=== PATIENT | female | born 1955 | race Caucasian/White ===

== ENCOUNTER 2016-09-25 09:13 | Inpatient (IN) | payer OTHER ==
[~2016-09-25] VITALS: Ht 160 cm; Wt 98.1 kg
[~2016-09-25 09:13] MED LIST: ALBU1AER9 INH; BACL1TAB PEG; CLOP1TAB15 PEG; DEXT40GE PEG; DLCS PR; DOCU-94 PO; Enteral Nutrition Formula PEG; FLUO10CA48 PEG; GLGKIT IM; HYDR-5688 PEG; INSU100I SC; IPRA-2 INH; LAMO1TAB21 PEG; LEVO75TA5 PEG; LIDO1CRE EXT; MOML PEG; PLMINS INH; SODI1ENE PR; TYL325X PEG; VALP250S16 PEG; WATER STERILE PEG
[2016-09-25 10:06] LABS: BASO % 0.2 %; BASO ABS # 0.01 K/uL (0-0.2); EOS % 1.8 %; HEMATOCRIT 26.7 % (37-47); IG% 1.6 %; LYMPH % 19.2 %; LYMPH ABS # 1.18 K/uL (1.2-3.4); MEAN CELL VOLUME 101.9 fL (80-100); MEAN CORPUSCULAR HEMOGLOBIN 32.8 pg (25-34); MEAN CORPUSCULAR HGB CONC 32.2 g/dl (32-36); MEAN PLATELET VOLUME 10.4 fL (7.4-10.4); MONO % 6.7 %; NEUT % 70.5 %; PLATELET COUNT 150 K/uL (130-400); RED BLOOD COUNT 2.62 M/uL (4.2-5.4); WHITE BLOOD COUNT 6.15 K/uL (4.8-10.8)
--- NOTE | 2016-09-25 10:12 | DIAGNOSTIC IMAGING REPORT ---
CHEST ONE VIEW PORTABLE CLINICAL HISTORY: altered mental status COMPARISON STUDY: 06/29/2016 FINDINGS: The heart is at the upper limits of normal in size. There is diffuse elevation of the interstitium. The findings likely reflect pulmonary vascular congestion although an interstitial inflammatory process could appear similar. There is no lobar consolidation. There are no significant pleural effusions. IMPRESSION: Diffuse elevation of the interstitium. Clinical correlation in regards to pulmonary vascular congestion is recommended. No evidence of lobar consolidation Electronically signed by: Prosper Grubbs M.D. 09/25/2016 10:10 AM
[2016-09-25 10:16] LABS: PARTIAL THROMBOPLASTIN RATIO 0.9; PROTHROMBIN TIME (PATIENT) 10.2 SECONDS (9.0-12.0)
[2016-09-25 10:23] LABS: AST/SGOT 13 U/L (15-37); BLOOD UREA NITROGEN 34 mg/dl (7-18); BUN/CREATININE RATIO 30.6 (10-20); CALCIUM 10.2 mg/dl (8.5-10.1); CARBON DIOXIDE 41 mmol/L (21-32); CHLORIDE 86 mmol/L (98-107); GLUCOSE 195 mg/dl (70-99); POTASSIUM 5.1 mmol/L (3.5-5.1); SODIUM 132 mmol/L (136-145)
[2016-09-25] MEDS ORDERED: RISP2TAB22 PEG ×2 (10:26)
[2016-09-25] MEDS ORDERED: INSDGI SC ×2 (10:26)
[2016-09-25] MEDS ORDERED: NUTR1.5L4 PEG (10:26)
[2016-09-25] MEDS ORDERED: MULT-506 PEG (10:26)
[2016-09-25 10:45] LABS: ALB/GLOB RATIO 0.8 (0.9-2); ALKALINE PHOSPHATASE 60 U/L (45-117); ALT/SGPT 14 U/L (12-78)
--- NOTE | 2016-09-25 10:51 | DIAGNOSTIC IMAGING REPORT ---
CT HEAD WITHOUT CONTRAST (CT) CLINICAL HISTORY: Acute change in mental status COMPARISON STUDY: 06/29/2016 TECHNIQUE: Axial CT of the brain is performed from the vertex to the skull base. IV contrast was not administered for this examination. CT DOSE: 810.83 mGy.cm FINDINGS: No intra or extra-axial mass lesions are visualized. There is no CT evidence of acute cortical infarction. There is no evidence of midline shift. There is no acute hemorrhage. No calvarial fractures are visualized. Increased density in the region of the left medial temporal lobe is likely artifactual. There are patchy white matter hypodensities, likely on a small vessel basis. There is no evidence of pathologic ventricular dilatation. There is indwelling nasal airway. There is no acute sinusitis. IMPRESSION: No acute intracranial findings Electronically signed by: Prosper Grubbs M.D. 09/25/2016 10:49 AM
[2016-09-25 11:08] LABS: COMPLETE YES
[2016-09-25 11:35] LABS: ARTERIAL BLD GAS O2 SATURATION 87.9 % (90-95); ARTERIAL BLOOD GAS BASE EXCESS 15.2 mEq/L (-9-1.8); ARTERIAL BLOOD GAS HCO3 41 mmol/L (19-24); ARTERIAL BLOOD GAS PO2 57 mm/Hg (80-95); ARTERIAL BLOOD GAS pH 7.42 (7.35-7.45)
[2016-09-25 11:36] LABS: ALLEN TEST POS (POS); O2 ADMINISTRATION 4 L
--- NOTE | 2016-09-25 12:21 | EMERGENCY ROOM VISIT NOTE ---
History Report prepared by Monik: Elder Ingram Under the Supervision of: Dr. Cheko Jhaveri D.O. First contact with patient: 10:11 Chief Complaint: WEAKNESS Stated Complaint: AMS/WEAK History of Present Illness The patient is a 60 year old female who presents to the Emergency Room with complaints of a persistent change in mental status that started around 2 days ago. Per the patient's family, the patient has been harder to arouse and has been sleeping more often. She was just discharged from the [facility] due to a recent stroke. The patient cannot walk and cannot use her left arm due to the stroke. The patient also has persistent problems talking. Per the patient's family, the patient has been cheerful and happy on baseline, and could talk and respond "yes" or "no" to questions. However, over the past 2 days, the patient has been much more unresponsive than her baseline. She has also been having some upper respiratory congestion. The patient gets 24 hour care at home. She has not complained of any pain over the last 2 days, so she has not been given her normal pain medications. All her medications are administered via a feeding tube. Currently, the patient gives a thumbs-up when asked if she has any pain, meaning that she states that she is having pain. Source of History: patient, family, nursing staff Onset: 2 days ago Position: other (global - change in mental status) Timing: other (persistent) Note: Associated symptoms: Harder to arouse and has been sleeping more often, much more unresponsive than her baseline, also having some upper respiratory congestion. Currently complains of pain. Review of Systems See HPI for pertinent positives & negatives. A total of 10 systems reviewed and were otherwise negative. Past Medical & Surgical Medical Problems: (1) Asthma, Unspecified (2) Bronchitis (3) COPD (chronic obstructive pulmonary disease) (4) Diab W Oth Spec Manifest, Type Ii Or Unspec Type, Not Uncntr (5) Epilepsy (6) Hemiparesis affecting dominant side as late effect of cerebrovascular accident (CVA) (7) Hyperlipidemia (8) Hypertension Nos (9) Mild Mental Retardation (10) Schizoaffective Disorder, Unspecified (11) Schizophrenia Nos-Unspec (12) Slurred speech (13) Stroke Family History Diabetes mellitus Heart disease Social History Smoking Status: Former Smoker Alcohol Use: none Drug Use: none Marital Status: Housing Status: lives with significant other Occupation Status: unemployed Current/Historical Medications Scheduled Baclofen (Lioresal), 10 MG PEG BID Budesonide (Inhalation) (Pulmicort Respules 0.5MG/2ML), 0.5 MG INH BIDR Clopidogrel (Plavix), 75 MG PEG DAILY Docusate Sodium (Colace), 1 CAP PO BID Fluoxetine (Prozac), 10 MG PEG DAILY Insulin Glargine (Lantus), 16 UNITS SC QAM Insulin Glargine (Lantus), 28 UNITS SC QPM Insulin Lispro (Human) (Humalog), 1 DOSE SC DIRECTED Ipratropium-Albuterol (Ipratropium Eagle/Albut), 3 ML INH QID Lamotrigine (Lamotrigine), 100 MG PEG BID Levothyroxine Sodium (Levothyroxine Sodium), 75 MCG PEG DAILY Multivitamin (Multivitamin), 1 TAB PEG DAILY Nutritional Supplements (Isosource 1.5 Eulogio), 250 ML PEG 5XD Risperidone (Risperdal), 2 MG PEG QAM Risperidone (Risperdal), 4 MG PEG QPM Valproic Acid Syrup (Depakene), 10 ML PEG TID [Water, Sterile], 1 EA PEG Q6 Scheduled PRN Acetaminophen (Tylenol), 650 MG PEG TID PRN for Pain Albuterol Sulfate (Proair Hfa), 2 PUFFS INH Q4H PRN for Wheezing Bisacodyl (Bisac-Evac), 10 MG UT every 4 days PRN for Constipation Dextrose (Diabetic Use) (Insta-Glucose), 1 APPLN PEG for glucose less than 60 Glucagon (Glucagon Emergency Kit), 1 MG IM prn PRN for HYPOGLYCEMIA PROTOCOL Lidocaine Hcl (Lidocaine), 1 DOSE EXT Q8H PRN for Pain Magnesium Hydroxide (Milk Of Magnesia), 30 ML PO DIRECTED PRN for Constipation Sodium Phosphates (Fleet Enema Six Pack), 1 UNIT UT DAILY PRN for constipation if dulcolax not w Allergies Coded Allergies: Sulfa Antibiotics (Verified Allergy, Mild, RASH, 09/25/16) Physical Exam Vital Signs Date Time Temp Pulse Resp B/P Pulse Ox O2 Delivery O2 Flow Rate FiO2 09/25/16 13:50 91 99 35 09/25/16 13:39 95 16 159/81 95 Nasal Cannula 4.0 09/25/16 12:26 91 15 159/85 95 Nasal Cannula 4.0 09/25/16 12:00 90 9 137/72 92 Nasal Cannula 4.0 09/25/16 11:00 89 14 137/72 93 Nasal Cannula 4.0 09/25/16 10:16 87 15 125/64 94 Nasal Cannula 2.0 09/25/16 09:38 91 09/25/16 09:21 98 Nasal Cannula 2.0 09/25/16 09:20 89 Room Air 09/25/16 09:20 37.0 88 24 117/51 97 Nasal Cannula 2.0 Physical Exam CONSTITUTIONAL/VITAL SIGNS: Reviewed / noted above. GENERAL: Non-toxic in appearance. INTEGUMENTARY: Warm, dry, and [place]. HEAD: Normocephalic. EYES: without scleral icterus or trauma. ENT/OROPHARYNX: clear and moist. LYMPHADENOPATHY/NECK: Is supple without lymphadenopathy or meningismus. RESPIRATORY: Patient has periodic apnea (Biot's respiration), breath sounds are diminished. CARDIOVASCULAR: Regular rate and rhythm. Systolic ejection murmur. GI/ABDOMEN: Soft and nontender. No organomegaly or pulsatile mass. No rebound or guarding. Normal bowel sounds. EXTREMITIES: Warm and well perfused. BACK: No CVA tenderness. NEUROLOGICAL: Intact without focal deficits. PSYCHIATRIC: normal affect. MUSCULOSKELETAL: Normally developed with good muscle tone. Medical Decision & Procedures ER Provider Diagnostic Interpretation: X ray results and stated below per my interpretation and radiologist interpretation. Other radiology results and stated below per my review and radiologist interpretation: CHEST ONE VIEW PORTABLE CLINICAL HISTORY: altered mental status COMPARISON STUDY: 06/29/2016 FINDINGS: The heart is at the upper limits of normal in size. There is diffuse elevation of the interstitium. The findings likely reflect pulmonary vascular congestion although an interstitial inflammatory process could appear similar. There is no lobar consolidation. There are no significant pleural effusions. IMPRESSION: Diffuse elevation of the interstitium. Clinical correlation in regards to pulmonary vascular congestion is recommended. No evidence of lobar consolidation Electronically signed by: Prosper Grubbs M.D. 09/25/2016 10:[address] HEAD WITHOUT CONTRAST (CT) CLINICAL HISTORY: Acute change in mental status COMPARISON STUDY: 06/29/2016 TECHNIQUE: Axial CT of the brain is performed from the vertex to the skull base. IV contrast was not administered for this examination. CT DOSE: 810.83 mGy.cm FINDINGS: No intra or extra-axial mass lesions are visualized. There is no CT evidence of acute cortical infarction. There is no evidence of midline shift. There is no acute hemorrhage. No calvarial fractures are visualized. Increased density in the region of the left medial temporal lobe is likely artifactual. There are patchy white matter hypodensities, likely on a small vessel basis. There is no evidence of pathologic ventricular dilatation. There is indwelling nasal airway. There is no acute sinusitis. IMPRESSION: No acute intracranial findings Electronically signed by: Prosper Grubbs M.D. 09/25/2016 10:49 AM Laboratory Results 09/25/16 09:10 Red Blood Count 2.62, Mean Corpuscular Volume 101.9, Mean Corpuscular Hemoglobin 32.8, Mean Corpuscular Hemoglobin Concent 32.2, Mean Platelet Volume 10.4, Neutrophils (%) (Auto) 70.5, Lymphocytes (%) (Auto) 19.2, Monocytes (%) ( Auto) 6.7, Eosinophils (%) (Auto) 1.8, Basophils (%) (Auto) 0.2, Neutrophils # ( Auto) 4.34, Lymphocytes # (Auto) 1.18, Monocytes # (Auto) 0.41, Eosinophils # ( Auto) 0.11, Basophils # (Auto) 0.01 09/25/16 09:10 Test 09/25/16 09:10 09/25/16 10:12 09/25/16 11:07 09/25/16 12:26 White Blood Count 6.15 K/uL (4.8-10.8) Red Blood Count 2.62 M/uL (4.2-5.4) Hemoglobin 8.6 g/dL (12.0-16.0) Hematocrit 26.7 % (37-47) Mean Corpuscular Volume 101.9 fL (80-100) Mean Corpuscular Hemoglobin 32.8 pg (25-34) Mean Corpuscular Hemoglobin Concent 32.2 g/dl (32-36) Platelet Count 150 K/uL (130-400) Mean Platelet Volume 10.4 fL (7.4-10.4) Neutrophils (%) (Auto) 70.5 % Lymphocytes (%) (Auto) 19.2 % Monocytes (%) (Auto) 6.7 % Eosinophils (%) (Auto) 1.8 % Basophils (%) (Auto) 0.2 % Neutrophils # (Auto) 4.34 K/uL (1.4-6.5) Lymphocytes # (Auto) 1.18 K/uL (1.2-3.4) Monocytes # (Auto) 0.41 K/uL (0.11-0.59) Eosinophils # (Auto) 0.11 K/uL (0-0.5) Basophils # (Auto) 0.01 K/uL (0-0.2) RDW Standard Deviation 56.3 fL (36.4-46.3) RDW Coefficient of Variation 15.3 % (11.5-14.5) Immature Granulocyte % (Auto) 1.6 % Immature Granulocyte # (Auto) 0.10 K/uL (0.00-0.02) Basophilic Stippling 1+ Prothrombin Time 10.2 SECONDS (9.0-12.0) Prothromb Time International Ratio 1.0 (0.9-1.1) Activated Partial Thromboplast Time 24.3 SECONDS (21.0-31.0) Partial Thromboplastin Ratio 0.9 Anion Gap 6.0 mmol/L (3-11) Estimated GFR () 64.1 Estimated GFR (Non- 55.3 BUN/Creatinine Ratio 30.6 (10-20) Calcium Level 10.2 mg/dl (8.5-10.1) Total Bilirubin 0.2 mg/dl (0.2-1) Aspartate Amino Transf (AST/SGOT) 13 U/L (15-37) Alanine Aminotransferase (ALT/SGPT) 14 U/L (12-78) Alkaline Phosphatase 60 U/L (45-117) Total Protein 6.2 gm/dl (6.4-8.2) Albumin 2.7 gm/dl (3.4-5.0) Globulin 3.5 gm/dl (2.5-4.0) Albumin/Globulin Ratio 0.8 (0.9-2) Thyroid Stimulating Hormone (TSH) 8.560 uIu/ml (0.300-4.500) Bedside Glucose 262 mg/dl (70-90) Arterial Blood pH 7.42 (7.35-7.45) Arterial Blood Partial Pressure CO2 65 mmHg (35-46) Arterial Blood Partial Pressure O2 57 mm/Hg (80-95) Arterial Blood HCO3 41 mmol/L (19-24) Arterial Blood Oxygen Saturation 87.9 % (90-95) Arterial Blood Base Excess 15.2 mEq/L (-9-1.8) Arterial Blood Gas Delivery 4 L Talon Test POS (POS) Laboratory results as stated above per my review. ECG Indication: altered mental status Rate (beats per minute): 90 Rhythm: normal sinus Findings: no ectopy, other (LVH, no acute injury) Change: no significant change (from June 29 2016) ED Course 1012: Previous medical records were reviewed. The patient was evaluated in room B2. A complete history and physical examination was performed. 1222: I reevaluated the patient and she is resting comfortably. The patient's family expressed agreement and understanding of the treatment plan. The patient will be evaluated for further treatment. 1227: I discussed the patient with Dr. López - [facility] hospitalist - he will evaluate the patient for further treatment. Medical Decision This is a 60-year-old female who presents to the ED with a chief complaint of change in mental status and periodic apnea. The patient was recently discharged from the [facility]. She was sent home with 24-hour care. The nursing staff states the patient has had decreased in her responsiveness in mentation. She is normally able to speak and answer basic questions although she cannot carry on a conversation. She has history of CVA with some left-sided paralysis that is chronic. The patient is for the most part bedbound. The patient on exam has periodic episodes of apnea where she stops breathing for up to 6-10 seconds. She is chronically on 2 L of oxygen at home. The patient is a poor historian. She did not respond verbally to me at all. She did raise her right arm on command. She appears to be very sleepy and has difficulty keeping her eyes open without stimulation physically. An EKG shows a normal sinus rhythm at a rate of 90. Her hemoglobin is 8.6. Bicarbonate is elevated at 41. Glucose is 262. CT scan of the brain did not show any acute process. An ABG shows a normal acid base status at a 7.42. She is hypercarbic with a PCO2 of 65. Her saturations are low at 88% on 4 L with a PaO2 of 57. Because of the patient's hypercarbia and altered mental status, she 'll be seen by the hospitalist service for further inpatient care. She will be placed on BiPAP. Differential diagnosis: Etiologies such as metabolic, infection, hypoglycemia, electrolyte abnormalities , cardiac sources, intracerebral event, toxicologic, neurologic, as well as others were entertained. Consults Time Called: 1219 Consulting Physician: Dr. Rene SCHRADER hospitalist Returned Call: 1227 I discussed the patient with Dr. Rene SCHRADER hospitalist - he will evaluate the patient for further treatment. Impression Primary Impression: Acute respiratory failure with hypoxia and hypercarbia Additional Impressions: Altered mental state, Anemia Scribe Attestation The scribe's documentation has been prepared under my direction and personally reviewed by me in its entirety. I confirm that the note above accurately reflects all work, treatment, procedures, and medical decision making performed by me. Departure Information Dispostion Being Evaluated By Hospitalist Referrals No Doctor, Assigned (PCP) Patient Instructions A Signature Page, My [facility]
[2016-09-25] MEDS ORDERED: NITROGLYCERIN 0.4 MG SL PER TAB CHARGE SL PRN (13:15)
[2016-09-25] MEDS ORDERED: ALBUTEROL HFA 8 GM INHALER INH PRN (13:15)
[2016-09-25] MEDS ORDERED: ACETAMINOPHEN 325 MG TAB PEG PRN (13:15)
[2016-09-25] MEDS ORDERED: ONDANSETRON INJ 2 MG/ML 2 ML VIAL IV PRN (13:15)
[2016-09-25] MEDS ORDERED: BISACODYL 10 MG SUPP PR PRN (13:15)
[2016-09-25] MEDS ORDERED: GLUCAGON 1 MG IM PRN (13:15)
[2016-09-25] MEDS ORDERED: IMPACT LIQ 1000 ML BAG PEG SCH (13:15)
[2016-09-25] MEDS ORDERED: MAGNESIUM HYDROXIDE SUSP 30 ML UDC PO PRN (13:15)
[2016-09-25] MEDS ORDERED: LIDOCAINE HCL 2% JELLY 30 ML TUBE EXT PRN (13:15)
[2016-09-25] MEDS ORDERED: INSULIN LISPRO SC SCH (13:45)
[2016-09-25 13:50] VITALS: PULSE 91; O2SAT 99
--- NOTE | 2016-09-25 13:56 | History and Physical ---
History & Physical Date & Time of Service: Sep 25, 2016 at 13:30 Chief Complaint: Ams/Weak Primary Care Physician: No Doctor, Assigned History of Present Illness Source: hospital records Patient is a 60 y/o female, with PMHx of COPD, DM, hypothyroidism, hyperlipidemia, epilepsy, and CVA, who presented to the ED because of altered mental status and apnea. Patient is nonverbal, and no family is present. History is coming from ED report. Per report, patient stated experiencing altered mental status two days ago. She has been hard to arouse and sleeping more. She was recently discharged from [facility] due to a stroke. Patient has 24 hour care at home. Patient has also been experiencing upper respiratory congestion. She has not complained of any pain to the family. All of patients medications are administered via PEG due to recent stroke and difficulty with swallowing. Patient was admitted in May for similar symptoms. At that time, a complete neuro and psychiatry evaluation was completed. Neuro exam was benign resulting in no changes in medications. ROS cannot be obtained. Past Medical/Surgical History Medical Problems: (1) Asthma, Unspecified Status: Chronic (2) Bronchitis Status: Resolved (3) COPD (chronic obstructive pulmonary disease) Status: Chronic (4) Diab W Oth Spec Manifest, Type Ii Or Unspec Type, Not Uncntr Status: Chronic (5) Epilepsy Status: Chronic (6) Hyperlipidemia Status: Chronic (7) Hypertension Nos Status: Chronic (8) Mild Mental Retardation Status: Chronic (9) Schizoaffective Disorder, Unspecified Status: Chronic (10) Schizophrenia Nos-Unspec Status: Chronic Family History Diabetes mellitus Heart disease Social History Smoking Status: Former Smoker Drug Use: none Marital Status: Housing status: care home Occupational Status: unemployed Immunizations History of Influenza Vaccine: Yes Influenza Vaccine Date: Jul 24, 2010 History of Tetanus Vaccine?: Yes History of Pneumococcal: Yes Pneumococcal Date: Jul 15, 2009 History of Hepatitis B Vaccine: Unknown Multi-Drug Resistant Organisms History of MDRO: No Allergies Coded Allergies: Sulfa Antibiotics (Verified Allergy, Mild, RASH, 09/25/16) Home Medications Scheduled Baclofen (Lioresal), 10 MG PEG BID Budesonide (Inhalation) (Pulmicort Respules 0.5MG/2ML), 0.5 MG INH BIDR Clopidogrel (Plavix), 75 MG PEG DAILY Docusate Sodium (Colace), 1 CAP PO BID Fluoxetine (Prozac), 10 MG PEG DAILY Insulin Glargine (Lantus), 16 UNITS SC QAM Insulin Glargine (Lantus), 28 UNITS SC QPM Insulin Lispro (Human) (Humalog), 1 DOSE SC DIRECTED Ipratropium-Albuterol (Ipratropium [place]/Albut), 3 ML INH QID Lamotrigine (Lamotrigine), 100 MG PEG BID Levothyroxine Sodium (Levothyroxine Sodium), 75 MCG PEG DAILY Multivitamin (Multivitamin), 1 TAB PEG DAILY Nutritional Supplements (Isosource 1.5 Eulogio), 250 ML PEG 5XD Risperidone (Risperdal), 2 MG PEG QAM Risperidone (Risperdal), 4 MG PEG QPM Valproic Acid Syrup (Depakene), 10 ML PEG TID [Water, Sterile], 1 EA PEG Q6 Scheduled PRN Acetaminophen (Tylenol), 650 MG PEG TID PRN for Pain Albuterol Sulfate (Proair Hfa), 2 PUFFS INH Q4H PRN for Wheezing Bisacodyl (Bisac-Evac), 10 MG [place] every 4 days PRN for Constipation Dextrose (Diabetic Use) (Insta-Glucose), 1 APPLN PEG for glucose less than 60 Glucagon (Glucagon Emergency Kit), 1 MG IM prn PRN for HYPOGLYCEMIA PROTOCOL Lidocaine Hcl (Lidocaine), 1 DOSE EXT Q8H PRN for Pain Magnesium Hydroxide (Milk Of Magnesia), 30 ML PO DIRECTED PRN for Constipation Sodium Phosphates (Fleet Enema Six Pack), 1 UNIT [place] DAILY PRN for constipation if dulcolax not w Physical Exam Vital Signs Date Time Temp Pulse Resp B/P Pulse Ox O2 Delivery O2 Flow Rate FiO2 09/25/16 12:26 91 15 159/85 95 Nasal Cannula 4.0 09/25/16 12:00 90 9 137/72 92 Nasal Cannula 4.0 09/25/16 11:00 89 14 137/72 93 Nasal Cannula 4.0 09/25/16 10:16 87 15 125/64 94 Nasal Cannula 2.0 09/25/16 09:38 91 09/25/16 09:21 98 Nasal Cannula 2.0 09/25/16 09:20 89 Room Air 09/25/16 09:20 37.0 88 24 117/51 97 Nasal Cannula 2.0 General Appearance: no apparent distress Head: normocephalic, atraumatic Eyes: PERRL Neck: supple Respiratory/Chest: no respiratory distress, no accessory muscle use, + decreased breath sounds, + pertinent finding (coarse breath sounds) Cardiovascular: regular rate, rhythm, + systolic murmur Abdomen/GI: normal bowel sounds, non tender, soft Back: normal inspection Extremities/Musculoskelatal: no pedal edema Neurologic/Psych: + pertinent finding (nonverbal, no physical reposones to exam ) Skin: normal color, warm/dry, no rash Diagnostics Laboratory Results Results Past 24 Hours Test 09/25/16 09:10 09/25/16 10:12 09/25/16 11:07 09/25/16 12:26 Range/Units White Blood Count 6.15 4.8-10.8 K/uL Red Blood Count 2.62 4.2-5.4 M/uL Hemoglobin 8.6 12.0-16.0 g/dL Hematocrit 26.7 37-47 % Mean Corpuscular Volume 101.9 80-100 fL Mean Corpuscular Hemoglobin 32.8 25-34 pg Mean Corpuscular Hemoglobin Concent 32.2 32-36 g/dl Platelet Count 150 130-400 K/uL Mean Platelet Volume 10.4 7.4-10.4 fL Neutrophils (%) (Auto) 70.5 % Lymphocytes (%) (Auto) 19.2 % Monocytes (%) (Auto) 6.7 % Eosinophils (%) (Auto) 1.8 % Basophils (%) (Auto) 0.2 % Neutrophils # (Auto) 4.34 1.4-6.5 K/uL Lymphocytes # (Auto) 1.18 1.2-3.4 K/uL Monocytes # (Auto) 0.41 0.11-0.59 K/uL Eosinophils # (Auto) 0.11 0-0.5 K/uL Basophils # (Auto) 0.01 0-0.2 K/uL RDW Standard Deviation 56.3 36.4-46.3 fL RDW Coefficient of Variation 15.3 11.5-14.5 % Immature Granulocyte % (Auto) 1.6 % Immature Granulocyte # (Auto) 0.10 0.00-0.02 K/uL Basophilic Stippling 1+ Prothrombin Time 10.2 9.0-12.0 SECONDS Prothromb Time International Ratio 1.0 0.9-1.1 Activated Partial Thromboplast Time 24.3 21.0-31.0 SECONDS Partial Thromboplastin Ratio 0.9 Sodium Level 132 136-145 mmol/L Potassium Level 5.1 3.5-5.1 mmol/L Chloride Level 86 98-107 mmol/L Carbon Dioxide Level 41 21-32 mmol/L Anion Gap 6.0 3-11 mmol/L Blood Urea Nitrogen 34 7-18 mg/dl Creatinine 1.10 0.60-1.20 mg/dl Estimated GFR () 64.1 Estimated GFR (Non- 55.3 BUN/Creatinine Ratio 30.6 10-20 Random Glucose 195 70-99 mg/dl Calcium Level 10.2 8.5-10.1 mg/dl Total Bilirubin 0.2 0.2-1 mg/dl Aspartate Amino Transf (AST/SGOT) 13 15-37 U/L Alanine Aminotransferase (ALT/SGPT) 14 12-78 U/L Alkaline Phosphatase 60 45-117 U/L Total Protein 6.2 6.4-8.2 gm/dl Albumin 2.7 3.4-5.0 gm/dl Globulin 3.5 2.5-4.0 gm/dl Albumin/Globulin Ratio 0.8 0.9-2 Thyroid Stimulating Hormone (TSH) 8.560 0.300-4.500 uIu/ml Bedside Glucose 262 70-90 mg/dl Arterial Blood pH 7.42 7.35-7.45 Arterial Blood Partial Pressure CO2 65 35-46 mmHg Arterial Blood Partial Pressure O2 57 80-95 mm/Hg Arterial Blood HCO3 41 19-24 mmol/L Arterial Blood Oxygen Saturation 87.9 90-95 % Arterial Blood Base Excess 15.2 -9-1.8 mEq/L Arterial Blood Gas Delivery 4 L Talon Test POS POS Diagnostic Radiology CT HEAD WITHOUT CONTRAST (CT) CLINICAL HISTORY: Acute change in mental status COMPARISON STUDY: 06/29/2016 TECHNIQUE: Axial CT of the brain is performed from the vertex to the skull base. IV contrast was not administered for this examination. CT DOSE: 810.83 mGy.cm FINDINGS: No intra or extra-axial mass lesions are visualized. There is no CT evidence of acute cortical infarction. There is no evidence of midline shift. There is no acute hemorrhage. No calvarial fractures are visualized. Increased density in the region of the left medial temporal lobe is likely artifactual. There are patchy white matter hypodensities, likely on a small vessel basis. There is no evidence of pathologic ventricular dilatation. There is indwelling nasal airway. There is no acute sinusitis. IMPRESSION: No acute intracranial findings Electronically signed by: Prosper Grubbs M.D. 09/25/2016 10:49 AM The status of this report is Signed. Draft = Not yet reviewed or approved by Radiologist. Signed = Reviewed and approved by Radiologist. CHEST ONE VIEW PORTABLE CLINICAL HISTORY: altered mental status COMPARISON STUDY: 06/29/2016 FINDINGS: The heart is at the upper limits of normal in size. There is diffuse elevation of the interstitium. The findings likely reflect pulmonary vascular congestion although an interstitial inflammatory process could appear similar. There is no lobar consolidation. There are no significant pleural effusions. IMPRESSION: Diffuse elevation of the interstitium. Clinical correlation in regards to pulmonary vascular congestion is recommended. No evidence of lobar consolidation Electronically signed by: Prosper Grubbs M.D. 09/25/2016 10:10 AM The status of this report is Signed. Draft = Not yet reviewed or approved by Radiologist. Signed = Reviewed and approved by Radiologist. Impression Assessment and Plan 60 y/o female, with PMHx of COPD, DM, hypothyroidism, hyperlipidemia, epilepsy, and CVA, who presented to the ED because of altered mental status and apnea. Altered mental status: -Admit tele -CT of head with no acute findings -CXR suggest pulmonary congestion, one dose 40 mg IV Lasix now --Echo in 05/2016 EF of 55-60% with diastolic dysfunction -IV Levaquin, check CXR tomorrow AM -Pending UA -Follow PRP -Hypercarbic with PCO2 of 61. However, seems baseline compared to previous admissions. pH of 7.42 CVA: -Continue Plavix 75 mg PEG daily Epilepsy--VA acid low at 49 -Continue Valproic acid 10 ml PEG TID Lamotrigine 100 mg PEG BID. -Phenytoin and Valproic acid levels pending Diabetes mellitus type II--Last HgbA1c checked on 03/18/16 and was 9.9 -Continue Lantus 16 units q am and 28 units qhs and insulin pump 5 units q6h -BSG AC & HS COPD -Continue Combivent QIDR and budesonide BIDR Schizophrenia -Continue Risperidone 2 mg PEG q am and 4 mg PEG qhs Anemia -Hgb 8.6 at admission, appears baseline compared to previous records -Follow CBC Hypothyroidism -Synthroid 75 mcg PEG qd increased to 88 mcg -TSH of 8.5 on admission Anxiety/depression -Continue Prozac 10 mg PEG qd DVT prophylaxis -Chemical therapy held due to low hgb -LISA hose and SCDs ?Code Status -No family present, patient is nonverbal. -At last admission in May 2016, patient was a LEVEL I, FULL. Will make full code at this time, needs to be discussed in next 24 hours. Level of Care Telemetry Resuscitation Status FULL RESUSCITATION VTE Prophylaxis VTE Risk Assessment Done? Y/N: Yes Risk Level: High Given or contraindicated: T.E.D. Stockings, SCD's
[2016-09-25 15:53] VITALS: BP 132/78; PULSE 92; TEMP 36.7; O2SAT 100; BMI 38.3
[2016-09-25] MEDS ORDERED: PNEUMOCOCCAL ADMINISTRATION CHARGE ONE (17:15)
[2016-09-25] MEDS ORDERED: INFLUENZA ADMINISTRATION CHARGE ONE (17:15)
[2016-09-25] MEDS ORDERED: INFLUENZA VIRUS QUAD VACCINE 0.5 ML SYR IM. ONE (17:30)
[2016-09-25] MEDS ORDERED: GLUCOSE 10 TABS/TUBE PO PRN ×4 (18:00→21:00)
[2016-09-25] MEDS ORDERED: GLUCAGON FOR INJ 1 MG VIAL SQ PRN ×4 (18:00→21:00)
[2016-09-25] MEDS ORDERED: GLUCOSE 40% GEL 15 GM TUBE PO PRN ×4 (18:00→21:00)
[2016-09-25] MEDS ORDERED: WATER STERILE PEG SCH (18:00)
[2016-09-25] MEDS ORDERED: PNEUMOCOCCAL POLYSACCHARIDES 25 MCG/0.5 ML VIAL/SYR IM. ONE (18:00)
[2016-09-25] MEDS ORDERED: DEXTROSE 50% 50 ML SYR IV PRN ×4 (18:00→21:00)
[2016-09-25] MEDS ORDERED: FUROSEMIDE INJ 40 MG in SYRINGE 0 ML IV ONE (18:00)
[2016-09-25] MEDS: LEVOFLOXACIN / D5W 500 MG in PREMIXED IN D5W 100 ML IV SCH (18:56)
[2016-09-25 19:40] VITALS: BP 148/77; PULSE 71; TEMP 36.5; O2SAT 100
[2016-09-25] MEDS ORDERED: FUROSEMIDE INJ 40 MG in SYRINGE 0 ML IV STA (19:41)
[2016-09-25] MEDS: BUDESONIDE 0.5 MG/2 ML VIAL (PULMICORT) INH SCH (19:42)
[2016-09-25] MEDS: ALBUT/IPRATROP 3MG/0.5MG NEB 3 ML VIAL INH SCH (19:42)
[2016-09-25 19:46] VITALS: PULSE 68; O2SAT 97
[2016-09-25 19:48] VITALS: PULSE 68; O2SAT 97
[2016-09-25 20:04] VITALS: O2SAT 97
[2016-09-25] MEDS: INSULIN ASPART 100 UNITS/ML 3 ML PEN SC SCH (21:00)
[2016-09-25] MEDS ORDERED: LANTUS PER UNIT CHARGE SC SCH (21:00)
--- NOTE | 2016-09-25 21:06 | HISTORY & PHYSICAL EXAMINATION ---
DATE OF ADMISSION: 09/25/2016 ADDENDUM This is done by physical bar assistant, Renea Ayalaluciobridger. This patient was seen and evaluated in detail by me. She was kind of awake but nonverbal and having coughing and congestion and was a poor historian, most of the information obtained from the ER staff. The case discussed with the PA in detail and her plan and management was addressed in detail. ALEJANDRINA
[2016-09-25] MEDS: RISPERIDONE 2 MG TAB PEG SCH (21:21)
[2016-09-25] MEDS: VALPROIC ACID 500 MG/10 ML UDP PEG SCH (21:21)
[2016-09-25] MEDS: BACLOFEN 10 MG TAB PEG SCH (21:21)
[2016-09-25] MEDS: INSULIN GLARGINE SOLOSTAR 100 UNITS/ML 3 ML PEN SC SCH (22:45)
[2016-09-25] MEDS: DOCUSATE SODIUM 100 MG/10 ML UDC PO SCH (22:46)
[2016-09-26] VITALS (19 sets, daily range): BP systolic 124–166; BP diastolic 61–86; PULSE 76–100; TEMP 36–37.4; O2SAT 92–100
[2016-09-26 05:18] LABS: URINE APPEARANCE CLOUDY (CLEAR); URINE BILIRUBIN NEG (NEG); URINE COLOR YELLOW; URINE NITRITE NEG (NEG); URINE PH 7.5 (4.5-7.5); URINE SPECIFIC GRAVITY 1.008 (1.000-1.030); UROBILINOGEN NEG (NEG); ZZUR CULT IF INDIC CLEAN CATCH YES
[2016-09-26 05:19] LABS: MANUAL MICROSCOPIC REQUIRED? NO; REVIEW REQ? NO; SULFASALICYLIC ACID POS (NEG)
[2016-09-26] MEDS: PEPTAMEN 1.5 CAL 1000ML BAG PEG SCH ×5 (05:47→18:38)
[2016-09-26] MEDS: LEVOTHYROXINE 88 MCG TAB PEG SCH (05:48)
[2016-09-26] MEDS: BUDESONIDE 0.5 MG/2 ML VIAL (PULMICORT) INH SCH ×2 (07:24→19:23)
[2016-09-26] MEDS: ALBUT/IPRATROP 3MG/0.5MG NEB 3 ML VIAL INH SCH ×4 (07:24→19:23)
[2016-09-26] MEDS: FLUOXETINE HCL 20 MG/5 ML PO SCH (08:20)
[2016-09-26] MEDS: MULTIVITAMINS W/MINERALS LIQUID PO SCH (08:20)
[2016-09-26] MEDS: RISPERIDONE 2 MG TAB PEG SCH ×2 (08:20→21:02)
[2016-09-26] MEDS: VALPROIC ACID 500 MG/10 ML UDP PEG SCH ×3 (08:20→21:01)
[2016-09-26] MEDS: CLOPIDOGREL BISULFATE 75 MG TAB PEG SCH (08:20)
[2016-09-26] MEDS: BACLOFEN 10 MG TAB PEG SCH ×2 (08:21→21:02)
[2016-09-26] MEDS: DOCUSATE SODIUM 100 MG/10 ML UDC PO SCH ×2 (08:21→21:01)
--- NOTE | 2016-09-26 08:30 | DIAGNOSTIC IMAGING REPORT ---
SINGLE VIEW CHEST CLINICAL HISTORY: Apnea. Abnormal breath sounds on physical examination. FINDINGS: An AP, portable, upright chest radiograph is compared to study dated 09/25/2016 and correlated with chest CT dated 04/05/2016. The examination is degraded by portable technique, large body habitus, and patient rotation. The cardiomediastinal silhouette is unremarkable. There are low lung volumes with bibasilar atelectasis and mild elevation of the right hemidiaphragm. Interstitial thickening is unchanged from yesterday. No large pleural effusion or pneumothorax is seen. The skeletal structures are osteopenic. The bony thorax is grossly intact. Cholecystectomy clips are seen in the right upper quadrant. IMPRESSION: Interstitial thickening is similar in appearance to yesterday. No lobar consolidation or pleural effusion is identified. Electronically signed by: Dante Esqueda M.D. 09/26/2016 8:28 AM
[2016-09-26] MEDS: INSULIN ASPART 100 UNITS/ML 3 ML PEN SC SCH ×4 (08:36→20:49)
[2016-09-26] MEDS ORDERED: LANTUS PER UNIT CHARGE SC SCH (09:00)
[2016-09-26] MEDS ORDERED: INSULIN GLARGINE SOLOSTAR 100 UNITS/ML 3 ML PEN SC SCH (09:00)
[2016-09-26] MEDS ORDERED: FLUOXETINE HCL 10 MG CAP PO SCH (09:00)
[2016-09-26] MEDS ORDERED: MULTIVITAMINS W/MINERALS LIQUID PO SCH (09:00)
[2016-09-26] MEDS: LEVOFLOXACIN / D5W 500 MG in PREMIXED IN D5W 100 ML IV SCH (10:33)
--- NOTE | 2016-09-26 11:45 | Neurology Consultation ---
Neurology Consultation Date of Consultation: Sep 26, 2016. Attending Physician: Cher Stein MD Primary Care Physician: No Doctor, Assigned Reason for Consultation: Change in mental status History of Present Illness The patient is a 60-year-old female who is known to me. She has a past medical history of seizure disorder, probably mixed type, diabetic peripheral neuropathy , and schizoaffective disorder. She follows with psychiatry at [facility] as well. Her epilepsy has been well controlled on Lamictal and Depakote. Depakote is managed has been managed by her psychiatrist. She was admitted to [facility] this past February for a right pontine stroke and has residual, chronic, left hemiplegia and dysphagia. She is dependent on a feeding tube and is bedbound. The patient presented to the emergency department yesterday for further evaluation of confusion and lethargy for the past 2 days. She has been observed to exhibit apneic episodes in the emergency department. She has a history of COPD and chronic hypercarbia. She has been evaluated previously by both and Dr. Diaz for both obstructive sleep apnea and chronic alveolar hypoventilation complicated by significant excessive daytime somnolence. I am not certain how well controlled her multiple chronic respiratory issues are. The patient exhibits lethargy and frequent sonorous breath sounds during my evaluation. Past Medical/Surgical History Medical Problems: (1) Acute renal failure Status: Acute (2) Acute respiratory failure with hypoxia and hypercarbia Status: Acute (3) Altered mental state Status: Acute (4) Altered mental status Status: Acute (5) Anemia Status: Acute (6) Apneic episode Status: Acute (7) CVA (cerebral vascular accident) Status: Acute (8) CVA (cerebral vascular accident) Status: Acute (9) Hypoxia Status: Acute (10) Ischemic stroke Status: Acute Family History Diabetes and heart disease Social History Smoking Status: Former smoker Drug Use: none Marital Status: Housing Status: lives with significant other Occupation Status: unemployed Allergies Coded Allergies: Sulfa Antibiotics (Verified Allergy, Mild, RASH, 09/25/16) Current Inpatient Medications Current Inpatient Medications Medications (Trade) Dose Ordered Sig/Tristian Route Start Time Stop Time Status Last Admin Dose Admin Ondansetron HCl (Zofran Inj) 4 mg Q6H PRN IV 09/25/16 13:15 10/25/16 13:14 Nitroglycerin (Nitrostat Tab) 0.4 mg UD PRN SL 09/25/16 13:15 10/25/16 13:14 Acetaminophen (Tylenol Tab) 650 mg TID PRN PEG 09/25/16 13:15 10/25/16 13:14 Albuterol (Ventolin Hfa Inhaler) 2 puffs Q4H PRN INH 09/25/16 13:15 10/25/16 13:14 Baclofen (Lioresal Tab) 10 mg BID PEG 09/25/16 21:00 10/25/16 20:59 09/26/16 08:21 10 MG Bisacodyl (Dulcolax Supp) 10 mg DAILY PRN NE 09/25/16 13:15 10/25/16 13:14 Budesonide (Pulmicort Respules 0.5MG/ 2ML Neb Soln) 0.5 mg BIDR INH 09/25/16 20:00 10/25/16 19:59 09/26/16 07:24 0.5 MG Clopidogrel Bisulfate (plAVix TAB) 75 mg DAILY PEG 09/26/16 09:00 10/26/16 08:59 09/26/16 08:20 75 MG Docusate Sodium (coLACE SYRUP) 100 mg BID PO 09/25/16 21:00 10/25/16 20:59 09/26/16 08:21 100 MG Albuterol/ Ipratropium (Duoneb) 3 ml QIDR INH 09/25/16 16:00 10/25/16 15:59 09/26/16 07:24 3 ML Lamotrigine (Lamictal Tab) 100 mg BID PEG 09/25/16 21:00 10/25/16 20:59 09/26/16 08:21 100 MG Levothyroxine Sodium (Synthroid Tab) 88 mcg DAILYBB PEG 09/26/16 06:00 10/26/16 05:59 09/26/16 05:48 88 MCG Magnesium Hydroxide (Milk Of Magnesia Susp) 30 ml DAILY PRN PO 09/25/16 13:15 10/25/16 13:14 Multivitamins (Multivitamin Tab) 1 tab DAILY GT 09/26/16 09:00 10/26/16 08:59 UNV Risperidone (Risperdal Tab) 2 mg QAM PEG 09/26/16 09:00 10/26/16 08:59 09/26/16 08:20 2 MG Risperidone (Risperdal Tab) 4 mg QPM PEG 09/25/16 21:00 10/25/16 20:59 09/25/16 21:21 4 MG Valproic Acid (Depakene Syrup) 500 mg TID PEG 09/25/16 21:00 10/25/16 20:59 09/26/16 08:20 500 MG Lidocaine HCl (Xylocaine Jelly 2%) 1 ml Q8H PRN EXT 09/25/16 13:15 10/25/16 13:14 Insulin Aspart SLIDING SCALE G... ACHS SC 09/25/16 21:00 10/25/16 20:59 09/26/16 08:36 1 UNITS Levofloxacin/Prmx (Levaquin / D5W/ Premixed D5W) 100 ml @ 100 mls/hr DAILY@1100 IV 09/25/16 18:00 10/05/16 17:59 09/26/16 10:33 100 MLS/HR Enteral Nutritional Formula (Peptamen 1.5) 250 ml 0600,0900,1200,1500,1800 PEG 09/26/16 06:00 10/26/16 05:59 09/26/16 08:20 250 ML Fluoxetine HCl (Prozac Soln) 10 mg DAILY PO 09/26/16 09:00 10/26/16 08:59 09/26/16 08:20 10 MG Glucose (Glucose 40% Gel) 15-30 GRAMS 15 GRAMS... UD PRN PO 09/25/16 18:00 10/25/16 17:59 Glucose (Glucose Chew Tab) 4-8 Tablets 4 Tabl... UD PRN PO 09/25/16 18:00 10/25/16 17:59 Dextrose (Dextrose 50% 50ML Syringe) 25-50ML OF 50% DW IV FOR... UD PRN IV 09/25/16 18:00 10/25/16 17:59 Glucagon (Glucagon Inj) 1 mg UD PRN SQ 09/25/16 18:00 10/25/16 17:59 Glucose (Glucose 40% Gel) 15-30 GRAMS 15 GRAMS... UD PRN PO 09/25/16 19:00 10/25/16 18:59 Glucose (Glucose Chew Tab) 4-8 Tablets 4 Tabl... UD PRN PO 09/25/16 19:00 10/25/16 18:59 Dextrose (Dextrose 50% 50ML Syringe) 25-50ML OF 50% DW IV FOR... UD PRN IV 09/25/16 19:00 10/25/16 18:59 Glucagon (Glucagon Inj) 1 mg UD PRN SQ 09/25/16 19:00 10/25/16 18:59 Glucose (Glucose 40% Gel) 15-30 GRAMS 15 GRAMS... UD PRN PO 09/25/16 20:30 10/25/16 20:29 Glucose (Glucose Chew Tab) 4-8 Tablets 4 Tabl... UD PRN PO 09/25/16 20:30 10/25/16 20:29 Dextrose (Dextrose 50% 50ML Syringe) 25-50ML OF 50% DW IV FOR... UD PRN IV 09/25/16 20:30 10/25/16 20:29 Glucagon (Glucagon Inj) 1 mg UD PRN SQ 09/25/16 20:30 10/25/16 20:29 Insulin Glargine (Lantus Solostar Pen) 16 unit QAM SC 09/26/16 09:00 10/26/16 08:59 09/26/16 08:22 16 UNIT Insulin Glargine (Lantus Solostar Pen) 28 unit QPM SC 09/25/16 21:00 10/25/16 20:59 09/25/16 22:45 28 UNIT Glucose (Glucose 40% Gel) 15-30 GRAMS 15 GRAMS... UD PRN PO 09/25/16 21:00 10/25/16 20:59 Glucose (Glucose Chew Tab) 4-8 Tablets 4 Tabl... UD PRN PO 09/25/16 21:00 10/25/16 20:59 Dextrose (Dextrose 50% 50ML Syringe) 25-50ML OF 50% DW IV FOR... UD PRN IV 09/25/16 21:00 10/25/16 20:59 Glucagon (Glucagon Inj) 1 mg UD PRN SQ 09/25/16 21:00 10/25/16 20:59 Review of Systems Review of systems is significant for somnolence, chronic shortness of breath, persistent left-sided weakness, persistent swallowing difficulty, mood irritability She denies fever, vision change, hearing change, vertigo, palpitations, abdominal pain, dysuria, myalgia, rash, abnormal bleeding, or swollen glands A full 10 point review of systems was obtained from this patient and is as described in the history of present illness and otherwise listed above Physical Exam Vital Signs (Past 24 Hrs): Date Time Temp Pulse Resp B/P Pulse Ox O2 Delivery O2 Flow Rate FiO2 09/26/16 09:46 100 Nasal Cannula 2.0 09/26/16 08:02 36.6 96 18 136/81 100 BiPAP 09/26/16 07:24 96 98 30 09/26/16 07:24 96 16 98 BiPAP/CPAP 30 09/26/16 04:48 97 BiPAP 4.0 35 09/26/16 04:08 97 BiPAP 4.0 35 09/26/16 04:05 36.0 91 17 159/75 98 BiPAP 30 09/26/16 02:35 76 96 30 09/26/16 00:22 36.3 83 15 166/72 100 BiPAP 30 09/26/16 00:14 97 BiPAP 4.0 35 09/25/16 20:04 97 BiPAP 4.0 35 09/25/16 19:48 68 16 97 BiPAP/CPAP 35 09/25/16 19:46 68 97 35 09/25/16 19:40 36.5 71 20 148/77 100 BiPAP 09/25/16 15:53 36.7 92 22 132/78 100 BiPAP 09/25/16 15:08 91 16 159/81 99 09/25/16 13:50 91 99 35 09/25/16 13:39 95 16 159/81 95 Nasal Cannula 4.0 09/25/16 12:26 91 15 159/85 95 Nasal Cannula 4.0 09/25/16 12:00 90 9 137/72 92 Nasal Cannula 4.0 09/25/16 11:00 89 14 137/72 93 Nasal Cannula 4.0 The patient is an obese, chronically ill appearing elderly female. She readily recognizes me upon entering the room. She is in no acute distress although she appears lethargic and exhibits mildly impaired attention and concentration. She is oriented to person place and time, recent and remote memory intact, she exhibits a normal, spontaneous speech pattern and is able to name objects and repeat phrases. She is able to read text. She correctly describes a complex visual seen. Vocabulary normal. Visual wilkerson full to confrontation. Visual acuity normal. Pupils equal round reactive to light and accommodation. Eye movements normal. Facial sensation intact. There is a mild to moderate left facial droop present which is chronic. Hearing intact bilaterally. Palate elevates to midline. Tongue protrudes to midline. Shoulder shrug strength intact bilaterally. There is diminished sensation to vibration at the ankles. Sensation to light touch, temperature, and proprioception is intact for the limbs. Deep tendon reflexes are diffusely diminished. Plantar responses are upgoing bilaterally. The patient is unable to perform finger to nose or heel to nguyen on the left due to a dense hemiplegia. She performs these maneuvers on the right although has some difficulty with the leg. Ophthalmoscopic examination reveals normal-appearing optic nerves and posterior elements. No papilledema, no hemorrhages. Carotid pulses normal bilaterally, no bruits. Musculoskeletal examination reveals a significant left hemiplegia. Strength for the left arm and leg are both 0/5. Strength in the right arm and leg are normal. The patient does not exhibit significant spasticity of the left arm or leg. Tone for the right arm and leg are normal. The patient exhibits an intermittent right upper extremity rest tremor. There is no atrophy. Gait cannot be tested. Laboratory Results Past 24 Hours: Test 09/25/16 11:07 09/25/16 12:26 09/26/16 04:20 09/26/16 04:44 Arterial Blood pH 7.42 (7.35-7.45) Arterial Blood Partial Pressure CO2 65 mmHg (35-46) Arterial Blood Partial Pressure O2 57 mm/Hg (80-95) Arterial Blood HCO3 41 mmol/L (19-24) Arterial Blood Oxygen Saturation 87.9 % (90-95) Arterial Blood Base Excess 15.2 mEq/L (-9-1.8) Arterial Blood Gas Delivery 4 L Talon Test POS (POS) Phenytoin (Dilantin) Level 0.9 mcg/mL (10-20) Valproic Acid (Depakene) Level 71 mcg/ml (50-100) Urine Color YELLOW Urine Appearance CLOUDY (CLEAR) Urine pH 7.5 (4.5-7.5) Urine Specific [place] 1.008 (1.000-1.030) Urine Protein 1+ (NEG) Urine Glucose (UA) NEG (NEG) Urine Ketones NEG (NEG) Urine Occult Blood 2+ (NEG) Urine Nitrite NEG (NEG) Urine Bilirubin NEG (NEG) Urine Urobilinogen NEG (NEG) Urine Leukocyte Esterase MODERATE (NEG) Urine WBC (Auto) >30 /hpf (0-5) Urine RBC (Auto) 5-10 /hpf (0-4) Urine Hyaline Casts (Auto) 5-10 /lpf (0-5) Urine Epithelial Cells (Auto) 10-20 /lpf (0-5) Urine Bacteria (Auto) NEG (NEG) Test 09/26/16 07:00 Bedside Glucose 198 mg/dl (70-90) Imaging I reviewed the images and radiologist's interpretation of the CT of the head completed in the emergency department during this hospitalization. There is no evidence of hemorrhage, or other acute process. No significant change compared with prior CT of the head completed in June. I reviewed the images pertaining to this patient's brain MRI completed in February 2016 which revealed the acute ischemic infarct within the right anterior jewel-jane at that time. A follow-up brain MRI completed in May 2016 was negative for acute stroke at that time. This second MRI was obtained during a hospitalization for altered mental status that seem somewhat similar to the most recent hospitalization. The patient also underwent EEG evaluation at that time as well which revealed changes consistent with encephalopathy but no epileptiform abnormalities. MR angiography of the head and neck completed in February 2016 revealed multifocal stenosis of the right vertebral artery. There was no hematoma noted significant stenosis of either internal carotid artery. Impression Persistent lethargy/somnolence/mild encephalopathy which are likely chronic issues and largely related to chronic respiratory failure, alveolar hypoventilation, and obstructive sleep apnea. Her pulmonary status has previously been evaluated by Dr. Diaz and previously by Dr. Kruse. Chronic left hemiplegia and dysphagia related to a pontine stroke diagnosed during an admission to [facility] in February 2016 and again observed during an admission in May 2016.. This patient's left-sided weakness does seem a bit more pronounced today. Extension of her previous stroke or development of an interval stroke cannot be excluded. Chronic stable seizure disorder, probably mixed type with nonepileptic events suspected in the past. Chronic stable schizoaffective disorder. Chronic diabetic peripheral neuropathy. Plan I would recommend an up-to-date brain MRI. Continue Plavix. There is no need for additional evaluation of this patient's seizure disorder. Continue Lamictal and Depakote. Would consider obtaining a consultation with pulmonology. Please contact me if I may be of further assistance.
--- NOTE | 2016-09-26 15:01 | Pulmonary Consultation ---
History General Date of Service: Sep 26, 2016. Stated Complaint: Altered Mental Status HPI The patient is a 60 year old female who presents to [facility] with complaints of Altered Mental Status. The patient's primary care provider is No Doctor, Assigned. Altered mental status with hypoventilation and elevated AA gradient: 60-year-old female with past medical history of COPD(no pulmonary function test) , diabetes, hypothyroidism, hyperlipidemia, epilepsy and CVA where she was recently rehabbing at [facility] prior to being sent home 2 weeks ago. Patient presented to the emergency room if she was having progressive altered mental status over the previous 48 hours. She was noted to be constantly fatigued, somnolent in difficult to arouse. The patient's friend is at the bedside and notes she has had copious upper airway secretions and difficulty with clearing them. The patient continues to be somnolent but is arousable at this time she denies: Fever, chills, chest pain, pleurisy, abdominal pain but does note diffuse pain along her left upper and lower extremity. At the time of her presentation to the emergency she was notably lethargic with decreased SaO2's initially at 88% and was initiated on BiPAP with 35% oxygen support. Cardiac Echo (06/16/16) * LV: systolic function is normal, EF= 55-60%. * mild concentric left ventricular hypertrophy, Grade I diastolic dysfunction * No evidence of atrial septal defect, but resolution does not allow assessment for a patent foramen ovale. CTA 04/05/16: RML collapse with 12mm nodule in the RLL lateral sub-segment, bilateral posterior sub segment atelectasis, small pleural effusion and signs of chronic aspiration Review of Systems I'm unable to perform proper review of systems this patient is somnolent Past Medical History Past Medical History: (1) Asthma (2) Bronchitis (3) COPD (4) DM (5) Epilepsy (6) Hyperlipidemia (7) Hypertension (8) Mild Mental Retardation (9) Schizoaffective Disorder (10) Schizophrenia (11) ETOH abuse (12) TB prophylaxis therapy (13) CVA /left hemiparesis (14) UTI Past Medical History: alcohol addiction, bipolar disorder, COPD, coronary artery disease, diabetes, diverticulosis, GERD, high cholesterol, hypothyroidism , myocardial infarction, seizure, other Past Surgical History: 1) Appendectomy 2) Cholecystectomy 3) Nasal septal reconstruction 4) Past Surgical History: appendectomy, , cholecystectomy, hysterectomy, other Family History Diabetes mellitus Heart disease 1) Diabetes mellitus 2) Heart disease Social History Smoking Status: Former Smoker/hx of 2ppd/quit after stroke Drug Use: none Marital Status: [facility] Hx Tobacco Use In Past Year?: No Smoking Status: Former Smoker Alcohol: never, history of alcohol abuse Drug Use: none Marital status: Housing status: [facility] Occupational Status: unemployed Immunizations History of Influenza Vaccine: Yes Influenza Vaccine Date: Jul 24, 2010 History of Tetanus Vaccine?: Yes History of Pneumococcal: Yes Pneumococcal Date: Jul 15, 2009 History of Hepatitis B Vaccine: Unknown History of MDRO History of MDRO: No Allergies Coded Allergies: Sulfa Antibiotics (Verified Allergy, Mild, RASH, 09/25/16) Current Medications Reported Home Medications Medications Dose Route/Sig Max Daily Dose Days Date Category Dose Instructions Multivitamin (Multivitamins) Tab 1 Tab PEG DAILY 09/25/16 Reported Isosource 1.5 Eulogio (Nutritional Supplements) 1 Liq Liq 250 Ml PEG 5XD 09/25/16 Reported Lantus (Insulin Glargine) 100 Unit/Ml Inj 28 Units SC QPM 09/25/16 Reported Lantus (Insulin Glargine) 100 Unit/Ml Inj 16 Units SC QAM 09/25/16 Reported Risperdal (Risperidone) 2 Mg Tab 4 Mg PEG QPM 09/25/16 Reported Risperdal (Risperidone) 2 Mg Tab 2 Mg PEG QAM 09/25/16 Reported Depakene (Valproic Acid) 250 Mg/5 Ml Syrp 10 Ml PEG TID 07/14/16 Reported Milk Of Magnesia (Magnesium Hydroxide) 30 Ml Susp 30 Ml PO DIRECTED PRN 07/14/16 Reported Lidocaine (Lidocaine Hcl) 3 % Cre 1 Dose EXT Q8H PRN 07/14/16 Reported Humalog (Insulin Lispro (Human)) 100 Unit/Ml Inj 1 Dose SC DIRECTED 07/14/16 Reported SLIDING SCALE Colace (Docusate Sodium) 100 Mg Cap 1 Cap PO BID 30 06/29/16 Reported 100 Mg PEG BID for constipation Insta-Glucose (Dextrose (Diabetic Use)) 77.4 % Gel 1 Appln PEG PRN 06/16/16 Reported Glucagon Emergency Kit (Glucagon) 1 Mg Kit 1 Mg IM PRN PRN 06/16/16 Reported Fleet Enema Six Pack (Sodium Phosphates) 1 Marisol Marisol 1 Unit OH DAILY PRN 06/16/16 Reported Bisac-Evac (Bisacodyl) 10 Mg Supp 10 Mg OH EVERY 4 DAYS PRN 06/16/16 Reported Lioresal (Baclofen) 10 Mg Tab 10 Mg PEG BID 06/16/16 Reported Plavix (Clopidogrel Bisulfate) 75 Mg Tab 75 Mg PEG DAILY 06/16/16 Reported Pulmicort Respules 0.5MG/2ML (Budesonide (Inhalation)) 0.5 Mg/2 Ml Meera 0.5 Mg INH BIDR 04/09/16 Rx [Water, Sterile] 1 EA Sharron 1 Ea PEG Q6 04/09/16 Rx Tylenol (Acetaminophen) 325 Mg Tab 650 Mg PEG TID PRN 04/09/16 Rx Ipratropium [place]/Albut (Ipratropium-Albuterol) 1 Jumana Jumana 3 Ml INH QID 04/09/16 Rx Proair Hfa (Albuterol Sulfate) 108 Mcg/ Aer 2 Puffs INH Q4H PRN 04/09/16 Rx Prozac (Fluoxetine HCl) 10 Mg Cap 10 Mg PEG DAILY 03/31/16 Reported Levothyroxine Sodium 75 Mcg Tab 75 Mcg PEG DAILY 03/14/16 Reported Lamotrigine 100 Mg Tab 100 Mg PEG BID 03/14/16 Reported Risperdal (Risperidone) 2 Mg Tab 2 Mg PO BID 09/20/09 Reported Ventolin (Albuterol) Inh 2 Puffs INH Q4-6HR PRN 5 09/20/09 Reported Dilantin (Phenytoin Sodium) 100 Mg Ercap 100 Mg PO TID 09/20/09 Reported Darvocet-N 100 (Propoxyphene Napsylate/Acetam) Tab 1 Tab PO Q6HR PRN 09/20/09 Reported Vicodin 5MG/500MG (Acetaminophen/Hydrocodone Bitart) Tab 1 Tablet PO Q4HR PRN 09/20/09 Reported PAIN Advair Diskus Unknown Dose (Salmeterol Xinafoate/Fluticasone) Aerp 09/20/09 Reported Lantus (Insulin Glargine) Vial 60 SC QPM 09/20/09 Reported Lantus (Insulin Glargine) Vial 30 SC QAM 09/20/09 Reported Neurontin (Gabapentin) 100 Mg Cap 100 Mg PO TID 09/20/09 Reported Trazodone (Trazodone HCl) 100 Mg Tab 100 Mg PO HS 09/20/09 Reported Depakote Extended Rel (Divalproex Sodium) 250 Mg Tabcr 750 Mg PO BID 09/20/09 Reported Cogentin (Benztropine Mesylate) 1 Mg Tab 1 Mg PO BID 09/20/09 Reported Bentyl (Dicyclomine HCl) 20 Mg Tab 20 Mg PO Q6HR PRN 09/20/09 Reported Zestril (Lisinopril) 20 Mg Tab 20 Mg PO BID 09/20/09 Reported Calan (Verapamil HCl) 120 Mg Tab 120 Mg PO HS 09/20/09 Reported Zocor (Simvastatin) 40 Mg Tab 40 Mg PO QPM 09/20/09 Reported Physical Physical Exam Vital Signs: Date Time Temp Pulse Resp B/P Pulse Ox O2 Delivery O2 Flow Rate FiO2 09/26/16 12:57 Nasal Cannula 2.0 09/26/16 11:50 100 16 100 Nasal Cannula 3.0 09/26/16 11:35 37.0 100 18 124/83 98 3.0 09/26/16 09:46 100 Nasal Cannula 2.0 09/26/16 08:02 36.6 96 18 136/81 100 BiPAP 09/26/16 07:24 96 98 30 09/26/16 07:24 96 16 98 BiPAP/CPAP 30 09/26/16 04:48 97 BiPAP 4.0 35 09/26/16 04:08 97 BiPAP 4.0 35 09/26/16 04:05 36.0 91 17 159/75 98 BiPAP 30 09/26/16 02:35 76 96 30 09/26/16 00:22 36.3 83 15 166/72 100 BiPAP 30 09/26/16 00:14 97 BiPAP 4.0 35 09/25/16 20:04 97 BiPAP 4.0 35 09/25/16 19:48 68 16 97 BiPAP/CPAP 35 09/25/16 19:46 68 97 35 09/25/16 19:40 36.5 71 20 148/77 100 BiPAP 09/25/16 15:53 36.7 92 22 132/78 100 BiPAP 09/25/16 15:08 91 16 159/81 99 General Appearance: other (somnolent but arousable orientated times person and place) Head: NORMOCEPHALIC, ATRAUMATIC Eyes: PERRLA, NO DISCHARGE ENT: NORMAL NASAL EXAM, NORMAL MOUTH EXAM, dentures, other Neck: NORMAL RANGE OF MOTION, NO TENDERNESS, TRACHEA MIDLINE Respiratory: other (decreased breath sounds bilaterally with dullness at the bases bilaterally) Cardiovasular: REGULAR RATE/RHYTHM, NORMAL S1S2, NO M/G/R Abdomen: NON TENDER, NORMAL BOWEL SOUNDS, NO REBOUND, NO MASSES Genitourinary - Female: EXTERNAL GENITALIA NORMAL Back: other (patient would not turn so proper examination of the back was unattainable) Upper Extremities: NO EDEMA Lower Extremities: other (bilateral lower extremity edema 2+ on the right side 3+ on the left side) Edema: Bilateral LE Pulses: carotid (R) (2+), carotid (L) (2+), dorsalis pedis (R) (1+), dorsalis pedis (L) (1+) Neuro: ALERT, ORIENTED x 3, NORMAL MOTOR EXAM, NORMAL SENSATION Reflexes: biceps (R) (2+), patellar (R) (2+) Babinski Testing: right (downgoing), left (upgoing) Psychiatric: NORMAL AFFECT, other Diagnostics Labs Results Past 24 Hours Test 09/25/16 22:38 09/26/16 04:20 09/26/16 04:44 09/26/16 07:00 Range/Units Bedside Glucose 175 198 70-90 mg/dl Urine Color YELLOW Urine Appearance CLOUDY CLEAR Urine pH 7.5 4.5-7.5 Urine Specific [place] 1.008 1.000-1.030 Urine Protein 1+ NEG Urine Glucose (UA) NEG NEG Urine Ketones NEG NEG Urine Occult Blood 2+ NEG Urine Nitrite NEG NEG Urine Bilirubin NEG NEG Urine Urobilinogen NEG NEG Urine Leukocyte Esterase MODERATE NEG Urine WBC (Auto) >30 0-5 /hpf Urine RBC (Auto) 5-10 0-4 /hpf Urine Hyaline Casts (Auto) 5-10 0-5 /lpf Urine Epithelial Cells (Auto) 10-20 0-5 /lpf Urine Bacteria (Auto) NEG NEG Test 09/26/16 11:09 Range/Units Bedside Glucose 323 70-90 mg/dl Microbiology Results 09/26/16 Urine Culture, Received Pending Diagnostic Radiology CT HEAD: No acute intracranial findings CXR: 09/26/16 expiratory, mild peripheral fullness, anaid-bronchial cuffing, infiltrate in the posterior medial RLL CXR: 09/25/16: inspiratory image with RLL vs. RML infiltrate and scaring in the RLL lateral sub segment EKG Rhythm Strip: sinus tachycardia Impression Assessment and Plan 60-year-old female with altered mental status hypercapnia and hypoxia with an AA gradient: #1 Hypercapnia: Patient was sent home from [facility] on BiPAP or possibly CPAP , at this time I do not have the records to verify. This suggests the patient's hypercapnia most likely combination of somnolence and OSMANY or possibly obesity hypoventilation syndrome. We should continue BiPAP at current settings while patient is sleeping and is much as tolerated. #2 Hypoxia: Patient's most recent ABG as an Aa gradient calculated to 104. Etiologies of elevated Aa gradient associated hypoxia: V/Q mismatch, chronic underlying lung disease such as COPD, diffusion capacity abnormality or shunt. Notably this patient still had an increase A gradient even after oxygen was supplied which would be consistent with shunt physiology. At this time I believe the most likely combination of the patient's hypoxemia are chronic aspiration/atelectasis, hypoventilation with associated OSMANY possible pickwickian syndrome and possible COPD. a) If after the resolution of her patient's altered mental status/lethargy does not resolve her hypoxemia I believe further workup with a bubble study and nocturnal desaturation study would be appropriate. b) I will order a DVT study of the bilateral lower extremities is the left leg is notably swollen possibly 2 status post CVA but the patient does have increased risk of DVT formation. #3 infectious disease: Patient with a history of multiple UTIs and Levaquin resistant Escherichia coli. At this time I will discontinue the Levaquin and initiate patient on Zosyn and vancomycin as she has indication for aspiration and hospital associated infection. Thank you for this consultation.
[2016-09-26] MEDS ORDERED: PIPERACILL/TAZOBAC CONSULT ACTIVE PRN (15:15)
[2016-09-26] MEDS ORDERED: VANCOMYCIN CONSULT ACTIVE PRN (15:15)
[2016-09-26] MEDS ORDERED: VANCOMYCIN INJ 2,400 MG in SODIUM CHLORIDE 0.9% 500ML 500 ML IV ONE (15:30)
[2016-09-26] MEDS ORDERED: PIPERACILL/TAZOBAC IV 3.375 GM in DEXTROSE 5% 100ML 100 ML IV ONE (15:50)
--- NOTE | 2016-09-26 15:59 | DIAGNOSTIC IMAGING REPORT ---
MRI OF THE BRAIN WITHOUT IV CONTRAST CLINICAL HISTORY: Strokelike symptoms. COMPARISON STUDY: CT of the brain dated 09/25/2016. TECHNIQUE: MRI of the brain was performed utilizing various T1 and T2-weighted sequences in the axial, sagittal, and coronal planes. IV contrast was not administered for this examination. The examination is degraded by motion artifact. FINDINGS: Brain parenchyma: There are age-related involutional changes noting mild to moderate patchy subcortical and periventricular microangiopathic disease. There is no hemorrhage or mass effect. There is no restricted diffusion to suggest acute ischemia. Kumar-white matter differentiation is preserved. No extra-axial fluid collection is seen. The cerebellar tonsils are normal in configuration. Ventricles, sulci, and cisterns: Prominent secondary to involutional change. Pituitary and sella: Unremarkable. Intracranial vasculature: Normal flow voids are maintained at the skull base. Orbits: The bony orbits are grossly intact. Orbital contents are normal in appearance. Sinuses and mastoids: There are small mastoid effusions. The paranasal sinuses are clear. Calvarium: Unremarkable. Cervical cord: Partially visualized cervical spinal cord is normal in morphology and signal intensity. IMPRESSION: 1. Motion degraded examination. 2. Senescent changes as above with no acute intracranial abnormality. 3. Bilateral mastoid effusions. Electronically signed by: Dante Esqueda M.D. 09/26/2016 3:57 PM
--- NOTE | 2016-09-26 16:01 | Pharmacy Progress Note ---
Pharmacy Antibiotic Consult Date of Service: Sep 26, 2016. Pharmacy Dosing Scope Pharmacy is consulted to initiate Vancomycin IV dosing therapy, order appropriate labs and adjust drug dose/frequency. Subjective The patient is a 60 year old female admitted on Sep 25, 2016 at 13:29. Objective Height (Feet): 5 Height (Inches): 3.00 Weight (Kilograms): 97.600 Lab Results (24hrs): Laboratory Tests Test 09/26/16 04:44 Micro Results: Item Value Date Time Urine Culture Received 09/26/16 0420 Urine , Clean Catch Pending Recent Pertinent Medications Item Value Date Time Piperacillin Sod/ 115 ml @ 28.75 mls/hr 09/26/16 2200 Tazobactam Sod Q8H/IV 3.375 gm/Dextrose Levofloxacin 500 100 ml @ 100 mls/hr 09/25/16 1800 mg/Prmx DAILY@1100/IV 09/26/16 1033 Assessment & Plan 60 yo F admitted with altered mental status, originally started on Levaquin IV, but now changed to Vancomycin PLUS Zosyn IV for possible aspiration and UTI coverage. has noted that patient has multiple UTIs in the past with some level of resistance. Plan: * Loading dose: Vancomycin 2400 mg IV X 1 dose * Continue 1450 mg IV every 14 hours * Patient is at risk for accumulation due to BMI >35kg/m2 * Goal trough level estimate: between 15 - 20 mcg/mL. * A trough has been ordered for: 09/28/16 @2330 prior to the midnight dose on 09/29/16. * Note, pharmacist reviewing trough will have to take into consideration that patient may accumulate the drug over subsequent days Pharmacy will continue to follow and will adjust dose/frequency as necessary. Thank you
--- NOTE | 2016-09-26 16:45 | DIAGNOSTIC IMAGING REPORT ---
ULTRASOUND BILATERAL LOWER EXTREMITY VENOUS CLINICAL HISTORY: Change in mental status.. COMPARISON STUDY: Bilateral lower extremity venous ultrasound dated 05/01/2009. TECHNIQUE: Real-time, grayscale, and color Doppler sonography of the deep veins of the right and left lower extremity was performed from the inguinal crease to the calf. Compression and augmentation were utilized. FINDINGS: There is trace chronic appearing thrombus identified within the left popliteal vein. There is no sonographic evidence of acute deep venous thrombosis identified in the right or left lower extremity. The common femoral, superficial femoral, and popliteal veins are otherwise patent and normally compressible bilaterally. The midportion of the right superficial femoral vein is not well visualized due to overlying bandaging. The greater saphenous vein and the profunda femoris vein at the junction with the common femoral vein are clear in both legs. The visualized calf veins are patent bilaterally. IMPRESSION: 1. There is trace and chronic appearing deep venous thrombosis identified within the left popliteal vein. 2. There is no sonographic evidence of acute deep venous thrombosis identified in the right or left lower extremity. Electronically signed by: Dante Esqueda M.D. 09/26/2016 4:43 PM
--- NOTE | 2016-09-26 19:22 | Hospitalist Progress Note ---
Hospitalist Progress Note Date of Service Sep 26, 2016. Subjective Pt evaluation today including: conversation w/ patient, conversation w/ family (boyfriend Don), physical exam, chart review, lab review, review of studies, conversation w/ taxation consultant (Pulm and Neurology), review of inpatient medication list PO Intake: none Voiding: esquivel catheter in place Pt very somnolent, used sternal rub to get her to wake up and then she answered questions appropriately. MRI brain neg for new CVA, Doppler LLE with trace chronic DVT but no acute DVT Constitutional: No fever All Other Systems: Reviewed and Negative (difficult to obtain) Objective Vital Signs Date Time Temp Pulse Resp B/P Pulse Ox O2 Delivery O2 Flow Rate FiO2 09/26/16 16:31 37.4 100 18 141/61 98 Nasal Cannula 2.0 09/26/16 16:10 100 Nasal Cannula 2.0 30 09/26/16 12:57 Nasal Cannula 2.0 09/26/16 11:50 100 16 100 Nasal Cannula 3.0 09/26/16 11:35 37.0 100 18 124/83 98 3.0 09/26/16 09:46 100 Nasal Cannula 2.0 09/26/16 08:02 36.6 96 18 136/81 100 BiPAP 09/26/16 07:24 96 98 30 09/26/16 07:24 96 16 98 BiPAP/CPAP 30 09/26/16 04:48 97 BiPAP 4.0 35 09/26/16 04:08 97 BiPAP 4.0 35 09/26/16 04:05 36.0 91 17 159/75 98 BiPAP 30 09/26/16 02:35 76 96 30 09/26/16 00:22 36.3 83 15 166/72 100 BiPAP 30 09/26/16 00:14 97 BiPAP 4.0 35 09/25/16 20:04 97 BiPAP 4.0 35 09/25/16 19:48 68 16 97 BiPAP/CPAP 35 09/25/16 19:46 68 97 35 09/25/16 19:40 36.5 71 20 148/77 100 BiPAP Physical Exam General Appearance: no apparent distress, + obese (mrbidly), + pertinent finding (sternal rub required and loud verbal stimulus to get her to wake up) Eyes: + pertinent finding (small amount yellow crusting from eyes OU) ENT: + pertinent finding (edentulous, left facial droop) Neck: + pertinent finding (morbidly obese) Respiratory/Chest: no respiratory distress, + decreased breath sounds ( throughout, difficult lung exam) Cardiovascular: regular rate, rhythm, + pertinent finding (left leg and LUE with 2+ pitting edema) Abdomen: normal bowel sounds, non tender, soft (and morbidly obese) Extremities: non-tender, no calf tenderness Neurologic/Psychiatric: + pertinent finding (weakness on left side, left facial droop) Skin: warm/dry, no rash Laboratory Results Last 24 Hours Test 09/25/16 22:38 09/26/16 04:20 09/26/16 07:00 09/26/16 11:09 Bedside Glucose 175 mg/dl 198 mg/dl 323 mg/dl Urine Color YELLOW Urine Appearance CLOUDY Urine pH 7.5 Urine Specific [place] 1.008 Urine Protein 1+ Urine Glucose (UA) NEG Urine Ketones NEG Urine Occult Blood 2+ Urine Nitrite NEG Urine Bilirubin NEG Urine Urobilinogen NEG Urine Leukocyte Esterase MODERATE Urine WBC (Auto) >30 /hpf Urine RBC (Auto) 5-10 /hpf Urine Hyaline Casts (Auto) 5-10 /lpf Urine Epithelial Cells (Auto) 10-20 /lpf Urine Bacteria (Auto) NEG Test 09/26/16 16:32 Bedside Glucose 333 mg/dl Assessment and Plan 60 y/o female, with PMHx of COPD, DM, hypothyroidism, hyperlipidemia, HTN, DMII , epilepsy,Schizoaffective d/o, and CVA, who presented to the ED because of altered mental status and apnea, with acute hypoxemic respiratory failure. Altered mental status, seems to be secondary to Pickwickian Syndrome/ hypercarbic respiratory failure with PaCO2 of 61, HCO3 41; Also aspiration pneumonitis -Admit tele -CT of head with no acute findings -switched abx today to Zosyn and Vanco as per Pulm recommendations to cover for HAP and/or aspiration -CXR suggest pulmonary congestion and repeat on 09/26 similar, one dose 40 mg IV Lasix given on admission --Echo in 05/2016 EF of 55-60% with diastolic dysfunction -Pulmonary consult obtained--> ordered BiPAP as much as possible, Doppler LLE neg for acute DVT but shows trace chronic DVT left popliteal vein -Neuro consult also obtained and he thinks not likely related to seizures or her h/o CVA but recommended MRI brain which did NOT show new CVA H/o CVA: -Continue Plavix 75 mg PEG daily Epilepsy--VA acid low at 49 -Continue Valproic acid 10 ml PEG TID Lamotrigine 100 mg PEG BID. Diabetes mellitus type II--Last HgbA1c checked on 03/18/16 and was 9.9 -Continue Lantus 16 units q am and 28 units qhs and insulin pump 5 units q6h -BSG AC & HS COPD -Continue Combivent QIDR and budesonide BIDR Schizophrenia -Continue Risperidone 2 mg PEG q am and 4 mg PEG qhs Anemia -Hgb 8.6 at admission, appears baseline compared to previous records -Follow CBC Hypothyroidism -Synthroid 75 mcg PEG qd increased to 88 mcg -TSH of 8.5 on admission Anxiety/depression -Continue Prozac 10 mg PEG qd DVT prophylaxis -Chemical therapy held due to low hgb -LISA preston and Adia Dispo-to home with her established 24 hr care when ready PT/OT perla FULL CODE
[2016-09-26] MEDS ORDERED: NURSING VERBAL MED ORDER ONE (20:45)
[2016-09-26] MEDS ORDERED: INSULIN ASPART 100 UNITS/ML 3 ML PEN SC STA (20:45)
[2016-09-26] MEDS: INSULIN GLARGINE SOLOSTAR 100 UNITS/ML 3 ML PEN SC SCH (20:48)
[2016-09-26] MEDS ORDERED: VANCOMYCIN INJ 1,000 MG in SODIUM CHLORIDE 0.9% 250ML 250 ML IV SCH (21:00)
[2016-09-26] MEDS: PIPERACILL/TAZOBAC IV 3.375 GM in DEXTROSE 5% 100ML 100 ML IV SCH (22:36)
[2016-09-27] VITALS (15 sets, daily range): BP systolic 125–163; BP diastolic 73–81; PULSE 82–97; TEMP 36.4–37.3; O2SAT 94–100; Ht 160 cm; Wt 98.1 kg
[2016-09-27] MEDS ORDERED: NovoLIN-R INSULIN PER UNIT CHARGE SC STA ×2 (00:54→00:58)
[2016-09-27] MEDS: LEVOTHYROXINE 88 MCG TAB PEG SCH (05:56)
[2016-09-27] MEDS: PEPTAMEN 1.5 CAL 1000ML BAG PEG SCH ×5 (05:56→17:42)
[2016-09-27] MEDS: PIPERACILL/TAZOBAC IV 3.375 GM in DEXTROSE 5% 100ML 100 ML IV SCH ×3 (05:56→21:56)
[2016-09-27] MEDS ORDERED: VANCOMYCIN INJ 1,450 MG in SODIUM CHLORIDE 0.9% 500ML 500 ML IV SCH ×2 (06:00→22:00)
[2016-09-27 07:03] LABS: BASO % 0.2 %; BASO ABS # 0.01 K/uL (0-0.2); EOS % 1.9 %; HEMATOCRIT 25.1 % (37-47); IG% 3.8 %; LYMPH % 14.9 %; LYMPH ABS # 0.78 K/uL (1.2-3.4); MEAN CORPUSCULAR HEMOGLOBIN 33.3 pg (25-34); MEAN CORPUSCULAR HGB CONC 32.7 g/dl (32-36); MEAN PLATELET VOLUME 10.7 fL (7.4-10.4); MONO % 8.4 %; NEUT % 70.8 %; PLATELET COUNT 123 K/uL (130-400); RED BLOOD COUNT 2.46 M/uL (4.2-5.4); WHITE BLOOD COUNT 5.23 K/uL (4.8-10.8)
[2016-09-27] MEDS: DOCUSATE SODIUM 100 MG/10 ML UDC PO SCH ×2 (07:22→20:17)
[2016-09-27] MEDS: FLUOXETINE HCL 20 MG/5 ML PO SCH (07:22)
[2016-09-27] MEDS: VALPROIC ACID 500 MG/10 ML UDP PEG SCH ×3 (07:23→20:17)
[2016-09-27] MEDS: MULTIVITAMINS W/MINERALS LIQUID PO SCH (07:23)
[2016-09-27] MEDS: ALBUT/IPRATROP 3MG/0.5MG NEB 3 ML VIAL INH SCH ×4 (07:23→20:21)
[2016-09-27] MEDS: BACLOFEN 10 MG TAB PEG SCH ×2 (07:24→20:17)
[2016-09-27] MEDS: RISPERIDONE 2 MG TAB PEG SCH ×2 (07:25→20:17)
[2016-09-27] MEDS: CLOPIDOGREL BISULFATE 75 MG TAB PEG SCH (07:25)
[2016-09-27 07:31] LABS: COMPLETE YES; STOMATOCYTE 1+
[2016-09-27 07:34] LABS: BUN/CREATININE RATIO 27.8 (10-20); CALCIUM 9.8 mg/dl (8.5-10.1); CREATININE 1.3 mg/dl (0.60-1.20); MAGNESIUM 2.3 mg/dl (1.8-2.4); POTASSIUM 4.6 mmol/L (3.5-5.1)
[2016-09-27] MEDS: INSULIN ASPART 100 UNITS/ML 3 ML PEN SC SCH ×4 (08:00→20:29)
[2016-09-27] MEDS: BUDESONIDE 0.5 MG/2 ML VIAL (PULMICORT) INH SCH ×2 (08:00→20:21)
--- NOTE | 2016-09-27 08:16 | Neurology Progress Notes ---
Neurology Progress Note Date of Service Sep 27, 2016. Subjective Patient is feeling well this morning with no pain or headache. She is not dizzy. She believes she is in a good mood. She wore her BiPAP all night last night and nursing reports that she is much more awake and alert this morning than she had been. She has had no seizure activity or new neurologic events. Her left side is weak and that is residual from her stroke in February 2016. MRI of the brain yesterday showed no acute stroke. There is moderate old small vessel ischemia as before and some very mild generalized atrophy. Also noted were bilateral mastoid effusions Venous Doppler study showed no acute DVT although the was some changes seen in the left popliteal vein Laboratory studies reveal significant anemia of 8.2. Depakote level was normal at 71. There is an elevated BUN and creatinine and a glucose of over 300. There was elevated urine white count and a TSH was elevated at 8.5. Objective Date Time Temp Pulse Resp B/P Pulse Ox O2 Delivery O2 Flow Rate FiO2 09/27/16 07:48 37.3 93 22 163/81 97 Nasal Cannula 2.0 09/27/16 07:23 88 14 96 Nasal Cannula 2.0 09/27/16 04:18 37.3 97 20 152/77 97 BiPAP 09/27/16 04:00 100 BiPAP 09/26/16 23:59 100 BiPAP 09/26/16 23:43 36.8 94 13 126/74 92 BiPAP 30 09/26/16 20:00 100 BiPAP 09/26/16 19:32 36.2 100 20 150/86 100 BiPAP 09/26/16 19:24 94 98 30 09/26/16 19:23 88 14 98 Nasal Cannula 2.0 09/26/16 16:31 37.4 100 18 141/61 98 Nasal Cannula 2.0 09/26/16 16:10 100 Nasal Cannula 2.0 30 09/26/16 12:57 Nasal Cannula 2.0 09/26/16 11:50 100 16 100 Nasal Cannula 3.0 09/26/16 11:35 37.0 100 18 124/83 98 3.0 09/26/16 09:46 100 Nasal Cannula 2.0 Last 24 Hours Test 09/26/16 11:09 09/26/16 16:32 09/26/16 20:32 09/27/16 00:14 Bedside Glucose 323 mg/dl 333 mg/dl 354 mg/dl 397 mg/dl Test 09/27/16 06:27 09/27/16 06:37 09/27/16 06:58 Sodium Level 137 mmol/L Potassium Level 4.6 mmol/L Chloride Level 92 mmol/L Carbon Dioxide Level 39 mmol/L Anion Gap 6.0 mmol/L Blood Urea Nitrogen 36 mg/dl Creatinine 1.30 mg/dl Est Creatinine Clear Calc Drug Dose 52.5 ml/min Estimated GFR () 52.4 Estimated GFR (Non- 45.2 BUN/Creatinine Ratio 27.8 Random Glucose 296 mg/dl Calcium Level 9.8 mg/dl Magnesium Level 2.3 mg/dl White Blood Count 5.23 K/uL Red Blood Count 2.46 M/uL Hemoglobin 8.2 g/dL Hematocrit 25.1 % Mean Corpuscular Volume 102.0 fL Mean Corpuscular Hemoglobin 33.3 pg Mean Corpuscular Hemoglobin Concent 32.7 g/dl Platelet Count 123 K/uL Mean Platelet Volume 10.7 fL Neutrophils (%) (Auto) 70.8 % Lymphocytes (%) (Auto) 14.9 % Monocytes (%) (Auto) 8.4 % Eosinophils (%) (Auto) 1.9 % Basophils (%) (Auto) 0.2 % Neutrophils # (Auto) 3.70 K/uL Lymphocytes # (Auto) 0.78 K/uL Monocytes # (Auto) 0.44 K/uL Eosinophils # (Auto) 0.10 K/uL Basophils # (Auto) 0.01 K/uL RDW Standard Deviation 57.7 fL RDW Coefficient of Variation 15.4 % Immature Granulocyte % (Auto) 3.8 % Immature Granulocyte # (Auto) 0.20 K/uL Nucleated RBC Absolute Count (auto) 0.02 K/uL Nucleated Red Blood Cells % 0.4 % Basophilic Stippling 1+ Stomatocytes 1+ Bedside Glucose 313 mg/dl Imaging: MRI OF THE BRAIN WITHOUT IV CONTRAST CLINICAL HISTORY: Strokelike symptoms. COMPARISON STUDY: CT of the brain dated 09/25/2016. TECHNIQUE: MRI of the brain was performed utilizing various T1 and T2-weighted sequences in the axial, sagittal, and coronal planes. IV contrast was not administered for this examination. The examination is degraded by motion artifact. FINDINGS: Brain parenchyma: There are age-related involutional changes noting mild to moderate patchy subcortical and periventricular microangiopathic disease. There is no hemorrhage or mass effect. There is no restricted diffusion to suggest acute ischemia. Kumar-white matter differentiation is preserved. No extra-axial fluid collection is seen. The cerebellar tonsils are normal in configuration. Ventricles, sulci, and cisterns: Prominent secondary to involutional change. Pituitary and sella: Unremarkable. Intracranial vasculature: Normal flow voids are maintained at the skull base. Orbits: The bony orbits are grossly intact. Orbital contents are normal in appearance. Sinuses and mastoids: There are small mastoid effusions. The paranasal sinuses are clear. Calvarium: Unremarkable. Cervical cord: Partially visualized cervical spinal cord is normal in morphology and signal intensity. IMPRESSION: 1. Motion degraded examination. 2. Senescent changes as above with no acute intracranial abnormality. 3. Bilateral mastoid effusions. Electronically signed by: Dante Esqueda M.D. 09/26/2016 3:57 PM Exam: The patient is awake and alert. Speech is without significant aphasia or dysarthria. Mood seems pleasant and she is cooperative. Affect appears appropriate. She has a mild masklike face. Extraocular eye muscles are intact without nystagmus. Pupils are 4 mm bilaterally and reactive to light. There is no facial droop. Tongue is midline. She has left hemiparesis but does have 2-3/5 strength distally in the limbs Right side is 4/5 diffusely. There is some action tremor of the right upper extremity but no resting tremor. There is mild rigidity. Current Inpatient Medications Medications (Trade) Dose Ordered Sig/Tristian Route Start Time Stop Time Status Last Admin Dose Admin Ondansetron HCl (Zofran Inj) 4 mg Q6H PRN IV 09/25/16 13:15 10/25/16 13:14 Nitroglycerin (Nitrostat Tab) 0.4 mg UD PRN SL 09/25/16 13:15 10/25/16 13:14 Acetaminophen (Tylenol Tab) 650 mg TID PRN PEG 09/25/16 13:15 10/25/16 13:14 Albuterol (Ventolin Hfa Inhaler) 2 puffs Q4H PRN INH 09/25/16 13:15 10/25/16 13:14 Baclofen (Lioresal Tab) 10 mg BID PEG 09/25/16 21:00 10/25/16 20:59 09/27/16 07:24 10 MG Bisacodyl (Dulcolax Supp) 10 mg DAILY PRN TX 09/25/16 13:15 10/25/16 13:14 Budesonide (Pulmicort Respules 0.5MG/ 2ML Neb Soln) 0.5 mg BIDR INH 09/25/16 20:00 10/25/16 19:59 09/26/16 19:23 0.5 MG Clopidogrel Bisulfate (plAVix TAB) 75 mg DAILY PEG 09/26/16 09:00 10/26/16 08:59 09/27/16 07:25 75 MG Docusate Sodium (coLACE SYRUP) 100 mg BID PO 09/25/16 21:00 10/25/16 20:59 09/27/16 07:22 100 MG Albuterol/ Ipratropium (Duoneb) 3 ml QIDR INH 09/25/16 16:00 10/25/16 15:59 09/27/16 07:23 3 ML Lamotrigine (Lamictal Tab) 100 mg BID PEG 09/25/16 21:00 10/25/16 20:59 09/27/16 07:25 100 MG Levothyroxine Sodium (Synthroid Tab) 88 mcg DAILYBB PEG 09/26/16 06:00 10/26/16 05:59 09/27/16 05:56 88 MCG Magnesium Hydroxide (Milk Of Magnesia Susp) 30 ml DAILY PRN PO 09/25/16 13:15 10/25/16 13:14 Multivitamins (Multivitamin Tab) 1 tab DAILY GT 09/26/16 09:00 10/26/16 08:59 UNV Risperidone (Risperdal Tab) 2 mg QAM PEG 09/26/16 09:00 10/26/16 08:59 09/27/16 07:25 2 MG Risperidone (Risperdal Tab) 4 mg QPM PEG 09/25/16 21:00 10/25/16 20:59 09/26/16 21:02 4 MG Valproic Acid (Depakene Syrup) 500 mg TID PEG 09/25/16 21:00 10/25/16 20:59 09/27/16 07:23 500 MG Lidocaine HCl (Xylocaine Jelly 2%) 1 ml Q8H PRN EXT 09/25/16 13:15 10/25/16 13:14 Insulin Aspart (novoLOG ASPART) SLIDING SCALE G... ACHS SC 09/25/16 21:00 10/25/16 20:59 09/26/16 17:00 6 UNITS Enteral Nutritional Formula (Peptamen 1.5) 250 ml 0600,0900,1200,1500,1800 PEG 09/26/16 06:00 10/26/16 05:59 09/27/16 05:56 250 ML Fluoxetine HCl (Prozac Soln) 10 mg DAILY PO 09/26/16 09:00 10/26/16 08:59 09/27/16 07:22 10 MG Glucose (Glucose 40% Gel) 15-30 GRAMS 15 GRAMS... UD PRN PO 09/25/16 18:00 10/25/16 17:59 Glucose (Glucose Chew Tab) 4-8 Tablets 4 Tabl... UD PRN PO 09/25/16 18:00 10/25/16 17:59 Dextrose (Dextrose 50% 50ML Syringe) 25-50ML OF 50% DW IV FOR... UD PRN IV 09/25/16 18:00 10/25/16 17:59 Glucagon (Glucagon Inj) 1 mg UD PRN SQ 09/25/16 18:00 10/25/16 17:59 Glucose (Glucose 40% Gel) 15-30 GRAMS 15 GRAMS... UD PRN PO 09/25/16 19:00 10/25/16 18:59 Glucose (Glucose Chew Tab) 4-8 Tablets 4 Tabl... UD PRN PO 09/25/16 19:00 10/25/16 18:59 Dextrose (Dextrose 50% 50ML Syringe) 25-50ML OF 50% DW IV FOR... UD PRN IV 09/25/16 19:00 10/25/16 18:59 Glucagon (Glucagon Inj) 1 mg UD PRN SQ 09/25/16 19:00 10/25/16 18:59 Glucose (Glucose 40% Gel) 15-30 GRAMS 15 GRAMS... UD PRN PO 09/25/16 20:30 10/25/16 20:29 Glucose (Glucose Chew Tab) 4-8 Tablets 4 Tabl... UD PRN PO 09/25/16 20:30 10/25/16 20:29 Dextrose (Dextrose 50% 50ML Syringe) 25-50ML OF 50% DW IV FOR... UD PRN IV 09/25/16 20:30 10/25/16 20:29 Glucagon (Glucagon Inj) 1 mg UD PRN SQ 09/25/16 20:30 10/25/16 20:29 Insulin Glargine (Lantus Solostar Pen) 28 unit QPM SC 09/25/16 21:00 10/25/16 20:59 09/26/16 20:48 28 UNIT Glucose (Glucose 40% Gel) 15-30 GRAMS 15 GRAMS... UD PRN PO 09/25/16 21:00 10/25/16 20:59 Glucose (Glucose Chew Tab) 4-8 Tablets 4 Tabl... UD PRN PO 09/25/16 21:00 10/25/16 20:59 Dextrose (Dextrose 50% 50ML Syringe) 25-50ML OF 50% DW IV FOR... UD PRN IV 09/25/16 21:00 10/25/16 20:59 Glucagon (Glucagon Inj) 1 mg UD PRN SQ 09/25/16 21:00 10/25/16 20:59 Piperacillin Sod/ Tazobactam Sod (Consult) 1 ea UD PRN N/A 09/26/16 15:15 10/26/16 15:14 Vancomycin HCl 1 ea 1 ea UD PRN N/A 09/26/16 15:15 10/26/16 15:14 Piperacillin Sod/ Tazobactam Sod 3.375 gm/Dextrose 115 ml @ 28.75 mls/ hr Q8H IV 09/26/16 22:00 10/06/16 21:59 09/27/16 05:56 28.75 MLS/HR Vancomycin HCl/ Sodium Chloride (Vancomycin Inj/ Nss 500ml) 529 ml @ 200 mls/hr Q14H IV 09/27/16 06:00 10/07/16 05:59 09/27/16 05:55 200 MLS/HR Insulin Glargine (Lantus Solostar Pen) 24 unit QAM SC 09/27/16 09:00 10/27/16 08:59 Impression 1. Acute encephalopathy. This is improved since admission and is likely secondary to hypercapnia and hypoxia. The patient has COPD, sleep apnea, and other pulmonary issues and was seen by Dr. Nguyễn yesterday. BiPAP helped considerably overnight. She does have multiple other metabolic issues including anemia, hyperglycemia, and hypothyroidism A urinary tract infection is possible, and cultures are pending. 2. History of epilepsy and pseudoseizures She is currently stable on Lamictal and Depakote. We will keep the doses of these medications the same. Depakote level was therapeutic She really has not had any seizures since admission. 3. 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 Significant psychiatric issues with schizoaffective and bipolar disorder. She seems stable from a psychiatric standpoint currently her medications should be kept the same. The patient does have some mild parkinsonism likely secondary to Risperdal. There is no need for additional evaluation or treatment for this problem however. 5. Generalized polyneuropathy, stable requiring no further evaluation or treatment 6. Chronic cerebral ischemia of a moderate nature. MRI today shows no new stroke. Plan 1. I see no reason for additional testing or treatment from a neurologic standpoint currently as she is quite stable 2. Consider increasing levothyroxine in lieu of the elevated TSH 3. Increase activity as able. Consider physical therapy 4. Continue with pulmonary medicine's recommendations 5. Awaiting cultures for possible urinary tract infection I spoke with Dr. Stein regarding this case including diagnoses and treatment options. Please contact me if I can be of further assistance in this case. Otherwise, the patient follows as an outpatient with Dr. Henderson.
--- NOTE | 2016-09-27 09:00 | Clinical Documentation Query ---
QUERY 1 OF [address] BENNETT, In your clinical opinion is this patient being managed for: ( x ) Urinary tract infection ( ) Other explanation of clinical findings (Please Explain) ( ) Unable to determine (Please Define) ( ) Need to Discuss ( ) Not Agree The medical record reflects the following clinical findings, treatment, and risk factors. Clinical Indicators: 60 yo female presenting with altered mental status. UA cx prelim results shows E coli. Treatment: currently being treated with IV zosyn and IV vancomycin until final results available Risk Factors: age, gender, DM, incontinence, hemiparesis, self-care deficit, bedridden QUERY 2 OF 2 In your clinical opinion is this patient being managed for: (x ) Chronic kidney disease, stage 3 ( ) Other explanation of clinical findings (Please Explain) ( ) Unable to determine (Please Define) ( ) Need to Discuss ( ) Not Agree The medical record reflects the following clinical findings, treatment, and risk factors. Clinical Indicators: Review of EMR showed GFR range of 30.5-66. Treatment:monitor PRP Risk Factors: DM, HTN, COPD, CVA Chronic Kidney Disease (CKD), stages 1-5. Documenting the stage of CKD will improve data integrity and will help clarify vague terms such as "renal insufficiency" or "chronic renal failure." The stages of CKD according to the [employer] are as follows: Stage I: GFR >90 Stage II: GFR 60-89 Stage III: GFR 30-59 Stage IV: GFR 15-29 Stage V: GFR <15 Please clarify and document your clinical opinion in the progress notes and discharge summary. Terms such as "probable", "suspected", "likely", "questionable", "possible", or "still to be ruled out" are acceptable. IF IN AGREEMENT, YOU MUST DOCUMENT ABOVE DIAGNOSTIC STATEMENT IN DAILY PROGRESS NOTES AND DISCHARGE SUMMARY. This document is not part of the patient's record. Thank You, Lis Alejandro RN [phone]
[2016-09-27] MEDS: INSULIN GLARGINE SOLOSTAR 100 UNITS/ML 3 ML PEN SC SCH ×2 (09:16→20:29)
[2016-09-27] MEDS: AMLODIPINE BESYLATE 5 MG TAB PO SCH (11:00)
--- NOTE | 2016-09-27 16:04 | Pulmonology Progress Note ---
Pulmonary Progress Note Date of Service Sep 27, 2016. Attending Cable Subjective Feeling generally improved. Continued cough productive of white sputum. Denies any pain or wheeze. Bedside partner reports patient did not use CPAP regularly post discharge from rehab. Objective 60-yo female admitted to [facility] 09/25/16 from with CC of altered mental status. Prior records were reviewed. 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 She was recently discharged [facility] . Patient admitted 09/25/16 from home with somnolence and altered mental status. On admission CXR consistent with pulmonary vascular congestion. CT head: no acute changes. Labs consistent with anemia and compensated CO2-retention with hypoxia. AB.42/65/O2: 57-4LPM/41. Urine: + wbc and esterase. She was placed on BiPAP with persistent hypoxia and antibiotic to cover for quinolone resistant UTI/aspiration/hospital acquired pneumonia. Today: - Slept on BiPAP transitioned to 2LPM (98-100%) - WBC: 5.23, Hgb/Hct: 8.2/25.1, Plts: 123 - Cr: increased 1.3 (from 1.1) - CO2: improved 39 (from 41) - Persistent hyperglycemia - Urine : + Ecoli (sensitivity pending) Physical Exam: Constitutional: Chronically ill appearing obese female lying in hospital bed. No acute distress. Eyes: EOMi, PERRLA, no conjunctival injection Mouth: Mallampati III/IV. No erythema, exudate, or post nasal gtt. Edentulous. Neck: No adenopathy or masses. Large circumference. Structures not visible Respiratory: Non-labored shallow respirations. Loose cough with coarse rales and upper airway secretions. No wheeze. Rhonchi at base. No clubbing or cyanosis. Cardiovascular: RRR, no MRG. +2 radial pulses. <1s capillary refill. Abdomen: soft, obese, active bowel sounds : esquivel cathter with yellow - clear urine MSK/Extremities: LUE adn LUE weakness. Flicker left toes. ++ edema right hand. Equal edema of LEs. No erythema or calf tenderness. Neurologic: alert, cooperative and answering questions appropriately. Assessment & Plan 60-yo female with multiple medical comorbidities admitted to [facility] hospital day # 3. 1. Hypoxia: Improving now 2LPM per VS: titrate O2: 90-94% 2. Chronic hypercarbia in the setting of obesity hypoventilation syndrome: Ok for longer breaks from BiPAP but should continue QHS. - Nebulized medications preferred over MDI long-term given underlying difficulty with coordination 3. E.Coli: UTI covered: narrow antibiotic pending sensitivities 4. Chronic aspiration: elevated HOB to 30-degrees, hold bolus if residual exceeds 200, pulmonary toilet/percussion. Data Medications: Current Inpatient Medications Medications (Trade) Dose Ordered Sig/Tristian Route Start Time Stop Time Status Last Admin Dose Admin Ondansetron HCl (Zofran Inj) 4 mg Q6H PRN IV 09/25/16 13:15 10/25/16 13:14 Nitroglycerin (Nitrostat Tab) 0.4 mg UD PRN SL 09/25/16 13:15 10/25/16 13:14 Acetaminophen (Tylenol Tab) 650 mg TID PRN PEG 09/25/16 13:15 10/25/16 13:14 Albuterol (Ventolin Hfa Inhaler) 2 puffs Q4H PRN INH 09/25/16 13:15 10/25/16 13:14 Baclofen (Lioresal Tab) 10 mg BID PEG 09/25/16 21:00 10/25/16 20:59 09/27/16 07:24 10 MG Bisacodyl (Dulcolax Supp) 10 mg DAILY PRN [place] 09/25/16 13:15 10/25/16 13:14 Budesonide (Pulmicort Respules 0.5MG/ 2ML Neb Soln) 0.5 mg BIDR INH 09/25/16 20:00 10/25/16 19:59 09/27/16 08:00 0.5 MG Clopidogrel Bisulfate (plAVix TAB) 75 mg DAILY PEG 09/26/16 09:00 10/26/16 08:59 09/27/16 07:25 75 MG Docusate Sodium (coLACE SYRUP) 100 mg BID PO 09/25/16 21:00 10/25/16 20:59 09/27/16 07:22 100 MG Albuterol/ Ipratropium (Duoneb) 3 ml QIDR INH 09/25/16 16:00 10/25/16 15:59 09/27/16 11:08 3 ML Lamotrigine (Lamictal Tab) 100 mg BID PEG 09/25/16 21:00 10/25/16 20:59 09/27/16 07:25 100 MG Levothyroxine Sodium (Synthroid Tab) 88 mcg DAILYBB PEG 09/26/16 06:00 10/26/16 05:59 09/27/16 05:56 88 MCG Magnesium Hydroxide (Milk Of Magnesia Susp) 30 ml DAILY PRN PO 09/25/16 13:15 10/25/16 13:14 Multivitamins (Multivitamin Tab) 1 tab DAILY GT 09/26/16 09:00 10/26/16 08:59 UNV Risperidone (Risperdal Tab) 2 mg QAM PEG 09/26/16 09:00 10/26/16 08:59 09/27/16 07:25 2 MG Risperidone (Risperdal Tab) 4 mg QPM PEG 09/25/16 21:00 10/25/16 20:59 09/26/16 21:02 4 MG Valproic Acid (Depakene Syrup) 500 mg TID PEG 09/25/16 21:00 10/25/16 20:59 09/27/16 14:42 500 MG Lidocaine HCl (Xylocaine Jelly 2%) 1 ml Q8H PRN EXT 09/25/16 13:15 10/25/16 13:14 Insulin Aspart (novoLOG ASPART) SLIDING SCALE G... ACHS SC 09/25/16 21:00 10/25/16 20:59 09/27/16 12:00 5 UNITS Enteral Nutritional Formula (Peptamen 1.5) 250 ml 0600,0900,1200,1500,1800 PEG 09/26/16 06:00 10/26/16 05:59 09/27/16 14:43 250 ML Fluoxetine HCl (Prozac Soln) 10 mg DAILY PO 09/26/16 09:00 10/26/16 08:59 09/27/16 07:22 10 MG Dextrose (Dextrose 50% 50ML Syringe) 25-50ML OF 50% DW IV FOR... UD PRN IV 09/25/16 18:00 10/25/16 17:59 Insulin Glargine (Lantus Solostar Pen) 28 unit QPM SC 09/25/16 21:00 10/25/16 20:59 09/26/16 20:48 28 UNIT Glucose (Glucose 40% Gel) 15-30 GRAMS 15 GRAMS... UD PRN PO 09/25/16 21:00 10/25/16 20:59 Glucose (Glucose Chew Tab) 4-8 Tablets 4 Tabl... UD PRN PO 09/25/16 21:00 10/25/16 20:59 Glucagon (Glucagon Inj) 1 mg UD PRN SQ 09/25/16 21:00 10/25/16 20:59 Piperacillin Sod/ Tazobactam Sod (Consult) 1 ea UD PRN N/A 09/26/16 15:15 10/26/16 15:14 Vancomycin HCl 1 ea 1 ea UD PRN N/A 09/26/16 15:15 10/26/16 15:14 Piperacillin Sod/ Tazobactam Sod/ Dextrose (Zosyn Iv/D5 100ml) 115 ml @ 28.75 mls/ hr Q8H IV 09/26/16 22:00 10/06/16 21:59 09/27/16 12:55 28.75 MLS/HR Insulin Glargine (Lantus Solostar Pen) 24 unit QAM SC 09/27/16 09:00 10/27/16 08:59 09/27/16 09:16 24 UNIT Amlodipine Besylate 5 mg 5 mg QAM PO 09/27/16 09:00 10/27/16 08:59 09/27/16 11:00 5 MG Vancomycin HCl/ Sodium Chloride (Vancomycin Inj/ Nss 500ml) 529 ml @ 200 mls/hr Q16H IV 09/27/16 22:00 10/04/16 21:59 I & O: 24-Hour Column 09/27/16 08:00 Intake Total 900 ml Output Total 1475 ml Balance -575 ml Vital Signs: Date Time Temp Pulse Resp B/P Pulse Ox O2 Delivery O2 Flow Rate FiO2 09/27/16 15:10 94 Nasal Cannula 2.0 09/27/16 12:07 96 Nasal Cannula 2.0 09/27/16 11:51 36.4 91 20 154/80 94 Room Air 09/27/16 11:08 88 14 96 Nasal Cannula 2.0 09/27/16 09:00 97 Nasal Cannula 2.0 09/27/16 07:48 37.3 93 22 163/81 97 Nasal Cannula 2.0 09/27/16 07:23 88 14 96 Nasal Cannula 2.0 09/27/16 04:18 37.3 97 20 152/77 97 BiPAP 09/27/16 04:00 100 BiPAP 09/26/16 23:59 100 BiPAP 09/26/16 23:43 36.8 94 13 126/74 92 BiPAP 30 09/26/16 20:00 100 BiPAP 09/26/16 19:32 36.2 100 20 150/86 100 BiPAP 09/26/16 19:24 94 98 30 09/26/16 19:23 88 14 98 Nasal Cannula 2.0 09/26/16 16:31 37.4 100 18 141/61 98 Nasal Cannula 2.0 09/26/16 16:10 100 Nasal Cannula 2.0 30 Laboratory Results: Last 24 Hours Test 09/26/16 16:32 09/26/16 20:32 09/27/16 00:14 09/27/16 06:27 Bedside Glucose 333 mg/dl 354 mg/dl 397 mg/dl Sodium Level 137 mmol/L Potassium Level 4.6 mmol/L Chloride Level 92 mmol/L Carbon Dioxide Level 39 mmol/L Anion Gap 6.0 mmol/L Blood Urea Nitrogen 36 mg/dl Creatinine 1.30 mg/dl Est Creatinine Clear Calc Drug Dose 52.5 ml/min Estimated GFR () 52.4 Estimated GFR (Non- 45.2 BUN/Creatinine Ratio 27.8 Random Glucose 296 mg/dl Calcium Level 9.8 mg/dl Magnesium Level 2.3 mg/dl Test 09/27/16 06:37 09/27/16 06:58 09/27/16 11:26 White Blood Count 5.23 K/uL Red Blood Count 2.46 M/uL Hemoglobin 8.2 g/dL Hematocrit 25.1 % Mean Corpuscular Volume 102.0 fL Mean Corpuscular Hemoglobin 33.3 pg Mean Corpuscular Hemoglobin Concent 32.7 g/dl Platelet Count 123 K/uL Mean Platelet Volume 10.7 fL Neutrophils (%) (Auto) 70.8 % Lymphocytes (%) (Auto) 14.9 % Monocytes (%) (Auto) 8.4 % Eosinophils (%) (Auto) 1.9 % Basophils (%) (Auto) 0.2 % Neutrophils # (Auto) 3.70 K/uL Lymphocytes # (Auto) 0.78 K/uL Monocytes # (Auto) 0.44 K/uL Eosinophils # (Auto) 0.10 K/uL Basophils # (Auto) 0.01 K/uL RDW Standard Deviation 57.7 fL RDW Coefficient of Variation 15.4 % Immature Granulocyte % (Auto) 3.8 % Immature Granulocyte # (Auto) 0.20 K/uL Nucleated RBC Absolute Count (auto) 0.02 K/uL Nucleated Red Blood Cells % 0.4 % Basophilic Stippling 1+ Stomatocytes 1+ Bedside Glucose 313 mg/dl 302 mg/dl
--- NOTE | 2016-09-27 18:12 | Hospitalist Progress Note ---
Hospitalist Progress Note Date of Service Sep 27, 2016. Subjective Pt evaluation today including: conversation w/ patient, physical exam, chart review, lab review, review of studies, conversation w/ configuration consultant (Neuro), review of inpatient medication list Voiding: armendariz catheter in place RN reports the PEG tube is leaking slowly but she is still able to run the tube feeds. Neuro called me this AM and said pt was very alert and awake but then this evening she has decompensated again, very drowsy but I did not have to sternal rub her to wake her up. She did wake up and complains about having to wear the BiPAP mask, but then falls back asleep. Constitutional: No fever Respiratory: No shortness of breath Cardiovascular: No chest pain Abdomen: No pain All Other Systems: Reviewed and Negative Objective Vital Signs Date Time Temp Pulse Resp B/P Pulse Ox O2 Delivery O2 Flow Rate FiO2 09/27/16 16:50 36.9 82 18 125/73 99 Nasal Cannula 2.0 09/27/16 15:50 86 14 99 Nasal Cannula 2.0 09/27/16 15:10 94 Nasal Cannula 2.0 09/27/16 12:07 96 Nasal Cannula 2.0 09/27/16 11:51 36.4 91 20 154/80 94 Room Air 09/27/16 11:08 88 14 96 Nasal Cannula 2.0 09/27/16 09:00 97 Nasal Cannula 2.0 09/27/16 07:48 37.3 93 22 163/81 97 Nasal Cannula 2.0 09/27/16 07:23 88 14 96 Nasal Cannula 2.0 09/27/16 04:18 37.3 97 20 152/77 97 BiPAP 09/27/16 04:00 100 BiPAP 09/26/16 23:59 100 BiPAP 09/26/16 23:43 36.8 94 13 126/74 92 BiPAP 30 09/26/16 20:00 100 BiPAP 09/26/16 19:32 36.2 100 20 150/86 100 BiPAP 09/26/16 19:24 94 98 30 09/26/16 19:23 88 14 98 Nasal Cannula 2.0 Physical Exam General Appearance: no apparent distress (very drowsy but wakes up to loud verbal stimuli), + obese (morbidly) Eyes: normal inspection (except scant yellow drainage from eyes) Respiratory/Chest: no respiratory distress, no accessory muscle use, + pertinent finding (BiPAP in place) Cardiovascular: regular rate, rhythm, no gallop, no murmur, + pertinent finding (2+ pitting edema LUE and LLE) Abdomen: normal bowel sounds, non tender, soft (and morbidly obese; PEG tube with small leak just proximal to Y portion) Extremities: no calf tenderness Skin: normal color, warm/dry, no rash Laboratory Results Last 24 Hours Test 09/26/16 20:32 09/27/16 00:14 09/27/16 06:27 09/27/16 06:37 Bedside Glucose 354 mg/dl 397 mg/dl Sodium Level 137 mmol/L Potassium Level 4.6 mmol/L Chloride Level 92 mmol/L Carbon Dioxide Level 39 mmol/L Anion Gap 6.0 mmol/L Blood Urea Nitrogen 36 mg/dl Creatinine 1.30 mg/dl Est Creatinine Clear Calc Drug Dose 52.5 ml/min Estimated GFR () 52.4 Estimated GFR (Non- 45.2 BUN/Creatinine Ratio 27.8 Random Glucose 296 mg/dl Calcium Level 9.8 mg/dl Magnesium Level 2.3 mg/dl White Blood Count 5.23 K/uL Red Blood Count 2.46 M/uL Hemoglobin 8.2 g/dL Hematocrit 25.1 % Mean Corpuscular Volume 102.0 fL Mean Corpuscular Hemoglobin 33.3 pg Mean Corpuscular Hemoglobin Concent 32.7 g/dl Platelet Count 123 K/uL Mean Platelet Volume 10.7 fL Neutrophils (%) (Auto) 70.8 % Lymphocytes (%) (Auto) 14.9 % Monocytes (%) (Auto) 8.4 % Eosinophils (%) (Auto) 1.9 % Basophils (%) (Auto) 0.2 % Neutrophils # (Auto) 3.70 K/uL Lymphocytes # (Auto) 0.78 K/uL Monocytes # (Auto) 0.44 K/uL Eosinophils # (Auto) 0.10 K/uL Basophils # (Auto) 0.01 K/uL RDW Standard Deviation 57.7 fL RDW Coefficient of Variation 15.4 % Immature Granulocyte % (Auto) 3.8 % Immature Granulocyte # (Auto) 0.20 K/uL Nucleated RBC Absolute Count (auto) 0.02 K/uL Nucleated Red Blood Cells % 0.4 % Basophilic Stippling 1+ Stomatocytes 1+ Test 09/27/16 06:58 09/27/16 11:26 09/27/16 16:18 Bedside Glucose 313 mg/dl 302 mg/dl 276 mg/dl Assessment and Plan 60 y/o female, with PMHx of COPD, DM, hypothyroidism, hyperlipidemia, HTN, DMII , epilepsy,Schizoaffective d/o, and CVA, who presented to the ED because of altered mental status and apnea, with acute on chronic hypoxemic, hypercarbic respiratory failure. Altered mental status, seems to be secondary to Pickwickian Syndrome/ hypercarbic respiratory failure with PaCO2 of 61, HCO3 41; Also aspiration pneumonitis. Has improvement with use of BiPAP then becomes somnolent again when off BiPAP for long periods of time. Does not move, bedbound, doesn't get to chair. -continue tele -CT of head with no acute findings -switched abx to Zosyn and Vanco as per Pulm recommendations to cover for HAP and/or aspiration -CXR suggest pulmonary congestion and repeat on 09/26 similar, one dose 40 mg IV Lasix given on admission --Echo in 05/2016 EF of 55-60% with diastolic dysfunction -Pulmonary consult obtained--> ordered BiPAP as much as possible, Doppler LLE neg for acute DVT but shows trace chronic DVT left popliteal vein -Neuro consult also obtained and he thinks not likely related to seizures or her h/o CVA but recommended MRI brain which did NOT show new CVA -Will encourage more movement to expand lungs -poor prognosis with multiple comorbidities H/o CVA w/ dense left hemiparesis and severe dysphagia, aspiration: -Continue Plavix 75 mg PEG daily -PEG tube with leak in tubing--> d/w Dr. Edwards on phone and will try to cut tubing and replace Y piece. If doesn't work, will consult him to exchange tubing tomorrow CKD stage III-stable -renally dose meds -avoid nephrotoxins UTI- with E. coli, sensitivity pending, from cathed sample despite saying is a clean catch. -has indwelling Armendariz, is on Zosyn -f/u final urine cx sensitivity -not sure if has chronic Armendariz at home? Epilepsy--VA acid low at 49 -Continue Valproic acid 10 ml PEG TID Lamotrigine 100 mg PEG BID. Diabetes mellitus type II--Last HgbA1c checked on 03/18/16 and was 9.9 -Continue Lantus 16 units q am and 28 units qhs and insulin pump 5 units q6h -BSG AC & HS COPD -Continue Combivent QIDR and budesonide BIDR Schizophrenia -Continue Risperidone 2 mg PEG q am and 4 mg PEG qhs Anemia -Hgb 8.6 at admission, appears baseline compared to previous records -Follow CBC Hypothyroidism -Synthroid 75 mcg PEG qd increased to 88 mcg -TSH of 8.5 on admission Anxiety/depression -Continue Prozac 10 mg PEG qd DVT prophylaxis -Chemical therapy held due to low hgb -LISA preston and Adia Dispo-to home with her established 24 hr care when ready PT/OT perla FULL CODE
[2016-09-28] VITALS (12 sets, daily range): BP systolic 124–151; BP diastolic 68–83; PULSE 76–104; TEMP 36.5–37.1; O2SAT 94–100
[2016-09-28] MEDS: LEVOTHYROXINE 88 MCG TAB PEG SCH (06:07)
[2016-09-28] MEDS: PIPERACILL/TAZOBAC IV 3.375 GM in DEXTROSE 5% 100ML 100 ML IV SCH ×3 (06:07→21:59)
[2016-09-28] MEDS: PEPTAMEN 1.5 CAL 1000ML BAG PEG SCH ×5 (06:10→19:36)
[2016-09-28] MEDS: INSULIN ASPART 100 UNITS/ML 3 ML PEN SC SCH ×4 (06:13→19:41)
[2016-09-28 06:37] LABS: HEMATOCRIT 26.7 % (37-47); MEAN CELL VOLUME 102.3 fL (80-100); MEAN CORPUSCULAR HGB CONC 32.2 g/dl (32-36); PLATELET COUNT 134 K/uL (130-400); RED BLOOD COUNT 2.61 M/uL (4.2-5.4); WHITE BLOOD COUNT 6.34 K/uL (4.8-10.8)
[2016-09-28 07:08] LABS: CALCIUM 9.7 mg/dl (8.5-10.1); CREATININE 1.1 mg/dl (0.60-1.20); POTASSIUM 4.6 mmol/L (3.5-5.1)
[2016-09-28] MEDS: ALBUT/IPRATROP 3MG/0.5MG NEB 3 ML VIAL INH SCH ×4 (07:59→20:18)
[2016-09-28] MEDS: BUDESONIDE 0.5 MG/2 ML VIAL (PULMICORT) INH SCH ×2 (07:59→20:18)
--- NOTE | 2016-09-28 08:27 | Neurology Progress Notes ---
Neurology Progress Note Date of Service Sep 28, 2016. Subjective Patient has no complaint of pain or headache. She is not dizzy. Her mood is good. Nursing reports no unusual events overnight and she slept well using the BiPAP mask. Yesterday, during the day, she was napping and by the end of the day was very confused and somnolent. Patient has some Escherichia coli growing in her urine CBC reveals continuing anemia with elevated MCV Objective Date Time Temp Pulse Resp B/P Pulse Ox O2 Delivery O2 Flow Rate FiO2 09/28/16 04:00 BiPAP 09/28/16 04:00 36.7 104 20 142/78 97 BiPAP 09/28/16 03:32 96 99 30 09/28/16 00:00 BiPAP 09/28/16 00:00 36.5 101 20 151/83 97 BiPAP 09/27/16 23:05 92 96 30 09/27/16 20:23 93 97 30 09/27/16 20:21 93 14 97 BiPAP/CPAP 09/27/16 20:00 BiPAP 09/27/16 16:50 36.9 82 18 125/73 99 Nasal Cannula 2.0 09/27/16 15:50 86 14 99 Nasal Cannula 2.0 09/27/16 15:40 86 99 30 09/27/16 15:10 94 Nasal Cannula 2.0 09/27/16 12:07 96 Nasal Cannula 2.0 09/27/16 11:51 36.4 91 20 154/80 94 Room Air 09/27/16 11:08 88 14 96 Nasal Cannula 2.0 09/27/16 09:00 97 Nasal Cannula 2.0 Last 24 Hours Test 09/27/16 11:26 09/27/16 16:18 09/27/16 19:56 09/28/16 05:46 Bedside Glucose 302 mg/dl 276 mg/dl 333 mg/dl 246 mg/dl Test 09/28/16 05:50 White Blood Count 6.34 K/uL Red Blood Count 2.61 M/uL Hemoglobin 8.6 g/dL Hematocrit 26.7 % Mean Corpuscular Volume 102.3 fL Mean Corpuscular Hemoglobin 33.0 pg Mean Corpuscular Hemoglobin Concent 32.2 g/dl RDW Standard Deviation 56.6 fL RDW Coefficient of Variation 15.2 % Platelet Count 134 K/uL Mean Platelet Volume 10.0 fL Sodium Level 141 mmol/L Potassium Level 4.6 mmol/L Chloride Level 95 mmol/L Carbon Dioxide Level 41 mmol/L Anion Gap 5.0 mmol/L Blood Urea Nitrogen 35 mg/dl Creatinine 1.10 mg/dl Est Creatinine Clear Calc Drug Dose 62.2 ml/min Estimated GFR () 64.1 Estimated GFR (Non- 55.3 BUN/Creatinine Ratio 32.0 Random Glucose 220 mg/dl Calcium Level 9.7 mg/dl Exam: The patient is awake and alert. Her speech is without significant aphasia or dysarthria although she does have some slurring because her teeth are out currently. Extraocular eye muscles are intact without nystagmus. There is no facial droop. Tongue is midline. She follows commands well and is pleasant and cooperative. She can lift up her right arm quite well although her right leg is mildly weak. She has a significant left hemiparesis from her stroke floor. She can wiggle her fingers and toes on the left side however. She does have a coarse action tremor with movement of the right upper extremity Current Inpatient Medications Medications (Trade) Dose Ordered Sig/Tristian Route Start Time Stop Time Status Last Admin Dose Admin Ondansetron HCl (Zofran Inj) 4 mg Q6H PRN IV 09/25/16 13:15 10/25/16 13:14 Nitroglycerin (Nitrostat Tab) 0.4 mg UD PRN SL 09/25/16 13:15 10/25/16 13:14 Acetaminophen (Tylenol Tab) 650 mg TID PRN PEG 09/25/16 13:15 10/25/16 13:14 Albuterol (Ventolin Hfa Inhaler) 2 puffs Q4H PRN INH 09/25/16 13:15 10/25/16 13:14 Baclofen (Lioresal Tab) 10 mg BID PEG 09/25/16 21:00 10/25/16 20:59 09/27/16 20:17 10 MG Bisacodyl (Dulcolax Supp) 10 mg DAILY PRN [place] 09/25/16 13:15 10/25/16 13:14 Budesonide (Pulmicort Respules 0.5MG/ 2ML Neb Soln) 0.5 mg BIDR INH 09/25/16 20:00 10/25/16 19:59 09/28/16 07:59 0.5 MG Clopidogrel Bisulfate (plAVix TAB) 75 mg DAILY PEG 09/26/16 09:00 10/26/16 08:59 09/27/16 07:25 75 MG Docusate Sodium (coLACE SYRUP) 100 mg BID PO 09/25/16 21:00 10/25/16 20:59 09/27/16 20:17 100 MG Albuterol/ Ipratropium (Duoneb) 3 ml QIDR INH 09/25/16 16:00 10/25/16 15:59 09/28/16 07:59 3 ML Lamotrigine (Lamictal Tab) 100 mg BID PEG 09/25/16 21:00 10/25/16 20:59 09/27/16 20:17 100 MG Levothyroxine Sodium (Synthroid Tab) 88 mcg DAILYBB PEG 09/26/16 06:00 10/26/16 05:59 09/28/16 06:07 88 MCG Magnesium Hydroxide (Milk Of Magnesia Susp) 30 ml DAILY PRN PO 09/25/16 13:15 10/25/16 13:14 Multivitamins (Multivitamin Tab) 1 tab DAILY GT 09/26/16 09:00 10/26/16 08:59 UNV Risperidone (Risperdal Tab) 2 mg QAM PEG 09/26/16 09:00 10/26/16 08:59 09/27/16 07:25 2 MG Risperidone (Risperdal Tab) 4 mg QPM PEG 09/25/16 21:00 10/25/16 20:59 09/27/16 20:17 4 MG Valproic Acid (Depakene Syrup) 500 mg TID PEG 09/25/16 21:00 10/25/16 20:59 09/27/16 20:17 500 MG Lidocaine HCl (Xylocaine Jelly 2%) 1 ml Q8H PRN EXT 09/25/16 13:15 10/25/16 13:14 Insulin Aspart (novoLOG ASPART) SLIDING SCALE G... ACHS SC 09/25/16 21:00 10/25/16 20:59 09/28/16 06:13 9 UNITS Enteral Nutritional Formula (Peptamen 1.5) 250 ml 0600,0900,1200,1500,1800 PEG 09/26/16 06:00 10/26/16 05:59 09/28/16 06:10 250 ML Fluoxetine HCl (Prozac Soln) 10 mg DAILY PO 09/26/16 09:00 10/26/16 08:59 09/27/16 07:22 10 MG Dextrose (Dextrose 50% 50ML Syringe) 25-50ML OF 50% DW IV FOR... UD PRN IV 09/25/16 18:00 10/25/16 17:59 Insulin Glargine (Lantus Solostar Pen) 28 unit QPM SC 09/25/16 21:00 10/25/16 20:59 09/27/16 20:29 28 UNIT Glucose (Glucose 40% Gel) 15-30 GRAMS 15 GRAMS... UD PRN PO 09/25/16 21:00 10/25/16 20:59 Glucose (Glucose Chew Tab) 4-8 Tablets 4 Tabl... UD PRN PO 09/25/16 21:00 10/25/16 20:59 Glucagon (Glucagon Inj) 1 mg UD PRN SQ 09/25/16 21:00 10/25/16 20:59 Piperacillin Sod/ Tazobactam Sod (Consult) 1 ea UD PRN N/A 09/26/16 15:15 10/26/16 15:14 Vancomycin HCl 1 ea 1 ea UD PRN N/A 09/26/16 15:15 10/26/16 15:14 Piperacillin Sod/ Tazobactam Sod/ Dextrose (Zosyn Iv/D5 100ml) 115 ml @ 28.75 mls/ hr Q8H IV 09/26/16 22:00 10/06/16 21:59 09/28/16 06:07 28.75 MLS/HR Insulin Glargine (Lantus Solostar Pen) 24 unit QAM SC 09/27/16 09:00 10/27/16 08:59 09/27/16 09:16 24 UNIT Amlodipine Besylate 5 mg 5 mg QAM PO 09/27/16 09:00 10/27/16 08:59 09/27/16 11:00 5 MG Vancomycin HCl/ Sodium Chloride (Vancomycin Inj/ Nss 500ml) 529 ml @ 200 mls/hr Q16H IV 09/27/16 22:00 10/04/16 21:59 09/27/16 21:56 200 MLS/HR Impression 1. Acute encephalopathy. This is improved since admission and is likely secondary to hypercapnia and hypoxia. The patient has COPD, sleep apnea, and other pulmonary issues, seen by Dr. Nguyễn 09-26-16. BiPAP considerably helps her mental status when worn overnight. She does not wear the mask during the day and if she does a lot of napping probably gets hypoxic and hypercarbic resulting in the somnolence. She does have multiple other metabolic issues including anemia, hyperglycemia, and hypothyroidism A urinary tract infection is probable 2. History of epilepsy and pseudoseizures She is currently stable on Lamictal and Depakote. We will keep the doses of these medications the same. Depakote level was therapeutic at 71 She has had no seizures since admission. 3. History of right pontine stroke in February 2016 resulting in a chronic left hemiparesis This is stable Continue clopidogrel 4. Significant psychiatric issues with schizoaffective and bipolar disorder. She seems stable from a psychiatric standpoint currently her medications should be kept the same. The patient does have some mild parkinsonism likely secondary to Risperdal. There is no need for additional evaluation or treatment for this problem however. 5. Generalized polyneuropathy, stable requiring no further evaluation or treatment 6. Chronic cerebral ischemia of a moderate nature. MRI today shows no new stroke. Plan 1. Consider increasing levothyroxine in lieu of the elevated TSH 2. Increase activity as able. Consider physical therapy 3. Continue with pulmonary medicine's recommendations 4. Consider obtaining a B-12 level 5. Keep anticonvulsant medication dosages the same. Currently, I have no further neurologic testing or treatment recommendations at this time. Please contact me if I can be of further assistance in this case. Otherwise, the patient follows as an outpatient with Dr. Henderson.
[2016-09-28] MEDS: CLOPIDOGREL BISULFATE 75 MG TAB PEG SCH (09:00)
[2016-09-28] MEDS: DOCUSATE SODIUM 100 MG/10 ML UDC PO SCH ×2 (09:00→22:00)
[2016-09-28] MEDS: MULTIVITAMINS W/MINERALS LIQUID PO SCH (09:00)
[2016-09-28] MEDS: VALPROIC ACID 500 MG/10 ML UDP PEG SCH ×3 (09:00→22:02)
[2016-09-28] MEDS: AMLODIPINE BESYLATE 5 MG TAB PO SCH (09:00)
[2016-09-28] MEDS: FLUOXETINE HCL 20 MG/5 ML PO SCH (09:00)
[2016-09-28] MEDS: INSULIN GLARGINE SOLOSTAR 100 UNITS/ML 3 ML PEN SC SCH (09:00)
[2016-09-28] MEDS: RISPERIDONE 2 MG TAB PEG SCH ×2 (09:00→22:01)
[2016-09-28] MEDS: BACLOFEN 10 MG TAB PEG SCH ×2 (09:00→22:01)
[2016-09-28 10:20] LABS: FERRITIN 160.8 ng/ml (8.0-388.0)
--- NOTE | 2016-09-28 12:16 | PROGRESS NOTE ---
DATE: 09/28/2016 DATE: 09/28/2016. PROBLEM LIST: Includes: 1. Hypercapnia. 2. Hypoxemia. 3. Probable obesity hypoventilation syndrome. 4. Altered mental status. SUBJECTIVE: The patient reports that she is doing well today. She feels that her breathing has improved. She is using her oxygen through the day on 2 liters. She is using BiPAP at nighttime and through the day as needed. She feels that this is very helpful for her. In reality, she has no complaints. Today she states she has occasional cough but it is nothing unusual. She has no significant mucous production, no chest pain. No chest pressure. No abdominal pain. No nausea, vomiting or diarrhea. Her significant other who was in the room and another visitor report that the patient has been doing well the past day or so and seems pretty close to being back to baseline. The patient was asking if she would be going home following this admission. She does report that she does not want to go back to [facility]. Her significant other reports that the patient does have 24-hour care at home and does have physical therapy getting ready to come in starting next week. OBJECTIVE: GENERAL: The patient is a 60-year-old morbidly obese white female lying in bed in no distress. She is alert and oriented x3. She is interactive and cooperative. Mood is good. Affect is good. VITAL SIGNS: Temp 37.1, pulse 99, respirations 20, blood pressure 145/73, pulse ox 100% on 2 liters. HEAD, EYES, EARS, NOSE, AND THROAT: Normocephalic, atraumatic. Pupils equal, round and reactive. Extraocular movements are intact. Nectar, moist gingival and buccal mucosa. NECK: Short, thick, supple. No masses. No adenopathy. No bruit. CHEST: No wheeze. Scattered rhonchi at the bases. No rales noted. CARDIOVASCULAR: Regular rate and rhythm. No murmurs, gallops or rubs. ABDOMEN: Obese, soft, bowel sounds present, nontender. No guarding, rigidity or organomegaly. EXTREMITIES: Trade edema bilaterally. No erythema, no tenderness, no cyanosis or clubbing noted. LABORATORY DATA: Shows white count 6.3, H\T\H 8.6 and 26.7, platelet count 134,000. Serum carbon dioxide is 41. It has been fluctuating between 39 and 41 since admission. No new imaging. IMPRESSION: Altered mental status possibly secondary to exacerbation of her chronic hypercarbia, which is most likely secondary to obesity hypoventilation syndrome. At this time, patient is doing well with her BiPAP. Apparently from what nursing reports and from what I am reading in the notes from hospitalists team the patient does seem to have worsened more towards mid to late afternoon and evening at this point. I have discussed with nursing placing the BiPAP on the patient from approximately 12-1 o'clock in the afternoon and then again from about 4 o'clock to 5 o'clock and then continuing at night usage. I think this is a schedule that the patient should probably maintain at home as well. I think that she sleeps during the day and because of her sleep apnea/obesity hypoventilation syndrome she starts to retain CO2 again. Hopefully this will be helpful for her. We will continue to follow the patient through hospitalization. ALEJANDRINA
[2016-09-28] MEDS ORDERED: VANCOMYCIN TROUGH SCH ×2 (13:30→23:30)
--- NOTE | 2016-09-28 15:12 | Hospitalist Progress Note ---
Hospitalist Progress Note Date of Service Sep 28, 2016. Subjective Pt evaluation today including: conversation w/ patient, conversation w/ family , physical exam, chart review, lab review, review of studies, review of inpatient medication list PO Intake: none, PEG tube Voiding: esquivel catheter in place Pt doing well today, awake, alert, appropriately answering questions, denies any problems, anxious to get home. Constitutional: No fever Respiratory: No cough, No shortness of breath Cardiovascular: No chest pain Abdomen: No pain All Other Systems: Reviewed and Negative Objective Vital Signs Date Time Temp Pulse Resp B/P Pulse Ox O2 Delivery O2 Flow Rate FiO2 09/28/16 11:49 95 14 95 Nasal Cannula 2.0 09/28/16 08:24 99 14 98 Nasal Cannula 2.0 09/28/16 07:33 37.1 99 20 145/73 100 Nasal Cannula 2.0 09/28/16 04:00 BiPAP 09/28/16 04:00 36.7 104 20 142/78 97 BiPAP 09/28/16 03:32 96 99 30 09/28/16 00:00 BiPAP 09/28/16 00:00 36.5 101 20 151/83 97 BiPAP 09/27/16 23:05 92 96 30 09/27/16 20:23 93 97 30 09/27/16 20:21 93 14 97 BiPAP/CPAP 09/27/16 20:00 BiPAP 09/27/16 16:50 36.9 82 18 125/73 99 Nasal Cannula 2.0 09/27/16 15:50 86 14 99 Nasal Cannula 2.0 09/27/16 15:40 86 99 30 09/27/16 15:10 94 Nasal Cannula 2.0 Physical Exam General Appearance: no apparent distress (and awake, alert today), + obese Eyes: sclerae normal ENT: hearing grossly normal Neck: trachea midline Respiratory/Chest: normal breath sounds, no respiratory distress, no accessory muscle use Cardiovascular: regular rate, rhythm, no gallop, no murmur, + pertinent finding (1+ pitting edema LLE and LUE) Abdomen: normal bowel sounds, non tender, soft (AND MORBIDLY OBESE) Extremities: non-tender, no calf tenderness, + pertinent finding (1+ PITTING EDEMA ABOVE) Neurologic/Psychiatric: alert, normal mood/affect, oriented x 3, + pertinent finding (LEFT SIDED HEMIPARESIS AND LEFT FACIAL DROOP) Skin: normal color, warm/dry, no rash Laboratory Results Last 24 Hours Test 09/27/16 16:18 09/27/16 19:56 09/28/16 05:46 09/28/16 05:50 Bedside Glucose 276 mg/dl 333 mg/dl 246 mg/dl White Blood Count 6.34 K/uL Red Blood Count 2.61 M/uL Hemoglobin 8.6 g/dL Hematocrit 26.7 % Mean Corpuscular Volume 102.3 fL Mean Corpuscular Hemoglobin 33.0 pg Mean Corpuscular Hemoglobin Concent 32.2 g/dl RDW Standard Deviation 56.6 fL RDW Coefficient of Variation 15.2 % Platelet Count 134 K/uL Mean Platelet Volume 10.0 fL Sodium Level 141 mmol/L Potassium Level 4.6 mmol/L Chloride Level 95 mmol/L Carbon Dioxide Level 41 mmol/L Anion Gap 5.0 mmol/L Blood Urea Nitrogen 35 mg/dl Creatinine 1.10 mg/dl Est Creatinine Clear Calc Drug Dose 62.2 ml/min Estimated GFR () 64.1 Estimated GFR (Non- 55.3 BUN/Creatinine Ratio 32.0 Random Glucose 220 mg/dl Calcium Level 9.7 mg/dl Test 09/28/16 09:25 09/28/16 13:54 Iron Level 57 mcg/dl Total Iron Binding Capacity 314 mcg/dl Transferrin 269 mg/dl Transferrin % Saturation 15 % Ferritin 160.8 ng/ml Vitamin B12 Level 974 pg/mL Folate > 24.00 ng/mL Assessment and Plan 60 y/o female, with PMHx of COPD, DM, hypothyroidism, hyperlipidemia, HTN, DMII , epilepsy,Schizoaffective d/o, and CVA, who presented to the ED because of altered mental status and apnea, with acute on chronic hypoxemic, hypercarbic respiratory failure. Altered mental status, seems to be secondary to Pickwickian Syndrome/ hypercarbic respiratory failure with PaCO2 of 61, HCO3 41; Also aspiration pneumonitis. Has improvement with use of BiPAP then becomes somnolent again when off BiPAP for long periods of time. Does not move, bedbound, doesn't get to chair. -continue tele -CT of head with no acute findings -switched abx to Zosyn and Vanco as per Pulm recommendations to cover for HAP and/or aspiration and will transition to PEG abx with clinda upon discharge to complete 10 day course -CXR suggest pulmonary congestion and repeat on 09/26 similar, one dose 40 mg IV Lasix given on admission --Echo in 05/2016 EF of 55-60% with diastolic dysfunction -Pulmonary consult obtained--> ordered BiPAP as much as possible and will schedule for her for qhs, [id number], and [id number] for set schedule at home, Doppler LLE neg for acute DVT but shows trace chronic DVT left popliteal vein -Neuro consult also obtained and he thinks not likely related to seizures or her h/o CVA but recommended MRI brain which did NOT show new CVA -Will encourage more movement to expand lungs -poor prognosis with multiple comorbidities d/w pt and boyfriend H/o CVA w/ dense left hemiparesis and severe dysphagia, aspiration: -Continue Plavix 75 mg PEG daily -PEG tube with leak in tubing--> fixed by RN by cutting damaged portion and replacing Y tubing CKD stage 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 coli, sensitivity pending, from cathed sample despite saying is a clean catch. -has indwelling Esquivel, is on Zosyn -f/u final urine cx sensitivity -keep Esquivel till tomorrow then d/c upon discharge to home Epilepsy--VA acid low at 49, no seizures here and stable, no changes to meds as per Neuro -Continue Valproic acid 10 ml PEG TID Lamotrigine 100 mg PEG BID. Diabetes mellitus type II--Last HgbA1c checked on 07/2016 and was 6.6%, glucose elevated here in 200s-300s -Increase Lantus to 28 units q am and 30 units qhs -BSG AC & HS and changed to receive SSI coverage with each tube feeding which is actually 5 times daily COPD -Continue Combivent QIDR and budesonide BIDR Schizophrenia -Continue Risperidone 2 mg PEG q am and 4 mg PEG qhs Anemia- Fe studies, B12, folate all normal. TSH was elevated, could be from hypothyroidism -Hgb 8.6 at admission, appears baseline compared to previous records -Follow CBC as outpatient Hypothyroidism -Synthroid 75 mcg PEG qd increased to 88 mcg -TSH of 8.5 on admission Anxiety/depression -Continue Prozac 10 mg PEG qd DVT prophylaxis -Chemical therapy held due to low hgb -LISA preston and SCDs Dispo-to home with her established 24 hr care when ready PT/OT perla FULL CODE
--- NOTE | 2016-09-28 16:03 | Pharmacy Progress Note ---
Pharmacy Antibiotic Prog Note Date of Service: Sep 28, 2016. Subjective: The patient is currently receiving vancomycin 1450 mg IV every 16 hours (15 mg /kg). The patient is currently on day # 3 of IV therapy. Objective: Height (Feet): 5 Height (Inches): 3.00 Weight (Kilograms): 98.100 Levels: Item Value Date Time Vancomycin Level Trough 28.0 mcg/ml 09/28/16 1354 Lab Results (24hrs): Laboratory Tests Test 09/28/16 05:50 BUN/Creatinine Ratio 32.0 Blood Urea Nitrogen 35 mg/dl Creatinine 1.10 mg/dl White Blood Count 6.34 K/uL Assessment & Plan: This drug level is: Supratherapeutic. Change to vancomycin 1300 mg IV every 24 hours (13.5 mg/kg; will wait approximately 14 hours after the trough is drawn to restart the dosing at a reduced dose and reduced interval. This has been reduced approximately 30% which should be appropriate for the time being). Goal peak level estimate: between 35 - 40 mcg/mL. Goal trough level estimate: between 15 - 20 mcg/mL (due to pulmonary source). Trough has been ordered for: prior to 6 am dose. Pharmacy will continue to follow and will adjust dose/frequency as necessary. Thank you
[2016-09-28] MEDS ORDERED: INSULIN GLARGINE SOLOSTAR 100 UNITS/ML 3 ML PEN SC SCH (21:00)
[2016-09-29] VITALS (7 sets, daily range): BP systolic 148–151; BP diastolic 77–79; PULSE 79–84; TEMP 36.5; O2SAT 93–99
[2016-09-29] MEDS ORDERED: VANCOMYCIN INJ 1,300 MG in SODIUM CHLORIDE 0.9% 250ML 250 ML IV SCH (06:00)
[2016-09-29] MEDS: PIPERACILL/TAZOBAC IV 3.375 GM in DEXTROSE 5% 100ML 100 ML IV SCH (06:19)
[2016-09-29] MEDS: LEVOTHYROXINE 88 MCG TAB PEG SCH (06:20)
[2016-09-29] MEDS: PEPTAMEN 1.5 CAL 1000ML BAG PEG SCH ×2 (07:38→08:49)
[2016-09-29] MEDS: INSULIN ASPART 100 UNITS/ML 3 ML PEN SC SCH ×2 (07:39→08:54)
[2016-09-29] MEDS: ALBUT/IPRATROP 3MG/0.5MG NEB 3 ML VIAL INH SCH (07:46)
[2016-09-29] MEDS: BUDESONIDE 0.5 MG/2 ML VIAL (PULMICORT) INH SCH (07:46)
[2016-09-29 07:53] LABS: BASO % 0.2 %; BASO ABS # 0.01 K/uL (0-0.2); EOS % 2.6 %; HEMATOCRIT 27.2 % (37-47); IG% 1.2 %; LYMPH % 23.4 %; LYMPH ABS # 1.16 K/uL (1.2-3.4); MEAN CELL VOLUME 103.4 fL (80-100); MEAN CORPUSCULAR HEMOGLOBIN 33.1 pg (25-34); MEAN PLATELET VOLUME 9.1 fL (7.4-10.4); MONO % 6.5 %; NEUT % 66.1 %; PLATELET COUNT 116 K/uL (130-400); RED BLOOD COUNT 2.63 M/uL (4.2-5.4); WHITE BLOOD COUNT 4.96 K/uL (4.8-10.8)
[2016-09-29 08:28] LABS: ALT/SGPT 9 U/L (12-78); BLOOD UREA NITROGEN 31 mg/dl (7-18); BUN/CREATININE RATIO 28.3 (10-20); CALCIUM 9.8 mg/dl (8.5-10.1); CARBON DIOXIDE 38 mmol/L (21-32); CHLORIDE 95 mmol/L (98-107); GLUCOSE 118 mg/dl (70-99); MAGNESIUM 2.1 mg/dl (1.8-2.4); POTASSIUM 4.5 mmol/L (3.5-5.1); SODIUM 141 mmol/L (136-145)
[2016-09-29 08:31] LABS: ALKALINE PHOSPHATASE 49 U/L (45-117); AST/SGOT 12 U/L (15-37)
[2016-09-29 08:46] LABS: COMPLETE YES
[2016-09-29] MEDS: VALPROIC ACID 500 MG/10 ML UDP PEG SCH (08:49)
[2016-09-29] MEDS: BACLOFEN 10 MG TAB PEG SCH (08:49)
[2016-09-29] MEDS: MULTIVITAMINS W/MINERALS LIQUID PO SCH (08:50)
[2016-09-29] MEDS: FLUOXETINE HCL 20 MG/5 ML PO SCH (08:50)
[2016-09-29] MEDS: RISPERIDONE 2 MG TAB PEG SCH (08:50)
[2016-09-29] MEDS: AMLODIPINE BESYLATE 5 MG TAB PO SCH (08:50)
[2016-09-29] MEDS: CLOPIDOGREL BISULFATE 75 MG TAB PEG SCH (08:50)
[2016-09-29] MEDS: DOCUSATE SODIUM 100 MG/10 ML UDC PO SCH (08:50)
[2016-09-29] MEDS ORDERED: INSULIN GLARGINE SOLOSTAR 100 UNITS/ML 3 ML PEN SC SCH (09:00)
[2016-09-29] MEDS ORDERED: SYN88 PEG (10:32)
[2016-09-29] MEDS ORDERED: CLIN300C2 PO (10:32)
[2016-09-29] MEDS ORDERED: INSDGI SC (10:32)
[2016-09-29] MEDS ORDERED: CEPH-571 PO (10:32)
[2016-09-29] MEDS ORDERED: NRV5 PEG (10:32)
--- NOTE | 2016-09-29 10:51 | Discharge Instructions ---
Discharge Instructions Admission Reason for Admission: Altered Mental Status Discharge Discharge Diagnosis / Problem: Hypercarbic hypoxemic respiratory failure, UTI, Aspiration pneumonia Discharge Goals Goal(s): Improve disease control, Therapeutic intervention Activity Recommendations Activity Limitations: resume your previous activity Physical and occupational therapy as directed . Instructions / Follow-Up Instructions / Follow-Up You were admitted with altered mental status. Your brain MRI showed no new strokes or other changes.Your carbon dioxide levels were high due to your breathing and lung problems. You have difficulty with ventilating due to your large body size and COPD. It is VERY IMPORTANT that you use your BiPAP machine and facemask at home all night long, any time you take a nap, and scheduled during the daytime from 12:00-1:00 PM and from 4:00 PM-5:00 PM. This really helped you while you were in the hospital. You also had a urinary tract infection and aspiration pneumonia from breathing in some of your oral secretions. You should finish out the two antibiotics given to you for these conditions. Your blood pressure was very high and you were started on a new medication called amlodipine to help with this as well. Your thyroid function was found to be low and your levothyroxine was increased to 88 mcg once daily (from 75 mcg). You should have your thyroid blood levels checked in about 3-4 weeks. Your blood sugars were quite high while here. Your insulin was increased so you should continue to check your blood glucose before each meal and at bedtime once you go home. You are anemic and your vitamin B12 level, folate level, and iron levels were all normal. This could be related to your thyroid function being low but could be from chronic illness. It is recommended that you have your complete blood count rechecked with Dr. Garcia and possibly a referral made to a Office Machine Technician if Dr. Garcia thinks this is necessary. Please follow up with Dr. Garcia within 1 week and with the Piano Mechanic Apprentice Dr. Nguyễn within 1 month. Current Hospital Diet Patient's current hospital diet: Discharge Diet Recommended Diet: Diabetes Type 2 Diet (through PEG tube) Procedures Procedures Performed: MRI Brain Doppler BLE: trace and chronic appearing DVT left popliteal artery Chest xrays Head CT Pending Studies Studies pending at discharge: no Laboratory Results Hemoglobin A1c Test 08/13/16 04:51 Range/Units Estimated Average Glucose 143 mg/dl Hemoglobin A1c 6.6 H 4.5-5.6 % Medical Emergencies . Who to Call and When: Medical Emergencies: If at any time you feel your situation is an emergency, please call 911 immediately. . Non-Emergent Contact Non-Emergency issues call your: Primary Care Provider Call Non-Emergent contact if: temperature is above 101, you have any medication questions Or if you have any difficulty breathing, chest pain, or for any other acute concerns . . "Provider Documentation" section prepared by Cher Stein. VTE Core Measure Inpt VTE Proph given/why not?: Valerie Moya, SCD's
--- NOTE | 2016-09-29 22:08 | Discharge Summary ---
Discharge Summary Admission Date: Sep 25, 2016 at 13:29 Discharge Date: Sep 29, 2016 Discharge Disposition: Home with services Principal Diagnosis: Hypercarbic hypoxemic respiratory failure Problems/Secondary Diagnoses: COPD DMII hypothyroidism hyperlipidemia HTN epilepsy Schizoaffective d/o Intellectual disability H/o CVA with left sided hemiparesis Dysphagia Acute on chronic hypoxemic, hypercarbic respiratory failure Pickwickian Syndrome/Obesity hypoventilatory syndrome Aspiration pneumonitis Chronic diastolic CHF Trace chronic DVT left popliteal vein CKD stage [id number] and assistant housekeeping manager improved to 1.1 UTI- complicated by indwelling Armendariz- E. coli Anemia Thrombocytopenia Anxiety/depression Immunizations: Have You Had Influenza Vaccine: Yes Influenza Vaccine Date: Jul 24, 2010 History of Tetanus Vaccine?: Yes History of Pneumococcal: Yes Pneumococcal Date: Jul 15, 2009 History of Hepatitis B Vaccine: Unknown Procedures: MRI OF THE BRAIN WITHOUT IV CONTRAST CLINICAL HISTORY: Strokelike symptoms. COMPARISON STUDY: CT of the brain dated 09/25/2016. TECHNIQUE: MRI of the brain was performed utilizing various T1 and T2-weighted sequences in the axial, sagittal, and coronal planes. IV contrast was not administered for this examination. The examination is degraded by motion artifact. FINDINGS: Brain parenchyma: There are age-related involutional changes noting mild to moderate patchy subcortical and periventricular microangiopathic disease. There is no hemorrhage or mass effect. There is no restricted diffusion to suggest acute ischemia. Kumar-white matter differentiation is preserved. No extra-axial fluid collection is seen. The cerebellar tonsils are normal in configuration. Ventricles, sulci, and cisterns: Prominent secondary to involutional change. Pituitary and sella: Unremarkable. Intracranial vasculature: Normal flow voids are maintained at the skull base. Orbits: The bony orbits are grossly intact. Orbital contents are normal in appearance. Sinuses and mastoids: There are small mastoid effusions. The paranasal sinuses are clear. Calvarium: Unremarkable. Cervical cord: Partially visualized cervical spinal cord is normal in morphology and signal intensity. IMPRESSION: 1. Motion degraded examination. 2. Senescent changes as above with no acute intracranial abnormality. 3. Bilateral mastoid effusions. CT HEAD WITHOUT CONTRAST (CT) CLINICAL HISTORY: Acute change in mental status COMPARISON STUDY: 06/29/2016 TECHNIQUE: Axial CT of the brain is performed from the vertex to the skull base. IV contrast was not administered for this examination. CT DOSE: 810.83 mGy.cm FINDINGS: No intra or extra-axial mass lesions are visualized. There is no CT evidence of acute cortical infarction. There is no evidence of midline shift. There is no acute hemorrhage. No calvarial fractures are visualized. Increased density in the region of the left medial temporal lobe is likely artifactual. There are patchy white matter hypodensities, likely on a small vessel basis. There is no evidence of pathologic ventricular dilatation. There is indwelling nasal airway. There is no acute sinusitis. IMPRESSION: No acute intracranial findings CHEST ONE VIEW PORTABLE CLINICAL HISTORY: altered mental status COMPARISON STUDY: 06/29/2016 FINDINGS: The heart is at the upper limits of normal in size. There is diffuse elevation of the interstitium. The findings likely reflect pulmonary vascular congestion although an interstitial inflammatory process could appear similar. There is no lobar consolidation. There are no significant pleural effusions. IMPRESSION: Diffuse elevation of the interstitium. Clinical correlation in regards to pulmonary vascular congestion is recommended. No evidence of lobar consolidation SINGLE VIEW CHEST CLINICAL HISTORY: Apnea. Abnormal breath sounds on physical examination. FINDINGS: An AP, portable, upright chest radiograph is compared to study dated 09/25/2016 and correlated with chest CT dated 04/05/2016. The examination is degraded by portable technique, large body habitus, and patient rotation. The cardiomediastinal silhouette is unremarkable. There are low lung volumes with bibasilar atelectasis and mild elevation of the right hemidiaphragm. Interstitial thickening is unchanged from yesterday. No large pleural effusion or pneumothorax is seen. The skeletal structures are osteopenic. The bony thorax is grossly intact. Cholecystectomy clips are seen in the right upper quadrant. IMPRESSION: Interstitial thickening is similar in appearance to yesterday. No lobar consolidation or pleural effusion is identified. ULTRASOUND BILATERAL LOWER EXTREMITY VENOUS CLINICAL HISTORY: Change in mental status.. COMPARISON STUDY: Bilateral lower extremity venous ultrasound dated 05/01/2009. TECHNIQUE: Real-time, grayscale, and color Doppler sonography of the deep veins of the right and left lower extremity was performed from the inguinal crease to the calf. Compression and augmentation were utilized. FINDINGS: There is trace chronic appearing thrombus identified within the left popliteal vein. There is no sonographic evidence of acute deep venous thrombosis identified in the right or left lower extremity. The common femoral, superficial femoral, and popliteal veins are otherwise patent and normally compressible bilaterally. The midportion of the right superficial femoral vein is not well visualized due to overlying bandaging. The greater saphenous vein and the profunda femoris vein at the junction with the common femoral vein are clear in both legs. The visualized calf veins are patent bilaterally. IMPRESSION: 1. There is trace and chronic appearing deep venous thrombosis identified within the left popliteal vein. 2. There is no sonographic evidence of acute deep venous thrombosis identified in the right or left lower extremity. Consultations: Pulmonology Neurology Medication Reconciliation New Medications: Cephalexin (Keflex) 500 Mg Cap 1 CAP PO TID for 7 Days, #21 CAP Clindamycin Hcl (Cleocin) 300 Mg Cap 1 CAP PO TID for 7 Days, #21 CAP Amlodipine Besylate (Amlodipine Besylate) 5 Mg Tab 5 MG PEG QAM, #30 TAB Levothyroxine Sodium (Synthroid) 88 Mcg Tab 88 MCG PEG DAILYBB for 30 Days, #30 TAB and then have your thyroid function repeated in 3-4 weeks with your doctor Changed Medications: Insulin Glargine (Lantus) 100 Unit/Ml Inj 24 UNITS SC QAM for 30 Days, VIAL (Changed from: 16 UNITS) Continued Medications: Acetaminophen (Tylenol) 325 Mg Tab 650 MG PEG TID PRN for Pain, #45 TAB Albuterol Sulfate (Proair Hfa) 108 Mcg/ Aer 2 PUFFS INH Q4H PRN for Wheezing, #120 Baclofen (Lioresal) 10 Mg Tab 10 MG PEG BID for spasm, TAB Bisacodyl (Bisac-Evac) 10 Mg Supp 10 MG WI every 4 days PRN for Constipation Budesonide (Inhalation) (Pulmicort Respules 0.5MG/2ML) 0.5 Mg/2 Ml Meera 0.5 MG INH BIDR, #60 Clopidogrel (Plavix) 75 Mg Tab 75 MG PEG DAILY, TAB Dextrose (Diabetic Use) (Insta-Glucose) 77.4 % Gel 1 APPLN PEG PRN for glucose less than 60 Docusate Sodium (Colace) 100 Mg Cap 1 CAP PO BID for 30 Days, #60 CAP 2 Refills 100 Mg PEG BID for constipation Fluoxetine (Prozac) 10 Mg Cap 10 MG PEG DAILY, CAP Glucagon (Glucagon Emergency Kit) 1 Mg Kit 1 MG IM prn PRN for HYPOGLYCEMIA PROTOCOL Insulin Glargine (Lantus) 100 Unit/Ml Inj 28 UNITS SC QPM, VIAL Insulin Lispro (Human) (Humalog) 100 Unit/Ml Inj 1 DOSE SC DIRECTED SLIDING SCALE Ipratropium-Albuterol (Ipratropium Rubicon/Albut) 1 Jumana Jumana 3 ML INH QID, #120 Lamotrigine (Lamotrigine) 100 Mg Tab 100 MG PEG BID Lidocaine Hcl (Lidocaine) 3 % Cre 1 DOSE EXT Q8H PRN for Pain Magnesium Hydroxide (Milk Of Magnesia) 30 Ml Susp 30 ML PO DIRECTED PRN for Constipation, ML Multivitamin (Multivitamin) Tab 1 TAB PEG DAILY, TAB Nutritional Supplements (Isosource 1.5 Eulogio) 1 Liq Liq 250 ML PEG 5XD Risperidone (Risperdal) 2 Mg Tab 2 MG PEG QAM, TAB Risperidone (Risperdal) 2 Mg Tab 4 MG PEG QPM, TAB Sodium Phosphates (Fleet Enema Six Pack) 1 Marisol Marisol 1 UNIT WI DAILY PRN for constipation if dulcolax not w Valproic Acid Syrup (Depakene) 250 Mg/5 Ml Syrp 10 ML PEG TID, ML [Water, Sterile] () 1 EA SRINIVAS 1 EA PEG Q6, #120 Discontinued Medications: Levothyroxine Sodium (Levothyroxine Sodium) 75 Mcg Tab 75 MCG PEG DAILY Referrals At Discharge Follow up Referrals: Family Practice Referral - Within 1 Week with Félix Garcia D.O. Chain Builder Referral - Within a Month with Elvin Nguyễn MD Discharge Exam Pt was awake and alert, doing very well on day of discharge. Pt and her boyfriend were very agreeable to be compliant with BiPAP at home and boyfriend assured me they had the machine and mask and would use it. However, as patient had just been transported to home, Machinery Repair Maintenance Supervisor discovered that patient does not actually have a BiPAP machine at home as per home nursing agency. Attempts were made to bring the pt back to the ER for observation until arrangements could be made but she had already been dropped off at home. Machinery Repair Maintenance Supervisor was able to arrange for an overnight oximetry test at home for the night of discharge to PROVE to the insurance company that she does indeed become hypoxic and require BiPAP. After that, she will be able to get the BiPAP for tomorrow. SHe has 24 hr nursing care and observation at home and will have continuous POx tonight. Review of Systems: Constitutional: No fever Eyes: No problem reported ENT: No problem reported Respiratory: No cough, No shortness of breath Cardiovascular: No chest pain Abdomen: No constipation, No pain Musculoskeletal: No problem reported Genitourinary - Female: No problem reported Neurologic: + paralysis Psychiatric: + anxiety Endocrine: No problem reported Hematologic / Lymphatic: No problem reported Integumentary: No problem reported Hospital Course 60 y/o female, with PMHx of COPD, DM, hypothyroidism, hyperlipidemia, HTN, DMII , epilepsy,Schizoaffective d/o, and CVA, who presented to the ED because of altered mental status and apnea, with acute on chronic hypoxemic, hypercarbic respiratory failure. Altered mental status, seems to be secondary to Pickwickian Syndrome/ hypercarbic respiratory failure with PaCO2 of 61, HCO3 41; Also aspiration pneumonitis. Has improvement with use of BiPAP then becomes somnolent again when off BiPAP for long periods of time. Does not move, bedbound, doesn't get to chair. -no events on telemetry -CT of head with no acute findings -switched abx to Zosyn and Vanco as per Pulm recommendations to cover for HAP and/or aspiration and will transition to PEG abx with clinda upon discharge to complete 10 day course -CXR suggest pulmonary congestion and repeat on 09/26 similar, one dose 40 mg IV Lasix given on admission --Echo in 05/2016 EF of 55-60% with diastolic dysfunction -Pulmonary consult obtained--> ordered BiPAP as much as possible and will schedule for her for qhs, [id number], and [id number] for set schedule at home, Doppler LLE neg for acute DVT but shows trace chronic DVT left popliteal vein -Neuro consult also obtained and he thinks not likely related to seizures or her h/o CVA but recommended MRI brain which did NOT show new CVA -Will encourage more movement to expand lungs -poor prognosis with multiple comorbidities d/w pt and boyfriend H/o CVA w/ dense left hemiparesis and severe dysphagia, aspiration: -Continue Plavix 75 mg PEG daily -PEG tube with leak in tubing--> fixed by RN by cutting damaged portion and replacing Y tubing CKD stage [id number] and assistant housekeeping manager improved to 1.1 -renally dose meds -avoid nephrotoxins UTI- with E. coli -has indwelling Armendariz which was removed day of discharge, was on Zosyn and switched to keflex to finish out 10 day course Epilepsy--VA acid low at 49, no seizures here and stable, no changes to meds as per Neuro -Continue Valproic acid 10 ml PEG TID Lamotrigine 100 mg PEG BID. Diabetes mellitus type II--Last HgbA1c checked on 07/2016 and was 6.6%, glucose elevated here in 200s-300s -Increased Lantus to 24 units q am and 28 units qhs for discharge -BSG AC & HS and changed to receive SSI coverage with each tube feeding which is actually 5 times daily COPD -Continue Combivent QIDR and budesonide BIDR Schizophrenia -Continue Risperidone 2 mg PEG q am and 4 mg PEG qhs Anemia, thrombocytopenia (mild)-with macrocytosis; Fe studies, B12, folate all normal. TSH was elevated, could be from hypothyroidism -Hgb 8.6 at admission, appears baseline compared to previous records -Follow CBC as outpatient -consider Hematology referral as outpt Hypothyroidism -Synthroid 75 mcg PEG qd increased to 88 mcg -TSH of 8.5 on admission Anxiety/depression -Continue Prozac 10 mg PEG qd DVT prophylaxis -Chemical therapy held due to low hgb -LISA radhae and SCDs Dispo-to home with her established 24 hr care today with arrangements being made for home BiPAP Home PT/OT FULL CODE Total Time Spent: Greater than 30 minutes This includes examination of the patient, discharge planning, medication reconciliation, and communication with other providers. Discharge Instructions Please refer to the electronic Patient Visit Report (Discharge Instructions) for additional information. Follow-Up With Pulm Dr. Nguyễn within 1-[address] Garcia within 1 week Additional Copies To Félix Garcia D.O.; Elvin Nguyễn MD
[2016-10-01] MEDS ORDERED: VANCOMYCIN TROUGH SCH (05:30)
[2016-10-09] MEDS ORDERED: ASPCH81 PEG (09:36)
[2016-10-09] MEDS ORDERED: LPR25 PEG (09:36)
[2016-10-09] MEDS ORDERED: OMEP20CA59 PO (09:36)
[2016-10-09] MEDS ORDERED: LPT40 PO (09:36)
[2016-11-26] MEDS ORDERED: LEVO1TAB33 PEG ×2 (11:24→13:13)
[2016-11-26] MEDS ORDERED: ASPCH81X PEG ×2 (11:37→13:13)
[2016-12-29] MEDS ORDERED: RXNS10 PO (16:07)
== END 2016-09-29 11:23 | disposition home health service (06) | DRG 177 ==
LOC: ENRESERVDT → ENRESERVTM → CANRESERV → EDBD 09:13 → C.EDB 09:14 → C.2T 13:29 → C.MS2W 09-28 18:32
PROVIDERS: ADMIT Internal Medicine; ATTEND Family Medicine
DX: J69.0 Pneumonitis due to inhalation of food and vomit (principal); J96.21 Acute and chronic respiratory failure with hypoxia; G93.40 Encephalopathy, unspecified; E66.2 Morbid (severe) obesity with alveolar hypoventilation; I69.354 Hemiplegia and hemiparesis following cerebral infarction affecting left non-dominant side; N39.0 Urinary tract infection, site not specified; I50.32 Chronic diastolic (congestive) heart failure; I82.402 Acute embolism and thrombosis of unspecified deep veins of left lower extremity; I13.0 Hypertensive heart and chronic kidney disease with heart failure and stage 1 through stage 4 chronic kidney disease, or unspecified chronic kidney disease; G93.1 Anoxic brain damage, not elsewhere classified; G40.909 Epilepsy, unspecified, not intractable, without status epilepticus; E11.65 Type 2 diabetes mellitus with hyperglycemia; E03.9 Hypothyroidism, unspecified; D64.9 Anemia, unspecified; K21.9 Gastro-esophageal reflux disease without esophagitis; N18.3 Chronic kidney disease, stage 3 (moderate); B96.20 Unspecified Escherichia coli [E. coli] as the cause of diseases classified elsewhere; Z79.4 Long term (current) use of insulin; I25.2 Old myocardial infarction; E78.00 Pure hypercholesterolemia, unspecified; D69.6 Thrombocytopenia, unspecified; Z87.891 Personal history of nicotine dependence; F70 Mild intellectual disabilities; Z83.3 Family history of diabetes mellitus; Z82.49 Family history of ischemic heart disease and other diseases of the circulatory system; F25.0 Schizoaffective disorder, bipolar type; E11.42 Type 2 diabetes mellitus with diabetic polyneuropathy

== ENCOUNTER 2016-10-04 11:26 | Inpatient (IN) | payer OTHER ==
[~2016-10-04] VITALS: Ht 154.9 cm; Wt 106.7 kg
[2016-10-04 11:26] VITALS: PULSE 120; O2SAT 96
[~2016-10-04 11:26] MED LIST changes: +CEPH-571 PO; +CLIN300C2 PO; -Enteral Nutrition Formula PEG; -HYDR-5688 PEG; +INSDGI SC; -LEVO75TA5 PEG; +MULT-506 PEG; +NRV5 PEG; +NUTR1.5L4 PEG; +RISP2TAB22 PEG; +SYN88 PEG
[2016-10-04] MEDS ORDERED: SODIUM CHLORIDE 0.9% 1000ML 500 ML IV ONE (11:38)
[2016-10-04 12:07] LABS: BASO % 0.1 %; BASO ABS # 0.02 K/uL (0-0.2); COMPLETE YES; EOS % 0.9 %; HEMATOCRIT 29.8 % (37-47); IG% 1.1 %; LYMPH % 11.8 %; LYMPH ABS # 1.65 K/uL (1.2-3.4); MEAN CELL VOLUME 105.3 fL (80-100); MEAN CORPUSCULAR HEMOGLOBIN 33.6 pg (25-34); MEAN CORPUSCULAR HGB CONC 31.9 g/dl (32-36); MEAN PLATELET VOLUME 10.6 fL (7.4-10.4); MONO % 6.9 %; NEUT % 79.2 %; PLATELET COUNT 178 K/uL (130-400); RED BLOOD COUNT 2.83 M/uL (4.2-5.4); WHITE BLOOD COUNT 13.94 K/uL (4.8-10.8)
--- NOTE | 2016-10-04 12:07 | DIAGNOSTIC IMAGING REPORT ---
CHEST ONE VIEW PORTABLE CLINICAL HISTORY: Sepsis. Respiratory distress. COMPARISON STUDY: Chest radiograph September 26, 2016. FINDINGS: Lung volumes are normal. There is no pneumothorax. There are suspected trace bilateral pleural effusions. There is diffuse interstitial thickening. Mild left lower lung opacity is present. IMPRESSION: 1. Interval development of interstitial thickening consistent with moderate pulmonary edema. 2. Mild left lower lung opacities which could reflect atelectasis or less likely consolidation. 3. Trace bilateral pleural effusions. Electronically signed by: Víctor Matthews M.D. 10/04/2016 12:05 PM Dictated Date/Time: 10/04/2016 12:03 PM
[2016-10-04 12:13] LABS: ISTAT ARTERIAL BLOOD GAS HCO3 40 meq/L (19-24); ISTAT ARTERIAL BLOOD GAS PCO2 63 mmHg (35-46); ISTAT ARTERIAL BLOOD GAS PO2 120 mmHg (80-95); ISTAT ARTERIAL BLOOD GAS pH 7.41 (7.35-7.45); ISTAT CARBON DIOXIDE > 40 mEq/l (24-31)
[2016-10-04 12:20] LABS: INR 0.9 (0.9-1.1); PARTIAL THROMBOPLASTIN RATIO 0.9; PROTHROMBIN TIME (PATIENT) 9.8 SECONDS (9.0-12.0)
[2016-10-04 12:27] LABS: ALT/SGPT 11 U/L (12-78); BLOOD UREA NITROGEN 42 mg/dl (7-18); BUN/CREATININE RATIO 27.7 (10-20); CALCIUM 10.9 mg/dl (8.5-10.1); CARBON DIOXIDE 34 mmol/L (21-32); CHLORIDE 91 mmol/L (98-107); GLUCOSE 268 mg/dl (70-99); POTASSIUM 5.8 mmol/L (3.5-5.1); SODIUM 135 mmol/L (136-145)
[2016-10-04 12:30] LABS: ALB/GLOB RATIO 0.7 (0.9-2); ALKALINE PHOSPHATASE 53 U/L (45-117); AST/SGOT 23 U/L (15-37)
[2016-10-04] MEDS ORDERED: SODIUM CHLORIDE 0.9% 1000ML 2,000 ML IV ONE (12:30)
--- NOTE | 2016-10-04 12:44 | DIAGNOSTIC IMAGING REPORT ---
CT HEAD WITHOUT CONTRAST (CT) CLINICAL HISTORY: stroke like symptoms COMPARISON STUDY: 09/25/2016 TECHNIQUE: Axial CT of the brain is performed from the vertex to the skull base. IV contrast was not administered for this examination. CT DOSE: 537.48 mGy.cm FINDINGS: No intra or extra-axial mass lesions are visualized. There is no CT evidence of acute cortical infarction. There is no evidence of midline shift. There is no acute hemorrhage. No calvarial fractures are visualized. There are moderate white matter hypodensities likely on a small vessel basis. There is no evidence of pathologic ventricular dilatation. There is no evidence of acute sinusitis IMPRESSION: No acute intracranial findings Electronically signed by: Prosper Grubbs M.D. 10/04/2016 12:41 PM Dictated Date/Time: 10/04/2016 12:40 PM
[2016-10-04] MEDS ORDERED: BUMETANIDE SOLN 1 MG/4 ML VIAL IV ONE (12:45)
[2016-10-04 13:17] LABS: URINE APPEARANCE CLEAR (CLEAR); URINE BILIRUBIN NEG (NEG); URINE COLOR YELLOW; URINE NITRITE NEG (NEG); URINE PH 7.5 (4.5-7.5); URINE SPECIFIC GRAVITY 1.007 (1.000-1.030); UROBILINOGEN NEG (NEG); ZZURINE CULT IF INDIC CATH NO
[2016-10-04 13:22] LABS: MANUAL MICROSCOPIC REQUIRED? NO; REVIEW REQ? NO
[2016-10-04 13:23] LABS: SULFASALICYLIC ACID POS (NEG)
[2016-10-04] MEDS ORDERED: ALUMINUM/MAGNESIUM/SIMETH (MAALOX MAX) 30 ML UDC PO PRN (13:45)
[2016-10-04] MEDS ORDERED: HEPARIN SOD 5000 UNIT/0.5 ML CARP SQ SCH (14:00)
[2016-10-04] MEDS ORDERED: SODIUM POLYST. SULF SUSP 15G/60ML PO STA (14:00)
--- NOTE | 2016-10-04 14:13 | History and Physical ---
History & Physical Date & Time of Service: Oct 04, 2016 at 13:50 Chief Complaint: Respiratory Distress/Altered Mental Status Primary Care Physician: Félix Garcia D.O. History of Present Illness Source: patient, family Pt is a 60 year old female arriving by ambulance from home who presents to the ER for shortness of breath that started this AM. Per boyfriend, pt was recently discharged last week from [facility] for altered mental status secondary to aspiration pneumonitis. Pt reports she was supposed to be set up with BiPAP at home but home health was waiting on insurance to be approved. Per boyfriend, pt was alert and communicative until this AM, when pt was noted to be short of breath and was gasping for air. Upon arrival of EMS , patient's oxygen saturation levels were in the 70's, and she appeared to be blue in color. En route to the ED, patient was placed on CPAP which did help to bring her oxygen saturation levels back in to the 90s. Patient is currently on antibiotics for UTI, but significant other denies recent fevers, chills, headache, sore throat, chest pain, cough, abdominal pain, nausea, vomiting, diarrhea, or other acute symptoms prior to time of onset of respiratory distress today. Past Medical/Surgical History Medical Problems: (1) Asthma, Unspecified Status: Chronic (2) Bronchitis Status: Resolved (3) COPD (chronic obstructive pulmonary disease) Status: Chronic (4) Diab W Oth Spec Manifest, Type Ii Or Unspec Type, Not Uncntr Status: Chronic (5) Epilepsy Status: Chronic (6) Hyperlipidemia Status: Chronic (7) Hypertension Nos Status: Chronic (8) Mild Mental Retardation Status: Chronic (9) Schizoaffective Disorder, Unspecified Status: Chronic (10) Schizophrenia Nos-Unspec Status: Chronic Family History Diabetes mellitus Heart disease Social History Smoking Status: Unknown if Ever Smoked Smokeless Tobacco Use: No Alcohol Use: none Drug Use: none Marital Status: Housing status: penitentiary Occupational Status: unemployed Immunizations History of Influenza Vaccine: Yes Influenza Vaccine Date: Jul 24, 2010 History of Tetanus Vaccine?: Yes History of Pneumococcal: Yes Pneumococcal Date: Jul 15, 2009 History of Hepatitis B Vaccine: Unknown Multi-Drug Resistant Organisms History of MDRO: No Allergies Coded Allergies: Sulfa Antibiotics (Verified Allergy, Intermediate, RASH, 10/04/16) Home Medications Scheduled Amlodipine Besylate (Amlodipine Besylate), 5 MG PEG QAM Baclofen (Lioresal), 10 MG PEG BID Budesonide (Inhalation) (Pulmicort Respules 0.5MG/2ML), 0.5 MG INH BIDR Cephalexin (Keflex), 1 CAP PO TID Clindamycin Hcl (Cleocin), 1 CAP PO TID Clopidogrel (Plavix), 75 MG PEG DAILY Docusate Sodium (Colace), 1 CAP PO BID Fluoxetine (Prozac), 10 MG PEG DAILY Insulin Glargine (Lantus), 28 UNITS SC QPM Insulin Glargine (Lantus), 24 UNITS SC QAM Insulin Lispro (Human) (Humalog), 1 DOSE SC DIRECTED Ipratropium-Albuterol (Ipratropium Roulette/Albut), 3 ML INH QID Lamotrigine (Lamotrigine), 100 MG PEG BID Levothyroxine Sodium (Synthroid), 88 MCG PEG DAILYBB Multivitamin (Multivitamin), 1 TAB PEG DAILY Nutritional Supplements (Isosource 1.5 Eulogio), 250 ML PEG 5XD Risperidone (Risperdal), 2 MG PEG QAM Risperidone (Risperdal), 4 MG PEG QPM Valproic Acid Syrup (Depakene), 10 ML PEG TID [Water, Sterile], 1 EA PEG Q6 Scheduled PRN Acetaminophen (Tylenol), 650 MG PEG TID PRN for Pain Albuterol Sulfate (Proair Hfa), 2 PUFFS INH Q4H PRN for Wheezing Bisacodyl (Bisac-Evac), 10 MG NV every 4 days PRN for Constipation Dextrose (Diabetic Use) (Insta-Glucose), 1 APPLN PEG for glucose less than 60 Glucagon (Glucagon Emergency Kit), 1 MG IM prn PRN for HYPOGLYCEMIA PROTOCOL Lidocaine Hcl (Lidocaine), 1 DOSE EXT Q8H PRN for Pain Magnesium Hydroxide (Milk Of Magnesia), 30 ML PO DIRECTED PRN for Constipation Sodium Phosphates (Fleet Enema Six Pack), 1 UNIT NV DAILY PRN for constipation if dulcolax not w Review of Systems Unable to be obtained due to altered mental status Physical Exam Vital Signs Date Time Temp Pulse Resp B/P Pulse Ox O2 Delivery O2 Flow Rate FiO2 10/04/16 13:00 100 20 121/64 100 BiPAP 90 10/04/16 12:36 102 10/04/16 12:30 102 21 126/56 97 BiPAP 90 10/04/16 12:00 106 22 116/67 94 BiPAP 90 10/04/16 11:40 BiPAP 90 10/04/16 11:35 119 10/04/16 11:33 37.7 108 21 106/75 90 CPAP 100 10/04/16 11:33 CPAP 100 10/04/16 11:26 120 96 80 General Appearance: WD/WN, + mild distress, + obese Eyes: PERRL, EOMI Neck: supple, no adenopathy Respiratory/Chest: chest non-tender, lungs clear, normal breath sounds Cardiovascular: no JVD, no murmur Abdomen/GI: non tender, soft Neurologic/Psych: alert, oriented x 3 Skin: normal color, warm/dry Diagnostics Laboratory Results Results Past 24 Hours Test 10/04/16 11:38 10/04/16 11:40 10/04/16 11:56 10/04/16 12:03 Range/Units Bedside Glucose 289 70-90 mg/dl White Blood Count 13.94 4.8-10.8 K/uL Red Blood Count 2.83 4.2-5.4 M/uL Hemoglobin 9.5 12.0-16.0 g/dL Hematocrit 29.8 37-47 % Mean Corpuscular Volume 105.3 80-100 fL Mean Corpuscular Hemoglobin 33.6 25-34 pg Mean Corpuscular Hemoglobin Concent 31.9 32-36 g/dl Platelet Count 178 130-400 K/uL Mean Platelet Volume 10.6 7.4-10.4 fL Neutrophils (%) (Auto) 79.2 % Lymphocytes (%) (Auto) 11.8 % Monocytes (%) (Auto) 6.9 % Eosinophils (%) (Auto) 0.9 % Basophils (%) (Auto) 0.1 % Neutrophils # (Auto) 11.03 1.4-6.5 K/uL Lymphocytes # (Auto) 1.65 1.2-3.4 K/uL Monocytes # (Auto) 0.96 0.11-0.59 K/uL Eosinophils # (Auto) 0.13 0-0.5 K/uL Basophils # (Auto) 0.02 0-0.2 K/uL RDW Standard Deviation 58.2 36.4-46.3 fL RDW Coefficient of Variation 15.1 11.5-14.5 % Immature Granulocyte % (Auto) 1.1 % Immature Granulocyte # (Auto) 0.15 0.00-0.02 K/uL Prothrombin Time 9.8 9.0-12.0 SECONDS Prothromb Time International Ratio 0.9 0.9-1.1 Activated Partial Thromboplast Time 24.0 21.0-31.0 SECONDS Partial Thromboplastin Ratio 0.9 Sodium Level 135 136-145 mmol/L Potassium Level 5.8 3.5-5.1 mmol/L Chloride Level 91 98-107 mmol/L Carbon Dioxide Level 34 21-32 mmol/L Anion Gap 10.0 3-11 mmol/L Blood Urea Nitrogen 42 7-18 mg/dl Creatinine 1.50 0.60-1.20 mg/dl Estimated GFR () 44.1 Estimated GFR (Non- 38.0 BUN/Creatinine Ratio 27.7 10-20 Random Glucose 268 70-99 mg/dl Calcium Level 10.9 8.5-10.1 mg/dl Total Bilirubin 0.2 0.2-1 mg/dl Aspartate Amino Transf (AST/SGOT) 23 15-37 U/L Alanine Aminotransferase (ALT/SGPT) 11 12-78 U/L Alkaline Phosphatase 53 45-117 U/L Total Protein 6.7 6.4-8.2 gm/dl Albumin 2.8 3.4-5.0 gm/dl Globulin 3.9 2.5-4.0 gm/dl Albumin/Globulin Ratio 0.7 0.9-2 Procalcitonin 0.30 0-0.5 ng/mL Bedside Blood Gas pH (LAB) 7.41 7.35-7.45 Bedside Blood Gas pCO2 (LAB) 63 35-46 mmHg Bedside Blood Gas pO2 (LAB) 120 80-95 mmHg Bedside Blood Gas HCO3 (LAB) 40 19-24 meq/L Bedside Blood Gas Total CO2 > 40 24-31 mEq/l Bedside Blood Gas Base Excess (LAB) 15.0 -9-1.8 meq/L Bedside Blood Gas O2 Saturation 99.0 90-95 % Bedside Troponin I 0.780 0-0.045 ng/ml Test 10/04/16 12:09 10/04/16 12:49 Range/Units Bedside Lactic Acid Venous 3.89 0.90-1.70 mmol/L Urine Color YELLOW Urine Appearance CLEAR CLEAR Urine pH 7.5 4.5-7.5 Urine Specific [place] 1.007 1.000-1.030 Urine Protein 2+ NEG Urine Glucose (UA) NEG NEG Urine Ketones NEG NEG Urine Occult Blood NEG NEG Urine Nitrite NEG NEG Urine Bilirubin NEG NEG Urine Urobilinogen NEG NEG Urine Leukocyte Esterase NEG NEG Urine WBC (Auto) 1-5 0-5 /hpf Urine RBC (Auto) 0-4 0-4 /hpf Urine Hyaline Casts (Auto) 1-5 0-5 /lpf Urine Epithelial Cells (Auto) 10-20 0-5 /lpf Urine Bacteria (Auto) NEG NEG Microbiology Results 10/04/16 Blood Culture, Received Pending 10/04/16 Blood Culture, Received Pending Impression Assessment and Plan 60 y/o female, with PMHx of COPD, DM, hypothyroidism, hyperlipidemia, HTN, DM II , epilepsy, schizoaffective d/o, and CVA, who presented to the ED for shortness of breath and was noted to be in sepsis Altered mental status, seems secondary to sepsis/Pickwickian Syndrome/ hypercarbic respiratory failure. Pt is a high risk for aspiration pneumonitis and was treated for this just a week ago in [facility]. Will place on BiPAP at this time. Will not be able to utilize fluids due to pulm edema noted on CXR. Echo in 05/2016 EF of 55-60% with diastolic dysfunction Was given bumex in ER. Lactic acid noted to be 3.89. Will start on levaquin and vanc at this time. UA unremarkable. Mild fever and tachycardia noted on presentation. Will obtain pancx. Pt will be admitted to tele and will consult pulmonary at this time. Will also need case management to look into setting up BiPAP prior to discharge home. NSTEMI - Depressions noted in lateral leads. Trend trops. Cardio consult. Start on heparin drip, plavix, and statin. Hold ACEI due to renal failure Hyperkalemia - DC offending agents, will utilize kayexalate PRN. Cont to monitor PRP. H/o CVA w/ dense left hemiparesis and severe dysphagia, continue Plavix 75 mg PEG daily Acute on CKD stage III- Will have to be cautious with overdiuresis, bumex given in ER. Utilize renally dose meds and avoid nephrotoxins Recent UTI with E. coli has indwelling Aguilar which was removed day of prior discharge, few days left of keflex but will switch to zosyn and vanc for sepsis coverage. Hx epilepsy - No noted seizure activity. Continue Valproic acid 10 ml PEG TID Lamotrigine 100 mg PEG BID. Diabetes mellitus type II - Last HgbA1c checked on 07/2016 and was 6.6%, glucose elevated here in 200s-300s. Cont Lantus to 24 units q am and 28 units qhs for discharge BSG AC & HS and changed to receive SSI coverage with each tube feeding which is actually 5 times daily COPD - Continue Combivent QIDR and budesonide BIDR Schizophrenia - Continue Risperidone 2 mg PEG q am and 4 mg PEG qhs Chronic anemia - Fe studies, B12, folate all normal on prev admission. At baseline Hypothyroidism - Cont synthroid 75 mcg PEG qd increased to 88 mcg Anxiety/depression - Continue Prozac 10 mg PEG qd DVT prophylaxis - Heparin Pt is FULL CODE VTE Prophylaxis VTE Risk Assessment Done? Y/N: Yes Risk Level: Moderate
[2016-10-04 14:14] LABS: BENZODIAZEPINE, URINE NEG (NEG); COCAINE,URINE NEG (NEG); PHENCYCLIDINE, URINE NEG (NEG)
[2016-10-04] MEDS ORDERED: ALBUTEROL HFA 8 GM INHALER INH PRN (14:15)
[2016-10-04] MEDS ORDERED: GLUCAGON FOR INJ 1 MG VIAL SQ PRN (14:30)
[2016-10-04] MEDS ORDERED: GLUCOSE 40% GEL 15 GM TUBE PO PRN (14:30)
[2016-10-04] MEDS ORDERED: DEXTROSE 50% 50 ML SYR IV PRN (14:30)
[2016-10-04] MEDS ORDERED: GLUCOSE 10 TABS/TUBE PO PRN (14:30)
[2016-10-04] MEDS ORDERED: ATORVASTATIN 40 MG TAB PO ONE (14:34)
[2016-10-04] MEDS ORDERED: ASPIRIN 81 MG CHEW PEG STA (14:48)
[2016-10-04 15:02] VITALS: BP 138/81; PULSE 93; TEMP 36.6; O2SAT 100; Ht 154.9 cm; Wt 106.7 kg
--- NOTE | 2016-10-04 15:03 | EMERGENCY ROOM VISIT NOTE ---
History Report prepared by Monik: Vannessa Carr Under the Supervision of: Dr. Robbie Laguerre M.D. (physical) First contact with patient: 11:30 Chief Complaint: RESPIRATORY DISTRESS Stated Complaint: RESPIRATORY DISTRESS/ALTERED MENTAL STATUS History of Present Illness The patient is a 60 year old female arriving by ambulance from home who presents to the Emergency Room as per EMS report for evaluation of respiratory distress which developed suddenly just prior to arrival. Per significant other, at the time of onset, patient was being evaluated by the home health nurse when she suddenly became short of breath and began gasping for air. Upon arrival of EMS, patient's oxygen saturation levels were in the 70's, and she appeared to be blue in color. En route to the ED, patient was placed on CPAP which did help to bring her oxygen saturation levels back in to the 90s. Per significant other , patient was recently admitted to the hospital for respiratory distress a few weeks ago and was supposed to be given a BiPAP machine, but her insurance has not yet approved coverage. He also notes that patient is immobile secondary to history of stroke, but her symptoms today did not seem similar to when she had a stroke in the past. She is cared for by home health nurses regularly. Patient is currently on antibiotics for UTI, but significant other denies recent fevers, chills, headache, sore throat, chest pain, cough, abdominal pain , nausea, vomiting, diarrhea, or other acute symptoms prior to time of onset of respiratory distress today. Source of History: spouse/significant other, EMS Onset: just prior to arrival Position: chest Quality: other (respiratory distress) Timing: other (sudden onset) Modifying Factors (Relieving): other (CPAP) Associated Symptoms: + SOB, + urinary symptoms (currently being treated for UTI), No abdominal pain, No chest pain, No fevers, No headache, No nausea, No vomiting Review of Systems All systems have been listed, reviewed, and are negative other than those previously mentioned. Please see Additional Medical History Sheet. Past Medical & Surgical Medical Problems: (1) Acute respiratory failure (2) Asthma, Unspecified (3) Bronchitis (4) COPD (chronic obstructive pulmonary disease) (5) Diab W Oth Spec Manifest, Type Ii Or Unspec Type, Not Uncntr (6) Epilepsy (7) Hemiparesis affecting dominant side as late effect of cerebrovascular accident (CVA) (8) Hyperlipidemia (9) Hypertension Nos (10) Hypothyroid (11) Mild Mental Retardation (12) Schizoaffective Disorder, Unspecified (13) Schizophrenia Nos-Unspec (14) Sepsis (15) Slurred speech (16) Stroke Family History Diabetes mellitus Heart disease Social History Smoking Status: Former Smoker Alcohol Use: none Drug Use: none Marital Status: in relationship Housing Status: lives with significant other Occupation Status: unemployed Current/Historical Medications Scheduled Amlodipine Besylate (Amlodipine Besylate), 5 MG PEG QAM Baclofen (Lioresal), 10 MG PEG BID Budesonide (Inhalation) (Pulmicort Respules 0.5MG/2ML), 0.5 MG INH BIDR Cephalexin (Keflex), 1 CAP PO TID Clindamycin Hcl (Cleocin), 1 CAP PO TID Clopidogrel (Plavix), 75 MG PEG DAILY Docusate Sodium (Colace), 1 CAP PO BID Fluoxetine (Prozac), 10 MG PEG DAILY Insulin Glargine (Lantus), 28 UNITS SC QPM Insulin Glargine (Lantus), 24 UNITS SC QAM Insulin Lispro (Human) (Humalog), 1 DOSE SC DIRECTED Ipratropium-Albuterol (Ipratropium Carson/Albut), 3 ML INH QID Lamotrigine (Lamotrigine), 100 MG PEG BID Levothyroxine Sodium (Synthroid), 88 MCG PEG DAILYBB Multivitamin (Multivitamin), 1 TAB PEG DAILY Nutritional Supplements (Isosource 1.5 Eulogio), 250 ML PEG 5XD Risperidone (Risperdal), 2 MG PEG QAM Risperidone (Risperdal), 4 MG PEG QPM Valproic Acid Syrup (Depakene), 10 ML PEG TID [Water, Sterile], 1 EA PEG Q6 Scheduled PRN Acetaminophen (Tylenol), 650 MG PEG TID PRN for Pain Albuterol Sulfate (Proair Hfa), 2 PUFFS INH Q4H PRN for Wheezing Bisacodyl (Bisac-Evac), 10 MG IA every 4 days PRN for Constipation Dextrose (Diabetic Use) (Insta-Glucose), 1 APPLN PEG for glucose less than 60 Glucagon (Glucagon Emergency Kit), 1 MG IM prn PRN for HYPOGLYCEMIA PROTOCOL Lidocaine Hcl (Lidocaine), 1 DOSE EXT Q8H PRN for Pain Magnesium Hydroxide (Milk Of Magnesia), 30 ML PO DIRECTED PRN for Constipation Sodium Phosphates (Fleet Enema Six Pack), 1 UNIT IA DAILY PRN for constipation if dulcolax not w Allergies Coded Allergies: Sulfa Antibiotics (Verified Allergy, Intermediate, RASH, 10/04/16) Physical Exam Vital Signs Date Time Temp Pulse Resp B/P Pulse Ox O2 Delivery O2 Flow Rate FiO2 10/04/16 13:00 100 20 121/64 100 BiPAP 90 10/04/16 12:36 102 10/04/16 12:30 102 21 126/56 97 BiPAP 90 10/04/16 12:00 106 22 116/67 94 BiPAP 90 10/04/16 11:40 BiPAP 90 10/04/16 11:35 119 10/04/16 11:33 37.7 108 21 106/75 90 CPAP 100 10/04/16 11:33 CPAP 100 10/04/16 11:26 120 96 80 Physical Exam GENERAL: Patient is minimally responsive and is unable to speak in sentences. She does respond to painful stimuli and simple commands SKIN: No erythema, pallor, cyanosis or rash HEENT: Normal head, pupils equal, reactive to light and accommodation. Ears normal. Oral cavity and posterior pharynx appear normal. Neck: Without adenopathy, no neck vein distention. LUNGS: Clear to auscultation. No wheezes, no rales, no rhonchi. HEART: Regular and rapid rate. No murmurs. No gallops. No rubs ABDOMEN: Obese, soft, nontender. No masses, no rebound, no hepatomegaly or splenomegaly. EXTREMITIES: Without significant pedal or pretibial edema. NEUROLOGIC: Cranial nerves II-XII within normal limits. No gross motor sensory function deficits. Medical Decision & Procedures ER Provider Diagnostic Interpretation: Blood gas reveals normal PH with CO2 retention. PO2 is 120. X ray results are stated below per my interpretation and the radiologist's interpretation. CT results are interpretations by the radiologist and per my review. CHEST ONE VIEW PORTABLE CLINICAL HISTORY: Sepsis. Respiratory distress. COMPARISON STUDY: Chest radiograph September 26, 2016. FINDINGS: Lung volumes are normal. There is no pneumothorax. There are suspected trace bilateral pleural effusions. There is diffuse interstitial thickening. Mild left lower lung opacity is present. IMPRESSION: 1. Interval development of interstitial thickening consistent with moderate pulmonary edema. 2. Mild left lower lung opacities which could reflect atelectasis or less likely consolidation. 3. Trace bilateral pleural effusions. Electronically signed by: Víctor Matthews M.D. 10/04/2016 12:05 PM Dictated Date/Time: 10/04/2016 12:[address] HEAD WITHOUT CONTRAST (CT) CLINICAL HISTORY: stroke like symptoms COMPARISON STUDY: 09/25/2016 TECHNIQUE: Axial CT of the brain is performed from the vertex to the skull base. IV contrast was not administered for this examination. CT DOSE: 537.48 mGy.cm FINDINGS: No intra or extra-axial mass lesions are visualized. There is no CT evidence of acute cortical infarction. There is no evidence of midline shift. There is no acute hemorrhage. No calvarial fractures are visualized. There are moderate white matter hypodensities likely on a small vessel basis. There is no evidence of pathologic ventricular dilatation. There is no evidence of acute sinusitis IMPRESSION: No acute intracranial findings Electronically signed by: Prosper Grubbs M.D. 10/04/2016 12:41 PM Dictated Date/Time: 10/04/2016 12:40 PM Laboratory Results 10/04/16 11:40 Red Blood Count 2.83, Mean Corpuscular Volume 105.3, Mean Corpuscular Hemoglobin 33.6, Mean Corpuscular Hemoglobin Concent 31.9, Mean Platelet Volume 10.6, Neutrophils (%) (Auto) 79.2, Lymphocytes (%) (Auto) 11.8, Monocytes (%) ( Auto) 6.9, Eosinophils (%) (Auto) 0.9, Basophils (%) (Auto) 0.1, Neutrophils # ( Auto) 11.03, Lymphocytes # (Auto) 1.65, Monocytes # (Auto) 0.96, Eosinophils # ( Auto) 0.13, Basophils # (Auto) 0.02 10/04/16 11:40 Test 10/04/16 11:38 10/04/16 11:40 10/04/16 11:56 10/04/16 12:03 Bedside Glucose 289 mg/dl (70-90) White Blood Count 13.94 K/uL (4.8-10.8) Red Blood Count 2.83 M/uL (4.2-5.4) Hemoglobin 9.5 g/dL (12.0-16.0) Hematocrit 29.8 % (37-47) Mean Corpuscular Volume 105.3 fL (80-100) Mean Corpuscular Hemoglobin 33.6 pg (25-34) Mean Corpuscular Hemoglobin Concent 31.9 g/dl (32-36) Platelet Count 178 K/uL (130-400) Mean Platelet Volume 10.6 fL (7.4-10.4) Neutrophils (%) (Auto) 79.2 % Lymphocytes (%) (Auto) 11.8 % Monocytes (%) (Auto) 6.9 % Eosinophils (%) (Auto) 0.9 % Basophils (%) (Auto) 0.1 % Neutrophils # (Auto) 11.03 K/uL (1.4-6.5) Lymphocytes # (Auto) 1.65 K/uL (1.2-3.4) Monocytes # (Auto) 0.96 K/uL (0.11-0.59) Eosinophils # (Auto) 0.13 K/uL (0-0.5) Basophils # (Auto) 0.02 K/uL (0-0.2) RDW Standard Deviation 58.2 fL (36.4-46.3) RDW Coefficient of Variation 15.1 % (11.5-14.5) Immature Granulocyte % (Auto) 1.1 % Immature Granulocyte # (Auto) 0.15 K/uL (0.00-0.02) Prothrombin Time 9.8 SECONDS (9.0-12.0) Prothromb Time International Ratio 0.9 (0.9-1.1) Activated Partial Thromboplast Time 24.0 SECONDS (21.0-31.0) Partial Thromboplastin Ratio 0.9 Anion Gap 10.0 mmol/L (3-11) Estimated GFR () 44.1 Estimated GFR (Non- 38.0 BUN/Creatinine Ratio 27.7 (10-20) Calcium Level 10.9 mg/dl (8.5-10.1) Total Bilirubin 0.2 mg/dl (0.2-1) Aspartate Amino Transf (AST/SGOT) 23 U/L (15-37) Alanine Aminotransferase (ALT/SGPT) 11 U/L (12-78) Alkaline Phosphatase 53 U/L (45-117) Total Protein 6.7 gm/dl (6.4-8.2) Albumin 2.8 gm/dl (3.4-5.0) Globulin 3.9 gm/dl (2.5-4.0) Albumin/Globulin Ratio 0.7 (0.9-2) Procalcitonin 0.30 ng/mL (0-0.5) Bedside Blood Gas pH (LAB) 7.41 (7.35-7.45) Bedside Blood Gas pCO2 (LAB) 63 mmHg (35-46) Bedside Blood Gas pO2 (LAB) 120 mmHg (80-95) Bedside Blood Gas HCO3 (LAB) 40 meq/L (19-24) Bedside Blood Gas Total CO2 > 40 mEq/l (24-31) Bedside Blood Gas Base Excess (LAB) 15.0 meq/L (-9-1.8) Bedside Blood Gas O2 Saturation 99.0 % (90-95) Bedside Troponin I 0.780 ng/ml (0-0.045) Test 10/04/16 12:09 10/04/16 12:49 Bedside Lactic Acid Venous 3.89 mmol/L (0.90-1.70) Urine Color YELLOW Urine Appearance CLEAR (CLEAR) Urine pH 7.5 (4.5-7.5) Urine Specific Brady 1.007 (1.000-1.030) Urine Protein 2+ (NEG) Urine Glucose (UA) NEG (NEG) Urine Ketones NEG (NEG) Urine Occult Blood NEG (NEG) Urine Nitrite NEG (NEG) Urine Bilirubin NEG (NEG) Urine Urobilinogen NEG (NEG) Urine Leukocyte Esterase NEG (NEG) Urine WBC (Auto) 1-5 /hpf (0-5) Urine RBC (Auto) 0-4 /hpf (0-4) Urine Hyaline Casts (Auto) 1-5 /lpf (0-5) Urine Epithelial Cells (Auto) 10-20 /lpf (0-5) Urine Bacteria (Auto) NEG (NEG) Urine Opiates Screen NEG (NEG) Urine Methadone, Qualitative NEG (NEG) Urine Barbiturates NEG (NEG) Urine Phencyclidine (PCP) Level NEG (NEG) Ur Amphetamine/Methamphetamine NEG (NEG) MDMA (Ecstasy) Screen NEG (NEG) Urine Benzodiazepines Screen NEG (NEG) Urine Cocaine Metabolite NEG (NEG) Urine Marijuana (THC) NEG (NEG) Laboratory results as stated above per my review. Medications Administered Medications (Trade) Dose Ordered Sig/Tristian Route Start Time Stop Time Status Last Admin Dose Admin Sodium Chloride (Nss 1000ml) 500 ml @ 999 mls/hr Q31M ONCE IV 10/04/16 11:38 10/04/16 12:08 DC 10/04/16 12:04 999 MLS/HR Bumetanide (Bumex IV) 1 mg NOW ONCE IV 10/04/16 12:45 10/04/16 12:46 DC 10/04/16 13:06 1 MG ECG Indication: SOB/dyspnea Rate (beats per minute): 102 Rhythm: sinus tachycardia Findings: ST depression (Lateral), other (No arrhythmia. ) ED Course 1130: Past medical records reviewed. The patient was evaluated in room B1. A complete history and physical examination was performed. 1138: NSS 500 ml @ 999 mls/hr IV was ordered. 1220: Patient will go to CT for additional studies. 1230: NSS 2,000 ml @ 1,000 mls/hr IV was ordered. 1239: Patient was reevaluated at this time and was doing well. 1245: Bumex IV 1 mg IV was ordered. 1300: Upon reevaluation, the patient appeared to be resting more comfortably. I updated her and her significant other on the results of her workup that had returned. The hospitalist will be contacted. 1315: After discussion with Dr. Carranza, the patient will continue to be evaluated [place] [facility] [place] management. The patient indicated understanding and agreement with this treatment plan. Medical Decision Nurses notes reviewed. Medical history sheet reviewed. Differential diagnosis includes but is not limited to: UTI, sepsis, CHF, pulmonary edema, metabolic disorder, and CVA/TIA. The patient was having some breathing difficulties early this morning and medics were called. They arrived that she was blue and not breathing well at all. Her pulse ox was in the low 70s. The patient was placed on CPAP in the field. She did improve with that. Patient was recently treated for a urinary tract infection. The medics are concerned that she also felt very warm. I gave command prior to patient's arrival. On arrival the patient's pulse oximetry was low again. She was placed on BiPAP and went back to the mid 90s. The patient's blood sugar was elevated. She does not appear to be an opiate overdose. Tox screen was obtained. In the meantime chest x-ray was obtained revealing pulmonary edema. Prior to that the patient was given IV fluids for suspected sepsis. The patient's lactic acid was elevated. Her white count was also elevated. The patient is hyperkalemic. The patient was given IV Bumex. The patient was reevaluated multiple times. I discussed care with the patient, significant other, mental health cook pressure and with the hospitalist. Consults Time Called: 1310 Consulting Physician: Dr. Carranza - [facility] [place] Returned Call: 1315 Discussed the patient's case. He will continue to be evaluated by the [facility] [place] for further management. Impression Primary Impression: Pulmonary edema Additional Impressions: Anemia, Hyperkalemia, Sepsis Critical Care I have personally spent greater than 35 minutes of critical care time in the direct management of this patient. This includes bedside care, interpretation of diagnostic studies, and testing, discussion with consultants, patient, and family members, and other required patient management activities. This 35 minutes is in excess of all separately billable procedures. Scribe Attestation The scribe's documentation has been prepared under my direction and personally reviewed by me in its entirety. I confirm that the note above accurately reflects all work, treatment, procedures, and medical decision making performed by me. Departure Information Dispostion Being Evaluated By Hospitalist ([facility]) Referrals Félix Garcia D.O. (PCP)
[2016-10-04] MEDS ORDERED: VANCOMYCIN CONSULT ACTIVE PRN (15:30)
[2016-10-04] MEDS ORDERED: LEVOFLOXACIN CONSULT ACTIVE PRN (15:45)
[2016-10-04] MEDS ORDERED: INFLUENZA ADMINISTRATION CHARGE ONE (16:00)
[2016-10-04] MEDS ORDERED: VANCOMYCIN INJ 2,650 MG in SODIUM CHLORIDE 0.9% 500ML 500 ML IV ONE (16:00)
[2016-10-04] MEDS ORDERED: LEVOFLOXACIN / D5W 750 MG in PREMIXED IN D5W 150 ML IV SCH (16:00)
[2016-10-04] MEDS ORDERED: INFLUENZA VIRUS QUAD VACCINE 0.5 ML SYR IM. ONE (16:00)
[2016-10-04] MEDS ORDERED: HEPARIN IV BOLUS 6,000 UNIT in SYRINGE 0 ML IV ONE (16:00)
--- NOTE | 2016-10-04 16:02 | Pharmacy Progress Note ---
Pharmacy Antibiotic Consult Date of Service: Oct 04, 2016. Pharmacy Dosing Scope Pharmacy is consulted to initiate vancomycin IV and levofloxacin IV dosing therapy, order appropriate labs and adjust drug dose/frequency. Subjective The patient is a 60 year old female admitted on Oct 04, 2016 at 13:38. Objective Height (Feet): 5 Height (Inches): 1.00 Weight (Kilograms): 106.500 Lab Results (24hrs): Laboratory Tests Test 10/04/16 11:40 10/04/16 15:38 BUN/Creatinine Ratio 27.7 Blood Urea Nitrogen 42 mg/dl Creatinine 1.50 mg/dl White Blood Count 13.94 K/uL Red Blood Count 2.83 M/uL Hemoglobin 9.5 g/dL Hematocrit 29.8 % Mean Corpuscular Volume 105.3 fL Mean Corpuscular Hemoglobin 33.6 pg Mean Corpuscular Hemoglobin Concent 31.9 g/dl Platelet Count 178 K/uL Mean Platelet Volume 10.6 fL Neutrophils (%) (Auto) 79.2 % Lymphocytes (%) (Auto) 11.8 % Monocytes (%) (Auto) 6.9 % Eosinophils (%) (Auto) 0.9 % Basophils (%) (Auto) 0.1 % Neutrophils # (Auto) 11.03 K/uL Lymphocytes # (Auto) 1.65 K/uL Monocytes # (Auto) 0.96 K/uL Eosinophils # (Auto) 0.13 K/uL Basophils # (Auto) 0.02 K/uL Micro Results: Item Value Date Time Blood Culture Received 10/04/16 1205 Blood Pending Blood Culture Received 10/04/16 1210 Blood Pending Assessment & Plan ASSESSMENT: * Patient is 60 year-old female admitted with sepsis and possible pneumonia. * Patient had a recent hospital stay for aspiration pneumonia and was recently treated for a UTI with a few days left of cephalexin. * It is noted that patient has an elevated BMI of 44.4kg/m2 and is at risk of accumulating the vancomycin. Patient also has Stage 3 CKD and is not at normal baseline renal function. * Pharmacy was consulted to dose the vancomycin IV and levofloxacin IV therapies. * Goal trough of vancomycin is 15-20mcg/ml. * Calculated half-life to be ~16hrs and Vd to be 0.54L/kg. * BCx2 are pending in the computer and a MRSA nasal swab was ordered. PLAN: VANCOMYCIN: * Gave a 25mg/kg loading dose of vancomycin equalling 2650mg IV x 1. * Will get a random level in the morning to assess renal function if it has improved since patient received boluses of IVF. LEVOFLOXACIN: * Started patient on a a regimen of levofloxacin 750mg IV q48h since CrCl<50ml/ min. Pharmacy will continue to follow and will adjust dose/frequency as necessary. Thank you
[2016-10-04] MEDS: HEPARIN 25,000 UNIT/500ML D5W 500 ML IV PRN (16:19)
[2016-10-04 16:32] LABS: HEMATOCRIT 26.9 % (37-47); MEAN CELL VOLUME 104.3 fL (80-100); MEAN CORPUSCULAR HEMOGLOBIN 33.3 pg (25-34); MEAN PLATELET VOLUME 10.1 fL (7.4-10.4); PLATELET COUNT 127 K/uL (130-400); RED BLOOD COUNT 2.58 M/uL (4.2-5.4)
[2016-10-04 16:33] LABS: INR 0.9 (0.9-1.1); PARTIAL THROMBOPLASTIN RATIO 0.8; PROTHROMBIN TIME (PATIENT) 9.8 SECONDS (9.0-12.0)
[2016-10-04] MEDS: INSULIN ASPART 100 UNITS/ML 3 ML PEN SC SCH ×2 (17:50→21:22)
[2016-10-04] MEDS: BUDESONIDE 0.5 MG/2 ML VIAL (PULMICORT) INH SCH (18:42)
[2016-10-04] MEDS: ALBUT/IPRATROP 3MG/0.5MG NEB 3 ML VIAL INH SCH (18:42)
[2016-10-04 18:57] VITALS: PULSE 90; O2SAT 98
[2016-10-04 18:58] VITALS: PULSE 90; O2SAT 98
[2016-10-04 19:59] LABS: BUN/CREATININE RATIO 34.8 (10-20); CALCIUM 9.8 mg/dl (8.5-10.1); CREATININE 1.2 mg/dl (0.60-1.20); POTASSIUM 5.8 mmol/L (3.5-5.1)
[2016-10-04 20:00] VITALS: BP 136/68; PULSE 87; TEMP 36.9; O2SAT 96
[2016-10-04] MEDS ORDERED: VANCOMYCIN INJ 1,000 MG in SODIUM CHLORIDE 0.9% 250ML 250 ML IV SCH (21:00)
[2016-10-04] MEDS ORDERED: INSULIN GLARGINE SOLOSTAR 100 UNITS/ML 3 ML PEN SC SCH (21:00)
[2016-10-04] MEDS: VALPROIC ACID 500 MG/10 ML UDP PEG SCH (21:09)
[2016-10-04] MEDS: RISPERIDONE 2 MG TAB PEG SCH (21:11)
[2016-10-05] VITALS (20 sets, daily range): BP systolic 111–155; BP diastolic 49–74; PULSE 70–93; TEMP 36.7–36.9; O2SAT 91–100
[2016-10-05 00:19] LABS: PARTIAL THROMBOPLASTIN RATIO 1.4
[2016-10-05] MEDS ORDERED: METOPROLOL TARTRATE 25 MG TAB PO STA (00:55)
[2016-10-05 05:44] LABS: BASO % 0.1 %; BASO ABS # 0.01 K/uL (0-0.2); EOS % 1.7 %; HEMATOCRIT 23.1 % (37-47); LYMPH % 10.4 %; LYMPH ABS # 0.75 K/uL (1.2-3.4); MEAN CORPUSCULAR HEMOGLOBIN 33.2 pg (25-34); MEAN CORPUSCULAR HGB CONC 31.6 g/dl (32-36); MEAN PLATELET VOLUME 9.8 fL (7.4-10.4); MONO % 9.3 %; NEUT % 77.5 %; PLATELET COUNT 119 K/uL (130-400); WHITE BLOOD COUNT 7.18 K/uL (4.8-10.8)
[2016-10-05 05:53] LABS: PARTIAL THROMBOPLASTIN RATIO 1.1
[2016-10-05 06:04] LABS: COMPLETE YES; STOMATOCYTE 2+
[2016-10-05 06:23] LABS: BUN/CREATININE RATIO 29.3 (10-20); CALCIUM 10.2 mg/dl (8.5-10.1); CREATININE 1.4 mg/dl (0.60-1.20); POTASSIUM 5.4 mmol/L (3.5-5.1)
[2016-10-05] MEDS ORDERED: HEPARIN IV BOLUS 6,000 UNIT in SYRINGE 0 ML IV STA (06:26)
[2016-10-05] MEDS ORDERED: PERFLUTREN LIPID MICROSPHERE (DEFINITY) IV ONE (07:07)
[2016-10-05] MEDS: BUDESONIDE 0.5 MG/2 ML VIAL (PULMICORT) INH SCH ×2 (07:53→19:39)
[2016-10-05] MEDS: ALBUT/IPRATROP 3MG/0.5MG NEB 3 ML VIAL INH SCH ×4 (07:53→19:39)
[2016-10-05] MEDS ORDERED: METOPROLOL TARTRATE 25 MG TAB PO SCH (09:00)
[2016-10-05] MEDS: ATORVASTATIN 40 MG TAB PO SCH (09:34)
[2016-10-05] MEDS: INSULIN ASPART 100 UNITS/ML 3 ML PEN SC SCH ×4 (09:34→21:00)
[2016-10-05] MEDS: CLOPIDOGREL BISULFATE 75 MG TAB PEG SCH (09:35)
[2016-10-05] MEDS: METOPROLOL TARTRATE 25 MG TAB PEG SCH (09:35)
[2016-10-05] MEDS: AMLODIPINE BESYLATE 5 MG TAB PEG SCH (09:35)
[2016-10-05] MEDS: RISPERIDONE 2 MG TAB PEG SCH (09:35)
[2016-10-05] MEDS: LEVOTHYROXINE 88 MCG TAB PEG SCH (09:35)
[2016-10-05] MEDS: ASPIRIN 81 MG CHEW PEG SCH (09:35)
[2016-10-05] MEDS: FLUOXETINE HCL 20 MG/5 ML GT SCH (09:36)
[2016-10-05] MEDS: VALPROIC ACID 500 MG/10 ML UDP PEG SCH ×2 (09:36→12:40)
--- NOTE | 2016-10-05 10:34 | Clinical Documentation Query ---
CLINICAL DOCUMENTATION QUERY 60 year old female arriving by ambulance from home with respiratory failure. Query #1/2 In your clinical opinion is this patient being managed for: ( ) Metabolic/Septic encephalopathy ( ) Other explanation of clinical findings (Please Explain) ( ) Unable to determine (Please Define) ( ) Need to Discuss ( ) Not Agree The medical record reflects the following clinical findings, treatment, and risk factors. Clinical Indicators: Sepsis, lactic acidemia 2.2, Hypercarbia and Hypoxia by ABG (.), Treatment: O2 via BiPAP, ICU hemodynamic monitoring, IVF boluses, IV Vancomycin, IV Levofloxacin, Risk Factors: Sepsis, ?UTI, recent aspiration pneumonitis, Query #2/2 In your clinical opinion is this patient being managed for: ( ) Possible Staphylococcal or Gram negative pneumonia in setting of HCAP. ( ) Recurrent Aspiration pneumonitis ( ) Other explanation of clinical findings (Please Explain) ( ) Unable to determine (Please Define) ( ) Need to Discuss ( ) Not Agree The medical record reflects the following clinical findings, treatment, and risk factors. Clinical Indicators: Per EMS sats in 70's% and blue in color. Leukocytosis 13.94, hypercarbic and hypoxic respiratory failure (ABG .). CXR showing LLL opacities. Recent hospital stay (DCed 09/29/16) for aspiration pneumonitis and respiratory failure. Treatment: O2 via BiPAP, ICU hemodynamic monitoring, IVF boluses, IV Vancomycin, IV Levofloxacin, Risk Factors: Age, hx of aspiration, recent healthcare facility stay, pickwickian syndrome, epilepsy, and copd. Please clarify and document your clinical opinion in the progress notes and discharge summary. Terms such as "probable", "suspected", "likely", "questionable", "possible", or "still to be ruled out" are acceptable. IF IN AGREEMENT, YOU MUST DOCUMENT ABOVE DIAGNOSTIC STATEMENT IN DAILY PROGRESS NOTES AND DISCHARGE SUMMARY. This document is not part of the patient's record. Thank You, Leo Lawrence RN [phone]
--- NOTE | 2016-10-05 10:36 | Clinical Documentation Query ---
CLINICAL DOCUMENTATION QUERY 60 year old female arriving by ambulance from home with respiratory failure. Query #1/2 In your clinical opinion is this patient being managed for: ( x ) Metabolic/Septic encephalopathy ( ) Other explanation of clinical findings (Please Explain) ( ) Unable to determine (Please Define) ( ) Need to Discuss ( ) Not Agree The medical record reflects the following clinical findings, treatment, and risk factors. Clinical Indicators: Sepsis, lactic acidemia 2.2, Hypercarbia and Hypoxia by ABG (.), Treatment: O2 via BiPAP, ICU hemodynamic monitoring, IVF boluses, IV Vancomycin, IV Levofloxacin, Risk Factors: Sepsis, ?UTI, recent aspiration pneumonitis, Query #2/2 In your clinical opinion is this patient being managed for: ( x ) Possible Staphylococcal or Gram negative pneumonia in setting of HCAP. ( ) Recurrent Aspiration pneumonitis ( ) Other explanation of clinical findings (Please Explain) ( ) Unable to determine (Please Define) ( ) Need to Discuss ( ) Not Agree The medical record reflects the following clinical findings, treatment, and risk factors. Clinical Indicators: Per EMS sats in 70's% and blue in color. Leukocytosis 13.94, hypercarbic and hypoxic respiratory failure (ABG .). CXR showing LLL opacities. Recent hospital stay (DCed 09/29/16) for aspiration pneumonitis and respiratory failure. Treatment: O2 via BiPAP, ICU hemodynamic monitoring, IVF boluses, IV Vancomycin, IV Levofloxacin, Risk Factors: Age, hx of aspiration, recent healthcare facility stay, pickwickian syndrome, epilepsy, and copd. Please clarify and document your clinical opinion in the progress notes and discharge summary. Terms such as "probable", "suspected", "likely", "questionable", "possible", or "still to be ruled out" are acceptable. IF IN AGREEMENT, YOU MUST DOCUMENT ABOVE DIAGNOSTIC STATEMENT IN DAILY PROGRESS NOTES AND DISCHARGE SUMMARY. This document is not part of the patient's record. Thank You, Leo Lawrence, RN [phone]
[2016-10-05] MEDS: INSULIN GLARGINE SOLOSTAR 100 UNITS/ML 3 ML PEN SC SCH (11:20)
[2016-10-05] MEDS: HEPARIN 25,000 UNIT/500ML D5W 500 ML IV PRN (11:21)
[2016-10-05] MEDS ORDERED: NURSING VERBAL MED ORDER ONE (11:30)
--- NOTE | 2016-10-05 12:07 | CARDIOLOGY CONSULTATION ---
DATE OF CONSULTATION: 10/05/2016 DATE OF CONSULTATION: 10/05/2016. CONSULTATION REQUESTED BY: Dr. Carranza. REASON FOR CONSULTATION: NSTEMI. HISTORY OF PRESENT ILLNESS: Mrs. Agrawal is a 60-year-old woman with past medical history of COPD, obesity hypoventilation syndrome with chronic hypoxic/ hypercarbic respiratory failure, diabetes, hyperlipidemia, hypothyroidism, epilepsy, schizoaffective disorder and prior CVA with dense residual left hemiparesis. Cardiology consulted for management of NSTEMI. The patient is chronically ill, largely bed bound with PEG tube and was recently admitted less than 1 week ago in the setting of hypercarbic respiratory failure and altered mental status. The patient was treated with BiPAP and broad spectrum antibiotics and was discharged home with plan for continued BiPAP. Unfortunately due to financial/social constraints was unable to get BIPAP at home and on the day prior to admission her and her boyfriend stated that she was increasingly short of breath and reportedly lethargic. The patient was brought back to the Emergency Department where initially was afebrile, but hypoxic requiring initially CPAP with FIO2 of 100 to maintain O2 sat of 90. Her initial blood gas was remarkable for well compensated chronic hypercarbic respiratory failure with a pH of 7.41, pCO2 63, pO2 120, bicarb of 40. Her initial troponin on presentation was 0.78, which trended up to 4.5, 16.6 now down to 14.1. Her initial lactate was also mildly elevated at 3.89. She had a chest x-ray which showed interstitial thickening consistent with moderate pulmonary edema and trace pleural effusions. Her CT head was unremarkable. Initial EKG showed sinus tachycardia with nonspecific interventricular conduction delay, LVH and lateral T-waves, question of ischemia. The patient was started on BIPAP with improvement in her mental status. She was also started on heparin and continued on her home Plavix and started on aspirin as well. The patient is unable to provide much history, but states today that she is feeling well. Denies significant chest pain today. Her and her boyfriend states that she may have been having intermittent chest pain over the last week. However, at present she states that she is feeling near her best. PAST MEDICAL HISTORY: 1. COPD. 2. Diabetes. 3. Hypothyroidism. 4. Hyperlipidemia. 5. Hypertension. 6. Epilepsy. 7. Schizoaffective disorder. 8. Cognitive impairment. 9. History of cerebrovascular accident with left-sided hemiparesis. 10. Dysphagia, status post PEG tube. 11. Chronic hypoxemic/hypercarbic respiratory failure. 12. Obesity hypoventilation syndrome. 13. Aspiration pneumonitis. 14. Chronic diastolic heart failure. 15. Chronic deep venous thrombosis of left popliteal vein. 16. CKD stage III. 17. Anemia. 18. Thrombocytopenia. FAMILY HISTORY: Denies significant family history of premature coronary disease or sudden cardiac . SOCIAL HISTORY: Denies significant tobacco. Lives with her boyfriend. Has 24-hour care. ALLERGIES: ALLERGIC TO SULFA DRUGS. HOME MEDICATIONS: Amlodipine 5, baclofen, Pulmicort, Keflex and clindamycin, Clopidogrel 75 mg daily, docusate, fluoxetine, Lantus, lispro, ipratropium, lamotrigine, levothyroxine, multivitamin, Risperdal, valproic acid. REVIEW OF SYSTEMS: Was unable to be obtained due to patient's mental status. PHYSICAL EXAMINATION: VITAL SIGNS: Temperature 36.7, pulse 81, blood pressure 111/56, satting 94% on 4 liters nasal cannula. GENERAL: The patient appears comfortable in no acute distress. HEAD, EYES, EARS, NOSE, AND THROAT: Sclerae are anicteric. Oropharynx is clear. Mucous membranes are moist. NECK: Supple. No appreciable lymphadenopathy. Unable to assess JVD. LUNGS: She has coarse breath sounds anteriorly with a few scattered wheezes. CARDIAC: She has distant heart sounds, regular with no appreciable murmurs, rubs or gallops. ABDOMEN: Obese, soft, nontender. She has positive bowel sounds. EXTREMITIES: Warm. She has trace to 1+ lower extremity edema, left greater than right. Intact distal pulses. Extremities are well perfused. SKIN: Shows no rashes. She has a dressed lesion on the left anterior aspect of her lower nguyen. NEUROLOGIC: Dense left hemiparesis with decreased sensation. LABORATORY DATA: White blood cell count 13.9 on admission, 7.1 currently, hemoglobin 9.5 down to 7.3, platelets 178 down to 119. Sodium 135, potassium 5.1, BUN 42, creatinine of 1.4, troponin 0.78 to 4.5 to 16.6 to 14.1, lactate 3.89 down to 2.2. UA was negative. Tox screen was negative. Urine culture and blood cultures are no growth to date. IMAGING DATA: Chest x-ray showed moderate pulmonary edema. CT scan of her head showed no acute intracranial process. EKG showed sinus tachycardia with nonspecific intraventricular conduction delay lateral T-wave inversions. Telemetry shows sinus rhythm with episodes of sinus tachycardia and QRS widening. Last echo May 2016 showed normal LV size and function with an EF of 55-60%. She had mild LVH and grade 1 diastolic dysfunction. IMPRESSION AND PLAN: 1. [id number] elevation myocardial infarction. 2. Acute on chronic hypercarbic respiratory failure. 3. Altered mental status. 4. Anemia. 5. Diabetes. 6. Acute on chronic diastolic heart failure. At present, the patient is chest pain free, hemodynamically stable, electrically stable and troponin has peaked. Patient with an ACS event and unclear how much contributed to presenting heart failure and patient's current presentation. Pulmonary congestion improved currently after diuresis. At this point, as acute cardiac issues seem stable and in the setting of patient 's multiple comorbidities I feel that the patient would be high risk for any catheterization or potential PCI and would defer procedure unless significant symptoms or hemodynamic instability. Continue to address anemia as doing and agree with planned transfusion. If blood counts continue to trend down can discontinue heparin, otherwise would plan for 48 hours of anticoagulation. Agree with continued aspirin and Plavix as doing. Continue high dose statin. We will obtain an echocardiogram today to assess overall LV function and filling pressures. Will plan to follow along with patient while in the hospital. Thank you for allowing us to participate with this patient's care. Please contact with any questions. ALEJANDRINA
[2016-10-05] MEDS: TUBE FEEDING WATER FLUSH GT SCH ×2 (12:39→17:33)
[2016-10-05] MEDS: IMPACT LIQ 1000 ML BAG PEG SCH (12:39)
[2016-10-05] MEDS ORDERED: PNEUMOCOCCAL ADMINISTRATION CHARGE ONE (14:00)
[2016-10-05] MEDS ORDERED: PNEUMOCOCCAL POLYSACCHARIDES 25 MCG/0.5 ML VIAL/SYR IM. ONE (14:00)
--- NOTE | 2016-10-05 16:32 | Pharmacy Progress Note ---
Pharmacy Antibiotic Prog Note Date of Service: Oct 05, 2016. Subjective: The patient is currently receiving vancomycin prn levels. The patient is currently on day # 2 of vancomycin IV therapy. Objective: Height (Feet): 5 Height (Inches): 1.00 Weight (Kilograms): 106.000 Lab Results (24hrs): Laboratory Tests Test 10/04/16 19:08 10/05/16 05:34 10/05/16 13:00 BUN/Creatinine Ratio 34.8 29.3 Blood Urea Nitrogen 42 mg/dl 41 mg/dl Creatinine 1.20 mg/dl 1.40 mg/dl White Blood Count 7.18 K/uL Red Blood Count 2.20 M/uL Hemoglobin 7.3 g/dL Hematocrit 23.1 % Mean Corpuscular Volume 105.0 fL Mean Corpuscular Hemoglobin 33.2 pg Mean Corpuscular Hemoglobin Concent 31.6 g/dl Platelet Count 119 K/uL Mean Platelet Volume 9.8 fL Neutrophils (%) (Auto) 77.5 % Lymphocytes (%) (Auto) 10.4 % Monocytes (%) (Auto) 9.3 % Eosinophils (%) (Auto) 1.7 % Basophils (%) (Auto) 0.1 % Neutrophils # (Auto) 5.56 K/uL Lymphocytes # (Auto) 0.75 K/uL Monocytes # (Auto) 0.67 K/uL Eosinophils # (Auto) 0.12 K/uL Basophils # (Auto) 0.01 K/uL Assessment & Plan: Assessment * 60 yo F admitted with sepsis 2nd HAP - on levofloxacin, vancomycin. MRSA nasal swab positive. * Recently admitted 09/26 - 09/29. Was scheduled to complete course of cephalexin for catheter-associated E.coli UTI (resistant to fluoroquinolones) on 10/06 after AM dose. * Spoke w Dr. Barbosa - patient residing in , but is telemetry status. Patient looks to be doing well. May consider d/c both levofloxacin and vancomycin tomorrow AM. Plans to continue for now * Recommended adding back cephalexin to complete course for E. coli UTI. However, as patient did not receive coverage on 1/9 PM or 10/05 AM, will complete 10 day course after 12 AM dose. * Renal function still impaired as compared to baseline, but may be improving ( per SCr). However, vancomycin levels seem to be higher than anticipated for dose and calculated CrCL, therefore renal function may not be improving (per vanco level). * Will dose vancomycin via level for now * Level of 27.4 mcg/mL this AM significantly supratherapeutic, but this is not too unexpected as it was only drawn ~ 13 hours after loading dose. * Will schedule repeat random level for this evening Plan * Cephalexin added to complete course for E. coli UTI * Vancomycin random level this evening. May give small supplemental vancomycin dose at that time. Maintenance dose to be assessed in AM. * Will check SCr in AM to help assess change in renal function Pharmacy will continue to follow and will adjust dose/frequency as necessary. Thank you
[2016-10-05] MEDS: CEPHALEXIN MONOHYDRATE 500 MG CAP PO SCH (17:33)
--- NOTE | 2016-10-05 19:20 | Family Medicine Progress Note ---
Progress Note Date of Service Oct 05, 2016. Subjective Pt evaluation today including: conversation w/ patient, physical exam, chart review, lab review Pain: None Feeling much better today Denies chest pain, palpitations at this time Shortness of breath improving Additional Comments: Review of systems otherwise negative Medications Current Inpatient Medications Medications (Trade) Dose Ordered Sig/Tristian Route Start Time Stop Time Status Last Admin Dose Admin Acetaminophen (Tylenol Tab) 650 mg Q4H PRN PO 10/04/16 13:45 11/03/16 13:44 Al Hydrox/Mg Hydrox/Simethicone (Maalox Max Susp) 15 ml Q4H PRN PO 10/04/16 13:45 11/03/16 13:44 Ondansetron HCl (Zofran Inj) 4 mg Q6H PRN IV 10/04/16 13:45 11/03/16 13:44 Albuterol (Ventolin Hfa Inhaler) 2 puffs Q4H PRN INH 10/04/16 14:15 11/03/16 14:14 Amlodipine Besylate (Norvasc Tab) 5 mg QAM PEG 10/05/16 09:00 11/04/16 08:59 10/05/16 09:35 5 MG Budesonide (Pulmicort Respules 0.5MG/ 2ML Neb Soln) 0.5 mg BIDR INH 10/04/16 20:00 11/03/16 19:59 10/05/16 07:53 0.5 MG Clopidogrel Bisulfate (plAVix TAB) 75 mg DAILY PEG 10/05/16 09:00 11/04/16 08:59 10/05/16 09:35 75 MG Fluoxetine HCl (Prozac Soln) 10 mg DAILY GT 10/05/16 09:00 11/04/16 08:59 10/05/16 09:36 10 MG Insulin Glargine (Lantus Solostar Pen) 24 unit QAM SC 10/05/16 09:00 11/04/16 08:59 10/05/16 11:20 12 UNIT Insulin Glargine (Lantus Solostar Pen) 28 unit QPM SC 10/04/16 21:00 11/03/16 20:59 10/04/16 21:16 28 UNIT Albuterol/ Ipratropium (Duoneb) 3 ml QIDR INH 10/04/16 16:00 11/03/16 15:59 10/05/16 15:10 3 ML Lamotrigine (Lamictal Tab) 100 mg BID PEG 10/04/16 21:00 11/03/16 20:59 10/05/16 09:35 100 MG Levothyroxine Sodium (Synthroid Tab) 88 mcg DAILYBB PEG 10/05/16 06:00 11/04/16 06:59 10/05/16 09:35 88 MCG Risperidone (Risperdal Tab) 2 mg QAM PEG 10/05/16 09:00 11/04/16 08:59 10/05/16 09:35 2 MG Risperidone (Risperdal Tab) 4 mg QPM PEG 10/04/16 21:00 11/03/16 20:59 10/04/16 21:11 4 MG Valproic Acid 500 mg 500 mg TID PEG 10/04/16 21:00 11/03/16 20:59 10/05/16 12:40 500 MG Levofloxacin/Prmx (Levaquin / D5W/ Premixed D5W) 150 ml @ 100 mls/hr Q48H IV 10/04/16 16:00 10/11/16 15:59 10/04/16 16:09 100 MLS/HR Insulin Aspart (novoLOG ASPART) SLIDING SCALE If C... ACHS SC 10/04/16 16:15 11/03/16 16:14 10/04/16 21:22 1 UNITS Glucose (Glucose 40% Gel) 15-30 GRAMS 15 GRAMS... UD PRN PO 10/04/16 14:30 11/03/16 14:29 Glucose (Glucose Chew Tab) 4-8 Tablets 4 Tabl... UD PRN PO 10/04/16 14:30 11/03/16 14:29 Dextrose (Dextrose 50% 50ML Syringe) 25-50ML OF 50% DW IV FOR... UD PRN IV 10/04/16 14:30 11/03/16 14:29 Glucagon (Glucagon Inj) 1 mg UD PRN SQ 10/04/16 14:30 11/03/16 14:29 Atorvastatin Calcium (Lipitor Tab) 40 mg QAM PO 10/05/16 09:00 11/04/16 08:59 10/05/16 09:34 40 MG Aspirin (Aspirin Chew) 81 mg QAM PEG 10/05/16 09:00 11/04/16 08:59 10/05/16 09:35 81 MG Vancomycin HCl (Consult) 1 ea UD PRN N/A 10/04/16 15:30 11/03/16 15:29 Levofloxacin 1 ea 1 ea UD PRN N/A 10/04/16 15:45 11/03/16 15:44 Heparin Sodium/ Dextrose (Heparin 25,000 Unit/500ml D5W) 500 ml @ 32 mls/hr [id number] PRN IV 10/04/16 15:45 11/03/16 15:44 10/05/16 11:21 32 MLS/HR Metoprolol Tartrate (Lopressor Tab) 25 mg BID PEG 10/05/16 09:00 11/04/16 08:59 10/05/16 09:35 25 MG Enteral Nutritional Formula (Impact 1.0 Eulogio) 1,000 ml GOAL RATE 75ML/HR PEG 10/05/16 12:00 11/04/16 11:59 10/05/16 12:39 1,000 ML Sterile Water (Tube Feeding Water Flush) 1 ea Q6 GT 10/05/16 12:00 11/04/16 11:59 10/05/16 17:33 1 EA Cephalexin Monohydrate (Keflex Cap) 500 mg BID PO 10/05/16 17:30 10/07/16 17:29 10/05/16 17:33 500 MG Objective Vital Signs Date Time Temp Pulse Resp B/P Pulse Ox O2 Delivery O2 Flow Rate FiO2 10/05/16 17:00 84 14 134/67 91 4.0 10/05/16 16:22 85 10 133/69 92 4.0 10/05/16 16:00 Nasal Cannula 4.0 BiPAP 10/05/16 16:00 36.9 82 12 124/59 100 Nasal Cannula 4.0 BiPAP 10/05/16 15:51 36.9 82 14 129/66 100 4.0 10/05/16 15:28 36.9 78 10 134/67 98 4.0 10/05/16 15:15 79 12 96 Nasal Cannula 4.0 10/05/16 14:58 36.9 82 12 129/53 92 4.0 10/05/16 14:05 79 14 117/51 92 4.0 10/05/16 13:53 36.7 83 8 113/53 95 10/05/16 13:00 36.7 84 10 126/57 92 4.0 10/05/16 12:30 36.7 84 126/57 92 Nasal Cannula 4.0 BiPAP 10/05/16 12:00 Nasal Cannula 4.0 BiPAP 10/05/16 11:42 73 12 95 Nasal Cannula 4.0 10/05/16 08:30 36.7 85 127/63 94 Nasal Cannula 4.0 BiPAP 10/05/16 08:00 Nasal Cannula 4.0 BiPAP 10/05/16 07:53 80 12 94 Nasal Cannula 4.0 10/05/16 04:00 BiPAP 40 10/05/16 04:00 36.7 81 111/56 92 BiPAP 40 10/05/16 03:39 70 99 40 10/05/16 00:05 93 96 40 10/05/16 00:00 36.8 86 15 155/74 100 BiPAP 40 10/05/16 00:00 Nasal Cannula 4.0 40 BiPAP 10/04/16 20:00 36.9 87 15 136/68 96 Nasal Cannula 4.0 40 BiPAP 10/04/16 20:00 Nasal Cannula 4.0 40 BiPAP 10/04/16 18:58 90 15 98 BiPAP/CPAP 50 Physical Exam General Appearance: WD/WN, + obese Eyes: normal inspection, EOMI ENT: hearing grossly normal, pharynx normal Neck: supple, no JVD Respiratory/Chest: chest non-tender, no accessory muscle use, + pertinent finding (mild reduced breath sounds at bases; difficulty to ascultate due to body habitus and positioning) Cardiovascular: regular rate, rhythm, no gallop, no murmur Abdomen: normal bowel sounds, non tender, soft Extremities: non-tender, no pedal edema Neurologic/Psychiatric: alert, normal mood/affect, oriented x 3 Skin: normal color, warm/dry, no rash Lymphatic: no adenopathy Laboratory Results Last 24 Hours Test 10/04/16 19:08 10/04/16 21:12 10/04/16 23:56 10/05/16 05:34 Sodium Level 138 mmol/L 137 mmol/L Potassium Level 5.8 mmol/L 5.4 mmol/L Chloride Level 95 mmol/L 94 mmol/L Carbon Dioxide Level 35 mmol/L 40 mmol/L Anion Gap 8.0 mmol/L 3.0 mmol/L Blood Urea Nitrogen 42 mg/dl 41 mg/dl Creatinine 1.20 mg/dl 1.40 mg/dl Est Creatinine Clear Calc Drug Dose 57.5 ml/min 49.3 ml/min Estimated GFR () 57.7 47.9 Estimated GFR (Non- 49.8 41.3 BUN/Creatinine Ratio 34.8 29.3 Random Glucose 175 mg/dl 100 mg/dl Calcium Level 9.8 mg/dl 10.2 mg/dl Bedside Glucose 172 mg/dl Activated Partial Thromboplast Time 36.0 SECONDS 29.2 SECONDS Partial Thromboplastin Ratio 1.4 1.1 Troponin I 16.600 ng/ml 14.100 ng/ml White Blood Count 7.18 K/uL Red Blood Count 2.20 M/uL Hemoglobin 7.3 g/dL Hematocrit 23.1 % Mean Corpuscular Volume 105.0 fL Mean Corpuscular Hemoglobin 33.2 pg Mean Corpuscular Hemoglobin Concent 31.6 g/dl Platelet Count 119 K/uL Mean Platelet Volume 9.8 fL Neutrophils (%) (Auto) 77.5 % Lymphocytes (%) (Auto) 10.4 % Monocytes (%) (Auto) 9.3 % Eosinophils (%) (Auto) 1.7 % Basophils (%) (Auto) 0.1 % Neutrophils # (Auto) 5.56 K/uL Lymphocytes # (Auto) 0.75 K/uL Monocytes # (Auto) 0.67 K/uL Eosinophils # (Auto) 0.12 K/uL Basophils # (Auto) 0.01 K/uL RDW Standard Deviation 58.9 fL RDW Coefficient of Variation 15.3 % Immature Granulocyte % (Auto) 1.0 % Immature Granulocyte # (Auto) 0.07 K/uL Stomatocytes 2+ Random Vancomycin Level 27.4 mcg/ml Test 10/05/16 06:36 10/05/16 11:28 10/05/16 12:05 10/05/16 13:00 Bedside Glucose 107 mg/dl Activated Partial Thromboplast Time 52.2 SECONDS Partial Thromboplastin Ratio 2.0 Test 10/05/16 16:10 10/05/16 17:28 Bedside Glucose 102 mg/dl Assessment and Plan 60 year old female who presents to the hospital for worsening shortness of breath. She was recently discharged from here for and was awaiting for home BiPAP approval when symptoms started. Currently doing much better after starting antibiotics. Denies pain at this time and is comfortable. Noted to have dropping hemoglobin as well as NSTEMI Background co-morbidities include - COPD - DM - hypothyroidism - hyperlipidemia - HTN - epilepsy - schizoaffective - CVA Altered mental status, seems secondary to sepsis/Pickwickian Syndrome/ hypercarbic respiratory failure. Pt is a high risk for aspiration pneumonitis and was treated for this just a week ago in [facility]. Will place on BiPAP at this time. Will not be able to utilize fluids due to pulm edema noted on CXR. Septic/Metabolic Encephalopathy - Supportive care Sepsis with background recent HCAP and E coli UTI (Possible Staphylococcal or Gram negative pneumonia in setting of HCAP). - Started empirically on Vanco Levofloxacin day 2 Pharmacy consulted - Patient also discharged recently mid-course for UTI Resume Keflex to complete course - Blood cultures pending - MRSA swab positive - Will re-assess antibiotic choices NSTEMI - EKG: Later ST depression - Echo today reveals new apical and septal wall motion abnormality - Troponins peaked at 16, then down to 14; will repeat cardiac enzymes with AM labs - No chest pain at this time - Continue ASA, Atorvastatin, and Plavix - Cardiology consulted; recommendations appreciated Will start IV heparin at this time; noted to have low Hb if evidence of active bleeding, will D/C drip immediately Given Hb 7.3; will transfuse 2 units pRBCS to optimize oxygen delivery to myocardium Acute Diastolic Congestive Heart Failure - Acute Congestion noted on CXR yesterday; Grade II per echo today - Patient given Bumex in the ED - Hold Lisinopril due to increased Cr at this time - Repeat CXR in the AM - Daily weights and I/O monitoring Acute on Chronic Anemia - No focal evidence of blood loss - Will order Hemoccult - Trend H&H q 6 as patient is on heparin drip - Patient being transfused with 2 units of PRBCs to optimize cardiac status COPD - Continue Ventolin - Continue Duoneb - Continue Pulmicort Neb - Patient should have BiPAP set up in-house - Will do nocturnal pulse Ox with AM ABG to help getting BiPAP approved for home use at the time of discharge Type 2 Diabetes Mellitus - Patient gets 24 units qAM an d24 units qPM - BSGs noted to be trending downward today; last BSG 102 at 1600 This is despite having tube feeds and only getting half AM dose - Will avoid hypoglycemia in overnight by: Hold 28 units of PM Lantus Accucecks at midnight and 0400; cover with sliding scale - Sliding scale goal BSG changed to 140-180 Hyperkalemia - K improved to 5.4 today - Trend daily BMP Previous CVA - Residual left-sided dense hemiparesis - PEG tube - Plavix Acute on CKD stage III - Baseline Cr noted to be 1.1 - Current Cr 4.4 - Mild bump in Cr today from 1.2 to 1.4 Will hold off on diuresis today - Repeat BMP in AM Seizure Disorder - Continue Valproic acid - Contine Lamictal - No seizure activity since arrival Hypothyroidism - Synthyroid Schizophrenia - Continue Risperidone per home dosing Anxiety/Depression - Continue Prozac DVT prophylaxis - Patient is currently on Heparin drip Will monitor H&H and stop if continues to trend downward Code Status - Level I Code Disposition - Telemetry Reviewed: Pt Seen/Exam by Me History more alert and responsive this am Constitutional: denies: fever Respiratory: negative: short of breath Cardiovascular: denies chest pain General Appearance: no apparent distress Respiratory: lungs clear, no respiratory distress Cardiovascular: regular rate, rhythm Gastrointestinal: normal bowel sounds, non tender, soft Neurologic/Psychiatric: other (alert but mentation not clear) Skin Characteristics: warm/dry Assessment/Plan I have reviewed the medical record and performed a history and physical examination of this patient today. I have discussed the case with Dr Jones. The above note reflects my findings, conclusions, and recommendations.
[2016-10-05 21:45] LABS: BASO % 0.1 %; BASO ABS # 0.01 K/uL (0-0.2); COMPLETE YES; EOS % 1.3 %; HEMATOCRIT 29.7 % (37-47); IG% 1.8 %; LYMPH % 19.1 %; LYMPH ABS # 1.29 K/uL (1.2-3.4); MEAN CELL VOLUME 98.3 fL (80-100); MEAN CORPUSCULAR HEMOGLOBIN 31.8 pg (25-34); MEAN CORPUSCULAR HGB CONC 32.3 g/dl (32-36); MEAN PLATELET VOLUME 10.1 fL (7.4-10.4); NEUT % 69.7 %; PLATELET COUNT 119 K/uL (130-400); RED BLOOD COUNT 3.02 M/uL (4.2-5.4); WHITE BLOOD COUNT 6.75 K/uL (4.8-10.8)
[2016-10-05 21:56] LABS: BUN/CREATININE RATIO 32.5 (10-20); CREATININE 1.3 mg/dl (0.60-1.20); POTASSIUM 4.7 mmol/L (3.5-5.1)
[2016-10-06] VITALS (15 sets, daily range): BP systolic 106–144; BP diastolic 64–81; PULSE 70–87; TEMP 36.7–36.9; O2SAT 94–98
[2016-10-06] MEDS: TUBE FEEDING WATER FLUSH GT SCH ×4 (00:28→18:20)
[2016-10-06] MEDS: VALPROIC ACID 500 MG/10 ML UDP PEG SCH ×4 (00:32→20:51)
[2016-10-06] MEDS: RISPERIDONE 2 MG TAB PEG SCH ×3 (00:35→20:52)
[2016-10-06] MEDS: METOPROLOL TARTRATE 25 MG TAB PEG SCH ×3 (00:36→20:51)
[2016-10-06] MEDS: HEPARIN 25,000 UNIT/500ML D5W 500 ML IV PRN ×4 (04:36→20:45)
[2016-10-06 05:42] LABS: ISTAT ALLEN TEST Pass; ISTAT ARTERIAL BLOOD GAS HCO3 42 meq/L (19-24); ISTAT ARTERIAL BLOOD GAS PCO2 64 mmHg (35-46); ISTAT ARTERIAL BLOOD GAS PO2 66 mmHg (80-95); ISTAT ARTERIAL BLOOD GAS pH 7.43 (7.35-7.45); ISTAT CARBON DIOXIDE > 40 mEq/l (24-31); ISTAT DELIVERY SYSTEM Cannula; ISTAT SITE R Radial
[2016-10-06] MEDS: LEVOTHYROXINE 88 MCG TAB PEG SCH (06:00)
[2016-10-06 06:03] LABS: MEAN CELL VOLUME 98.4 fL (80-100); MEAN CORPUSCULAR HEMOGLOBIN 32.5 pg (25-34); MEAN PLATELET VOLUME 10.1 fL (7.4-10.4); PLATELET COUNT 126 K/uL (130-400); RED BLOOD COUNT 3.05 M/uL (4.2-5.4)
[2016-10-06 06:13] LABS: PARTIAL THROMBOPLASTIN RATIO 1.3
[2016-10-06] MEDS ORDERED: HEPARIN IV BOLUS 6,000 UNIT in SYRINGE 0 ML IV STA (06:26)
[2016-10-06 06:50] LABS: BUN/CREATININE RATIO 30.8 (10-20); CALCIUM 10.1 mg/dl (8.5-10.1); CKMB/CK RATIO 1.9 (0-3.0); CREATININE 1.3 mg/dl (0.60-1.20); POTASSIUM 4.2 mmol/L (3.5-5.1)
[2016-10-06] MEDS: BUDESONIDE 0.5 MG/2 ML VIAL (PULMICORT) INH SCH ×2 (07:37→20:03)
[2016-10-06] MEDS: ALBUT/IPRATROP 3MG/0.5MG NEB 3 ML VIAL INH SCH ×4 (07:37→20:03)
[2016-10-06] MEDS: INSULIN ASPART 100 UNITS/ML 3 ML PEN SC SCH ×3 (09:21→18:20)
[2016-10-06] MEDS: FLUOXETINE HCL 20 MG/5 ML GT SCH (09:24)
[2016-10-06] MEDS: ATORVASTATIN 40 MG TAB PO SCH (09:25)
[2016-10-06] MEDS: ASPIRIN 81 MG CHEW PEG SCH (09:25)
[2016-10-06] MEDS: CLOPIDOGREL BISULFATE 75 MG TAB PEG SCH (09:25)
[2016-10-06] MEDS: AMLODIPINE BESYLATE 5 MG TAB PEG SCH (09:25)
[2016-10-06] MEDS: CEPHALEXIN MONOHYDRATE 500 MG CAP PO SCH (09:25)
[2016-10-06] MEDS: INSULIN GLARGINE SOLOSTAR 100 UNITS/ML 3 ML PEN SC SCH (09:26)
[2016-10-06] MEDS: ACETAMINOPHEN 325 MG TAB PO PRN (09:59)
[2016-10-06] MEDS ORDERED: VANCOMYCIN INJ 1,250 MG in SODIUM CHLORIDE 0.9% 250ML 250 ML IV ONE (11:30)
[2016-10-06] MEDS ORDERED: VANCOMYCIN INJ 1,500 MG in SODIUM CHLORIDE 0.9% 500ML 500 ML IV ONE (11:30)
--- NOTE | 2016-10-06 11:36 | Pharmacy Progress Note ---
Pharmacy Antibiotic Prog Note Date of Service: Oct 06, 2016. Subjective: The patient is currently receiving empiric VANC-IV depending on levels. * The patient is currently on day # 3 of VANC-IV therapy for with sepsis 2nd HAP - on levofloxacin, vancomycin. MRSA nasal swab positive. * The patient is currently on day # 3 of LVQ 750mg IV every 48 hours * Recently admitted 09/26 - 09/29. Objective: Height (Feet): 5 Height (Inches): 1.00 Weight (Kilograms): 105.300 Levels: Item Value Date Time Random Vancomycin Level 27.4 mcg/ml 10/05/16 0534 Random Vancomycin Level 20.0 mcg/ml 10/05/16 2128 Lab Results (24hrs): Laboratory Tests Test 10/05/16 21:28 10/06/16 05:40 BUN/Creatinine Ratio 32.5 30.8 Blood Urea Nitrogen 42 mg/dl 40 mg/dl Creatinine 1.30 mg/dl 1.30 mg/dl White Blood Count 6.75 K/uL 6.70 K/uL Red Blood Count 3.02 M/uL Hemoglobin 9.6 g/dL Hematocrit 29.7 % Mean Corpuscular Volume 98.3 fL Mean Corpuscular Hemoglobin 31.8 pg Mean Corpuscular Hemoglobin Concent 32.3 g/dl Platelet Count 119 K/uL Mean Platelet Volume 10.1 fL Neutrophils (%) (Auto) 69.7 % Lymphocytes (%) (Auto) 19.1 % Monocytes (%) (Auto) 8.0 % Eosinophils (%) (Auto) 1.3 % Basophils (%) (Auto) 0.1 % Neutrophils # (Auto) 4.70 K/uL Lymphocytes # (Auto) 1.29 K/uL Monocytes # (Auto) 0.54 K/uL Eosinophils # (Auto) 0.09 K/uL Basophils # (Auto) 0.01 K/uL Micro Results: Item Value Date Time Urine Culture - Final Complete 10/04/16 1545 Urine,Catheterized NO GROWTH - LESS THAN 1,000 COLONIES/ML MRSA DNA Surveillance Screen - Final Complete 10/04/16 1545 Nasal Specimen Positive for MRSA by DNA Probe Blood Culture - Preliminary Resulted 10/04/16 1210 Blood NO GROWTH TO DATE. Blood Culture - Preliminary Resulted 10/04/16 1205 Blood NO GROWTH TO DATE. Recent Pertinent Medications: * Was scheduled to complete course of cephalexin for catheter-associated E.coli UTI (resistant to fluoroquinolones) on 10/06 after AM dose. * Keflex 500mg po BID added back to complete e.coli course (finish 10/07/16, missed doses 10/03-10/04). Assessment & Plan: VANC-IV: * Random Vanc obtained last evening indicates ready to re-dose Vanc-IV. Pt is eliminating Vanc far slower than expected, though her Scr is slightly improved since ADM. Will give 1 maintenance dose Vanc-IV now and use random Vanc level to guide subsequent dosing 10/07 am. There was some discussion whether Vanc-IV would be continued today...we will stay flexible for update. * Maintenance dose: VANC 1250mg (12mg/kg for morbidly obese pt) IV x 1 * Goal random level to guide redose: < 20 mcg/mL for HCAP. LVQ-IV: was 750mg IV q 48 hours, will get dose today and change to q24 hours for est CrCL > 50ml/min. Pharmacy will continue to follow and will adjust dose/frequency as necessary. Thank you
--- NOTE | 2016-10-06 11:52 | DIAGNOSTIC IMAGING REPORT ---
SINGLE VIEW CHEST CLINICAL HISTORY: CHF. FINDINGS: An AP, portable, upright chest radiograph is compared to study dated 10/04/2016 and correlated with chest CT dated 04/05/2016. The examination is degraded by portable technique, large body habitus, and patient rotation. The heart is normal for projection. Pulmonary vascular congestion and interstitial edema persists. There are small pleural effusions and bibasilar airspace opacities. No pneumothorax is seen. The skeletal structures are osteopenic. The bony thorax is grossly intact IMPRESSION: 1. Pulmonary vascular congestion and interstitial edema is unchanged to minimally improved from yesterday. 2. There are small pleural effusions and bibasilar consolidation. This likely represents atelectasis. Correlate clinically for evidence of a superimposed infectious or inflammatory pneumonitis. Electronically signed by: Dante Esqueda M.D. 10/06/2016 11:51 AM Dictated Date/Time: 10/06/2016 11:49 AM
[2016-10-06] MEDS ORDERED: BUMETANIDE IV 1 MG in SYRINGE 0 ML IV ONE (13:00)
[2016-10-06] MEDS ORDERED: PHARMACY GLYCEMIC MGMT CONSULT PRN (13:39)
[2016-10-06] MEDS ORDERED: LEVOFLOXACIN / D5W 750 MG in PREMIXED IN D5W 150 ML IV SCH (14:00)
[2016-10-06] MEDS ORDERED: HEPARIN IV BOLUS 6,000 UNIT in SYRINGE 0 ML IV ONE (14:45)
--- NOTE | 2016-10-06 14:50 | Pharmacy Progress Note ---
Glycemic Control Intl Consult Date of Service Oct 06, 2016. Scope Glycemic Pharmacist consulted by Dr Jones on 10/06/16 for glycemic control and to write orders per [facility] inpatient glycemic control protocol Objective Weight (Kilograms): 105.300 Accuchecks BSG (last 24hrs): Test 10/05/16 16:10 10/05/16 21:28 10/05/16 21:45 10/06/16 05:40 Bedside Glucose 102 mg/dl (70-90) 92 mg/dl (70-90) Random Glucose 84 mg/dl (70-99) 93 mg/dl (70-99) Test 10/06/16 11:08 Bedside Glucose 167 mg/dl (70-90) Laboratory Data (last 24hrs) Test 10/05/16 21:28 10/06/16 05:40 Anion Gap 8.0 mmol/L 4.0 mmol/L BUN/Creatinine Ratio 32.5 30.8 Blood Urea Nitrogen 42 mg/dl 40 mg/dl Creatinine 1.30 mg/dl 1.30 mg/dl Potassium Level 4.7 mmol/L 4.2 mmol/L Sodium Level 138 mmol/L 138 mmol/L White Blood Count 6.75 K/uL 6.70 K/uL Red Blood Count 3.02 M/uL Hemoglobin 9.6 g/dL Hematocrit 29.7 % Mean Corpuscular Volume 98.3 fL Mean Corpuscular Hemoglobin 31.8 pg Mean Corpuscular Hemoglobin Concent 32.3 g/dl Platelet Count 119 K/uL Mean Platelet Volume 10.1 fL Neutrophils (%) (Auto) 69.7 % Lymphocytes (%) (Auto) 19.1 % Monocytes (%) (Auto) 8.0 % Eosinophils (%) (Auto) 1.3 % Basophils (%) (Auto) 0.1 % Neutrophils # (Auto) 4.70 K/uL Lymphocytes # (Auto) 1.29 K/uL Monocytes # (Auto) 0.54 K/uL Eosinophils # (Auto) 0.09 K/uL Basophils # (Auto) 0.01 K/uL HbA1c 6.6% on 08/13/16 Recent Pertinent Medications Outpatient Anti-diabetic Regimen: * Lantus 24 units in the morning and 28 units in the evening * Humalog per scale ACHS The patient is currently receiving: * Basal insulin: Lantus 24 units every morning and 28 units every evening (outpatient regimen). Of note, yesterday morning 1/2 of AM dose was given for BSG < 120mg/dl and PM dose held this evening * Correctional Insulin: Novolog Correction per scale ACHS Goal Range: Low 140 mg/dL - High 180 mg/dL Correction Factor: 50 mg/dL/unit * Prandial insulin: Per carb ratio of 1 unit per 12 grams CHO consumed Risk Factors for Insulin Resistance: * Infection * Diet/continuous tube feedings Assessment & Plan ASSESSMENT: * 60yo T2DM female known to pharmacy from previous admissions/glycemic consults * BSGs have been running below goal range - most likely d/t too much basal insulin. Pt is ordered outpatient doses of basal insulin which are higher than standard weight based dosing. Outpatient basal insulin dose is ~ 0.5units/kg. Outpatient basal insulin doses may be covering prandial needs/PEG tube feedings. * Pt is ordered Impact continuous tube feedings. Goal rate is is 75ml/hrs --> current rate is 50 ml/hrs. Nursing is going to advance rate to goal rate now. Expect BSGs to rise with rate increase & no CHO coverage. CHO needs covered in continuous tube feedings when tube feeds are running at ~ 70% of goal rate. * Impact @ 50ml/hr provides ~ 39g CHO over 6hrs (i.e will get 3units per CR = 14) * Impact @ 60ml/hr provides ~ 47g CHO over 6 hrs (i.e will get 4units per CR = 14) * Impact @ 75ml/hr provides ~ 59g CHO over 6hrs (i.e will get 5units per CR = 14) * ADA & AACE recommend a goal blood sugar range 140-180 mg/dl for the majority of critically ill & non-critically ill patients. However, more stringent targets may be selected in individual cases. PLAN FOR INPATIENT GLYCEMIC CONTROL: Re-distribute insulin regimen - current regimen is 100% basal insulin. Basal insulin is covering prandial needs. Change to an estimated total daily dose of ~ 40 units/day per previous admission data. * Basal insulin with LANTUS 10 units SQ BID. Start 10/07/16 AM as patient already received 24 units of Lantus this morning. * HOLD if BSG < 110 mg/dl * Correctional Insulin with REGULAR per scale ACHS or Q6hrs while NPO * Goal Range: Low 140 mg/dL - High 180 mg/dL * Correction Factor: 40 mg/dL/unit * Nutritional / Prandial insulin per carb ratio of 1 unit per 14 grams CHO consumed (see above) * Please note that the plan above was derived based on current level of insulin resistance and hospital stress. These recommendations are appropriate for inpatient admission only. Plan of care upon discharge will need to be reassessed to avoid potential outpatient hypo/hyperglycemia. Thank you.
[2016-10-06] MEDS: IMPACT LIQ 1000 ML BAG PEG SCH (15:53)
--- NOTE | 2016-10-06 18:24 | Family Medicine Progress Note ---
Progress Note Date of Service Oct 06, 2016. Subjective Pt evaluation today including: conversation w/ patient, conversation w/ family (patient's partner colette), physical exam Pain: None PO Intake: PEG No complaints at this time Notes she feels much better than when she originally arrived, asking when she can go home No chest pain, no SOB, no palpitations No events overnight No pain Additional Comments: Review of systems otherwise negative. Medications Current Inpatient Medications Medications (Trade) Dose Ordered Sig/Tristian Route Start Time Stop Time Status Last Admin Dose Admin Acetaminophen (Tylenol Tab) 650 mg Q4H PRN PO 10/04/16 13:45 11/03/16 13:44 10/06/16 09:59 650 MG Al Hydrox/Mg Hydrox/Simethicone (Maalox Max Susp) 15 ml Q4H PRN PO 10/04/16 13:45 11/03/16 13:44 Ondansetron HCl (Zofran Inj) 4 mg Q6H PRN IV 10/04/16 13:45 11/03/16 13:44 Albuterol (Ventolin Hfa Inhaler) 2 puffs Q4H PRN INH 10/04/16 14:15 11/03/16 14:14 Amlodipine Besylate (Norvasc Tab) 5 mg QAM PEG 10/05/16 09:00 11/04/16 08:59 10/06/16 09:25 5 MG Budesonide (Pulmicort Respules 0.5MG/ 2ML Neb Soln) 0.5 mg BIDR INH 10/04/16 20:00 11/03/16 19:59 10/06/16 07:37 0.5 MG Clopidogrel Bisulfate (plAVix TAB) 75 mg DAILY PEG 10/05/16 09:00 11/04/16 08:59 10/06/16 09:25 75 MG Fluoxetine HCl (Prozac Soln) 10 mg DAILY GT 10/05/16 09:00 11/04/16 08:59 10/06/16 09:24 10 MG Albuterol/ Ipratropium (Duoneb) 3 ml QIDR INH 10/04/16 16:00 11/03/16 15:59 10/06/16 16:05 3 ML Lamotrigine (Lamictal Tab) 100 mg BID PEG 1/9/17 21:00 11/03/16 20:59 10/06/16 09:24 100 MG Levothyroxine Sodium (Synthroid Tab) 88 mcg DAILYBB PEG 10/05/16 06:00 11/04/16 06:59 10/06/16 06:00 88 MCG Risperidone (Risperdal Tab) 2 mg QAM PEG 10/05/16 09:00 11/04/16 08:59 10/06/16 09:24 2 MG Risperidone (Risperdal Tab) 4 mg QPM PEG 10/04/16 21:00 11/03/16 20:59 10/06/16 00:35 4 MG Valproic Acid (Depakene Syrup) 500 mg TID PEG 10/04/16 21:00 11/03/16 20:59 10/06/16 13:00 500 MG Glucose (Glucose 40% Gel) 15-30 GRAMS 15 GRAMS... UD PRN PO 10/04/16 14:30 11/03/16 14:29 Glucose (Glucose Chew Tab) 4-8 Tablets 4 Tabl... UD PRN PO 10/04/16 14:30 11/03/16 14:29 Dextrose (Dextrose 50% 50ML Syringe) 25-50ML OF 50% DW IV FOR... UD PRN IV 10/04/16 14:30 11/03/16 14:29 Glucagon (Glucagon Inj) 1 mg UD PRN SQ 10/04/16 14:30 11/03/16 14:29 Atorvastatin Calcium (Lipitor Tab) 40 mg QAM PO 10/05/16 09:00 11/04/16 08:59 10/06/16 09:25 40 MG Aspirin 81 mg 81 mg QAM PEG 10/05/16 09:00 11/04/16 08:59 10/06/16 09:25 81 MG Heparin Sodium/ Dextrose (Heparin 25,000 Unit/500ml D5W) 500 ml @ 44 mls/hr [id number] PRN IV 10/04/16 15:45 11/03/16 15:44 10/06/16 15:10 44 MLS/HR Metoprolol Tartrate (Lopressor Tab) 25 mg BID PEG 10/05/16 09:00 11/04/16 08:59 10/06/16 09:24 25 MG Enteral Nutritional Formula (Impact 1.0 Eulogio) 1,000 ml GOAL RATE 75ML/HR PEG 10/05/16 12:00 11/04/16 11:59 10/06/16 15:53 1,000 ML Sterile Water (Tube Feeding Water Flush) 1 ea Q6 GT 10/05/16 12:00 11/04/16 11:59 10/06/16 12:00 1 EA Cephalexin Monohydrate (Keflex Cap) 500 mg BID PO 10/05/16 17:30 10/07/16 17:29 10/06/16 09:25 500 MG Miscellaneous Information (Consult Glycemic Management Pharmacy) 1 ea UD PRN N/A 10/06/16 13:39 11/05/16 13:38 Insulin Aspart (novoLOG ASPART) SLIDING SCALE If C... Q6 SC 10/06/16 18:00 11/05/16 17:59 Insulin Glargine (Lantus Solostar Pen) see protocol text BID SC 10/07/16 09:00 11/06/16 08:59 Objective Vital Signs Date Time Temp Pulse Resp B/P Pulse Ox O2 Delivery O2 Flow Rate FiO2 10/06/16 16:05 83 16 97 Nasal Cannula 3.0 10/06/16 16:00 97 Nasal Cannula 4.0 10/06/16 15:58 36.9 80 19 134/71 94 Nasal Cannula 2.5 10/06/16 12:29 Nasal Cannula 4.0 BiPAP 10/06/16 11:12 74 16 95 Nasal Cannula 3.0 10/06/16 08:00 36.9 87 97 Nasal Cannula 4.0 10/06/16 08:00 Nasal Cannula 4.0 BiPAP 10/06/16 07:37 78 16 96 Nasal Cannula 3.0 10/06/16 05:10 36.7 73 131/75 Nasal Cannula 10/06/16 04:00 Nasal Cannula 10/06/16 00:00 Room Air 10/06/16 00:00 80 144/81 Room Air 10/05/16 20:00 Nasal Cannula 4.0 10/05/16 19:59 36.9 73 14 113/49 97 Nasal Cannula 4.0 BiPAP 10/05/16 19:01 75 14 95 Nasal Cannula 5.0 Physical Exam General Appearance: WD/WN, no apparent distress, + obese Eyes: normal inspection ENT: normal ENT inspection, pharynx normal Neck: supple, no adenopathy, no JVD Respiratory/Chest: lungs clear, no respiratory distress, + pertinent finding ( mildly decreased breath sounds at bases) Cardiovascular: regular rate, rhythm, no gallop, no murmur Abdomen: normal bowel sounds, non tender, soft Extremities: non-tender, no pedal edema, + pertinent finding (1+ pitting edema ; to 1/3[address] way up ankles) Neurologic/Psychiatric: alert, normal mood/affect, oriented x 3 Skin: normal color, warm/dry, no rash Lymphatic: no adenopathy Laboratory Results Last 24 Hours Test 10/05/16 21:28 10/05/16 21:45 10/06/16 05:28 10/06/16 05:40 White Blood Count 6.75 K/uL 6.70 K/uL Red Blood Count 3.02 M/uL 3.05 M/uL Hemoglobin 9.6 g/dL 9.9 g/dL Hematocrit 29.7 % 30.0 % Mean Corpuscular Volume 98.3 fL 98.4 fL Mean Corpuscular Hemoglobin 31.8 pg 32.5 pg Mean Corpuscular Hemoglobin Concent 32.3 g/dl 33.0 g/dl Platelet Count 119 K/uL 126 K/uL Mean Platelet Volume 10.1 fL 10.1 fL Neutrophils (%) (Auto) 69.7 % Lymphocytes (%) (Auto) 19.1 % Monocytes (%) (Auto) 8.0 % Eosinophils (%) (Auto) 1.3 % Basophils (%) (Auto) 0.1 % Neutrophils # (Auto) 4.70 K/uL Lymphocytes # (Auto) 1.29 K/uL Monocytes # (Auto) 0.54 K/uL Eosinophils # (Auto) 0.09 K/uL Basophils # (Auto) 0.01 K/uL RDW Standard Deviation 67.9 fL 67.3 fL RDW Coefficient of Variation 19.0 % 18.8 % Immature Granulocyte % (Auto) 1.8 % Immature Granulocyte # (Auto) 0.12 K/uL Sodium Level 138 mmol/L 138 mmol/L Potassium Level 4.7 mmol/L 4.2 mmol/L Chloride Level 93 mmol/L 93 mmol/L Carbon Dioxide Level 37 mmol/L 41 mmol/L Anion Gap 8.0 mmol/L 4.0 mmol/L Blood Urea Nitrogen 42 mg/dl 40 mg/dl Creatinine 1.30 mg/dl 1.30 mg/dl Est Creatinine Clear Calc Drug Dose 52.9 ml/min 52.9 ml/min Estimated GFR () 52.4 52.4 Estimated GFR (Non- 45.2 45.2 BUN/Creatinine Ratio 32.5 30.8 Random Glucose 84 mg/dl 93 mg/dl Calcium Level 10.0 mg/dl 10.1 mg/dl Random Vancomycin Level 20.0 mcg/ml Bedside Glucose 92 mg/dl Blood Gas Sample Site R Radial Bedside Blood Gas pH (LAB) 7.43 Bedside Blood Gas pCO2 (LAB) 64 mmHg Bedside Blood Gas pO2 (LAB) 66 mmHg Bedside Blood Gas HCO3 (LAB) 42 meq/L Bedside Blood Gas Total CO2 > 40 mEq/l Bedside Blood Gas Base Excess (LAB) 18.0 meq/L Bedside Blood Gas O2 Saturation 92.0 % Talon Test Pass Oxygen Delivery Device Cannula Activated Partial Thromboplast Time 32.9 SECONDS Partial Thromboplastin Ratio 1.3 Total Creatine Kinase 124 U/L Creatine Kinase MB 2.4 ng/ml Creatine Kinase MB Ratio 1.9 Troponin I 5.860 ng/ml Test 10/06/16 11:08 10/06/16 13:10 10/06/16 16:26 Bedside Glucose 167 mg/dl 174 mg/dl Activated Partial Thromboplast Time 26.6 SECONDS Partial Thromboplastin Ratio 1.0 Assessment and Plan 60 year old female who presents to the hospital for worsening shortness of breath, likely mild CHF exacerbation and diagnosed with NSTEMI. Also is concurrently completing course of oral antibiotics for urinary tract infection, diagnosed at previous visit. At this time is doing well and has remained stable. Currently denying any new complaints Background co-morbidities include - COPD - DM - hypothyroidism - hyperlipidemia - HTN - epilepsy - schizoaffective - CVA Our plan for her is as follows Metabolic encephalopathy - Patient alert and oriented at this time; responds appropriately Sepsis with background recent HCAP and E coli UTI - Clinical status appears much better today - No evidence of pulmonary infection at this time Will discontinue Vancomycin and Levaquin - Patient is to continue Keflex course; last day of treatment is tomorrow - 1 set of cultures on admission were negative; will repeat blood cultures today NSTEMI - EKG no new changes; no chest pain overnight; Echo with new apical and septal wall motion abnormality - Troponin peaked at 16, today down to 5; will discontinue monitoring at this time - Continue intensive medical management with ASA, Atorvastatin, and Plavix - Currently on IV heparin drip Acute Diastolic Congestive Heart Failure - Acute Congestion noted on CXR yesterday; Grade II diastolic dysfunction per echo today - Patient given Bumex in the ED - CXR does show some improvement in congestion; Patient 1 L Positive since admission; will administer 1 mg Bumex today - Continue to hold Lisinopril - Will check another CXR today - Daily weights and I/O monitoring Acute on Chronic Anemia - No focal evidence of blood loss - Hemoccult pending - Trend H&H q 6 as patient is on heparin drip - 2 units transfused; Hb > 9 today Will repeat H&H this evening and with morning labs COPD - Continue Ventolin - Continue Duoneb - Continue Pulmicort Neb - Patient should have BiPAP set up in-house - Nocturnal pulse Ox and AM ABG completed for approval process Type 2 Diabetes Mellitus - Reviewed BSG; patient was trending downward yesterday; held nighttime Lantus dose - Discussed with pharmacy today; complex management given that patient gets continuous tube feeds - Discussed holding PM Lantus, changing AC/HS checks to q6h - May be getting too much insulin given diet control in hospital, as such need to avoid over-administration with risk of hypoglycemia Hyperkalemia - Resolved K 3.8 today - Received dose of Bumex today; will check K with AM labs Previous CVA - Residual left-sided dense hemiparesis - PEG tube - Plavix - No other action at this time Acute on CKD stage III - Baseline Cr noted to be 1.1 - Cr. 1.3 today; improving gradually - Stable enough for 1 dose of Bumex today - Repeat BMP in AM Seizure Disorder - Continue Valproic acid, Lamictal - No seizure activity since arrival Hypothyroidism - Continue Synthyroid Schizophrenia - Continue Risperidone per home dosing Anxiety/Depression - Continue Prozac DVT prophylaxis - Patient is currently on Heparin drip Will monitor H&H and stop if continues to trend downward Code Status - Level I Code Disposition - Telemetry Continued [facility] stay due to: other (needs BiPAP at home before can safely return ) Discharge planning: uncertain Reviewed: Pt Seen/Exam by Me History feeling much better today. Constitutional: denies: fever Respiratory: negative: short of breath Cardiovascular: denies chest pain General Appearance: no apparent distress Respiratory: lungs clear, no respiratory distress Cardiovascular: regular rate, rhythm Neurologic/Psychiatric: alert, oriented x 3 Skin Characteristics: warm/dry Assessment/Plan I have reviewed the medical record and performed a history and physical examination of this patient today. I have discussed the case with Dr oJnes. The above note reflects my findings, conclusions, and recommendations.
[2016-10-06 19:46] LABS: HEMATOCRIT 27.5 % (37-47)
[2016-10-06 20:04] LABS: PARTIAL THROMBOPLASTIN RATIO 1.8
[2016-10-06] MEDS ORDERED: HEPARIN IV BOLUS 3,000 UNIT in SYRINGE 0 ML IV ONE (21:00)
--- NOTE | 2016-10-06 22:08 | Cardiology Follow-Up ---
Subjective Subjective Date of Service: Oct 06, 2016. Pt evaluation today including: conversation w/ patient, conversation w/ family , physical exam, chart review, lab review, review of studies, review of inpatient medication list Additional Details: Comfortable, states she is feeling much better and wants to go home No chest pain overnight. Only complaint is left knee pain where IO catheter inserted Problem List Medical Problems: (1) Acute renal failure Status: Acute (2) Acute respiratory failure with hypoxia and hypercarbia Status: Acute (3) Altered mental state Status: Acute (4) Altered mental status Status: Acute (5) Anemia Status: Acute (6) Anemia Status: Acute (7) Apneic episode Status: Acute (8) CVA (cerebral vascular accident) Status: Acute (9) CVA (cerebral vascular accident) Status: Acute (10) Hyperkalemia Status: Acute (11) Hypoxia Status: Acute (12) Ischemic stroke Status: Acute (13) Pulmonary edema Status: Acute Review of Systems ENT: + problem reported, No hearing loss Respiratory: No cough Cardiac: No chest pain Abdomen: No nausea, No pain Female : No dysuria Neurologic: + paralysis, + weakness Heme: No abnormal bleeding/bruising Skin: No rash Objective Vital Signs Last Vital Signs Documentation Date Time Temp Pulse Resp B/P Pulse Ox O2 Delivery O2 Flow Rate FiO2 10/06/16 20:48 76 106/64 10/06/16 20:03 16 96 Nasal Cannula 3.0 10/06/16 19:39 36.8 10/05/16 04:00 40 Physical Exam: General Appearance: WD/WN, no apparent distress, + obese ENT: normal ENT inspection, pharynx normal Neck: supple, no adenopathy, no JVD Respiratory/Chest: lungs clear (anteriorly), no respiratory distress, + pertinent finding (mildly decreased breath sounds at bases) Cardiovascular: regular rate, rhythm, no murmur, + pertinent finding (unable to asses JVD) Abdomen: normal bowel sounds, non tender, soft Extremities: non-tender, + pertinent finding (1+ edema bilaterally to shins) Neurologic/Psychiatric: alert, normal mood/affect Skin: normal color, warm/dry, no rash, + pertinent finding (no erythema or pain around IO site) Lymphatic: no adenopathy Assessment and Plan 1. NSTEMI-- Chest pain free, trop peaked at 16, new apical/anteroseptal wall motion abnormality on echo, overall LV function largely preserved 2. Acute on chronic respiratory failure-- improved after bipap, diuresis 3. Acute on chronic diastolic heart failure-- mild residual pulmonary/systemic venous congestion 4. Anemia -- post transfusion, Hb Stable 5. Post CVA with left hemiparesis Patient remains chest pain free and hemodynamically stable. No indication for urgent cardiac cath No need for additional risk stratification as unlikely to gain significant net clinical benefit from additional invasive intervention. Continue ASA/Plavix Can d/c heparin Agree with continued intermittent diuresis From a cardiac standpoint could be discharged when other medical issues resolved. Continued [facility] stay due to: other (needs BiPAP at home before can safely return ) Discharge planning: uncertain Medications: Current Inpatient Medications Medications (Trade) Dose Ordered Sig/Tristian Route Start Time Stop Time Status Last Admin Dose Admin Acetaminophen (Tylenol Tab) 650 mg Q4H PRN PO 10/04/16 13:45 11/03/16 13:44 10/06/16 09:59 650 MG Al Hydrox/Mg Hydrox/Simethicone (Maalox Max Susp) 15 ml Q4H PRN PO 10/04/16 13:45 11/03/16 13:44 Ondansetron HCl (Zofran Inj) 4 mg Q6H PRN IV 10/04/16 13:45 11/03/16 13:44 Albuterol (Ventolin Hfa Inhaler) 2 puffs Q4H PRN INH 10/04/16 14:15 11/03/16 14:14 Amlodipine Besylate (Norvasc Tab) 5 mg QAM PEG 10/05/16 09:00 11/04/16 08:59 10/06/16 09:25 5 MG Budesonide (Pulmicort Respules 0.5MG/ 2ML Neb Soln) 0.5 mg BIDR INH 10/04/16 20:00 11/03/16 19:59 10/06/16 20:03 0.5 MG Clopidogrel Bisulfate (plAVix TAB) 75 mg DAILY PEG 10/05/16 09:00 11/04/16 08:59 10/06/16 09:25 75 MG Fluoxetine HCl (Prozac Soln) 10 mg DAILY GT 10/05/16 09:00 11/04/16 08:59 10/06/16 09:24 10 MG Albuterol/ Ipratropium (Duoneb) 3 ml QIDR INH 10/04/16 16:00 11/03/16 15:59 10/06/16 20:03 3 ML Lamotrigine (Lamictal Tab) 100 mg BID PEG 10/04/16 21:00 11/03/16 20:59 10/06/16 20:57 100 MG Levothyroxine Sodium (Synthroid Tab) 88 mcg DAILYBB PEG 10/05/16 06:00 11/04/16 06:59 10/06/16 06:00 88 MCG Risperidone (Risperdal Tab) 2 mg QAM PEG 10/05/16 09:00 11/04/16 08:59 10/06/16 09:24 2 MG Risperidone (Risperdal Tab) 4 mg QPM PEG 10/04/16 21:00 11/03/16 20:59 10/06/16 20:52 4 MG Valproic Acid (Depakene Syrup) 500 mg TID PEG 10/04/16 21:00 11/03/16 20:59 10/06/16 20:51 500 MG Glucose (Glucose 40% Gel) 15-30 GRAMS 15 GRAMS... UD PRN PO 10/04/16 14:30 11/03/16 14:29 Glucose (Glucose Chew Tab) 4-8 Tablets 4 Tabl... UD PRN PO 10/04/16 14:30 11/03/16 14:29 Dextrose (Dextrose 50% 50ML Syringe) 25-50ML OF 50% DW IV FOR... UD PRN IV 10/04/16 14:30 11/03/16 14:29 Glucagon (Glucagon Inj) 1 mg UD PRN SQ 10/04/16 14:30 11/03/16 14:29 Atorvastatin Calcium (Lipitor Tab) 40 mg QAM PO 10/05/16 09:00 11/04/16 08:59 10/06/16 09:25 40 MG Aspirin 81 mg 81 mg QAM PEG 10/05/16 09:00 11/04/16 08:59 10/06/16 09:25 81 MG Heparin Sodium/ Dextrose (Heparin 25,000 Unit/500ml D5W) 500 ml @ 47 mls/hr [id number] PRN IV 10/04/16 15:45 11/03/16 15:44 10/06/16 20:45 44 MLS/HR Metoprolol Tartrate (Lopressor Tab) 25 mg BID PEG 10/05/16 09:00 11/04/16 08:59 10/06/16 20:51 25 MG Enteral Nutritional Formula (Impact 1.0 Eulogio) 1,000 ml GOAL RATE 75ML/HR PEG 10/05/16 12:00 11/04/16 11:59 10/06/16 15:53 1,000 ML Sterile Water (Tube Feeding Water Flush) 1 ea Q6 GT 10/05/16 12:00 11/04/16 11:59 10/06/16 18:20 1 EA Miscellaneous Information (Consult Glycemic Management Pharmacy) 1 ea UD PRN N/A 10/06/16 13:39 11/05/16 13:38 Insulin Aspart (novoLOG ASPART) SLIDING SCALE If C... Q6 SC 10/06/16 18:00 11/05/16 17:59 10/06/16 18:20 3 UNITS Insulin Glargine (Lantus Solostar Pen) see protocol text BID SC 10/07/16 09:00 11/06/16 08:59 Cephalexin Monohydrate (Keflex Susp) 10 ml BID PO 10/06/16 21:00 10/07/16 12:00 Lab Results: 10/06/16 05:40 10/06/16 19:31 10/06/16 05:40 Test 10/06/16 05:28 10/06/16 05:40 10/06/16 19:31 10/06/16 20:05 Blood Gas Sample Site R Radial Bedside Blood Gas pH (LAB) 7.43 (7.35-7.45) Bedside Blood Gas pCO2 (LAB) 64 mmHg (35-46) Bedside Blood Gas pO2 (LAB) 66 mmHg (80-95) Bedside Blood Gas HCO3 (LAB) 42 meq/L (19-24) Bedside Blood Gas Total CO2 > 40 mEq/l (24-31) Bedside Blood Gas Base Excess (LAB) 18.0 meq/L (-9-1.8) Bedside Blood Gas O2 Saturation 92.0 % (90-95) Talon Test Pass Oxygen Delivery Device Cannula Red Blood Count 3.05 M/uL (4.2-5.4) Mean Corpuscular Volume 98.4 fL (80-100) Mean Corpuscular Hemoglobin 32.5 pg (25-34) Mean Corpuscular Hemoglobin Concent 33.0 g/dl (32-36) RDW Standard Deviation 67.3 fL (36.4-46.3) RDW Coefficient of Variation 18.8 % (11.5-14.5) Mean Platelet Volume 10.1 fL (7.4-10.4) Anion Gap 4.0 mmol/L (3-11) Est Creatinine Clear Calc Drug Dose 52.9 ml/min Estimated GFR () 52.4 Estimated GFR (Non- 45.2 BUN/Creatinine Ratio 30.8 (10-20) Calcium Level 10.1 mg/dl (8.5-10.1) Total Creatine Kinase 124 U/L (26-192) Creatine Kinase MB 2.4 ng/ml (0.5-3.6) Creatine Kinase MB Ratio 1.9 (0-3.0) Troponin I 5.860 ng/ml (0-0.045) Activated Partial Thromboplast Time 46.7 SECONDS (21.0-31.0) Partial Thromboplastin Ratio 1.8 Bedside Glucose 193 mg/dl (70-90)
[2016-10-06] MEDS: CEPHALEXIN SUSP 250 MG/5 ML 100 ML PO SCH (22:16)
[2016-10-07] VITALS (14 sets, daily range): BP systolic 114–144; BP diastolic 57–78; PULSE 74–88; TEMP 36.6–37; O2SAT 91–96
[2016-10-07] MEDS: INSULIN ASPART 100 UNITS/ML 3 ML PEN SC SCH ×4 (00:31→21:10)
[2016-10-07 03:58] LABS: HEMATOCRIT 26.6 % (37-47); MEAN CELL VOLUME 98.9 fL (80-100); MEAN CORPUSCULAR HEMOGLOBIN 32.7 pg (25-34); MEAN CORPUSCULAR HGB CONC 33.1 g/dl (32-36); MEAN PLATELET VOLUME 10.2 fL (7.4-10.4); PLATELET COUNT 122 K/uL (130-400); RED BLOOD COUNT 2.69 M/uL (4.2-5.4); WHITE BLOOD COUNT 6.41 K/uL (4.8-10.8)
[2016-10-07 04:14] LABS: BUN/CREATININE RATIO 35.2 (10-20); CALCIUM 9.4 mg/dl (8.5-10.1); CREATININE 1.2 mg/dl (0.60-1.20); POTASSIUM 4.3 mmol/L (3.5-5.1)
[2016-10-07 04:22] LABS: PARTIAL THROMBOPLASTIN RATIO 2.9
[2016-10-07] MEDS: ONDANSETRON INJ 2 MG/ML 2 ML VIAL IV PRN ×3 (04:25→21:42)
[2016-10-07] MEDS: TUBE FEEDING WATER FLUSH GT SCH ×4 (06:02→19:08)
[2016-10-07] MEDS: LEVOTHYROXINE 88 MCG TAB PEG SCH (06:05)
[2016-10-07] MEDS: ALBUT/IPRATROP 3MG/0.5MG NEB 3 ML VIAL INH SCH ×4 (07:06→19:04)
[2016-10-07] MEDS: BUDESONIDE 0.5 MG/2 ML VIAL (PULMICORT) INH SCH ×2 (07:11→19:04)
[2016-10-07] MEDS: CLOPIDOGREL BISULFATE 75 MG TAB PEG SCH (07:39)
[2016-10-07] MEDS: ATORVASTATIN 40 MG TAB PO SCH (07:39)
[2016-10-07] MEDS: AMLODIPINE BESYLATE 5 MG TAB PEG SCH (07:39)
[2016-10-07] MEDS: METOPROLOL TARTRATE 25 MG TAB PEG SCH ×2 (07:40→21:00)
[2016-10-07] MEDS: VALPROIC ACID 500 MG/10 ML UDP PEG SCH ×3 (07:41→21:00)
[2016-10-07] MEDS: RISPERIDONE 2 MG TAB PEG SCH ×2 (07:41→20:59)
[2016-10-07] MEDS: FLUOXETINE HCL 20 MG/5 ML GT SCH (07:41)
[2016-10-07] MEDS: CEPHALEXIN SUSP 250 MG/5 ML 100 ML PO SCH (07:42)
[2016-10-07] MEDS: INSULIN GLARGINE SOLOSTAR 100 UNITS/ML 3 ML PEN SC SCH ×2 (07:50→21:10)
[2016-10-07] MEDS: ASPIRIN 81 MG CHEW PEG SCH (07:53)
[2016-10-07] MEDS ORDERED: INSULIN GLARGINE SOLOSTAR 100 UNITS/ML 3 ML PEN SC SCH (09:00)
[2016-10-07] MEDS ORDERED: NURSING VERBAL MED ORDER ONE (09:30)
[2016-10-07] MEDS ORDERED: INSULIN ASPART 100 UNITS/ML 3 ML PEN SC ONE (10:30)
[2016-10-07 11:18] LABS: PARTIAL THROMBOPLASTIN RATIO 1.4
[2016-10-07] MEDS: IMPACT LIQ 1000 ML BAG PEG SCH (11:21)
--- NOTE | 2016-10-07 11:53 | Pharmacy Progress Note ---
Glycemic Control: Progress Nt Date of Service Oct 07, 2016. Scope Glycemic Pharmacist consulted by Dr Jones on 10/06 for glycemic control and to write orders per [facility] inpatient glycemic control protocol. Objective Accuchecks BSG (last 24hrs): Test 10/06/16 16:26 10/06/16 20:05 10/07/16 00:03 10/07/16 03:40 Bedside Glucose 174 mg/dl (70-90) 193 mg/dl (70-90) 201 mg/dl (70-90) Random Glucose 205 mg/dl (70-99) Test 10/07/16 05:56 Bedside Glucose 255 mg/dl (70-90) Laboratory Data (last 24hrs) Test 10/07/16 03:40 Anion Gap 6.0 mmol/L BUN/Creatinine Ratio 35.2 Blood Urea Nitrogen 42 mg/dl Creatinine 1.20 mg/dl Potassium Level 4.3 mmol/L Sodium Level 139 mmol/L White Blood Count 6.41 K/uL Recent Pertinent Medications Outpatient Anti-diabetic Regimen: * Lantus 24 units in the morning and 28 units in the evening * Humalog per scale ACHS The patient is currently receiving: * Basal insulin: Lantus 24 units x1 10/06 AM, then 10 units BID starting 12 AM (hold for BSG < 110 mg/dL) * Correctional Insulin: Novolog Correction per scale Q6H Goal Range: Low 140 mg/dL - High 180 mg/dL Correction Factor: 40 mg/dL/unit * Prandial insulin: Per carb ratio of 1 unit per 14 grams CHO consumed Risk Factors for Insulin Resistance: * Infection * Diet/continuous tube feedings Assessment & Plan ASSESSMENT: * ADA & AACE recommend a goal blood sugar range 140-180 mg/dl for the majority of critically ill & non-critically ill patients. However, more stringent targets may be selected in individual cases. 10/06/16 * 60yo T2DM female known to pharmacy from previous admissions/glycemic consults * BSGs have been running below goal range - most likely d/t too much basal insulin. Pt is ordered outpatient doses of basal insulin which are higher than standard weight based dosing. Outpatient basal insulin dose is ~ 0.5units/kg. Outpatient basal insulin doses may be covering prandial needs/PEG tube feedings. * Pt is ordered Impact continuous tube feedings. Goal rate is is 75ml/hrs --> current rate is 50 ml/hrs. Nursing is going to advance rate to goal rate now. Expect BSGs to rise with rate increase & no CHO coverage. CHO needs covered in continuous tube feedings when tube feeds are running at ~ 70% of goal rate. * Impact @ 50ml/hr provides ~ 39g CHO over 6hrs (i.e will get 3units per CR = 14) * Impact @ 60ml/hr provides ~ 47g CHO over 6 hrs (i.e will get 4units per CR = 14) * Impact @ 75ml/hr provides ~ 59g CHO over 6hrs (i.e will get 5units per CR = 14) 10/07/16 * BSG's trending up steadily since tubefeeds titrated up. Will tighten carb ratio slightly. * Will change Novolog to q4h as BSG's are trending up and this is preferred for PK of rapid-acting insulin on tube feeds. This will also allow for variability in sliding scale coverage as Lantus doses are not at steady state and thus will need to adjust Novolog to accommodate. * Will maintain high goal to help prevent hypoglycemia * Will switch back to Q6H starting tomorrow AM to provide patient with 6 hr overnight without BSG check. Trend in BSG's will be more apparent at that time as Lantus will be at steady-state. PLAN FOR INPATIENT GLYCEMIC CONTROL: * Continue basal insulin with LANTUS 10 units SQ BID (1st dose 1/12 AM) - hold for BSG < 110 mg/dL * Change correctional Insulin with NOVOLOG per scale q4h for today, then q6h starting 10/08 AM * Goal Range: Low 140 mg/dL - High 180 mg/dL * Correction Factor: 40 mg/dL/unit * Tighten Nutritional / Prandial insulin per carb ratio of 1 unit per 12 grams CHO in tube feeds * Please note that the plan above was derived based on current level of insulin resistance and hospital stress. These recommendations are appropriate for inpatient admission only. Plan of care upon discharge will need to be reassessed to avoid potential outpatient hypo/hyperglycemia. Thank you.
[2016-10-07] MEDS ORDERED: INSULIN ASPART 100 UNITS/ML 3 ML PEN SC SCH (14:00)
--- NOTE | 2016-10-07 15:53 | Family Medicine Progress Note ---
Progress Note Date of Service Oct 07, 2016. Subjective Pt evaluation today including: conversation w/ patient, physical exam, chart review, lab review Pain: None PO Intake: PEG Voiding: no voiding problems, esquivel catheter in place Doing well, no complaints at this time Wants to go home, wondering when this can happen No events overnight Breathing is much better today, no pain Additional Comments: Review of systems otherwise negative. Medications Current Inpatient Medications Medications (Trade) Dose Ordered Sig/Tristian Route Start Time Stop Time Status Last Admin Dose Admin Acetaminophen (Tylenol Tab) 650 mg Q4H PRN PO 10/04/16 13:45 11/03/16 13:44 10/06/16 09:59 650 MG Al Hydrox/Mg Hydrox/Simethicone (Maalox Max Susp) 15 ml Q4H PRN PO 10/04/16 13:45 11/03/16 13:44 Ondansetron HCl (Zofran Inj) 4 mg Q6H PRN IV 10/04/16 13:45 11/03/16 13:44 10/07/16 04:25 4 MG Albuterol (Ventolin Hfa Inhaler) 2 puffs Q4H PRN INH 10/04/16 14:15 11/03/16 14:14 Amlodipine Besylate (Norvasc Tab) 5 mg QAM PEG 10/05/16 09:00 11/04/16 08:59 10/07/16 07:39 5 MG Budesonide (Pulmicort Respules 0.5MG/ 2ML Neb Soln) 0.5 mg BIDR INH 10/04/16 20:00 11/03/16 19:59 10/07/16 07:11 0.5 MG Clopidogrel Bisulfate (plAVix TAB) 75 mg DAILY PEG 10/05/16 09:00 11/04/16 08:59 10/07/16 07:39 75 MG Fluoxetine HCl (Prozac Soln) 10 mg DAILY GT 10/05/16 09:00 11/04/16 08:59 10/07/16 07:41 10 MG Albuterol/ Ipratropium (Duoneb) 3 ml QIDR INH 10/04/16 16:00 11/03/16 15:59 10/07/16 11:31 3 ML Lamotrigine (Lamictal Tab) 100 mg BID PEG 10/04/16 21:00 11/03/16 20:59 10/07/16 07:40 100 MG Levothyroxine Sodium (Synthroid Tab) 88 mcg DAILYBB PEG 10/05/16 06:00 11/04/16 06:59 10/07/16 06:05 88 MCG Risperidone (Risperdal Tab) 2 mg QAM PEG 10/05/16 09:00 11/04/16 08:59 10/07/16 07:41 2 MG Risperidone (Risperdal Tab) 4 mg QPM PEG 10/04/16 21:00 11/03/16 20:59 10/06/16 20:52 4 MG Valproic Acid (Depakene Syrup) 500 mg TID PEG 10/04/16 21:00 11/03/16 20:59 10/07/16 14:26 500 MG Glucose (Glucose 40% Gel) 15-30 GRAMS 15 GRAMS... UD PRN PO 10/04/16 14:30 11/03/16 14:29 Glucose (Glucose Chew Tab) 4-8 Tablets 4 Tabl... UD PRN PO 10/04/16 14:30 11/03/16 14:29 Dextrose (Dextrose 50% 50ML Syringe) 25-50ML OF 50% DW IV FOR... UD PRN IV 10/04/16 14:30 11/03/16 14:29 Glucagon (Glucagon Inj) 1 mg UD PRN SQ 10/04/16 14:30 11/03/16 14:29 Atorvastatin Calcium (Lipitor Tab) 40 mg QAM PO 10/05/16 09:00 11/04/16 08:59 10/07/16 07:39 40 MG Aspirin (Aspirin Chew) 81 mg QAM PEG 10/05/16 09:00 11/04/16 08:59 10/07/16 07:53 81 MG Metoprolol Tartrate (Lopressor Tab) 25 mg BID PEG 10/05/16 09:00 11/04/16 08:59 10/07/16 07:40 25 MG Enteral Nutritional Formula (Impact 1.0 Eulogio) 1,000 ml GOAL RATE 75ML/HR PEG 10/05/16 12:00 11/04/16 11:59 10/07/16 11:21 1,000 ML Sterile Water (Tube Feeding Water Flush) 1 ea Q6 GT 10/05/16 12:00 11/04/16 11:59 10/07/16 12:13 1 EA Miscellaneous Information (Consult Glycemic Management Pharmacy) 1 ea UD PRN N/A 10/06/16 13:39 11/05/16 13:38 Insulin Glargine (Lantus Solostar Pen) see protocol text BID SC 10/07/16 09:00 11/06/16 08:59 10/07/16 07:50 10 UNIT Insulin Aspart (novoLOG ASPART) SLIDING SCALE If C... Q4 SC 10/07/16 16:00 10/08/16 01:00 Insulin Aspart (novoLOG ASPART) SLIDING SCALE If C... Q6 SC 10/08/16 06:00 11/07/16 05:59 Objective Vital Signs Date Time Temp Pulse Resp B/P Pulse Ox O2 Delivery O2 Flow Rate FiO2 10/07/16 15:37 37.0 87 20 115/57 91 Nasal Cannula 3.0 10/07/16 11:59 36.9 78 20 114/64 93 Nasal Cannula 3.0 10/07/16 11:52 93 3.0 10/07/16 11:48 36.7 75 18 135/73 93 Nasal Cannula 3.0 75 10/07/16 11:33 36.8 86 16 92 3.0 10/07/16 11:31 86 16 92 Nasal Cannula 3.0 10/07/16 08:11 36.8 74 18 126/62 93 10/07/16 08:00 3.0 10/07/16 07:06 88 16 96 Nasal Cannula 3.0 10/07/16 04:00 96 4.0 10/07/16 03:49 36.6 83 15 144/78 95 BiPAP 30 10/06/16 23:59 96 4.0 10/06/16 23:21 36.7 74 20 122/68 98 BiPAP 30 10/06/16 22:00 70 97 40 10/06/16 20:48 76 106/64 10/06/16 20:03 77 16 96 Nasal Cannula 3.0 10/06/16 20:00 96 4.0 10/06/16 19:39 36.8 79 19 123/73 94 Nasal Cannula 3.0 10/06/16 16:05 83 16 97 Nasal Cannula 3.0 10/06/16 16:00 97 Nasal Cannula 4.0 10/06/16 15:58 36.9 80 19 134/71 94 Nasal Cannula 2.5 Physical Exam General Appearance: WD/WN, no apparent distress, + obese Eyes: normal inspection, EOMI ENT: hearing grossly normal, pharynx normal Neck: supple, no adenopathy, no JVD Respiratory/Chest: chest non-tender, + pertinent finding (mild expiratory wheezing, improved) Cardiovascular: regular rate, rhythm, no gallop, no murmur Abdomen: normal bowel sounds, non tender, soft Extremities: non-tender, no pedal edema Neurologic/Psychiatric: alert, normal mood/affect, oriented x 3, + pertinent finding (dense left arm hemiparesis, per baseline) Skin: normal color, warm/dry, no rash Lymphatic: no adenopathy Laboratory Results Last 24 Hours Test 10/06/16 16:26 10/06/16 19:31 10/06/16 20:05 10/07/16 00:03 Bedside Glucose 174 mg/dl 193 mg/dl 201 mg/dl Hemoglobin 9.2 g/dL Hematocrit 27.5 % Activated Partial Thromboplast Time 46.7 SECONDS Partial Thromboplastin Ratio 1.8 Test 10/07/16 03:40 10/07/16 05:56 10/07/16 10:50 White Blood Count 6.41 K/uL Red Blood Count 2.69 M/uL Hemoglobin 8.8 g/dL Hematocrit 26.6 % Mean Corpuscular Volume 98.9 fL Mean Corpuscular Hemoglobin 32.7 pg Mean Corpuscular Hemoglobin Concent 33.1 g/dl RDW Standard Deviation 63.0 fL RDW Coefficient of Variation 17.7 % Platelet Count 122 K/uL Mean Platelet Volume 10.2 fL Activated Partial Thromboplast Time 76.3 SECONDS 36.0 SECONDS Partial Thromboplastin Ratio 2.9 1.4 Sodium Level 139 mmol/L Potassium Level 4.3 mmol/L Chloride Level 94 mmol/L Carbon Dioxide Level 39 mmol/L Anion Gap 6.0 mmol/L Blood Urea Nitrogen 42 mg/dl Creatinine 1.20 mg/dl Est Creatinine Clear Calc Drug Dose 57.1 ml/min Estimated GFR () 57.7 Estimated GFR (Non- 49.8 BUN/Creatinine Ratio 35.2 Random Glucose 205 mg/dl Calcium Level 9.4 mg/dl Troponin I 3.620 ng/ml Bedside Glucose 255 mg/dl Assessment and Plan 60 year old female who presents to the hospital for worsening shortness of breath, likely mild CHF exacerbation and diagnosed with NSTEMI. Has completed 48 hours of heparin IV as well as course of Keflex for UTI. She is doing well and eager to leave. Background co-morbidities include - COPD - DM - hypothyroidism - hyperlipidemia - HTN - epilepsy - schizoaffective - CVA Our plan for her is as follows Metabolic encephalopathy - Resolved; alert and oriented Sepsis with background recent HCAP and E coli UTI - Resolved - Blood cultures # 1 negative; blood cultures # 2 pending - Clinical status appears much better today - Course of Keflex completed today NSTEMI - EKG no new changes; no chest pain overnight; Echo with new apical and septal wall motion abnormality - Troponin decreased today to 3 - Completed 48 hours IV heparin; discontinue today - Continue ASA, Atorvastatin, Metoprolol Acute Diastolic Congestive Heart Failure - Doing well at this time - Fluid balance reviewed was only + 300 ml today - No bumex today - Follow daily I/O and weights Acute on Chronic Anemia - No focal evidence of blood loss - Hemoccult pending - status post-2 units transfused; hemoglobin today 8.8 - Discontinue BID serial monitoring; space to AM labs only COPD - Continue Ventolin - Continue Duoneb, Pulmicort Neb - Awaiting in-home BiPAP approval Type 2 Diabetes Mellitus - Pharmacy consulted for management - Continue q4 BSG with sliding scale coverage - Lantus dosing reduced as patient at risk for hypoglycemia on home lantus dosing Previous CVA - Residual left-sided dense hemiparesis - PEG tube - Plavix - No other action at this time Acute on CKD stage III - Baseline Cr noted to be 1.1 - Cr. 1.2 today; follow daily Seizure Disorder - Continue Valproic acid, Lamictal - No seizure activity since arrival Hypothyroidism - Continue Synthroid Schizophrenia - Continue Risperidone per home dosing Anxiety/Depression - Continue Prozac DVT prophylaxis - Will start on heparin 5000 s.c BID Code Status - Level I Code Disposition - OT/PT - Awaiting BiPAP set up at home before discharge Reviewed: Pt Seen/Exam by Me Constitutional: denies: fever Respiratory: negative: short of breath Cardiovascular: denies chest pain Gastrointestinal/Abdominal: negative: abdominal pain General Appearance: no apparent distress Respiratory: lungs clear, no respiratory distress Cardiovascular: regular rate, rhythm Neurologic/Psychiatric: alert, oriented x 3 Skin Characteristics: warm/dry Assessment/Plan I have reviewed the medical record and performed a history and physical examination of this patient today. I have discussed the case with Dr Jones. The above note reflects my findings, conclusions, and recommendations. Will need bipap arranged for discharging home
[2016-10-07] MEDS: ACETAMINOPHEN 325 MG TAB PO PRN (21:01)
[2016-10-07] MEDS ORDERED: HEPARIN SOD 5000 UNIT/0.5 ML CARP SQ ONE (21:15)
[2016-10-08] VITALS (9 sets, daily range): BP systolic 104–151; BP diastolic 65–84; PULSE 68–84; TEMP 36.4–36.8; O2SAT 91–98
[2016-10-08] MEDS: TUBE FEEDING WATER FLUSH GT SCH ×4 (00:11→17:15)
[2016-10-08] MEDS: INSULIN ASPART 100 UNITS/ML 3 ML PEN SC SCH ×4 (00:43→19:01)
[2016-10-08] MEDS: ACETAMINOPHEN 325 MG TAB PO PRN ×3 (03:05→20:14)
[2016-10-08] MEDS: IMPACT LIQ 1000 ML BAG PEG SCH (05:10)
[2016-10-08] MEDS: LEVOTHYROXINE 88 MCG TAB PEG SCH (05:10)
[2016-10-08 06:31] LABS: HEMATOCRIT 25.4 % (37-47); MEAN CORPUSCULAR HEMOGLOBIN 32.7 pg (25-34); MEAN CORPUSCULAR HGB CONC 32.7 g/dl (32-36); MEAN PLATELET VOLUME 10.1 fL (7.4-10.4); PLATELET COUNT 124 K/uL (130-400); RED BLOOD COUNT 2.54 M/uL (4.2-5.4); WHITE BLOOD COUNT 5.26 K/uL (4.8-10.8)
[2016-10-08] MEDS: ALBUT/IPRATROP 3MG/0.5MG NEB 3 ML VIAL INH SCH ×4 (07:12→19:48)
[2016-10-08] MEDS: BUDESONIDE 0.5 MG/2 ML VIAL (PULMICORT) INH SCH ×2 (07:12→19:48)
[2016-10-08 07:15] LABS: BUN/CREATININE RATIO 35.1 (10-20); CALCIUM 9.4 mg/dl (8.5-10.1); CREATININE 1.3 mg/dl (0.60-1.20); POTASSIUM 4.7 mmol/L (3.5-5.1)
[2016-10-08] MEDS: AMLODIPINE BESYLATE 5 MG TAB PEG SCH (08:17)
[2016-10-08] MEDS: ATORVASTATIN 40 MG TAB PO SCH (08:18)
[2016-10-08] MEDS: RISPERIDONE 2 MG TAB PEG SCH ×2 (08:18→21:05)
[2016-10-08] MEDS: CLOPIDOGREL BISULFATE 75 MG TAB PEG SCH (08:18)
[2016-10-08] MEDS: METOPROLOL TARTRATE 25 MG TAB PEG SCH ×2 (08:18→20:15)
[2016-10-08] MEDS: VALPROIC ACID 500 MG/10 ML UDP PEG SCH ×3 (08:19→20:15)
[2016-10-08] MEDS: FLUOXETINE HCL 20 MG/5 ML GT SCH (08:19)
[2016-10-08] MEDS: ASPIRIN 81 MG CHEW PEG SCH (08:21)
[2016-10-08] MEDS: HEPARIN SOD 5000 UNIT/0.5 ML CARP SQ SCH ×2 (08:23→21:07)
[2016-10-08] MEDS: INSULIN GLARGINE SOLOSTAR 100 UNITS/ML 3 ML PEN SC SCH ×2 (08:23→20:19)
[2016-10-08] MEDS: ONDANSETRON INJ 2 MG/ML 2 ML VIAL IV PRN ×2 (12:30→20:13)
--- NOTE | 2016-10-08 15:03 | Pharmacy Progress Note ---
Glycemic: Assessment & Plan Date of Service Oct 08, 2016. Assessment & Plan The patient received 31 units of insulin on 10/06, 37 units on 10/07. BSGs ranging 197 - 209 mg/dl over the past 24hrs. BSG's trending down. Tube feeding increased to goal 75 ml/hr. Will tighten correction factor a bit and reassess in am. * Basal insulin: Lantus 10 units every 12 hours * Correctional Insulin: Novolog Correction per scale q6h Goal Range: Low 140 mg/dL - High 180 mg/dL Correction Factor: 35 mg/dL/unit * Prandial insulin: Per carb ratio of 1 unit per 12 grams CHO consumed BSGs continue to improve, no other changes needed to inpatient regimen at this time. Pharmacy will continue to monitor patient daily and write orders per [facility] inpatient glycemic control protocol. Thanks. * Please note that the plan above was derived based on current level of insulin resistance and hospital stress. These recommendations are appropriate for inpatient admission only. Plan of care upon discharge will need to be reassessed to avoid potential outpatient hypo/hyperglycemia.
[2016-10-08] MEDS ORDERED: FIBERSOURCE HN 1000ML BAG PEG SCH ×2 (15:15)
--- NOTE | 2016-10-08 15:20 | Family Medicine Progress Note ---
Progress Note Date of Service Oct 08, 2016. Subjective Pt evaluation today including: conversation w/ patient, physical exam, chart review, lab review Pain: None Voiding: no voiding problems, esquivel catheter in place Feels very well at this time No complaints very eager to go home Expects to be discharged today No shortness of breath, chest pain Additional Comments: Review of systems otherwise negative. Medications Current Inpatient Medications Medications (Trade) Dose Ordered Sig/Tristian Route Start Time Stop Time Status Last Admin Dose Admin Acetaminophen (Tylenol Tab) 650 mg Q4H PRN PO 10/04/16 13:45 11/03/16 13:44 10/08/16 12:30 650 MG Al Hydrox/Mg Hydrox/Simethicone (Maalox Max Susp) 15 ml Q4H PRN PO 10/04/16 13:45 11/03/16 13:44 Ondansetron HCl (Zofran Inj) 4 mg Q6H PRN IV 10/04/16 13:45 11/03/16 13:44 10/08/16 12:30 4 MG Albuterol (Ventolin Hfa Inhaler) 2 puffs Q4H PRN INH 10/04/16 14:15 11/03/16 14:14 Amlodipine Besylate (Norvasc Tab) 5 mg QAM PEG 10/05/16 09:00 11/04/16 08:59 10/08/16 08:17 5 MG Budesonide (Pulmicort Respules 0.5MG/ 2ML Neb Soln) 0.5 mg BIDR INH 10/04/16 20:00 11/03/16 19:59 10/08/16 07:12 0.5 MG Clopidogrel Bisulfate (plAVix TAB) 75 mg DAILY PEG 10/05/16 09:00 11/04/16 08:59 10/08/16 08:18 75 MG Fluoxetine HCl (Prozac Soln) 10 mg DAILY GT 10/05/16 09:00 11/04/16 08:59 10/08/16 08:19 10 MG Albuterol/ Ipratropium (Duoneb) 3 ml QIDR INH 10/04/16 16:00 11/03/16 15:59 10/08/16 11:15 3 ML Lamotrigine (Lamictal Tab) 100 mg BID PEG 10/04/16 21:00 11/03/16 20:59 10/08/16 08:18 100 MG Levothyroxine Sodium (Synthroid Tab) 88 mcg DAILYBB PEG 10/05/16 06:00 11/04/16 06:59 10/08/16 05:10 88 MCG Risperidone (Risperdal Tab) 2 mg QAM PEG 10/05/16 09:00 11/04/16 08:59 10/08/16 08:18 2 MG Risperidone (Risperdal Tab) 4 mg QPM PEG 10/04/16 21:00 11/03/16 20:59 10/07/16 20:59 4 MG Valproic Acid (Depakene Syrup) 500 mg TID PEG 10/04/16 21:00 11/03/16 20:59 10/08/16 12:43 500 MG Glucose (Glucose 40% Gel) 15-30 GRAMS 15 GRAMS... UD PRN PO 10/04/16 14:30 11/03/16 14:29 Glucose (Glucose Chew Tab) 4-8 Tablets 4 Tabl... UD PRN PO 10/04/16 14:30 11/03/16 14:29 Dextrose (Dextrose 50% 50ML Syringe) 25-50ML OF 50% DW IV FOR... UD PRN IV 10/04/16 14:30 11/03/16 14:29 Glucagon (Glucagon Inj) 1 mg UD PRN SQ 10/04/16 14:30 11/03/16 14:29 Atorvastatin Calcium (Lipitor Tab) 40 mg QAM PO 10/05/16 09:00 11/04/16 08:59 10/08/16 08:18 40 MG Aspirin (Aspirin Chew) 81 mg QAM PEG 10/05/16 09:00 11/04/16 08:59 10/08/16 08:21 81 MG Metoprolol Tartrate (Lopressor Tab) 25 mg BID PEG 10/05/16 09:00 11/04/16 08:59 10/08/16 08:18 25 MG Enteral Nutritional Formula (Impact 1.0 Eulgoio) 1,000 ml GOAL RATE 75ML/HR PEG 10/05/16 12:00 11/04/16 11:59 10/08/16 05:10 1,000 ML Sterile Water (Tube Feeding Water Flush) 1 ea Q6 GT 10/05/16 12:00 2/9/17 11:59 10/08/16 12:30 1 EA Miscellaneous Information (Consult Glycemic Management Pharmacy) 1 ea UD PRN N/A 10/06/16 13:39 11/05/16 13:38 Insulin Glargine (Lantus Solostar Pen) see protocol text BID SC 10/07/16 09:00 11/06/16 08:59 10/08/16 08:23 10 UNIT Insulin Aspart (novoLOG ASPART) SLIDING SCALE If C... Q6 SC 10/08/16 06:00 11/07/16 05:59 10/08/16 12:43 6 UNITS Heparin Sodium (Porcine) (Heparin Sq 5000 Unit/0.5ml) 5,000 unit Q12 SQ 10/08/16 09:00 11/07/16 08:59 10/08/16 08:23 5,000 UNIT Objective Vital Signs Date Time Temp Pulse Resp B/P Pulse Ox O2 Delivery O2 Flow Rate FiO2 10/08/16 11:15 79 12 96 Nasal Cannula 3.0 10/08/16 08:04 36.8 80 16 151/71 91 Room Air 10/08/16 08:00 Nasal Cannula 10/08/16 07:12 81 12 95 Nasal Cannula 3.0 10/08/16 00:01 36.7 72 20 115/66 98 BiPAP 10/08/16 00:00 Nasal Cannula 3.0 10/07/16 22:05 74 93 30 10/07/16 19:04 88 16 92 Nasal Cannula 3.0 10/07/16 16:05 91 Nasal Cannula 3.0 10/07/16 15:45 84 16 91 Nasal Cannula 3.0 10/07/16 15:37 37.0 87 20 115/57 91 Nasal Cannula 3.0 Physical Exam General Appearance: WD/WN, no apparent distress, + obese Eyes: normal inspection, EOMI ENT: hearing grossly normal, pharynx normal Neck: supple, no adenopathy, no JVD Respiratory/Chest: lungs clear, no respiratory distress Cardiovascular: regular rate, rhythm, no gallop, no murmur Abdomen: normal bowel sounds, non tender, soft, + pertinent finding (PEG tube in place; continuous feeds on) Extremities: non-tender, + pedal edema (1+ bilateral) Neurologic/Psychiatric: alert, normal mood/affect, oriented x 3 Skin: normal color, warm/dry, no rash Lymphatic: no adenopathy Laboratory Results Last 24 Hours Test 10/07/16 15:37 10/07/16 20:10 10/08/16 05:45 10/08/16 06:04 Bedside Glucose 208 mg/dl 208 mg/dl 201 mg/dl White Blood Count 5.26 K/uL Red Blood Count 2.54 M/uL Hemoglobin 8.3 g/dL Hematocrit 25.4 % Mean Corpuscular Volume 100.0 fL Mean Corpuscular Hemoglobin 32.7 pg Mean Corpuscular Hemoglobin Concent 32.7 g/dl RDW Standard Deviation 60.9 fL RDW Coefficient of Variation 17.0 % Platelet Count 124 K/uL Mean Platelet Volume 10.1 fL Sodium Level 137 mmol/L Potassium Level 4.7 mmol/L Chloride Level 94 mmol/L Carbon Dioxide Level 39 mmol/L Anion Gap 4.0 mmol/L Blood Urea Nitrogen 46 mg/dl Creatinine 1.30 mg/dl Est Creatinine Clear Calc Drug Dose 53.2 ml/min Estimated GFR () 52.4 Estimated GFR (Non- 45.2 BUN/Creatinine Ratio 35.1 Random Glucose 197 mg/dl Calcium Level 9.4 mg/dl Test 10/08/16 11:03 Bedside Glucose 209 mg/dl Assessment and Plan 60 year old female who presents to the hospital for worsening shortness of breath, likely mild CHF exacerbation now resolved Also diagnosed with NSTEMI, treated medically. Off Heparin drip now Completed 48 hours of course of Keflex for residual UTI. She is doing well at this time and expecting to leave Background co-morbidities include - COPD - DM - hypothyroidism - hyperlipidemia - HTN - epilepsy - schizoaffective - CVA Our plan for her is as follows Sepsis with background recent HCAP and E coli UTI - Resolved - Blood cultures # 1 negative; blood cultures # 2 pending - Clinical status appears much better today - Course of Keflex completed today NSTEMI - Off telemetry 24 hours - Discontinued troponin monitoring; peaked at 16 - Completed 48 hours of heparin - Intensive medical management: Continue ASA, Atorvastatin, Metoprolol - Will set up cardiology follow-up with [facility] Acute Diastolic Congestive Heart Failure - Doing well at this time - Cumulativel; fluid balance reviewed was only +400 ml today - Follow daily I/O and weights; no additional diuresis; assess volume status daily Acute on Chronic Anemia - No focal evidence of blood loss; Status post-2 units transfused - hemoglobin today 8.3 - Trend daily COPD - Continue Ventolin - Continue Duoneb, Pulmicort Neb - Needs BiPAP at home; ready in-home tomorrow Type 2 Diabetes Mellitus - Pharmacy consulted for management - Recommendations appreciated Previous CVA - Residual left-sided dense hemiparesis; PEG tube; Plavix; No other action at this time Acute on CKD stage III - Baseline Cr noted to be 1.1 - Cr. 1.3 today; mildly increased; may require repeat testing as outpatient Seizure Disorder - Continue Valproic acid, Lamictal - No seizure activity since arrival Hypothyroidism - Continue Synthroid Schizophrenia - Continue Risperidone per home dosing Anxiety/Depression - Continue Prozac DVT prophylaxis - Heparin 5000 s.c BID Code Status - Level I Code Disposition - OT/PT - Awaiting BiPAP set up at home before discharge Reviewed: Pt Seen/Exam by Me Constitutional: denies: fever Respiratory: negative: short of breath Cardiovascular: denies chest pain Gastrointestinal/Abdominal: negative: abdominal pain General Appearance: no apparent distress Respiratory: no respiratory distress, decreased breath sounds Cardiovascular: regular rate, rhythm Extremities: pedal edema Neurologic/Psychiatric: alert, oriented x 3 Skin Characteristics: warm/dry Assessment/Plan I have reviewed the medical record and performed a history and physical examination of this patient today. I have discussed the case with Dr Jones. The above note reflects my findings, conclusions, and recommendations. Awaiting bipap arrangement at home
[2016-10-08] MEDS ORDERED: NURSING VERBAL MED ORDER ONE (17:30)
[2016-10-09] MEDS: TUBE FEEDING WATER FLUSH GT SCH ×2 (00:28→06:07)
[2016-10-09] MEDS: INSULIN ASPART 100 UNITS/ML 3 ML PEN SC SCH ×2 (00:40→06:13)
[2016-10-09] MEDS: ONDANSETRON INJ 2 MG/ML 2 ML VIAL IV PRN (04:59)
[2016-10-09] MEDS: LEVOTHYROXINE 88 MCG TAB PEG SCH (06:07)
[2016-10-09 06:24] LABS: HEMATOCRIT 28.3 % (37-47); MEAN CELL VOLUME 101.1 fL (80-100); MEAN CORPUSCULAR HEMOGLOBIN 31.8 pg (25-34); MEAN CORPUSCULAR HGB CONC 31.4 g/dl (32-36); PLATELET COUNT 117 K/uL (130-400); WHITE BLOOD COUNT 4.86 K/uL (4.8-10.8)
[2016-10-09 07:00] LABS: BUN/CREATININE RATIO 36.4 (10-20); CALCIUM 9.8 mg/dl (8.5-10.1); CREATININE 1.3 mg/dl (0.60-1.20); POTASSIUM 4.4 mmol/L (3.5-5.1)
[2016-10-09 07:20] VITALS: PULSE 87; O2SAT 99
[2016-10-09 07:44] VITALS: BP 136/75; PULSE 72; O2SAT 98
[2016-10-09] MEDS: RISPERIDONE 2 MG TAB PEG SCH (07:59)
[2016-10-09] MEDS: AMLODIPINE BESYLATE 5 MG TAB PEG SCH (07:59)
[2016-10-09] MEDS: CLOPIDOGREL BISULFATE 75 MG TAB PEG SCH (07:59)
[2016-10-09] MEDS: ATORVASTATIN 40 MG TAB PO SCH (07:59)
[2016-10-09] MEDS: METOPROLOL TARTRATE 25 MG TAB PEG SCH (07:59)
[2016-10-09] MEDS: FLUOXETINE HCL 20 MG/5 ML GT SCH (08:00)
[2016-10-09] MEDS: VALPROIC ACID 500 MG/10 ML UDP PEG SCH (08:00)
[2016-10-09] MEDS: INSULIN GLARGINE SOLOSTAR 100 UNITS/ML 3 ML PEN SC SCH (08:01)
[2016-10-09] MEDS: HEPARIN SOD 5000 UNIT/0.5 ML CARP SQ SCH (08:02)
[2016-10-09] MEDS: ASPIRIN 81 MG CHEW PEG SCH (08:04)
[2016-10-09] MEDS: BUDESONIDE 0.5 MG/2 ML VIAL (PULMICORT) INH SCH (08:21)
[2016-10-09] MEDS: ALBUT/IPRATROP 3MG/0.5MG NEB 3 ML VIAL INH SCH (08:21)
[2016-10-09] MEDS ORDERED: ASPCH81 PEG (09:36)
[2016-10-09] MEDS ORDERED: LPR25 PEG (09:36)
[2016-10-09] MEDS ORDERED: LPT40 PO (09:36)
[2016-10-09] MEDS ORDERED: OMEP20CA59 PO (09:36)
[2016-10-09 09:40] VITALS: BP 136/75; PULSE 72; TEMP 36.4; O2SAT 98
--- NOTE | 2016-10-09 09:40 | Discharge Instructions ---
Discharge Instructions Admission Reason for Admission: Acute Respiratory Failure,Sepsis Discharge Discharge Diagnosis / Problem: Acute Respiratory Failure, NSTEMI Discharge Goals Goal(s): Improve disease control Activity Recommendations Activity Limitations: resume your previous activity With family physician in one week With Dr. Alejandro in one to two weeks . Instructions / Follow-Up Instructions / Follow-Up Home Care: * Take your medications exactly as directed. Don't skip doses. * Remember that recovery after a heart attack takes time. Plan to rest for at lease 4-8 weeks while you recover. Then return to normal activity when your doctor says it's okay. * Ask your doctor about joining a heart rehabilitation program. * Tell your doctor if you are feeling depressed. Feelings of sadness are common after a heart attack, but it is important that you speak to someone if you are feeling overwhelmed by these feelings. * If you are having chest pain, call 911 for an ambulance. Do NOT drive yourself to the hospital. * Ask your family members to learn CPR. * Learn to take your own blood pressure and pulse. Keep a record of your results. Ask your doctor when you should seek emergency medical attention. He or she will tell you which blood pressure reading is dangerous. Lifestyle Changes: * Maintain a healthy weight. Get help to lose any extra pounds. * Cut back on salt. * Limit canned, dried, packaged, and fast foods. * Don't add salt to your food. * Season foods with herbs instead of salt when you cook. * Break the smoking habit. Enroll in a stop-smoking program to improve your chances of success. * Limit fatty foods. * Check your lipid levels regularly. (Your doctor can show you how to do this.) * Build up your activity according to your doctor's recommendation. * Ask your doctor when it's okay to resume sexual activity. * Tell your doctor about any erectile dysfunction (ED) medication you are taking. Some ED medications are not safe if you take certain heart medications. * Try to manage stress. Follow Up: It is important for you to keep your follow up appointments with your medical provider. Current Hospital Diet Patient's current hospital diet: Discharge Diet Recommended Diet: AHA Diet (Heart Healthy) Pending Studies Studies pending at discharge: no Laboratory Results Hemoglobin A1c Test 08/13/16 04:51 Range/Units Estimated Average Glucose 143 mg/dl Hemoglobin A1c 6.6 H 4.5-5.6 % Medical Emergencies . Who to Call and When: Medical Emergencies: If at any time you feel your situation is an emergency, please call 911 immediately. Call 911 immediately or go to your nearest Emergency Room if you experience any of the following: Warning Signs and Symptoms of a Heart Attack * Chest pain that is not relieved by medication * Shortness of breath . Non-Emergent Contact Non-Emergency issues call your: Primary Care Provider . . "Provider Documentation" section prepared by Anastacia Barbosa. AMI Core Measures Reason no ASA as I/P: Treatment provided - N/A Reason no ASA at D/C: Treatment provided - N/A Reason no statin as I/P: Treatment provided - N/A Reason no statin at D/C: Treatment provided - N/A VTE Core Measure Inpt VTE Proph given/why not?: Unfractionated heparin SQ
--- NOTE | 2016-10-09 09:41 | Discharge Summary ---
Discharge Summary Admission Date: Oct 04, 2016 at 13:38 Discharge Date: Oct 09, 2016 Discharge Disposition: Home with services Principal Diagnosis: Acute Respiratory Failure, NSTEMI Immunizations: Have You Had Influenza Vaccine: Yes Influenza Vaccine Date: Jul 24, 2010 History of Tetanus Vaccine?: Yes History of Pneumococcal: Yes Pneumococcal Date: Jul 15, 2009 History of Hepatitis B Vaccine: Unknown Consultations: Cardiology - Dr Alejandro Medication Reconciliation New Medications: Omeprazole (Prilosec) 20 Mg Capcr 1 CAP PO DAILY for 90 Days, #90 CAP 1 Refill Aspirin (Aspirin Low Strength) 81 Mg Chew 81 MG PEG QAM for 30 Days, #30 TAB Atorvastatin (Atorvastatin Calcium) 40 Mg Tab 40 MG PO QAM for 30 Days, #30 TAB Metoprolol Tartrate (Lopressor) 25 Mg Tab 25 MG PEG BID for 30 Days, #60 TAB Continued Medications: Acetaminophen (Tylenol) 325 Mg Tab 650 MG PEG TID PRN for Pain, #45 TAB Albuterol Sulfate (Proair Hfa) 108 Mcg/ Aer 2 PUFFS INH Q4H PRN for Wheezing, #120 Amlodipine Besylate (Amlodipine Besylate) 5 Mg Tab 5 MG PEG QAM, #30 TAB Bisacodyl (Bisac-Evac) 10 Mg Supp 10 MG VA every 4 days PRN for Constipation Budesonide (Inhalation) (Pulmicort Respules 0.5MG/2ML) 0.5 Mg/2 Ml Meera 0.5 MG INH BIDR, #60 Clopidogrel (Plavix) 75 Mg Tab 75 MG PEG DAILY, TAB Dextrose (Diabetic Use) (Insta-Glucose) 77.4 % Gel 1 APPLN PEG PRN for glucose less than 60 Docusate Sodium (Colace) 100 Mg Cap 1 CAP PO BID for 30 Days, #60 CAP 2 Refills 100 Mg PEG BID for constipation Fluoxetine (Prozac) 10 Mg Cap 10 MG PEG DAILY, CAP Glucagon (Glucagon Emergency Kit) 1 Mg Kit 1 MG IM prn PRN for HYPOGLYCEMIA PROTOCOL Insulin Glargine (Lantus) 100 Unit/Ml Inj 28 UNITS SC QPM, VIAL Insulin Glargine (Lantus) 100 Unit/Ml Inj 24 UNITS SC QAM for 30 Days, VIAL Insulin Lispro (Human) (Humalog) 100 Unit/Ml Inj 1 DOSE SC DIRECTED SLIDING SCALE Ipratropium-Albuterol (Ipratropium [place]/Albut) 1 Jumana Jumana 3 ML INH QID, #120 Lamotrigine (Lamotrigine) 100 Mg Tab 100 MG PEG BID Levothyroxine Sodium (Synthroid) 88 Mcg Tab 88 MCG PEG DAILYBB for 30 Days, #30 TAB and then have your thyroid function repeated in 3-4 weeks with your doctor Lidocaine Hcl (Lidocaine) 3 % Cre 1 DOSE EXT Q8H PRN for Pain Magnesium Hydroxide (Milk Of Magnesia) 30 Ml Susp 30 ML PO DIRECTED PRN for Constipation, ML Multivitamin (Multivitamin) Tab 1 TAB PEG DAILY, TAB Nutritional Supplements (Isosource 1.5 Eulogio) 1 Liq Liq 250 ML PEG 5XD Risperidone (Risperdal) 2 Mg Tab 2 MG PEG QAM, TAB Risperidone (Risperdal) 2 Mg Tab 4 MG PEG QPM, TAB Sodium Phosphates (Fleet Enema Six Pack) 1 Marisol Marisol 1 UNIT VA DAILY PRN for constipation if dulcolax not w Valproic Acid Syrup (Depakene) 250 Mg/5 Ml Syrp 10 ML PEG TID, ML [Water, Sterile] () 1 EA SRINIVAS 1 EA PEG Q6, #120 Discontinued Medications: Baclofen (Lioresal) 10 Mg Tab 10 MG PEG BID for spasm, TAB Discharge Exam Last 24 Hours Test 10/08/16 11:03 10/08/16 18:23 10/09/16 00:20 10/09/16 05:34 Bedside Glucose 209 mg/dl 176 mg/dl 135 mg/dl White Blood Count 4.86 K/uL Red Blood Count 2.80 M/uL Hemoglobin 8.9 g/dL Hematocrit 28.3 % Mean Corpuscular Volume 101.1 fL Mean Corpuscular Hemoglobin 31.8 pg Mean Corpuscular Hemoglobin Concent 31.4 g/dl RDW Standard Deviation 60.0 fL RDW Coefficient of Variation 16.3 % Platelet Count 117 K/uL Mean Platelet Volume 10.0 fL Sodium Level 138 mmol/L Potassium Level 4.4 mmol/L Chloride Level 94 mmol/L Carbon Dioxide Level 38 mmol/L Anion Gap 6.0 mmol/L Blood Urea Nitrogen 47 mg/dl Creatinine 1.30 mg/dl Est Creatinine Clear Calc Drug Dose 53.1 ml/min Estimated GFR () 52.4 Estimated GFR (Non- 45.2 BUN/Creatinine Ratio 36.4 Random Glucose 121 mg/dl Calcium Level 9.8 mg/dl Test 10/09/16 06:09 Bedside Glucose 134 mg/dl Review of Systems: Constitutional: No fever Respiratory: No shortness of breath Cardiovascular: No chest pain Abdomen: No nausea, No pain, No vomiting Physical Exam: General Appearance: no apparent distress Respiratory/Chest: lungs clear, no respiratory distress Cardiovascular: regular rate, rhythm Abdomen / GI: normal bowel sounds, non tender, soft Neurologic/Psychiatric: alert, oriented x 3 Skin: warm/dry Hospital Course 60 year old female who was recently discharge and was finishing course of keflex for treatment of UTI presented to the hospital for worsening shortness of breath and admitted with for acute respiratory failure and concern of sepsis secondary to HCAP and underlying UTI. Was started on broad spectrum antibiotics. Acute respiratory failure likely due to mild CHF exacerbation and NSTEMI which was treated medically. Sepsis ruled out and antibiotics d/ed except finishing up course of keflex as outpatient. Background co-morbidities include - COPD - DM - hypothyroidism - hyperlipidemia - HTN - epilepsy - schizoaffective - CVA NSTEMI - Kept on PCU and started on heparin drip. Troponin peaked at 16 - Completed 48 hours of heparin - Added aspirin, Atorvastatin, Metoprolol. To continue both plavix and aspirin - per cardiology. PPI added for GI prophylaxis. - Outpatient cardiology follow up. Acute Diastolic Congestive Heart Failure - Euvolemic on discharge Acute on Chronic Anemia - No focal evidence of blood loss; Status post-2 units transfused - hemoglobin on discharge 8.3 COPD - Continued Ventolin - Continue Duoneb, Pulmicort Neb - BiPAP arranged for home use on discharge. Type 2 Diabetes Mellitus Previous CVA - Residual left-sided dense hemiparesis; PEG tube; Plavix; Acute on CKD stage III - Baseline Cr 1.1 Seizure Disorder - Continued Valproic acid, Lamictal - No seizure activity Hypothyroidism - Continue Synthroid Schizophrenia - Continue Risperidone per home dosing Anxiety/Depression - Continue Prozac Total Time Spent: Greater than 30 minutes (40) This includes examination of the patient, discharge planning, medication reconciliation, and communication with other providers. Discharge Instructions Please refer to the electronic Patient Visit Report (Discharge Instructions) for additional information. Additional Copies To Félix Garcia D.O.
--- NOTE | 2016-10-26 12:22 | ECHOCARDIOGRAM REPORT ---
*NOTICE TO RECEIVING [employer] This information is strictly Confidential and protected under [place] law. [place] law prohibits you from making any further disclosure of this information unless further disclosure is expressly permitted by the written consent of the person to whom it pertains or is authorized by law. A general authorization for the release of medical or other information is not sufficient for this purpose. Hospital accepts no responsibility if the information is made available to any other person, INCLUDING THE PATIENT. Interpretation Summary * Name: VARUN LUTZ Study Date: 10/05/2016 07:40 AM BP: 111/56 mmHg * Patient Location: .[facility]ICU\S\E109\S\1 HR: 80 * : 1955 (M/d/yyyy) Gender: Female Height: 61 in * Age: 60 yrs Ethnicity: [place] Weight: 234 lb * Ordering Physician: Demian Hunter * Referring Physician: Self, Referred * Performed By: Judi Pina RDCS * * Reason For Study: NSTEMI * BSA: 2.0 m2 * History: NSTEMI * -- Conclusions -- * 1. Technically limited study despite use of Definity ultrasound contrast. * 2. Normal LV size, borderline concentric LVH. * 3. Low normal LV function. LVEF \R\50%. Apical akinesis with mid septal/anteroseptal moderate hypokinesis. * 4. RV not well visualized. * 5. No significant valvular pathology. * 6. Grade II diastolic dysfunction. * 7. Normal estimated RA pressure. * 8. Compared with prior study on 06/17/2016: Apical and septal wall motion abnormalites are new. Procedure Details * A contrast injection of Definity was performed to improve assessment of LV function. * Contrast was injected into an intravenous site in the left arm. * One vial of Definity ultrasound contrast was diluted in normal saline to a total volume of 10 ml. A total of '2' ml of solution was administered during imaging. * Lot # [id number] of Definity utilized for procedure. * Expiration date 1 MAR 12. * The attending nurse who injected the contrast agent was YOSVANY MULLIGAN RN. Left Ventricle * The left ventricle is grossly normal size. * There is borderline concentric left ventricular hypertrophy. * Ejection Fraction = 50-55%. * There is apical akinesis. * There is moderate septal hypokinesis. Right Ventricle * The right ventricle is not well visualized. * The right ventricle is grossly normal size. Atria * The left atrial size is normal. * Right atrium not well visualized. Mitral Valve * The mitral valve is grossly normal. * There is mild mitral annular calcification. * There is no mitral valve stenosis. * Significant mitral regurgitation is absent. Tricuspid Valve * The tricuspid valve is not well visualized. * There is no tricuspid stenosis. * Significant tricuspid regurgitation is absent. Aortic Valve * The aortic valve is not well visualized. * No hemodynamically significant valvular aortic stenosis. * There is no significant aortic regurgitation. Pulmonic Valve * The pulmonic valve is not well visualized. * There is no pulmonic valvular stenosis. * There is no significant pulmonary regurgitation. Great Vessels * The aortic root and proximal ascending aorta are normal sized. Pericardium/Pleural * There is no pericardial effusion. Great Vessels * Normal inferior vena cava size and collapsability with sniff indicates a normal right atrial pressure of 3 mmHg Left Ventricular Diastolic Function * Diastolic dysfunction, Grade II, consistent with elevated left atrial pressure. MMode 2D Measurements and Calculations IVSd 1.2 cm IVSs 1.5 cm LVIDd 4.5 cm LVIDs 3.3 cm LVPWd 0.79 cm LVPWs 1.4 cm IVS/LVPW 1.5 FS 27.3 % EDV(Teich) 91.4 ml ESV(Teich) 42.7 ml EF(Teich) 53.2 % EDV(cubed) 89.8 ml ESV(cubed) 34.5 ml EF(cubed) 61.5 % % IVS thick 25.6 % % LVPW thick 76.1 % LV mass(C)d 153.1 grams LV mass(C)dI 75.9 grams/m\S\2 LV mass(C)s 168.4 grams LV mass(C)sI 83.4 grams/m\S\2 SV(Teich) 48.6 ml SI(Teich) 24.1 ml/m\S\2 SV(cubed) 55.2 ml SI(cubed) 27.4 ml/m\S\2 Ao root diam 2.9 cm Ao root area 6.5 cm\S\2 LA dimension 3.3 cm LA/Ao 1.1 LVAd ap4 33.8 cm\S\2 LVLd ap4 8.5 cm EDV(MOD-sp4) 108.5 ml EDV(sp4-el) 114.1 ml LVAs ap4 22.6 cm\S\2 LVLs ap4 7.6 cm ESV(MOD-sp4) 55.5 ml ESV(sp4-el) 56.8 ml EF(MOD-sp4) 48.9 % EF(sp4-el) 50.2 % LVAd ap2 31.4 cm\S\2 LVLd ap2 8.4 cm EDV(MOD-sp2) 94.1 ml EDV(sp2-el) 99.7 ml LVAs ap2 19.7 cm\S\2 LVLs ap2 7.0 cm ESV(MOD-sp2) 45.7 ml ESV(sp2-el) 47.2 ml EF(MOD-sp2) 51.5 % EF(sp2-el) 52.6 % LVLd %diff -0.76 % EDV(MOD-bp) 101.7 ml LVLs %diff -8.67 % ESV(MOD-bp) 50.3 ml EF(MOD-bp) 50.6 % SV(MOD-sp4) 53.1 ml SI(MOD-sp4) 26.3 ml/m\S\2 SV(MOD-sp2) 48.4 ml SI(MOD-sp2) 24.0 ml/m\S\2 SV(MOD-bp) 51.4 ml SI(MOD-bp) 25.5 ml/m\S\2 SV(sp4-el) 57.2 ml SI(sp4-el) 28.4 ml/m\S\2 SV(sp2-el) 52.5 ml SI(sp2-el) 26.0 ml/m\S\2 Doppler Measurements and Calculations MV E max ida 113.5 cm/sec MV A max ida 102.2 cm/sec MV E/A 1.1 MV dec time 0.25 sec Ao V2 max 100.0 cm/sec Ao max PG 4.0 mmHg Ao max PG (full) 2.1 mmHg LV V1 max PG 1.9 mmHg LV V1 max 69.0 cm/sec
[2016-11-26] MEDS ORDERED: LEVO1TAB33 PEG ×2 (11:24→13:13)
[2016-11-26] MEDS ORDERED: ASPCH81X PEG ×2 (11:37→13:13)
[2016-12-27] MEDS ORDERED: LEVO125T4 PEG (05:18)
[2016-12-29] MEDS ORDERED: RXNS10 PO (16:07)
== END 2016-10-09 10:54 | disposition home health service (06) | DRG 871 ==
LOC: ENRESERVDT → ENRESERVTM → EDBD 11:26 → C.EDB 11:29 → C.2T 13:38 → C.MSICU 19:26 → C.2T 10-06 10:15 → C.4E 10-07 11:29
PROVIDERS: ADMIT Hospitalist; ATTEND Family Medicine
DX: A41.9 Sepsis, unspecified organism (principal); I21.4 Non-ST elevation (NSTEMI) myocardial infarction; I50.33 Acute on chronic diastolic (congestive) heart failure; J96.22 Acute and chronic respiratory failure with hypercapnia; G93.41 Metabolic encephalopathy; N39.0 Urinary tract infection, site not specified; I69.354 Hemiplegia and hemiparesis following cerebral infarction affecting left non-dominant side; E66.2 Morbid (severe) obesity with alveolar hypoventilation; Z68.41 Body mass index [BMI] 40.0-44.9, adult; E11.9 Type 2 diabetes mellitus without complications; E87.5 Hyperkalemia; D64.9 Anemia, unspecified; G40.909 Epilepsy, unspecified, not intractable, without status epilepticus; E78.5 Hyperlipidemia, unspecified; J44.9 Chronic obstructive pulmonary disease, unspecified; N18.3 Chronic kidney disease, stage 3 (moderate); I12.9 Hypertensive chronic kidney disease with stage 1 through stage 4 chronic kidney disease, or unspecified chronic kidney disease; F70 Mild intellectual disabilities; E03.9 Hypothyroidism, unspecified; F25.9 Schizoaffective disorder, unspecified; B96.20 Unspecified Escherichia coli [E. coli] as the cause of diseases classified elsewhere; F32.9 Major depressive disorder, single episode, unspecified; Z88.2 Allergy status to sulfonamides; Z79.4 Long term (current) use of insulin; Z87.01 Personal history of pneumonia (recurrent); Z83.3 Family history of diabetes mellitus; Z82.49 Family history of ischemic heart disease and other diseases of the circulatory system

== ENCOUNTER 2016-11-23 08:52 | Inpatient (IN) | payer OTHER ==
[2016-11-23] VITALS (8 sets, daily range): BP systolic 109–165; BP diastolic 68–81; PULSE 79–96; TEMP 36.8–37.3; O2SAT 92–97; Ht 154.9 cm; Wt 105.9 kg
[~2016-11-23] VITALS: Ht 154.9 cm; Wt 105.9 kg
[~2016-11-23 08:52] MED LIST changes: +ASPCH81 PEG; -BACL1TAB PEG; -CEPH-571 PO; -CLIN300C2 PO; +LPR25 PEG; +LPT40 PO; +OMEP20CA59 PO
--- NOTE | 2016-11-23 09:54 | DIAGNOSTIC IMAGING REPORT ---
CHEST ONE VIEW PORTABLE CLINICAL HISTORY: Hypoxia. COMPARISON STUDY: Chest radiograph October 06, 2016. FINDINGS: There is no pneumothorax or pleural effusion. Mild interstitial thickening is present. Cardiomediastinal silhouette is stable. There may be mild right upper lung airspace opacity. IMPRESSION: 1. Mild interstitial thickening. This could reflect mild pulmonary edema or an infectious process. 2. Suspected mild right upper lung airspace opacities which could reflect atelectasis or consolidation. Radiographic follow up is recommended. Electronically signed by: Víctor Matthews M.D. 11/23/2016 9:53 AM Dictated Date/Time: 11/23/2016 9:51 AM
[2016-11-23] MEDS ORDERED: PIPERACILLIN/TAZOBACTAM 4.5 GM/100ML D5W IV STA (10:09)
[2016-11-23] MEDS ORDERED: ALBUT/IPRATROP 3MG/0.5MG NEB 3 ML VIAL INH STA (10:09)
[2016-11-23] MEDS ORDERED: LORA-741 PEG (10:32)
[2016-11-23] MEDS ORDERED: FURO-85 PEG (10:34)
[2016-11-23 11:19] LABS: BASO % 0.3 %; BASO ABS # 0.02 K/uL (0-0.2); EOS % 0.8 %; HEMATOCRIT 22.8 % (37-47); IG% 1.2 %; LYMPH ABS # 0.52 K/uL (1.2-3.4); MEAN CELL VOLUME 104.6 fL (80-100); MEAN CORPUSCULAR HGB CONC 31.6 g/dl (32-36); MEAN PLATELET VOLUME 10.6 fL (7.4-10.4); MONO % 9.4 %; NEUT % 81.3 %; PLATELET COUNT 115 K/uL (130-400); RED BLOOD COUNT 2.18 M/uL (4.2-5.4); WHITE BLOOD COUNT 7.46 K/uL (4.8-10.8)
[2016-11-23 11:36] LABS: BUN/CREATININE RATIO 40.3 (10-20); CALCIUM 8.8 mg/dl (8.5-10.1); CREATININE 1.3 mg/dl (0.60-1.20); POTASSIUM 4.8 mmol/L (3.5-5.1)
[2016-11-23] MEDS ORDERED: MECL1TAB40 PEG (11:54)
[2016-11-23] MEDS ORDERED: ALBINS/ INH (11:57)
[2016-11-23] MEDS ORDERED: PRVHFAIN INH (11:59)
[2016-11-23] MEDS ORDERED: LEVO88TA3 PO (12:01)
[2016-11-23] MEDS ORDERED: [UNRECOGNIZED DRUG - OTHER] GT (12:05)
[2016-11-23] MEDS ORDERED: RISP1SOL4 GT (12:06)
[2016-11-23] MEDS ORDERED: ATOR-24 PEG (12:09)
[2016-11-23] MEDS ORDERED: DEXT40GE2 PEG ×2 (12:15→12:18)
[2016-11-23 12:17] LABS: ANISOCYTOSIS PRESENT; COMPLETE YES; POLYCHROMASIA 1+
[2016-11-23] MEDS ORDERED: PRLSR20 PEG (12:20)
[2016-11-23] MEDS ORDERED: TRAM-10 PEG (12:23)
[2016-11-23] MEDS ORDERED: ACET650S10 PR (12:25)
[2016-11-23] MEDS ORDERED: LIDO1CRE (12:39)
[2016-11-23] MEDS ORDERED: LIDO2GEL8 TOP (12:39)
[2016-11-23] MEDS ORDERED: HYDR-5688 PEG (12:43)
[2016-11-23] MEDS ORDERED: OXGN (12:46)
[2016-11-23] MEDS ORDERED: VNTHFA/IN INH (12:51)
[2016-11-23] MEDS ORDERED: ACETAMINOPHEN 650 MG SUPP PR PRN (14:00)
[2016-11-23] MEDS ORDERED: POLYETHYLENE (MIRALAX) 17 GM PACK PO PRN (14:00)
[2016-11-23] MEDS ORDERED: ACETAMINOPHEN 325 MG TAB PO PRN (14:00)
[2016-11-23] MEDS ORDERED: ALBUTEROL HFA 8 GM INHALER INH PRN (14:00)
[2016-11-23] MEDS ORDERED: MAGNESIUM HYDROXIDE SUSP 30 ML UDC PEG PRN (14:00)
--- NOTE | 2016-11-23 16:49 | EMERGENCY ROOM VISIT NOTE ---
History Report prepared by Monik: Astrid Martinez Under the Supervision of: Dr. Elvin Bourgeois M.D. First contact with patient: 09:57 Chief Complaint: RESPIRATORY PROBLEMS Stated Complaint: RESPIRATORY PROBLEMS Nursing Triage Summary: PT HERE FROM HOME VIA ALS WITH HYPOXIA PER HOME HEALTH RN. PT NORMALLY WEARS 2 LITERS OXYGEN VIA NC. PT WAS TACHYCARDIC AT 110 AND OXYGEN SATURATION WAS IN THE 80'S. PT HAS HX OF STROKE, APHASIC, FLACCID ON THE LEFT. ALSO HAD A NSTEMI IN SEPTEMBER OF THIS YEAR. History of Present Illness The patient is a 61 year old female who presents to the Emergency Room via ALS with complaints of shortness of breath starting this morning. She was hypoxic this morning. She also complains of a mild cough. She received 1 Albuterol treatment in route to the Emergency Room. As per nursing staff notes, she wears 2 liters of oxygen at home. She currently denies any pain. She denies fevers, chest pain, vomiting, pain/swelling in lower extremities, or any other complaints. Source of History: patient, nursing staff Onset: this morning Position: other (global) Symptom Intensity: No pain Quality: other (shortness of breath) Modifying Factors (Relieving): other (Albuterol treatment) Associated Symptoms: No chest pain, No fevers, No vomiting Review of Systems See HPI for pertinent positives & negatives. A total of 10 systems reviewed and were otherwise negative. Past Medical & Surgical Medical Problems: (1) Acute respiratory failure (2) Asthma, Unspecified (3) Bronchitis (4) COPD (chronic obstructive pulmonary disease) (5) Diab W Oth Spec Manifest, Type Ii Or Unspec Type, Not Uncntr (6) Epilepsy (7) Hemiparesis affecting dominant side as late effect of cerebrovascular accident (CVA) (8) Hyperlipidemia (9) Hypertension Nos (10) Hypothyroid (11) Mild Mental Retardation (12) Schizoaffective Disorder, Unspecified (13) Schizophrenia Nos-Unspec (14) Sepsis (15) Slurred speech (16) Stroke Family History Diabetes mellitus Heart disease Social History Smoking Status: Former Smoker Alcohol Use: none Drug Use: none Marital Status: in relationship Housing Status: lives with significant other Occupation Status: unemployed Current/Historical Medications Scheduled Acetaminophen (Tylenol), 650 MG IL UD Amlodipine Besylate (Amlodipine Besylate), 5 MG PEG QAM Atorvastatin (Lipitor), 40 MG PEG QAM Budesonide (Inhalation) (Pulmicort Respules 0.5MG/2ML), 0.5 MG INH BIDR Clopidogrel (Plavix), 75 MG PEG DAILY Fluoxetine (Prozac), 10 MG PEG DAILY Furosemide (Lasix), 20 MG PEG DAILY Insulin Glargine (Lantus), 28 UNITS SC QPM Insulin Glargine (Lantus), 24 UNITS SC QAM Insulin Lispro (Human) (Humalog), 1 DOSE SC DIRECTED Lamotrigine (Lamotrigine), 100 MG PEG BID Levothyroxine Sodium (Levothyroxine Sodium), 1 TAB PO DAILY Lorazepam (Ativan), 0.5 MG PEG HS Meclizine Hcl (Meclizine Hcl), 12.5 MG PEG UD Metoprolol Tartrate (Lopressor), 25 MG PEG BID Nutritional Supplements (Isosource 1.5 Eulogio), 250 ML PEG 5XD Omeprazole (Prilosec), 20 MG PEG DAILY Oxygen (Oxygen), 2 LITERS NA CONTINOUS Risperidone (Risperdal), 2 MG GT QAM Risperidone (Risperidone), 4 MG GT QPM Valproic Acid Syrup (Depakene), 250 MG PEG TID Scheduled PRN Albuterol (Ventolin Hfa), 2 PUFFS INH QID PRN for Wheezing Albuterol Hfa (Ventolin Hfa), 2 PUFFS INH Q4H PRN for Wheezing Albuterol Sulf (Proventil 0.083% 2.5MG/3ML), 2.5 MG INH Q6H PRN for Wheezing Bisacodyl (Bisac-Evac), 10 MG IL every 4 days PRN for Constipation Dextrose (Diabetic Use) (Glutose 15), 15 GM PEG UD PRN for BS Glucagon (Glucagon Emergency Kit), 1 MG IM prn PRN for HYPOGLYCEMIA PROTOCOL Hydrocodone/Acetaminophen 5MG/325MG (Stuart 5MG/325MG), 1 TABLET PEG Q8H PRN for Pain Lidocaine Hcl (Lidocaine Hcl), 1 APPLN TOP for Pain Magnesium Hydroxide (Milk Of Magnesia), 30 ML PEG DIRECTED PRN for Constipation Sodium Phosphates (Fleet Enema Six Pack), 1 UNIT IL DAILY PRN for constipation if dulcolax not w Tramadol (Ultram), 50 MG PEG Q4H PRN for Pain Allergies Coded Allergies: Sulfa Antibiotics (Verified Allergy, Intermediate, RASH, 10/04/16) Physical Exam Vital Signs Date Time Temp Pulse Resp B/P Pulse Ox O2 Delivery O2 Flow Rate FiO2 11/23/16 13:52 84 20 152/71 99 Nasal Cannula 4.0 11/23/16 11:57 80 20 146/61 99 Ambu-Bag 4.0 Nasal Cannula 11/23/16 11:06 81 22 142/70 99 Nasal Cannula 4.0 11/23/16 10:54 85 11/23/16 09:01 36.9 99 22 115/59 90 Nasal Cannula 4.0 11/23/16 08:55 90 Nasal Cannula 4.0 11/23/16 08:55 90 Nasal Cannula 4.0 Physical Exam Constitutional: Vital signs reviewed. Eyes: Pupils are equal round reactive to light. Conjunctiva are noninjected. ENT: Pharynx is clear without erythema or exudate. Mucous membranes are dry. Neck supple without meningeal signs. Respiratory: Scattered expiratory wheezing bilaterally. Breath sounds are equal bilaterally. Cardiovascular: Regular rate and rhythm. No rubs or gallops. GI: G-tube. Soft, nondistended and nontender. Bowel sounds are present. Musculoskeletal: No peripheral edema. No lower extremity tenderness. Integumentary: No cyanosis. Neurological: The patient is awake and alert. Left side paralysis. Psychiatric: Normal affect. Medical Decision & Procedures ER Provider Diagnostic Interpretation: X-ray results as stated below per interpretation by me and the radiologist: CHEST ONE VIEW PORTABLE CLINICAL HISTORY: Hypoxia. COMPARISON STUDY: Chest radiograph October 06, 2016. FINDINGS: There is no pneumothorax or pleural effusion. Mild interstitial thickening is present. Cardiomediastinal silhouette is stable. There may be mild right upper lung airspace opacity. IMPRESSION: 1. Mild interstitial thickening. This could reflect mild pulmonary edema or an infectious process. 2. Suspected mild right upper lung airspace opacities which could reflect atelectasis or consolidation. Radiographic follow up is recommended. Electronically signed by: Víctor Matthews M.D. 11/23/2016 9:53 AM Dictated Date/Time: 11/23/2016 9:51 AM Laboratory Results 11/23/16 10:15 Red Blood Count 2.18, Mean Corpuscular Volume 104.6, Mean Corpuscular Hemoglobin 33.0, Mean Corpuscular Hemoglobin Concent 31.6, Mean Platelet Volume 10.6, Neutrophils (%) (Auto) 81.3, Lymphocytes (%) (Auto) 7.0, Monocytes (%) ( Auto) 9.4, Eosinophils (%) (Auto) 0.8, Basophils (%) (Auto) 0.3, Neutrophils # ( Auto) 6.07, Lymphocytes # (Auto) 0.52, Monocytes # (Auto) 0.70, Eosinophils # ( Auto) 0.06, Basophils # (Auto) 0.02 11/23/16 10:15 Test 11/23/16 10:15 White Blood Count 7.46 K/uL (4.8-10.8) Red Blood Count 2.18 M/uL (4.2-5.4) Hemoglobin 7.2 g/dL (12.0-16.0) Hematocrit 22.8 % (37-47) Mean Corpuscular Volume 104.6 fL (80-100) Mean Corpuscular Hemoglobin 33.0 pg (25-34) Mean Corpuscular Hemoglobin Concent 31.6 g/dl (32-36) Platelet Count 115 K/uL (130-400) Mean Platelet Volume 10.6 fL (7.4-10.4) Neutrophils (%) (Auto) 81.3 % Lymphocytes (%) (Auto) 7.0 % Monocytes (%) (Auto) 9.4 % Eosinophils (%) (Auto) 0.8 % Basophils (%) (Auto) 0.3 % Neutrophils # (Auto) 6.07 K/uL (1.4-6.5) Lymphocytes # (Auto) 0.52 K/uL (1.2-3.4) Monocytes # (Auto) 0.70 K/uL (0.11-0.59) Eosinophils # (Auto) 0.06 K/uL (0-0.5) Basophils # (Auto) 0.02 K/uL (0-0.2) RDW Standard Deviation 65.2 fL (36.4-46.3) RDW Coefficient of Variation 17.1 % (11.5-14.5) Immature Granulocyte % (Auto) 1.2 % Immature Granulocyte # (Auto) 0.09 K/uL (0.00-0.02) Polychromasia 1+ Basophilic Stippling 1+ Anisocytosis PRESENT Prothrombin Time 11.0 SECONDS (9.0-12.0) Prothromb Time International Ratio 1.0 (0.9-1.1) Activated Partial Thromboplast Time 25.3 SECONDS (21.0-31.0) Partial Thromboplastin Ratio 1.0 Anion Gap 5.0 mmol/L (3-11) Est Creatinine Clear Calc Drug Dose 58.4 ml/min Estimated GFR () 52.0 Estimated GFR (Non- 44.9 BUN/Creatinine Ratio 40.3 (10-20) Calcium Level 8.8 mg/dl (8.5-10.1) Troponin I 0.401 ng/ml (0-0.045) Pro-B-Type Natriuretic Peptide 3563 pg/ml (0-900) Laboratory results as reviewed by me. Medications Administered Medications (Trade) Dose Ordered Sig/Tristian Route Start Time Stop Time Status Last Admin Dose Admin Albuterol/ Ipratropium (Duoneb) 3 ml NOW STAT INH 11/23/16 10:09 11/23/16 10:12 DC 11/23/16 11:02 3 ML Piperacillin Sod/ Tazobactam Sod (Zosyn Iv) 4.5 gm NOW STAT IV 11/23/16 10:09 11/23/16 10:12 DC 11/23/16 11:04 4.5 GM ECG Indication: SOB/dyspnea Rate (beats per minute): 95 Rhythm: normal sinus Findings: nonspecific-ST abn (Lateral), T-wave inversion (Leads I and avL), other (Baseline artifact limiting interpretation) Change: Repeat EKG showed normal sinus rhythm, 81 beats per minute, nonspecific ST-T wave changes laterally. ED Course 0957: The patient was evaluated in room B08. A complete history and physical exam was performed. 1009: Zosyn IV 4.5 gm IV, DuoNeb 3 ml INH 1151: I reevaluated the patient who is resting comfortably. She is no longer wheezing on lung exam. She denies any chest pain or shortness of breath. The patient and her boyfriend verbalized agreement of the treatment plan. She will be evaluated for further management and care. 1153: I discussed the patient's case with Dr. Stein, from [facility] Service. Medical Decision This is a 61-year-old female presents with hypoxia. Differential diagnosis includes COPD exacerbation, pneumonia, cardiac, CHF, non-STEMI, anemia. I did perform a limited focused review of portions of the patient's old chart on the electronic medical record. The patient was admitted for a non-STEMI and acute respiratory failure from October 04 to . I did evaluate the patient as noted above. The patient currently has no complaints other than a cough. She does deny any chest pain or shortness breath at this time. She states that she had a low oxygen level prior to arrival despite being on 2 L of oxygen. IV access was established. The patient was placed on a continuous telemetry monitor. Her O2 saturation is 90-94 % on 4 L. I did order and personally review the patient's 12-lead EKG and chest x-ray as described above. She does have a right-sided pneumonia. Blood cultures were obtained. She was given Zosyn IV. I did order and review the patient's blood work as noted in the electronic medical record. She is anemic. Her troponin is also elevated. I did treat the patient with a DuoNeb. I did reassess the patient. She has no wheezing on reexamination. I did discuss the test results with her and her significant other. I did discuss the case with the hospitalist and showcase trimmer. Consults Time Called: 1151 Consulting Physician: Dr. Stein, from [facility] Service Returned Call: 1153 I discussed the patient's case with Dr. Stein, from [facility]. Impression Primary Impression: Hypoxia Additional Impressions: Pneumonia involving right lung COPD exacerbation Elevated troponin Anemia Scribe Attestation The scribe's documentation has been prepared under my direct and personally reviewed by me in its entirety. I confirm that the note above accurately reflects all work, treatment, procedures, and medical decision making performed by me. Departure Information Dispostion Being Evaluated By Hospitalist Referrals Félix Garcia D.O. (PCP) Patient Instructions My [facility] Problem Qualifiers
[2016-11-23] MEDS: LEVOFLOXACIN / D5W 500 MG in PREMIXED IN D5W 100 ML IV SCH (17:29)
--- NOTE | 2016-11-23 17:50 | History and Physical ---
History & Physical Date & Time of Service: Nov 23, 2016 at 17:41 Chief Complaint: Acute Respiratory Failure Primary Care Physician: Fléix Garcia D.O. History of Present Illness Source: patient, partner 61 y/o F with a complicated medical history including stroke, extensive smoking history here after she presented to the ER with c/o shortness of breath which started this morning. She was apparently struggling to breath and per her partner, her saturations were low though he is unsure of how low it was. denies any fevers/chills, had some minimal coughing but no sputum. denies any chest pain. she was supposed to use BIPAP at home and 2 L of oxygen but she hasnt been complaint with the BIPAP. denies any BRBPR, melena Past Medical/Surgical History Medical Problems: (1) Asthma, Unspecified Status: Chronic (2) Bronchitis Status: Resolved (3) COPD (chronic obstructive pulmonary disease) Status: Chronic (4) Diab W Oth Spec Manifest, Type Ii Or Unspec Type, Not Uncntr Status: Chronic (5) Epilepsy Status: Chronic (6) Hyperlipidemia Status: Chronic (7) Hypertension Nos Status: Chronic (8) Mild Mental Retardation Status: Chronic (9) Schizoaffective Disorder, Unspecified Status: Chronic (10) Schizophrenia Nos-Unspec Status: Chronic Family History Diabetes mellitus Heart disease Social History Smoking Status: Former Smoker Drug Use: none Marital Status: in relationship [facility] status[place] [facility] Occupational Status: unemployed Immunizations History of Influenza Vaccine: Yes Influenza Vaccine Date: Jul 24, 2010 History of Tetanus Vaccine?: Yes History of Pneumococcal: Yes Pneumococcal Date: Jul 15, 2009 History of Hepatitis B Vaccine: Unknown Multi-Drug Resistant Organisms History of MDRO: Yes Type of MDRO: MRSA Allergies Coded Allergies: Sulfa Antibiotics (Verified Allergy, Intermediate, RASH, 10/04/16) Home Medications Scheduled Acetaminophen (Tylenol), 650 MG AR UD Amlodipine Besylate (Amlodipine Besylate), 5 MG PEG QAM Atorvastatin (Lipitor), 40 MG PEG QAM Budesonide (Inhalation) (Pulmicort Respules 0.5MG/2ML), 0.5 MG INH BIDR Clopidogrel (Plavix), 75 MG PEG DAILY Fluoxetine (Prozac), 10 MG PEG DAILY Furosemide (Lasix), 20 MG PEG DAILY Insulin Glargine (Lantus), 28 UNITS SC QPM Insulin Glargine (Lantus), 24 UNITS SC QAM Insulin Lispro (Human) (Humalog), 1 DOSE SC DIRECTED Lamotrigine (Lamotrigine), 100 MG PEG BID Levothyroxine Sodium (Levothyroxine Sodium), 1 TAB PO DAILY Lorazepam (Ativan), 0.5 MG PEG HS Meclizine Hcl (Meclizine Hcl), 12.5 MG PEG UD Metoprolol Tartrate (Lopressor), 25 MG PEG BID Nutritional Supplements (Isosource 1.5 Eulogio), 250 ML PEG 5XD Omeprazole (Prilosec), 20 MG PEG DAILY Oxygen (Oxygen), 2 LITERS NA CONTINOUS Risperidone (Risperdal), 2 MG GT QAM Risperidone (Risperidone), 4 MG GT QPM Valproic Acid Syrup (Depakene), 250 MG PEG TID Scheduled PRN Albuterol (Ventolin Hfa), 2 PUFFS INH QID PRN for Wheezing Albuterol Hfa (Ventolin Hfa), 2 PUFFS INH Q4H PRN for Wheezing Albuterol Sulf (Proventil 0.083% 2.5MG/3ML), 2.5 MG INH Q6H PRN for Wheezing Bisacodyl (Bisac-Evac), 10 MG AR every 4 days PRN for Constipation Dextrose (Diabetic Use) (Glutose 15), 15 GM PEG UD PRN for BS Glucagon (Glucagon Emergency Kit), 1 MG IM prn PRN for HYPOGLYCEMIA PROTOCOL Hydrocodone/Acetaminophen 5MG/325MG (Trego 5MG/325MG), 1 TABLET PEG Q8H PRN for Pain Lidocaine Hcl (Lidocaine Hcl), 1 APPLN TOP for Pain Magnesium Hydroxide (Milk Of Magnesia), 30 ML PEG DIRECTED PRN for Constipation Sodium Phosphates (Fleet Enema Six Pack), 1 UNIT AR DAILY PRN for constipation if dulcolax not w Tramadol (Ultram), 50 MG PEG Q4H PRN for Pain Review of Systems Constitutional: No chills, No fever Eyes: No worsening of vision ENT: No hearing loss Respiratory: + shortness of breath, No cough, No sputum Cardiovascular: No chest pain Abdomen: No nausea, No pain, No vomiting Neurologic: + paralysis, + weakness Physical Exam Vital Signs Date Time Temp Pulse Resp B/P Pulse Ox O2 Delivery O2 Flow Rate FiO2 11/23/16 15:42 36.8 84 16 165/81 95 Nasal Cannula 4.0 11/23/16 14:47 75 16 134/70 98 Nasal Cannula 4.0 11/23/16 13:52 84 20 152/71 99 Nasal Cannula 4.0 11/23/16 11:57 80 20 146/61 99 Ambu-Bag 4.0 Nasal Cannula 11/23/16 11:06 81 22 142/70 99 Nasal Cannula 4.0 11/23/16 10:54 85 11/23/16 09:01 36.9 99 22 115/59 90 Nasal Cannula 4.0 11/23/16 08:55 90 Nasal Cannula 4.0 11/23/16 08:55 90 Nasal Cannula 4.0 General Appearance: WD/WN, no apparent distress Head: normocephalic Eyes: normal inspection ENT: hearing grossly normal Neck: supple Respiratory/Chest: lungs clear, normal breath sounds, no respiratory distress Cardiovascular: regular rate, rhythm Abdomen/GI: normal bowel sounds, non tender, soft Extremities/Musculoskelatal: no pedal edema Neurologic/Psych: alert, normal mood/affect, oriented x 3, + aphasia, + motor weakness Skin: normal color Diagnostics Laboratory Results Results Past 24 Hours Test 11/23/16 10:15 11/23/16 16:42 Range/Units White Blood Count 7.46 4.8-10.8 K/uL Red Blood Count 2.18 4.2-5.4 M/uL Hemoglobin 7.2 12.0-16.0 g/dL Hematocrit 22.8 37-47 % Mean Corpuscular Volume 104.6 80-100 fL Mean Corpuscular Hemoglobin 33.0 25-34 pg Mean Corpuscular Hemoglobin Concent 31.6 32-36 g/dl Platelet Count 115 130-400 K/uL Mean Platelet Volume 10.6 7.4-10.4 fL Neutrophils (%) (Auto) 81.3 % Lymphocytes (%) (Auto) 7.0 % Monocytes (%) (Auto) 9.4 % Eosinophils (%) (Auto) 0.8 % Basophils (%) (Auto) 0.3 % Neutrophils # (Auto) 6.07 1.4-6.5 K/uL Lymphocytes # (Auto) 0.52 1.2-3.4 K/uL Monocytes # (Auto) 0.70 0.11-0.59 K/uL Eosinophils # (Auto) 0.06 0-0.5 K/uL Basophils # (Auto) 0.02 0-0.2 K/uL RDW Standard Deviation 65.2 36.4-46.3 fL RDW Coefficient of Variation 17.1 11.5-14.5 % Immature Granulocyte % (Auto) 1.2 % Immature Granulocyte # (Auto) 0.09 0.00-0.02 K/uL Polychromasia 1+ Basophilic Stippling 1+ Anisocytosis PRESENT Prothrombin Time 11.0 9.0-12.0 SECONDS Prothromb Time International Ratio 1.0 0.9-1.1 Activated Partial Thromboplast Time 25.3 21.0-31.0 SECONDS Partial Thromboplastin Ratio 1.0 Sodium Level 136 136-145 mmol/L Potassium Level 4.8 3.5-5.1 mmol/L Chloride Level 94 98-107 mmol/L Carbon Dioxide Level 37 21-32 mmol/L Anion Gap 5.0 3-11 mmol/L Blood Urea Nitrogen 52 7-18 mg/dl Creatinine 1.30 0.60-1.20 mg/dl Est Creatinine Clear Calc Drug Dose 58.4 ml/min Estimated GFR () 52.0 Estimated GFR (Non- 44.9 BUN/Creatinine Ratio 40.3 10-20 Random Glucose 60 70-99 mg/dl Calcium Level 8.8 8.5-10.1 mg/dl Troponin I 0.401 0-0.045 ng/ml Pro-B-Type Natriuretic Peptide 3563 0-900 pg/ml Microbiology Results 11/23/16 Blood Culture, Received Pending 11/23/16 Blood Culture, Received Pending 11/23/16 MRSA DNA Surveillance Screen - Final, Complete Specimen Negative for MRSA by DNA Probe Diagnostic Radiology CHEST ONE VIEW PORTABLE CLINICAL HISTORY: Hypoxia. COMPARISON STUDY: Chest radiograph October 06, 2016. FINDINGS: There is no pneumothorax or pleural effusion. Mild interstitial thickening is present. Cardiomediastinal silhouette is stable. There may be mild right upper lung airspace opacity. IMPRESSION: 1. Mild interstitial thickening. This could reflect mild pulmonary edema or an infectious process. 2. Suspected mild right upper lung airspace opacities which could reflect atelectasis or consolidation. Radiographic follow up is recommended. Electronically signed by: Víctor Matthews M.D. 11/23/2016 9:53 AM Dictated Date/Time: 11/23/2016 9:51 AM EKG Normal sinus rhythm Left atrial enlargement Left ventricular hypertrophy with QRS widening and repolarization abnormality Abnormal ECG When compared with ECG of 06-OCT-2016 07:46, No significant change was found Confirmed by KRISTIE HERNANDEZ ([id number]) on 11/23/2016 3:21:42 PM Impression Assessment and Plan 61 year old female with PMH of COPD, DM, HTN, epilepsy, hyperlipidemia, schizoaffective disorder, hypothyroidism, CVA presents to the hospital for shortness of breath which started this morning. had some respiratory distress this morning but she does have an smoking history with COPD, denies fevers//chills, cough suggestive of pneumonia and has a normal white count. Her symptoms may have been precipitated by a drop in her hemoglobin which is currently at 7.2 Acute on chronic respiratory failure: Pneumonia vs pulmonary edema vs anemia contributing to resp distress her hgb this admission was 7.2, though she does have a h/o chronic anemia, last hgb was 8.9, suspect its contributing to her respiratory state currently with a background of COPD and extensive smoking history. - pro BNP >3500 - O2 via NC , uses 2L at home - has been non complaint with BIPAP - CXR: Mild interstitial thickening. This could reflect mild pulmonary edema or an infectious process. 2. Suspected mild right upper lung airspace opacities which could reflect atelectasis or consolidation. Radiographic follow up is recommended - Repeat CXR tomorrow - Received Zosyn in ER, Added Levaquin 500 mg daily day 1 today - BC pending - strict Is and Os, daily weights COPD: - O2 per protocol - Continue Ventolin - Continue Duoneb - Continue Pulmicort Neb Acute on Chronic Anemia:Hgb at 7.2 - Hemoccult pending - Trend H&H - 2 units transfused in September 2016 - 1 unit to be transfused today. Elevated troponin: - EKG no new changes; no chest pain - Trended troponin, on admission: 0.4 Echo 10/12 : with new apical and septal wall motion abnormality after NSTEMI - Continue ASA, Atorvastatin, and Plavix, Lopressor Type 2 Diabetes Mellitus - glycemic consult - patient receives tube feeds H/o CVA- stable - Residual left-sided hemiparesis - PEG tube in place - Plavix Acute on CKD stage III - Baseline Cr noted to be 1.1 - Cr. 1.3 today - monitor Cr Seizure Disorder - Continue Valproic acid, Lamictal Hypothyroidism - Continue Synthyroid Schizophrenia - Continue Risperidone per home dosing Anxiety/Depression - Continue Prozac DVT prophylaxis heparin SQ Code Status - Level I Code Disposition: Monitor in telemetry Resident Physician Supervision Note: I was present with Dr. Braga during the history and exam. I discussed the case with the resident and agree with the findings and plan as documented in the note. Any exceptions or clarifications are listed here: 61-year-old female whom I have known from the outpatient office for nearly 10 years, whom I most recently saw in the office approximately 2 weeks ago. She currently resides at home and is cared for by home nursing for 12 hours a day, and by a in home aide for the other 12 hours per day. She is a long-standing history of diabetes and end-stage COPD due to an extensive tobacco abuse history. She is somewhat resistant to using her BiPAP at home and such has frequent bouts of hypoxia, both during daytime naps and doing the night when she removes the BiPAP. I saw and examined the patient when she reads the telemetry floor. At this point, she was resting comfortably and had no noticeable shortness of breath on nasal cannula oxygen. There is no reported history of fever or white count to account for an infectious process, although certainly this cannot be excluded based on these parameters alone. There may be some element of hypervolemia on the chest x-ray but clinically when you look at her she seems to be slightly dry. She is noted to be extremely anemic, worse than her previous discharge. I suspect her shortness of breath and hypoxia today was multifactorial, chiefly the result of her end-stage COPD and noncompliance with oxygen/BiPAP, combined with her profound anemia. It is not clear at this point if she has an infectious process but agree with antibiotic therapy until this is sorted out. The patient gave verbal consent to the blood transfusion however she was unable to sign due to sequelae from her previous CVA. We'll heme test stools; will have to review prior hospital records to see if any effort has been undertaken to find the source of her anemia; it very well could be progressive secondary to chronic disease. Documented By: Félix Garcia Level of Care Telemetry Advanced Directives Existing Living Will: No Existing Power of Ball Sorter: No Resuscitation Status FULL RESUSCITATION VTE Prophylaxis VTE Risk Assessment Done? Y/N: Yes Risk Level: Moderate Given or contraindicated: Unfractionated heparin SQ Note Total Time: Critical Care 30 - 74 minutes
[2016-11-23] MEDS ORDERED: PHARMACY GLYCEMIC MGMT CONSULT PRN (18:00)
[2016-11-23] MEDS: PEPTAMEN 1.5 CAL 1000ML BAG PEG SCH ×2 (18:23→23:46)
[2016-11-23] MEDS ORDERED: FIBERSOURCE HN 1000ML BAG PEG SCH ×2 (19:00)
[2016-11-23] MEDS: BUDESONIDE 0.5 MG/2 ML VIAL (PULMICORT) INH SCH (20:04)
[2016-11-23] MEDS: METOPROLOL TARTRATE 25 MG TAB PEG SCH (20:51)
[2016-11-23] MEDS: RISPERIDONE 1 MG/ML SOLN GT SCH (20:51)
[2016-11-23] MEDS: VALPROIC ACID 500 MG/10 ML UDP PO SCH (20:52)
[2016-11-23] MEDS: LORAZEPAM 0.5 MG TAB PEG SCH (20:56)
[2016-11-23] MEDS ORDERED: VALPROIC ACID SYRUP 250 MG/5 ML PEG SCH (21:00)
[2016-11-23] MEDS ORDERED: HEPARIN SOD 5000 UNIT/0.5 ML CARP SQ SCH (21:00)
[2016-11-23] MEDS ORDERED: GLUCOSE 10 TABS/TUBE PO PRN (22:00)
[2016-11-23] MEDS ORDERED: GLUCAGON FOR INJ 1 MG VIAL SQ PRN (22:00)
[2016-11-23] MEDS ORDERED: DEXTROSE 50% 50 ML SYR IV PRN (22:00)
[2016-11-23] MEDS ORDERED: GLUCOSE 40% GEL 15 GM TUBE PO PRN (22:00)
[2016-11-23] MEDS ORDERED: HEPARIN IV LOW DOSE NO BOLUS SCH (22:35)
[2016-11-23] MEDS ORDERED: ASPIRIN 81 MG CHEW PO ONE (22:45)
[2016-11-23] MEDS ORDERED: INSULIN GLARGINE SOLOSTAR 100 UNITS/ML 3 ML PEN SC SCH (23:00)
[2016-11-23] MEDS: INSULIN ASPART 100 UNITS/ML 3 ML PEN SC SCH (23:53)
[2016-11-24] VITALS (25 sets, daily range): BP systolic 111–147; BP diastolic 63–78; PULSE 16–90; TEMP 36.7–38.8; O2SAT 92–100
[2016-11-24] MEDS: HEPARIN 25,000 UNIT/500ML D5W 500 ML IV PRN ×2 (00:20→09:37)
[2016-11-24 00:58] LABS: HEMATOCRIT 23.7 % (37-47); MEAN CELL VOLUME 103.5 fL (80-100); MEAN CORPUSCULAR HEMOGLOBIN 33.2 pg (25-34); MEAN PLATELET VOLUME 10.7 fL (7.4-10.4); PLATELET COUNT 101 K/uL (130-400); RED BLOOD COUNT 2.29 M/uL (4.2-5.4)
[2016-11-24 01:01] LABS: MEAN CORPUSCULAR HGB CONC 32.1 g/dl (32-36)
[2016-11-24 01:27] LABS: BUN/CREATININE RATIO 33.9 (10-20); CALCIUM 8.4 mg/dl (8.5-10.1); CREATININE 1.4 mg/dl (0.60-1.20); MAGNESIUM 2.5 mg/dl (1.8-2.4); POTASSIUM 4.8 mmol/L (3.5-5.1)
[2016-11-24] MEDS: INSULIN ASPART 100 UNITS/ML 3 ML PEN SC SCH ×10 (03:13→23:18)
--- NOTE | 2016-11-24 03:36 | Progress Note ---
Progress Note Date of Service Nov 24, 2016. Progress Note Called by RN overnight due to raised troponin during day shift 4.19. Patient admitted for anemia and acute hypoxic respiratory failure, pneumonia vs. CHF. Recently had NSTEMI in September. Reportedly asymptomatic with this, stable vital signs and improving since admission. Subjective: Patient reports no chest pain or shortness of breath. She appears slightly confused, and multiple times tells me Dr Garcia said she could go home in a couple of days. I explained to her that her heart enzymes were raised. Objective: A: no stridor or airway compromise noted B: Sats 97% on 4L RR 18. B/l air entry, coarse, reduced at bases but no wheezing. C: HR 81, BP 125/77, Temp 36.8, UO unknown (no esquivel cath), cap refill < 2s. Quiet HS 1+2, RRR, no appreciable murmur D: BSG 153. Alert but slightly confused, unsure of baseline (aphasia noted on H& P but she is speaking) E: Residual left sided weakness 4+ Assessment: Silent NSTEMI Plan: Due to possible GI bleed and previous SQ heparin given started on low dose heparin without bolus ASA 81 mg given again lower dose due to concern for GI bleed CBC, serial troponin, CMP, fasting lipids Echo + cardio consult in for morning Addendum: Hgb 7.2 -> 7.6 after 1 unit transfusion. Given acute NSTEMI and possible pulmonary edema will aim to transfuse > 9 and give additional 2 units as discussed with Dr Lira. Resident Tracking Resident Involvement: Resident Care Provided Care Provided: Adult Hospital Medicine
[2016-11-24 04:25] LABS: ALLEN TEST POS (POS); ARTERIAL BLD GAS O2 SATURATION 89.4 % (90-95); ARTERIAL BLOOD GAS BASE EXCESS 13.8 mEq/L (-9-1.8); ARTERIAL BLOOD GAS HCO3 39 mmol/L (19-24); ARTERIAL BLOOD GAS PO2 63 mm/Hg (80-95); ARTERIAL BLOOD GAS pH 7.47 (7.35-7.45); O2 ADMINISTRATION 2L
[2016-11-24] MEDS: LEVOTHYROXINE 88 MCG TAB PEG SCH (05:37)
[2016-11-24 05:56] LABS: ALLEN TEST POS (POS); ARTERIAL BLD GAS O2 SATURATION 95.2 % (90-95); ARTERIAL BLOOD GAS BASE EXCESS 13.7 mEq/L (-9-1.8); ARTERIAL BLOOD GAS HCO3 39 mmol/L (19-24); ARTERIAL BLOOD GAS PO2 77 mm/Hg (80-95); ARTERIAL BLOOD GAS pH 7.48 (7.35-7.45); O2 ADMINISTRATION 2L
[2016-11-24] MEDS ORDERED: INSULIN ASPART 100 UNITS/ML 3 ML PEN SC SCH (08:00)
[2016-11-24] MEDS ORDERED: PERFLUTREN LIPID MICROSPHERE (DEFINITY) IV ONE (08:04)
[2016-11-24 08:36] LABS: BASO % 0.2 %; BASO ABS # 0.01 K/uL (0-0.2); COMPLETE YES; EOS % 1.7 %; HEMATOCRIT 27.9 % (37-47); IG% 1.7 %; LYMPH % 11.1 %; LYMPH ABS # 0.65 K/uL (1.2-3.4); MEAN CELL VOLUME 99.3 fL (80-100); MEAN CORPUSCULAR HEMOGLOBIN 32.7 pg (25-34); MEAN PLATELET VOLUME 10.8 fL (7.4-10.4); MONO % 10.6 %; NEUT % 74.7 %; PLATELET COUNT 100 K/uL (130-400); RED BLOOD COUNT 2.81 M/uL (4.2-5.4); WHITE BLOOD COUNT 5.83 K/uL (4.8-10.8)
--- NOTE | 2016-11-24 08:36 | Clinical Documentation Query ---
Dr. SHARMA MARCUS : CLINICAL DOCUMENTATION QUERY Patient is a 61 year old female admitted for evaluation and treatment of acute on chronic respiratory failure in the setting of pneumonia vs. pulmonary edema in setting of anemia. Nursing documentation includes a BMI of 43.3 Kg/m^2. In order to capture this important clinical finding, the provider must explicitly document the associated condition. Please consider addition of documentation as suggested below as obesity is always clinically significant as the patient will be at increased risk of mortality due to other conditions. In your clinical opinion is this patient being managed for/have a personal history of: (x ) Obesity ( ) Other explanation of clinical findings (Please Explain) ( ) Unable to determine (Please Define) ( ) Need to Discuss ( ) Not Agree The medical record reflects the following clinical findings, treatment, and risk factors. Clinical Indicators: As above Treatment: N/A Risk Factors: Age, inactivity, intake > energy expenditure, medications, comorbid conditions. Please clarify and document your clinical opinion in the progress notes and discharge summary. Terms such as "probable", "suspected", "likely", "questionable", "possible", or "still to be ruled out" are acceptable. IF IN AGREEMENT, YOU MUST DOCUMENT ABOVE DIAGNOSTIC STATEMENT IN DAILY PROGRESS NOTES AND DISCHARGE SUMMARY. This document is not part of the patient's record. Thank You, Juan Luis Jones RN [phone]
--- NOTE | 2016-11-24 08:37 | Clinical Documentation Query ---
ERNA Moses : CLINICAL DOCUMENTATION QUERY Patient is a 61 year old female admitted for evaluation and treatment of acute on chronic respiratory failure in the setting of pneumonia vs. pulmonary edema in setting of anemia. Nursing documentation includes a BMI of 43.3 Kg/m^2. In order to capture this important clinical finding, the provider must explicitly document the associated condition. Please consider addition of documentation as suggested below as obesity is always clinically significant as the patient will be at increased risk of mortality due to other conditions. In your clinical opinion is this patient being managed for/have a personal history of: (X) Obesity ( ) Other explanation of clinical findings (Please Explain) ( ) Unable to determine (Please Define) ( ) Need to Discuss ( ) Not Agree The medical record reflects the following clinical findings, treatment, and risk factors. Clinical Indicators: As above Treatment: N/A Risk Factors: Age, inactivity, intake > energy expenditure, medications, comorbid conditions. Please clarify and document your clinical opinion in the progress notes and discharge summary. Terms such as "probable", "suspected", "likely", "questionable", "possible", or "still to be ruled out" are acceptable. IF IN AGREEMENT, YOU MUST DOCUMENT ABOVE DIAGNOSTIC STATEMENT IN DAILY PROGRESS NOTES AND DISCHARGE SUMMARY. This document is not part of the patient's record. Thank You, Juan Luis Jones RN [phone]
[2016-11-24] MEDS: PEPTAMEN 1.5 CAL 1000ML BAG PEG SCH ×5 (08:39→23:15)
[2016-11-24 08:46] LABS: PARTIAL THROMBOPLASTIN RATIO 1.2
[2016-11-24] MEDS: AMLODIPINE BESYLATE 5 MG TAB PEG SCH (08:54)
[2016-11-24] MEDS: CLOPIDOGREL BISULFATE 75 MG TAB PEG SCH (08:54)
[2016-11-24] MEDS: ATORVASTATIN 40 MG TAB PEG SCH (08:55)
[2016-11-24] MEDS: RISPERIDONE 1 MG/ML SOLN GT SCH ×2 (08:55→20:57)
[2016-11-24] MEDS: METOPROLOL TARTRATE 25 MG TAB PEG SCH ×2 (08:55→20:58)
[2016-11-24] MEDS: FLUOXETINE HCL 20 MG/5 ML GT SCH (08:56)
[2016-11-24] MEDS: VALPROIC ACID 500 MG/10 ML UDP PO SCH ×3 (08:56→20:58)
[2016-11-24] MEDS: FUROSEMIDE 20 MG TAB PEG SCH (08:56)
[2016-11-24] MEDS ORDERED: ATORVASTATIN 40 MG TAB PEG SCH (09:00)
[2016-11-24 09:13] LABS: BUN/CREATININE RATIO 36.2 (10-20); CREATININE 1.3 mg/dl (0.60-1.20); POTASSIUM 4.7 mmol/L (3.5-5.1)
[2016-11-24] MEDS: INSULIN GLARGINE SOLOSTAR 100 UNITS/ML 3 ML PEN SC SCH ×2 (09:21→21:14)
[2016-11-24 09:24] LABS: CHOLESTEROL/HDL RATIO 2.5
[2016-11-24] MEDS ORDERED: HEPARIN IV BOLUS 4,500 UNIT in SYRINGE 0 ML IV ONE (09:45)
[2016-11-24] MEDS: ACETAMINOPHEN SOLN 650MG/20.3 ML UDC PEG PRN (10:19)
--- NOTE | 2016-11-24 10:20 | DIAGNOSTIC IMAGING REPORT ---
SINGLE VIEW CHEST CLINICAL HISTORY: Dyspnea. FINDINGS: An AP, portable, upright chest radiograph is compared to study dated 11/23/2016 and correlated with chest CT dated 04/05/2016. The examination is degraded by portable technique, large body habitus, and patient rotation. The heart appears mildly enlarged. Pulmonary vascular congestion persists. There are small pleural effusions and bibasilar airspace opacities. Foci of linear atelectasis are noted bilaterally. No pneumothorax is seen. The skeletal structures are osteopenic. The bony thorax is grossly intact IMPRESSION: 1. Pulmonary vascular congestion is similar in appearance to the 11/23/2016 examination. 2. Small pleural effusions are identified. Electronically signed by: Dante Esqueda M.D. 11/24/2016 10:19 AM Dictated Date/Time: 11/24/2016 10:17 AM
[2016-11-24] MEDS: BUDESONIDE 0.5 MG/2 ML VIAL (PULMICORT) INH SCH ×2 (11:05→20:15)
[2016-11-24] MEDS ORDERED: VANCOMYCIN CONSULT ACTIVE PRN (11:21)
--- NOTE | 2016-11-24 11:38 | Pharmacy Progress Note ---
Glycemic Control Intl Consult Date of Service Nov 24, 2016. Scope Glycemic Pharmacist consulted by Dr Braga on 11/23/16 for glycemic control and to write orders per [facility] inpatient glycemic control protocol Objective Weight (Kilograms): 103.800 Accuchecks BSG (last 24hrs): Test 11/23/16 17:55 11/23/16 20:51 11/23/16 23:12 11/24/16 00:50 Bedside Glucose 67 mg/dl (70-90) 153 mg/dl (70-90) 214 mg/dl (70-90) Random Glucose 210 mg/dl (70-99) Test 11/24/16 03:11 11/24/16 06:05 11/24/16 08:10 Bedside Glucose 270 mg/dl (70-90) 208 mg/dl (70-90) Random Glucose 157 mg/dl (70-99) Laboratory Data (last 24hrs) Test 11/24/16 00:50 11/24/16 08:10 Anion Gap 8.0 mmol/L 5.0 mmol/L BUN/Creatinine Ratio 33.9 36.2 Blood Urea Nitrogen 47 mg/dl 47 mg/dl Creatinine 1.40 mg/dl 1.30 mg/dl Potassium Level 4.8 mmol/L 4.7 mmol/L Sodium Level 141 mmol/L 139 mmol/L White Blood Count 5.30 K/uL 5.83 K/uL Red Blood Count 2.81 M/uL Hemoglobin 9.2 g/dL Hematocrit 27.9 % Mean Corpuscular Volume 99.3 fL Mean Corpuscular Hemoglobin 32.7 pg Mean Corpuscular Hemoglobin Concent 33.0 g/dl Platelet Count 100 K/uL Mean Platelet Volume 10.8 fL Neutrophils (%) (Auto) 74.7 % Lymphocytes (%) (Auto) 11.1 % Monocytes (%) (Auto) 10.6 % Eosinophils (%) (Auto) 1.7 % Basophils (%) (Auto) 0.2 % Neutrophils # (Auto) 4.35 K/uL Lymphocytes # (Auto) 0.65 K/uL Monocytes # (Auto) 0.62 K/uL Eosinophils # (Auto) 0.10 K/uL Basophils # (Auto) 0.01 K/uL HbA1c 6.6% from 08/13/2016 Recent Pertinent Medications Outpatient Anti-diabetic Regimen: * Lantus * 24 units SQ in the AM * 28 units SQ in the PM * Humalog Sliding Scale * 131-180 give 2 units * 181-240 give 4 units * 241-300 give 6 units * 301-350 give 8 units * 351-400 give 10 units * 401-450 give 12 units * >450 give 14 units * A1c = outdated The patient is currently receiving: * Basal insulin: Lantus 10 units every 12 hours * Correctional Insulin: NovoLog Correction per scale q4 hours Goal Range: Low 120 mg/dL - High 150 mg/dL Correction Factor: 25 mg/dL/unit * Prandial insulin: Per carb ratio of 1 unit per -- grams CHO consumed Risk Factors for Insulin Resistance: * Infection: levofloxacin * IVF: heparin infusion (source of dextrose) * Diet: Peptamen 250mL 5 times a day, every 4 hours (provides 40g of CHO per dose), does not take anything by mouth Assessment & Plan ASSESSMENT: * 61 y/o diabetic who uses basal/bolus insulin as an outpatient with unknown degree of control as A1c is outdated. Likely, control is adequate as last A1c is 6.6% * Lantus BID at home and Humalog sliding scale (with a correction factor ~25mg/ dL/unit) * ADA & AACE recommend a goal blood sugar range 140-180 mg/dl for the majority of critically ill & non-critically ill patients. However, more stringent targets may be selected in individual cases. Chose lower goal range based on age and outpatient control. 11/24/16 * Last evening, BSGs slightly hypoglycemic on admission (60 -->67 -->153mg/dL) * gave small basal dose and correctional NovoLog only * This AM, BSGs on the rise - likely due to basal deficiency * Increase basal insulin toward home doses (slightly less as she was recently hypoglycemic) * Peptamen given 5x/day and provides 40g of CHO * schedule NovoLog with a carb ratio ~10 (4 units SQ 5x/day) * A1c outdated (>90 days since assessment) PLAN FOR INPATIENT GLYCEMIC CONTROL: * Lantus 20 units SQ BID * give 1/2 dose if BSG is below 110mg/dL * NovoLog SQ for correctional purposes * correction factor 25mg/dL/unit * goal range 140-180mg/dL (will only receive this dosing if hyperglycemic) * NovoLog 4 units SQ 5x/d q4H with Peptamen * represents a carb ratio ~10 * A1c outdated * re-order and add to discharge instructions * Please note that the plan above was derived based on current level of insulin resistance and hospital stress. These recommendations are appropriate for inpatient admission only. Plan of care upon discharge will need to be reassessed to avoid potential outpatient hypo/hyperglycemia. Thank you.
--- NOTE | 2016-11-24 11:50 | Pharmacy Progress Note ---
Pharmacy Antibiotic Consult Date of Service: Nov 24, 2016. Pharmacy Dosing Scope Pharmacy is consulted to initiate vancomycin IV dosing therapy, order appropriate labs and adjust drug dose/frequency. Subjective The patient is a 61 year old female admitted on Nov 23, 2016 at 13:58 with shortness of breath. I spoke with the resident today regarding addition of vancomycin. Patient had a positive MRSA nasal swab in previous admission. She was spiking temperatures today which was possibly from the blood transfusions. Vancomycin added in case of MRSA pneumonia. Dr Braga was not interested in expanding to [employer]. Objective Height (Feet): 5 Height (Inches): 1.00 Weight (Kilograms): 103.800 Lab Results (24hrs): Laboratory Tests Test 11/24/16 00:50 11/24/16 08:10 BUN/Creatinine Ratio 33.9 36.2 Blood Urea Nitrogen 47 mg/dl 47 mg/dl Creatinine 1.40 mg/dl 1.30 mg/dl White Blood Count 5.30 K/uL 5.83 K/uL Red Blood Count 2.81 M/uL Hemoglobin 9.2 g/dL Hematocrit 27.9 % Mean Corpuscular Volume 99.3 fL Mean Corpuscular Hemoglobin 32.7 pg Mean Corpuscular Hemoglobin Concent 33.0 g/dl Platelet Count 100 K/uL Mean Platelet Volume 10.8 fL Neutrophils (%) (Auto) 74.7 % Lymphocytes (%) (Auto) 11.1 % Monocytes (%) (Auto) 10.6 % Eosinophils (%) (Auto) 1.7 % Basophils (%) (Auto) 0.2 % Neutrophils # (Auto) 4.35 K/uL Lymphocytes # (Auto) 0.65 K/uL Monocytes # (Auto) 0.62 K/uL Eosinophils # (Auto) 0.10 K/uL Basophils # (Auto) 0.01 K/uL Assessment & Plan Loading dose: vancomycin 2600 mg IV X 1 dose then: vancomycin 1250 mg IV every 14 hours (population pharmacokinetics suggest a half-life of 14.4 hours with an elimination constant of 0.048 hr-1. Due to her body habitus with a BMI of 43.3 kg/m2 a typical dose is 13.5 mg/kg. However, I dosed this dose close to the elimination half-life and thus reduced the dose of 12 mg/kg). Goal peak level estimate: between 35 - 40 mcg/mL. Goal trough level estimate: between 15 - 20 mcg/mL (indication: pneumonia). Trough has been ordered for: prior to 0500 dose. Pharmacy will continue to follow and will adjust dose/frequency as necessary. Thank you
[2016-11-24] MEDS ORDERED: VANCOMYCIN INJ 2,600 MG in SODIUM CHLORIDE 0.9% 500ML 500 ML IV ONE (12:00)
--- NOTE | 2016-11-24 12:16 | ECHOCARDIOGRAM REPORT ---
*NOTICE TO RECEIVING LIBERTARIAN AGENCY This information is strictly Confidential and protected under [place] law. [place] law prohibits you from making any further disclosure of this information unless further disclosure is expressly permitted by the written consent of the person to whom it pertains or is authorized by law. A general authorization for the release of medical or other information is not sufficient for this purpose. Hospital accepts no responsibility if the information is made available to any other person, INCLUDING THE PATIENT. Interpretation Summary * Name: VARUN LUTZ Study Date: 11/24/2016 06:46 AM BP: 113/65 mmHg * Patient Location: C.2T\S\E218\S\1 HR: 88 * : 1955 (M/d/yyyy) Gender: Female Height: 61 in * Age: 61 yrs Ethnicity: CA Weight: 227 lb * Ordering Physician: Josef Denson * Performed By: Jayleen Brewster RDCS * * Reason For Study: AMI * BSA: 2.0 m2 * Normal overall left ventricular systolic function. * LV apical akinesis and septal hypokinesis. No change from echo of 10/05/2016. * Normal chamber dimensions. * Left ventricular diastolic dysfunction. * No significant valvular abnormalities. Procedure Details * A complete two-dimensional transthoracic echocardiogram was performed (2D, M-mode, Doppler and color flow Doppler). * The study was technically limited. * The study was technically difficult. * There were technical limitations due to patient'spoor positioning * A contrast injection of Definity was performed to improve assessment of LV function. * Contrast was injected into an intravenous site in the right arm. * One vial of Definity ultrasound contrast was diluted in normal saline to a total volume of 10 ml. A total of '2' ml of solution was administered during imaging. * Lot # [id number] of Definity utilized for procedure. * Expiration date OCT 13. * The attending nurse who injected the contrast agent was Emily Richter RN. Left Ventricle * The left ventricle is normal in size. * There is normal left ventricular wall thickness. * Ejection Fraction = 50-55%. * There is apical akinesis. * There is mild to moderate septal hypokinesis. Right Ventricle * The right ventricle is normal in size and function. Atria * The left atrial size is normal. * Right atrial size is normal. Mitral Valve * The mitral valve is normal. * There is no mitral valve stenosis. * There is trace mitral regurgitation. Tricuspid Valve * The tricuspid valve is normal. * There is no tricuspid stenosis. * No tricuspid regurgitation. Aortic Valve * The aortic valve is trileaflet. * The aortic valve opens well. * Aortic stenosis is absent. * No aortic regurgitation is present. Pulmonic Valve * The pulmonic valve is not well visualized. * The pulmonary valve is not well seen, but the Doppler examination is normal without significant regurgitation or stenosis. * Pulmonic stenosis is absent. Great Vessels * The aortic root is normal size. Pericardium/Pleural * There is no pericardial effusion. Great Vessels * Normal inferior vena cava diameter and respiratory variation suggests normal central venous pressure. MMode 2D Measurements and Calculations IVSd 1.1 cm LVIDd 4.0 cm LVIDs 2.7 cm LVPWd 1.1 cm IVS/LVPW 1.0 FS 31.7 % EDV(Teich) 68.3 ml ESV(Teich) 27.1 ml EF(Teich) 60.3 % EDV(cubed) 62.0 ml ESV(cubed) 19.8 ml EF(cubed) 68.2 % LV mass(C)d 143.3 grams LV mass(C)dI 71.9 grams/m\S\2 CO(Teich) 3.6 l/min CI(Teich) 1.8 l/min/m\S\2 SV(Teich) 41.2 ml SI(Teich) 20.7 ml/m\S\2 CO(cubed) 3.7 l/min CI(cubed) 1.9 l/min/m\S\2 SV(cubed) 42.3 ml SI(cubed) 21.2 ml/m\S\2 Ao root diam 2.9 cm Ao root area 6.6 cm\S\2 ACS 1.8 cm LA dimension 3.2 cm asc Aorta Diam 2.5 cm LA/Ao 1.1 LVOT diam 2.0 cm LVOT area 3.1 cm\S\2 LVAd ap4 27.3 cm\S\2 LVLd ap4 7.1 cm EDV(MOD-sp4) 85.4 ml LVAs ap4 16.9 cm\S\2 LVLs ap4 6.4 cm ESV(MOD-sp4) 35.8 ml EF(MOD-sp4) 58.1 % LVAd ap2 27.1 cm\S\2 LVLd ap2 7.6 cm EDV(MOD-sp2) 78.4 ml LVAs ap2 15.0 cm\S\2 LVLs ap2 5.9 cm ESV(MOD-sp2) 32.0 ml EF(MOD-sp2) 59.2 % CO(MOD-sp4) 4.4 l/min CI(MOD-sp4) 2.2 l/min/m\S\2 SV(MOD-sp4) 49.6 ml SI(MOD-sp4) 24.9 ml/m\S\2 CO(MOD-sp2) 4.1 l/min CI(MOD-sp2) 2.0 l/min/m\S\2 SV(MOD-sp2) 46.4 ml SI(MOD-sp2) 23.3 ml/m\S\2 Doppler Measurements and Calculations MV E max ida 126.1 cm/sec MV A max ida 110.1 cm/sec MV E/A 1.1 MV dec time 0.22 sec Ao V2 max 93.1 cm/sec Ao max PG 3.5 mmHg Ao max PG (full) 0.48 mmHg CHONG(V,A) 2.9 cm\S\2 CHONG(V,D) 2.9 cm\S\2 LV V1 max PG 3.0 mmHg LV V1 max 86.3 cm/sec PA V2 max 131.7 cm/sec PA max PG 6.9 mmHg PA acc slope 751.4 cm/sec\S\2 PA acc time 0.12 sec PA pr(Accel) 26.7 mmHg
[2016-11-24 12:17] LABS: URINE APPEARANCE CLEAR (CLEAR); URINE BILIRUBIN NEG (NEG); URINE COLOR YELLOW; URINE EPITHELIAL CELL AUTO 20-30 /lpf (0-5); URINE NITRITE NEG (NEG); URINE PH 6.5 (4.5-7.5); URINE SPECIFIC GRAVITY 1.011 (1.000-1.030); UROBILINOGEN NEG (NEG); ZZURINE CULT IF INDIC CATH NO
[2016-11-24 12:18] LABS: MANUAL MICROSCOPIC REQUIRED? NO; REVIEW REQ? NO
[2016-11-24] MEDS: ONDANSETRON INJ 2 MG/ML 2 ML VIAL IV PRN ×2 (14:38→20:57)
--- NOTE | 2016-11-24 14:43 | Family Medicine Progress Note ---
Progress Note Date of Service Nov 24, 2016. Subjective Pt evaluation today including: conversation w/ patient, physical exam, chart review, lab review Pain: denies any pain PO Intake: peg tube 61 year old female with PMH of COPD, DM, HTN, epilepsy, hyperlipidemia, schizoaffective disorder, hypothyroidism, CVA presents to the hospital for shortness of breath which started yesteday. doing better. denies any more difficulty breathing. feels warm but has no cough . Eyes: No worsening of vision ENT: No hearing loss Respiratory: No cough, No sputum, No wheezing Cardiovascular: No chest pain Abdomen: No diarrhea, No nausea, No pain, No vomiting Female : No dysuria Neurologic: No memory loss Heme: No abnormal bleeding/bruising Medications Current Inpatient Medications Medications (Trade) Dose Ordered Sig/Tristian Route Start Time Stop Time Status Last Admin Dose Admin Ondansetron HCl (Zofran Inj) 4 mg Q6H PRN IV 11/23/16 14:00 12/23/16 13:59 11/24/16 14:38 4 MG Acetaminophen (Tylenol Supp) 650 mg Q4H PRN WA 11/23/16 14:00 12/23/16 13:59 Albuterol (Ventolin Hfa Inhaler) 2 puffs Q4H PRN INH 11/23/16 14:00 12/23/16 13:59 Albuterol Sulfate (Ventolin 0.083% 2.5MG/3ML Neb) 2.5 mg Q6H PRN INH 11/23/16 14:00 12/23/16 13:59 Amlodipine Besylate (Norvasc Tab) 5 mg QAM PEG 11/24/16 09:00 12/24/16 08:59 11/24/16 08:54 5 MG Budesonide (Pulmicort Respules 0.5MG/ 2ML Neb Soln) 0.5 mg BIDR INH 11/23/16 20:00 12/23/16 19:59 11/23/16 20:04 0.5 MG Clopidogrel Bisulfate (plAVix TAB) 75 mg DAILY PEG 11/24/16 09:00 12/24/16 08:59 11/24/16 08:54 75 MG Fluoxetine HCl (Prozac Soln) 10 mg DAILY GT 11/24/16 09:00 12/24/16 08:59 11/24/16 08:56 10 MG Furosemide (Lasix Tab) 20 mg DAILY PEG 11/24/16 09:00 12/24/16 08:59 11/24/16 08:56 20 MG Lamotrigine (Lamictal Tab) 100 mg BID PEG 11/23/16 21:00 12/23/16 20:59 11/24/16 08:54 100 MG Levothyroxine Sodium (Synthroid Tab) 88 mcg DAILYBB PEG 11/24/16 06:00 12/24/16 06:59 11/24/16 05:37 88 MCG Lorazepam (Ativan Tab) 0.5 mg HS PEG 11/23/16 21:00 12/23/16 20:59 11/23/16 20:56 0.5 MG Magnesium Hydroxide (Milk Of Magnesia Susp) 30 ml UD PRN PEG 11/23/16 14:00 12/23/16 13:59 Metoprolol Tartrate (Lopressor Tab) 25 mg BID PEG 11/23/16 21:00 12/23/16 20:59 11/24/16 08:55 25 MG Risperidone (Risperdal Oral Soln) 4 mg QPM GT 11/23/16 21:00 12/23/16 20:59 11/23/16 20:51 4 MG Risperidone (Risperdal Oral Soln) 2 mg QAM GT 11/24/16 09:00 12/24/16 08:59 11/24/16 08:55 2 MG Tramadol HCl 50 mg 50 mg Q4H PRN PEG 11/23/16 14:00 12/23/16 13:59 Levofloxacin/Prmx (Levaquin / D5W/ Premixed D5W) 100 ml @ 100 mls/hr Q24H IV 11/23/16 16:00 11/30/16 15:59 11/24/16 16:41 100 MLS/HR Enteral Nutritional Formula (Peptamen 1.5) 250 ml 5XDQ4H PEG 11/23/16 19:00 12/23/16 18:59 11/24/16 14:05 250 ML Valproic Acid (Depakene Syrup) 500 mg TID PO 11/23/16 21:00 12/23/16 20:59 11/24/16 14:05 500 MG Miscellaneous Information (Consult Glycemic Management Pharmacy) 1 ea UD PRN N/A 11/23/16 18:00 12/23/16 17:59 Glucose (Glucose 40% Gel) 15-30 GRAMS 15 GRAMS... UD PRN PO 11/23/16 22:00 12/23/16 21:59 Glucose (Glucose Chew Tab) 4-8 Tablets 4 Tabl... UD PRN PO 11/23/16 22:00 12/23/16 21:59 Dextrose (Dextrose 50% 50ML Syringe) 25-50ML OF 50% DW IV FOR... UD PRN IV 11/23/16 22:00 12/23/16 21:59 Glucagon (Glucagon Inj) 1 mg UD PRN SQ 11/23/16 22:00 12/23/16 21:59 Atorvastatin Calcium 80 mg 80 mg QAM PEG 11/24/16 09:00 12/24/16 08:59 11/24/16 08:55 80 MG Heparin Sodium/ Dextrose (Heparin 25,000 Unit/500ml D5W) 500 ml @ 20 mls/hr Q24H PRN IV 11/23/16 23:45 12/23/16 23:44 11/24/16 09:37 20 MLS/HR Insulin Aspart (novoLOG ASPART) 4 units 5XDQ4H SC 11/24/16 07:00 12/24/16 06:59 11/24/16 16:07 4 UNITS Insulin Glargine (Lantus Solostar Pen) SEE PROTOCOL BID SC 11/24/16 09:00 12/24/16 08:59 11/24/16 09:21 20 UNIT Acetaminophen (Tylenol Soln) 650 mg Q4H PRN PEG 11/24/16 10:00 12/24/16 09:59 11/24/16 10:19 650 MG Vancomycin HCl 1 ea 1 ea UD PRN N/A 11/24/16 11:21 12/24/16 11:20 Vancomycin HCl/ Sodium Chloride (Vancomycin Inj/ Nss 250ml) 275 ml @ 125 mls/hr Q14H IV 11/25/16 02:00 12/01/16 23:59 Insulin Aspart (novoLOG ASPART) SLIDING SCALE 5XDQ4H SC 11/24/16 11:45 12/24/16 11:44 Objective Vital Signs Date Time Temp Pulse Resp B/P Pulse Ox O2 Delivery O2 Flow Rate FiO2 11/24/16 15:40 36.9 76 18 131/63 95 76 11/24/16 14:17 37.2 11/24/16 12:48 37.1 78 16 115/68 98 Nasal Cannula 2.0 11/24/16 12:46 37.1 11/24/16 12:00 97 Nasal Cannula 2.0 11/24/16 11:52 36.8 72 18 111/65 96 11/24/16 09:20 38.1 75 18 125/72 97 2.0 11/24/16 09:00 38.7 80 18 129/73 98 2.0 11/24/16 08:45 38.1 85 18 129/75 98 2.0 11/24/16 08:30 37.9 84 16 138/78 98 2.0 11/24/16 08:15 38.0 86 18 135/73 98 2.0 11/24/16 08:00 38.8 86 19 144/73 97 2.0 11/24/16 08:00 97 Nasal Cannula 2.0 11/24/16 07:48 36.7 76 95 117/69 95 16 11/24/16 07:43 36.8 89 16 135/72 92 2.0 11/24/16 05:30 37.6 88 18 113/65 94 2.0 11/24/16 04:33 84 95 2.0 11/24/16 04:30 37.1 87 18 130/70 95 2.0 11/24/16 04:00 Nasal Cannula 2.0 11/24/16 03:45 37.6 84 20 134/73 100 3.0 11/24/16 03:26 37.6 89 22 147/69 100 3.0 11/24/16 03:13 37.2 90 20 130/71 97 3.0 11/24/16 00:00 Nasal Cannula 3.0 11/23/16 23:10 37.3 80 22 109/68 92 3.0 11/23/16 22:10 36.9 79 18 109/68 93 3.0 11/23/16 21:10 37.1 91 20 113/69 95 3.0 11/23/16 20:41 36.9 96 20 123/71 95 3.0 2/28/17 20:21 36.8 89 20 153/76 11/23/16 20:08 80 18 96 Nasal Cannula 4.0 11/23/16 20:00 Nasal Cannula 3.0 11/23/16 18:56 36.8 81 18 125/77 97 Nasal Cannula 4.0 Physical Exam General Appearance: WD/WN, no apparent distress Eyes: normal inspection Neck: supple Respiratory/Chest: chest non-tender, + decreased breath sounds Cardiovascular: regular rate, rhythm, no edema Abdomen: normal bowel sounds, non tender, soft, + pertinent finding (peg tube) Neurologic/Psychiatric: alert, + aphasia, + motor weakness (left sided) Skin: normal color Assessment and Plan 61 year old female with PMH of COPD, DM, HTN, epilepsy, hyperlipidemia, schizoaffective disorder, hypothyroidism, CVA presents to the hospital for shortness of breath which started yesterday. had a bump in troponin yesterday with no EKG changes. was transfused a total of 3 units of blood . developed a spike in temperature this morning which could be secondary to blood transfusion but since she has a h/o MRSA , will add vancomycin for extra coverage.also obtained UA /UC/BC Fever: temp spike to 38.7 infections v transfusion reaction - UA/UC /BC X2 ordered - added vancomycin for extra coverage considering h/o positive MRSA Acute on chronic respiratory failure: Pneumonia vs pulmonary edema vs anemia contributing to resp distress her hgb this admission was 7.2, though she does have a h/o chronic anemia, last hgb was 8.9, suspect its contributing to her respiratory state currently with a background of COPD and extensive smoking history. s/p 3 units PRBC transfusion - pro BNP >3500 - O2 via NC , uses 2L at home - has been non complaint with BIPAP - CXR: Mild interstitial thickening. This could reflect mild pulmonary edema or an infectious process. 2. Suspected mild right upper lung airspace opacities which could reflect atelectasis or consolidation. Radiographic follow up is recommended - Repeat CXR today: Pulmonary vascular congestion is similar in appearance to the 11/23/2016 Small pleural effusions are identified. - Received Zosyn in ER, Added Levaquin 500 mg daily day 2 today with vancomycin - BC pending - strict Is and Os, daily weights, 1 mg Bumex added COPD: - O2 per protocol - Continue Ventolin - Continue Duoneb - Continue Pulmicort Neb Acute on Chronic Anemia:Hgb at 7.2 on admission, s/p 3 units transfusion, hgb at 9.2 - Hemoccult pending - Trend H&H Elevated troponin: likely sec ro demand ischemia due to anemia troponin peaked to 4.1 - EKG no new changes; no chest pain - Trended troponin, on admission: 0.4-->4.1--->3.9-->4-->3.3-->3.4 Echo 10/12 : with new apical and septal wall motion abnormality after NSTEMI echo repeated 12/10: unchanged from 10/12 - Continue ASA, Atorvastatin, and Plavix, Lopressor - was started on heparin Type 2 Diabetes Mellitus - glycemic consult - patient receives tube feeds H/o CVA- stable - Residual left-sided hemiparesis - PEG tube in place - Plavix Acute on CKD stage III - Baseline Cr noted to be 1.1 - Cr. 1.3 today - monitor Cr Seizure Disorder - Continue Valproic acid, Lamictal Hypothyroidism - Continue Synthyroid Schizophrenia - Continue Risperidone per home dosing Anxiety/Depression - Continue Prozac DVT prophylaxis heparin SQ Code Status - Level I Code Disposition: Monitor in telemetry Resident Physician Supervision Note: I was present with Dr. Braga during the history and exam. I discussed the case with the resident and agree with the findings and plan as documented in the note. Any exceptions or clarifications are listed here: I saw the patient several times today. This morning, she had an episode of fever for which blood and urine cultures were taken and vancomycin was added. At the same time, the patient appeared somewhat lethargic. However, the fever resolved and upon re-examination this afternoon, she appeared much more alert. This raises the question of a transfusion reaction as the cause of her elevated temperature this morning. At this point, will continue vancomycin pending preliminary cultures. It is noted that her MRSA swab was negative, although the patient has a history of (+) MRSA on prior admission. Documented By: Félix Garcia
[2016-11-24 16:06] LABS: PARTIAL THROMBOPLASTIN RATIO 1.8
[2016-11-24] MEDS ORDERED: BUMETANIDE IV 1 MG in SYRINGE 0 ML IV ONE (16:15)
[2016-11-24] MEDS ORDERED: PEPTAMEN 1.5 CAL 1000ML BAG PEG SCH (16:15)
[2016-11-24] MEDS: LEVOFLOXACIN / D5W 500 MG in PREMIXED IN D5W 100 ML IV SCH (16:41)
--- NOTE | 2016-11-24 18:05 | CARDIOLOGY CONSULTATION ---
DATE OF CONSULTATION: 11/24/2016 REASON FOR CONSULTATION: Elevated troponin. CONSULTATION REQUESTED BY: Dr. Michelle. HISTORY OF PRESENT ILLNESS: Mrs. Agrawal is 61-year-old woman with a complex past medical history which includes COPD, obesity hypoventilation syndrome, chronic hypoxic/hypercarbic respiratory failure requiring home CPAP, diabetes, epilepsy and prior CVA with dense residual left hemiparesis, who was readmitted in the setting of hypoxic respiratory failure. The patient at baseline is chronically ill. She is largely bed bound with PEG tube and has had multiple recent admissions over the course of this year. She was last seen by me with cardiology back in September of 2016 when she was again admitted with hypercarbic respiratory failure and had an NSTEMI with troponin that peaked at 16. Echocardiogram at that time showed largely preserved LV function with new anteroseptal hypokinesis. After prolonged hospitalization, patient was discharged to home and initially did well. More recently has noted worsening shortness of breath over the prior preceding days and was noted to be hypoxic on her prior home 2 liters. The patient's live-in friend states that she had not been using her home CPAP as regularly as she should have been. She presented to the Emergency Department and was mildly hypoxic, requiring 4 liters of oxygen. She was also noted to have a questionable right upper lobe opacity, for which she was started on broad spectrum antibiotics and new anemia with hemoglobin down to 7. In the setting of this, she was noted to have a positive troponin, which trended up to 4. There were no significant changes on EKG. She was admitted to the hospital, continued on broad spectrum antibiotics, was transfused 3 units, blood cultures to date have been no growth. The patient states that her breathing at present is back to baseline. This afternoon, the patient did spike a fever end vancomycin was added to her antibiotic coverage. During all of this, patient denies any significant chest pain, denies any palpitations. PAST MEDICAL HISTORY: 1. COPD. 2. Diabetes. 3. Hypothyroidism. 4. Hyperlipidemia. 5. Hypertension. 6. Epilepsy. 7. Schizoaffective disorder. 8. Cognitive impairment. 9. History of cerebrovascular accident with left-sided hemiparesis. 10. Dysphagia, status post PEG tube. 11. Chronic hypoxic/hypercarbic respiratory failure. 12. Obesity hypoventilation syndrome. 13. Aspiration pneumonitis. 14. Chronic diastolic heart failure. 15. Chronic deep venous thrombosis of left popliteal vein. 16. CKD stage III. 17. Anemia. 18. Thrombocytopenia. FAMILY HISTORY: Noncontributory. SOCIAL HISTORY: Denies significant tobacco use. Lives with her boyfriend and has 24-hour care. ALLERGIES: SULFA DRUGS. HOME MEDICATIONS: Albuterol inhaler, albuterol nebulizer, amlodipine 5, atorvastatin 40, bisacodyl, Pulmicort inhaler, Plavix 75, fluoxetine, furosemide 20 mg daily, [place], Lantus insulin, lispro insulin, lamotrigine, levothyroxine, lorazepam, milk of magnesia, meclizine, metoprolol 25 mg p.o. b.i.d., omeprazole, Risperdal, tramadol, and valproic acid. REVIEW OF SYSTEMS: Unable to obtain due to the patient's sleepiness. PHYSICAL EXAMINATION: VITAL SIGNS: Temperature 36.9, pulse 76, blood pressure 131/63; she is satting 95% on 2 liters nasal cannula. GENERAL: The patient appears comfortable. She is intermittently less responsive but awake. HEENT: Sclerae are anicteric. Oropharynx is clear. Mucous membranes are moist. LUNGS: She has no significant crackles at her bases bilaterally. CARDIAC: She has a regular rate and rhythm with no appreciable murmurs, rubs or gallops. ABDOMEN: Soft, nontender, nondistended. PEG tube in place. SKIN: Shows no rashes or lesions. EXTREMITIES: She has trace to 1+ lower extremity edema on the left. NEUROLOGIC: Dense left hemiparesis. LABORATORY DATA: Sodium 139, potassium 4.7, BUN 47, creatinine of 1.3. Troponin initially 0.4, then up to 4.2 and has trended down now at 3.4. Initial ProBNP elevated at 3500. Initial hemoglobin of 7.2 with platelets of 115 and white blood cell count of 7.5; with 3 units of transfusion, hemoglobin has increased to 9.2. IMAGING: Chest x-ray shows mild interstitial thickening, potentially consistent with mild pulmonary edema. There was a suspected mild right upper lobe airspace opacity, possible atelectasis versus consolidation. EKG shows sinus rhythm with LVH and QRS widening and repolarization abnormality, unchanged from prior. Echocardiogram shows largely preserved LV function with anterior septal, apical wall motion abnormality, unchanged from prior. IMPRESSION AND PLAN: 1. Hypoxic respiratory failure. 2. Acute suspected blood loss anemia. 3. Elevated troponin. 4. Chronic diastolic heart failure. 5. Diabetes. 6. Possible pneumonia. 7. Prior cerebrovascular accident with dense left hemiparesis. In regards to patient's elevated troponin, suspicion that this represents a type 1, plaque rupture ACS event is low, suspect this is demand in the setting of hypoxia and anemia. In that setting, as LV function is preserved and the patient has remained hemodynamically and electrically stable, no role for cardiac catheterization or attempts at revascularization at this time. In addition, I agree with transfusion. I do not feel that the patient needs to be anticoagulated from an NSTEMI standpoint. If active bleeding, would consider holding patient's Plavix as well. Otherwise, the patient with minimal congestion on exam, would continue with home Lasix. Continue on current beta eun and high dose statin. We will continue to follow the patient in the hospital. Thank you for allowing us to participate in the care of this patient. Please contact with any questions.
[2016-11-24 18:08] LABS: HEMATOCRIT 31.1 % (37-47)
[2016-11-24] MEDS: ALBUTEROL 0.083% NEBU SOLN 3 ML VIAL INH PRN (20:16)
[2016-11-24] MEDS: LORAZEPAM 0.5 MG TAB PEG SCH (20:57)
[2016-11-25] VITALS (12 sets, daily range): BP systolic 125–151; BP diastolic 66–79; PULSE 76–78; TEMP 36.7–37.4; O2SAT 93–99
[2016-11-25] MEDS: VANCOMYCIN INJ 1,250 MG in SODIUM CHLORIDE 0.9% 250ML 250 ML IV SCH ×2 (01:38→16:07)
[2016-11-25] MEDS: LEVOTHYROXINE 88 MCG TAB PEG SCH (05:46)
[2016-11-25] MEDS: INSULIN ASPART 100 UNITS/ML 3 ML PEN SC SCH ×10 (07:00→23:25)
[2016-11-25] MEDS: PEPTAMEN 1.5 CAL 1000ML BAG PEG SCH ×5 (07:17→23:20)
[2016-11-25] MEDS: BUDESONIDE 0.5 MG/2 ML VIAL (PULMICORT) INH SCH ×2 (07:24→19:30)
[2016-11-25 07:33] LABS: PARTIAL THROMBOPLASTIN RATIO 0.9
[2016-11-25 07:44] LABS: HEMATOCRIT 32.3 % (37-47); MEAN CELL VOLUME 101.6 fL (80-100); MEAN CORPUSCULAR HEMOGLOBIN 32.4 pg (25-34); MEAN CORPUSCULAR HGB CONC 31.9 g/dl (32-36); RED BLOOD COUNT 3.18 M/uL (4.2-5.4); WHITE BLOOD COUNT 5.48 K/uL (4.8-10.8)
[2016-11-25 07:50] LABS: CREATININE 1.3 mg/dl (0.60-1.20)
[2016-11-25 07:52] LABS: BUN/CREATININE RATIO 31.8 (10-20); CALCIUM 8.8 mg/dl (8.5-10.1); CREATININE 1.4 mg/dl (0.60-1.20)
[2016-11-25] MEDS: FUROSEMIDE 20 MG TAB PEG SCH (07:56)
[2016-11-25] MEDS: RISPERIDONE 1 MG/ML SOLN GT SCH ×2 (07:57→20:17)
[2016-11-25] MEDS: VALPROIC ACID 500 MG/10 ML UDP PO SCH ×3 (07:57→20:13)
[2016-11-25] MEDS: AMLODIPINE BESYLATE 5 MG TAB PEG SCH (07:58)
[2016-11-25] MEDS: FLUOXETINE HCL 20 MG/5 ML GT SCH (07:58)
[2016-11-25] MEDS: CLOPIDOGREL BISULFATE 75 MG TAB PEG SCH (07:58)
[2016-11-25] MEDS: ATORVASTATIN 40 MG TAB PEG SCH (07:58)
[2016-11-25] MEDS: METOPROLOL TARTRATE 25 MG TAB PEG SCH ×2 (07:59→20:17)
[2016-11-25] MEDS: INSULIN GLARGINE SOLOSTAR 100 UNITS/ML 3 ML PEN SC SCH ×2 (08:10→20:20)
[2016-11-25 09:37] LABS: MEAN PLATELET VOLUME 10.5 fL (7.4-10.4); PLATELET COUNT 92 K/uL (130-400)
[2016-11-25 09:38] LABS: PLT ESTIMATE DECREASED
--- NOTE | 2016-11-25 09:55 | Pharmacy Progress Note ---
Glycemic Control: Progress Nt Date of Service Nov 25, 2016. Scope Glycemic Pharmacist consulted by Dr Braga on 11/23/16 for glycemic control and to write orders per [facility] inpatient glycemic control protocol. Objective Accuchecks BSG (last 24hrs): Test 11/24/16 11:23 11/24/16 16:01 11/24/16 19:15 11/24/16 21:11 Bedside Glucose 161 mg/dl (70-90) 157 mg/dl (70-90) 112 mg/dl (70-90) 141 mg/dl (70-90) Test 11/24/16 23:10 11/25/16 07:00 11/25/16 07:10 Bedside Glucose 175 mg/dl (70-90) 155 mg/dl (70-90) Random Glucose 154 mg/dl (70-99) Laboratory Data (last 24hrs) Test 11/25/16 07:10 Anion Gap 6.0 mmol/L BUN/Creatinine Ratio 31.8 Blood Urea Nitrogen 45 mg/dl Creatinine 1.40 mg/dl Potassium Level 5.0 mmol/L Sodium Level 140 mmol/L White Blood Count 5.48 K/uL Recent Pertinent Medications Outpatient Anti-diabetic Regimen: * Lantus * 24 units SQ in the AM * 28 units SQ in the PM * Humalog Sliding Scale * 131-180 give 2 units * 181-240 give 4 units * 241-300 give 6 units * 301-350 give 8 units * 351-400 give 10 units * 401-450 give 12 units * >450 give 14 units * A1c = outdated The patient is currently receiving: * Basal insulin: Lantus 20 units every 12 hours * Correctional Insulin: NovoLog Correction per scale q4 hours Goal Range: Low 140 mg/dL - High 180 mg/dL Correction Factor: 25 mg/dL/unit * Prandial insulin: 4 units SQ 5x/day q4H with tube feeds Risk Factors for Insulin Resistance: * Infection: levofloxacin, vancomycin * Diet: Peptamen 250mL 5 times a day, every 4 hours (provides 40-46g of CHO per dose), does not take anything by mouth Assessment & Plan ASSESSMENT: * 61 y/o diabetic who uses basal/bolus insulin as an outpatient with unknown degree of control as A1c is outdated. Likely, control is adequate as last A1c is 6.6% * Lantus BID at home and Humalog sliding scale (with a correction factor ~25mg/ dL/unit) * ADA & AACE recommend a goal blood sugar range 140-180 mg/dl for the majority of critically ill & non-critically ill patients. However, more stringent targets may be selected in individual cases. Chose lower goal range based on age and outpatient control. 11/24/16 * Last evening, BSGs slightly hypoglycemic on admission (60 -->67 -->153mg/dL) * gave small basal dose and correctional NovoLog only * This AM, BSGs on the rise - likely due to basal deficiency * Increase basal insulin toward home doses (slightly less as she was recently hypoglycemic) * Peptamen given 5x/day and provides 40g of CHO * schedule NovoLog with a carb ratio ~10 (4 units SQ 5x/day) * A1c outdated (>90 days since assessment) 11/25/16 * BSGs improved with the addition of Lantus and NovoLog to cover Peptamen bolus feeds. * Heparin infusion stopped (decrease in IV dextrose) - this, in addition to high ratio of basal/bolus insulin, may lead to a trend downward in BSGs * decrease basal insulin and make up for needs with NovoLog to strive for a 50/ 50 ratio of basal/bolus insulins * No correctional insulin required, see above * Peptamen coverage appears appropriate at this time PLAN FOR INPATIENT GLYCEMIC CONTROL: * Lantus 15 units SQ BID * give 1/2 dose if BSG is below 110mg/dL * NovoLog SQ for correctional purposes * correction factor 25mg/dL/unit * goal range 120-160mg/dL (will only receive this dosing if hyperglycemic) * NovoLog 4 units SQ 5x/d q4H with Peptamen * represents a carb ratio ~10-12 * A1c outdated * re-order and add to discharge instructions * Please note that the plan above was derived based on current level of insulin resistance and hospital stress. These recommendations are appropriate for inpatient admission only. Plan of care upon discharge will need to be reassessed to avoid potential outpatient hypo/hyperglycemia. Thank you.
--- NOTE | 2016-11-25 10:10 | Family Medicine Progress Note ---
Progress Note Date of Service Nov 25, 2016. Subjective Pt evaluation today including: conversation w/ patient, physical exam, chart review, lab review Pain: denies pain PO Intake: Peg tube Voiding: esquivel catheter in place doing better. denie Constitutional: No chills, No fever Eyes: No worsening of vision ENT: No hearing loss Respiratory: No cough, No shortness of breath, No sputum, No wheezing Cardiovascular: No chest pain Abdomen: No nausea, No pain, No vomiting Medications Current Inpatient Medications Medications (Trade) Dose Ordered Sig/Tristian Route Start Time Stop Time Status Last Admin Dose Admin Ondansetron HCl (Zofran Inj) 4 mg Q6H PRN IV 11/23/16 14:00 12/23/16 13:59 11/24/16 20:57 4 MG Acetaminophen (Tylenol Supp) 650 mg Q4H PRN [place] 11/23/16 14:00 12/23/16 13:59 Albuterol (Ventolin Hfa Inhaler) 2 puffs Q4H PRN INH 11/23/16 14:00 12/23/16 13:59 Albuterol Sulfate (Ventolin 0.083% 2.5MG/3ML Neb) 2.5 mg Q6H PRN INH 11/23/16 14:00 12/23/16 13:59 11/24/16 20:16 2.5 MG Amlodipine Besylate (Norvasc Tab) 5 mg QAM PEG 11/24/16 09:00 12/24/16 08:59 11/25/16 07:58 5 MG Budesonide (Pulmicort Respules 0.5MG/ 2ML Neb Soln) 0.5 mg BIDR INH 11/23/16 20:00 12/23/16 19:59 11/25/16 07:24 0.5 MG Clopidogrel Bisulfate (plAVix TAB) 75 mg DAILY PEG 11/24/16 09:00 12/24/16 08:59 11/25/16 07:58 75 MG Fluoxetine HCl (Prozac Soln) 10 mg DAILY GT 11/24/16 09:00 12/24/16 08:59 11/25/16 07:58 10 MG Furosemide (Lasix Tab) 20 mg DAILY PEG 11/24/16 09:00 12/24/16 08:59 11/25/16 07:56 20 MG Lamotrigine (Lamictal Tab) 100 mg BID PEG 11/23/16 21:00 12/23/16 20:59 11/25/16 07:59 100 MG Levothyroxine Sodium (Synthroid Tab) 88 mcg DAILYBB PEG 11/24/16 06:00 12/24/16 06:59 11/25/16 05:46 88 MCG Lorazepam (Ativan Tab) 0.5 mg HS PEG 11/23/16 21:00 12/23/16 20:59 11/24/16 20:57 0.5 MG Magnesium Hydroxide (Milk Of Magnesia Susp) 30 ml UD PRN PEG 11/23/16 14:00 12/23/16 13:59 Metoprolol Tartrate (Lopressor Tab) 25 mg BID PEG 11/23/16 21:00 12/23/16 20:59 11/25/16 07:59 25 MG Risperidone (Risperdal Oral Soln) 4 mg QPM GT 11/23/16 21:00 12/23/16 20:59 11/24/16 20:57 4 MG Risperidone (Risperdal Oral Soln) 2 mg QAM GT 11/24/16 09:00 12/24/16 08:59 11/25/16 07:57 2 MG Tramadol HCl 50 mg 50 mg Q4H PRN PEG 11/23/16 14:00 12/23/16 13:59 Levofloxacin/Prmx (Levaquin / D5W/ Premixed D5W) 100 ml @ 100 mls/hr Q24H IV 11/23/16 16:00 11/30/16 15:59 11/24/16 16:41 100 MLS/HR Enteral Nutritional Formula (Peptamen 1.5) 250 ml 5XDQ4H PEG 11/23/16 19:00 12/23/16 18:59 11/25/16 07:17 250 ML Valproic Acid (Depakene Syrup) 500 mg TID PO 11/23/16 21:00 12/23/16 20:59 11/25/16 07:57 500 MG Miscellaneous Information (Consult Glycemic Management Pharmacy) 1 ea UD PRN N/A 11/23/16 18:00 12/23/16 17:59 Glucose (Glucose 40% Gel) 15-30 GRAMS 15 GRAMS... UD PRN PO 11/23/16 22:00 12/23/16 21:59 Glucose (Glucose Chew Tab) 4-8 Tablets 4 Tabl... UD PRN PO 11/23/16 22:00 12/23/16 21:59 Dextrose (Dextrose 50% 50ML Syringe) 25-50ML OF 50% DW IV FOR... UD PRN IV 11/23/16 22:00 12/23/16 21:59 Glucagon (Glucagon Inj) 1 mg UD PRN SQ 11/23/16 22:00 12/23/16 21:59 Atorvastatin Calcium (Lipitor Tab) 80 mg QAM PEG 11/24/16 09:00 12/24/16 08:59 11/25/16 07:58 80 MG Insulin Aspart (novoLOG ASPART) 4 units 5XDQ4H SC 11/24/16 07:00 12/24/16 06:59 11/25/16 07:16 4 UNITS Insulin Glargine (Lantus Solostar Pen) SEE PROTOCOL BID SC 11/24/16 09:00 12/24/16 08:59 11/25/16 08:10 15 UNIT Acetaminophen (Tylenol Soln) 650 mg Q4H PRN PEG 11/24/16 10:00 12/24/16 09:59 11/24/16 10:19 650 MG Vancomycin HCl 1 ea 1 ea UD PRN N/A 11/24/16 11:21 12/24/16 11:20 Vancomycin HCl/ Sodium Chloride (Vancomycin Inj/ Nss 250ml) 275 ml @ 125 mls/hr Q14H IV 11/25/16 02:00 12/01/16 23:59 11/25/16 01:38 125 MLS/HR Insulin Aspart (novoLOG ASPART) SLIDING SCALE 5XDQ4H SC 11/24/16 11:45 12/24/16 11:44 Objective Vital Signs Date Time Temp Pulse Resp B/P Pulse Ox O2 Delivery O2 Flow Rate FiO2 11/25/16 08:00 94 Nasal Cannula 2.0 11/25/16 07:24 76 18 94 Nasal Cannula 2.0 11/25/16 07:00 37.4 78 20 151/79 99 BiPAP 2.0 76 11/25/16 04:19 36.9 78 20 144/71 99 BiPAP 11/25/16 04:00 Nasal Cannula 2.0 11/25/16 00:00 95 Nasal Cannula 2.0 11/24/16 23:34 37.8 78 18 124/69 93 Nasal Cannula 2.0 11/24/16 20:20 82 18 95 Nasal Cannula 2.0 11/24/16 20:00 95 Nasal Cannula 2.0 11/24/16 20:00 95 Nasal Cannula 2.0 11/24/16 19:38 37.0 77 20 138/74 99 Room Air 2.0 11/24/16 16:00 95 Nasal Cannula 2.0 11/24/16 15:40 36.9 76 18 131/63 95 76 11/24/16 14:17 37.2 11/24/16 12:48 37.1 78 16 115/68 98 Nasal Cannula 2.0 11/24/16 12:46 37.1 11/24/16 12:00 97 Nasal Cannula 2.0 11/24/16 11:52 36.8 72 18 111/65 96 Physical Exam General Appearance: WD/WN, no apparent distress Eyes: normal inspection ENT: hearing grossly normal Neck: supple Respiratory/Chest: chest non-tender, + decreased breath sounds Cardiovascular: regular rate, rhythm, no edema Abdomen: normal bowel sounds, non tender, soft, + pertinent finding (peg tube) Neurologic/Psychiatric: alert, normal mood/affect, oriented x 3, + aphasia, + motor weakness (left sided) Skin: normal color Laboratory Results 11/25/16 07:10 11/25/16 07:10 Test 11/24/16 10:35 11/24/16 11:40 11/25/16 07:00 11/25/16 07:10 Troponin I 3.420 ng/ml (0-0.045) Urine Color YELLOW Urine Appearance CLEAR (CLEAR) Urine pH 6.5 (4.5-7.5) Urine Specific [place] 1.011 (1.000-1.030) Urine Protein 1+ (NEG) Urine Glucose (UA) NEG (NEG) Urine Ketones NEG (NEG) Urine Occult Blood TRACE (NEG) Urine Nitrite NEG (NEG) Urine Bilirubin NEG (NEG) Urine Urobilinogen NEG (NEG) Urine Leukocyte Esterase TRACE (NEG) Urine WBC (Auto) 5-10 /hpf (0-5) Urine RBC (Auto) 0-4 /hpf (0-4) Urine Hyaline Casts (Auto) 1-5 /lpf (0-5) Urine Epithelial Cells (Auto) 20-30 /lpf (0-5) Urine Bacteria (Auto) NEG (NEG) Bedside Glucose 155 mg/dl (70-90) Red Blood Count 3.18 M/uL (4.2-5.4) Mean Corpuscular Volume 101.6 fL (80-100) Mean Corpuscular Hemoglobin 32.4 pg (25-34) Mean Corpuscular Hemoglobin Concent 31.9 g/dl (32-36) RDW Standard Deviation 64.2 fL (36.4-46.3) RDW Coefficient of Variation 17.4 % (11.5-14.5) Mean Platelet Volume 10.5 fL (7.4-10.4) Platelet Estimate DECREASED Activated Partial Thromboplast Time 22.2 SECONDS (21.0-31.0) Partial Thromboplastin Ratio 0.9 Anion Gap 6.0 mmol/L (3-11) Est Creatinine Clear Calc Drug Dose 48.5 ml/min Estimated GFR () 47.5 Estimated GFR (Non- 41.0 BUN/Creatinine Ratio 31.8 (10-20) Calcium Level 8.8 mg/dl (8.5-10.1) CHEST ONE VIEW PORTABLE CLINICAL HISTORY: pulmonary congestion COMPARISON STUDY: 11/24/2016 FINDINGS: The heart remains enlarged. There is mild pulmonary vascular congestion. There is a probable small subchronic right pleural effusion. There are right basilar airspace opacities, likely atelectatic although an inflammatory process could appear similar[ IMPRESSION: Cardiomegaly and mild pulmonary vascular congestion. Right basilar airspace opacities likely atelectatic Assessment and Plan 61 year old female with PMH of COPD, DM, HTN, epilepsy, hyperlipidemia, schizoaffective disorder, hypothyroidism, CVA presents to the hospital for shortness of breath which started yesterday. had a bump in troponin yesterday with no EKG changes. was transfused a total of 3 units of blood she has a h/o MRSA , will add vancomycin for extra coverage Fever:had a temp spike to 38.7 yesterday- afebrile now likely transfusion reaction - UA/UC /BC X2 ordered - added vancomycin for extra coverage considering h/o positive MRSA - will consider dc if BC negative Acute on chronic respiratory failure: Pneumonia vs pulmonary edema vs anemia contributing to resp distress her hgb this admission was 7.2, though she does have a h/o chronic anemia, last hgb was 8.9, suspect its contributing to her respiratory state currently with a background of COPD and extensive smoking history. s/p 3 units PRBC transfusion - pro BNP >3500 - O2 via NC , uses 2L at home - has been non complaint with BIPAP - CXR: Mild interstitial thickening. This could reflect mild pulmonary edema or an infectious process. 2. Suspected mild right upper lung airspace opacities which could reflect atelectasis or consolidation. Radiographic follow up is recommended - Repeat CXR today: Pulmonary vascular congestion is similar in appearance to the 11/23/2016 - CXR 11/25: Cardiomegaly and mild pulmonary vascular congestion. Right basilar airspace opacities likely atelectatic Small pleural effusions are identified. - Received Zosyn in ER, Added Levaquin 500 mg daily day 3 today with vancomycin - BC on admission: no growth so far - strict Is and Os, daily weights - diuretics for congestion COPD: - O2 per protocol - Continue Ventolin - Continue Duoneb - Continue Pulmicort Neb Acute on Chronic Anemia:Hgb at 7.2 on admission, s/p 3 units transfusion, hgb at 10.3 - Hemoccult pending - Trend H&H Elevated troponin: likely sec to demand ischemia due to anemia troponin peaked to 4.1 - EKG no new changes; no chest pain - Trended troponin, on admission: 0.4-->4.1--->3.9-->4-->3.3-->3.4 Echo 10/12 : with new apical and septal wall motion abnormality after NSTEMI echo repeated 12/10: unchanged from 10/12 - Continue ASA, Atorvastatin, and Plavix, Lopressor - Cardiology consult - appreciate input Type 2 Diabetes Mellitus - glycemic consult - patient receives tube feeds H/o CVA- stable - Residual left-sided hemiparesis - PEG tube in place - Plavix Acute on CKD stage III - Baseline Cr noted to be 1.1 - Cr. 1.4 today - monitor Cr Seizure Disorder - Continue Valproic acid, Lamictal Hypothyroidism - Continue Synthyroid Schizophrenia - Continue Risperidone per home dosing Anxiety/Depression - Continue Prozac DVT prophylaxis heparin SQ Code Status - Level I Code Disposition: Monitor in telemetry Resident Physician Supervision Note: I was present with Dr. Braga during the history and exam. I discussed the case with the resident and agree with the findings and plan as documented in the note. Any exceptions or clarifications are listed here: 61-year-old female known well to me from the outpatient service admitted 2 days ago with hypoxic respiratory failure. She had an episode yesterday of mental status changes associated with fever; urine and blood cultures were re-collected and vancomycin was added to the patient's and chronic regimen given her previous history of MRSA. However, the patient's fever and sensorium improved rather quickly in retrospect it appears this may have been a transfusion reaction. Upon exam is examination today, she looks to be her baseline. Her hemoglobin is improved with the blood transfusion and actually her color looks a little better than when I last saw her in the outpatient office. The patient's significant other, Johan, is bedside and believes that Latanya is back to her baseline as well. Cardiology saw the patient yesterday; their input is appreciated. IMPRESSION 1) respiratory failure, hypoxia, multifactorial 2) anemia, uncertain etiology, improved status post transfusion 3) suspect transfusion reaction, resolved 4) coronary artery disease with troponin elevation PLAN 1) if cultures may negative, would discontinue vancomycin. 2) repeat chest x-ray given signs of pulmonary edema yesterday. 3) monitor hemoglobin. She had a colonoscopy as an outpatient roughly 2 years ago and will review this in her outpatient chart. Documented By: Félix Garcia
[2016-11-25] MEDS: ONDANSETRON INJ 2 MG/ML 2 ML VIAL IV PRN (11:20)
--- NOTE | 2016-11-25 11:20 | DIAGNOSTIC IMAGING REPORT ---
CHEST ONE VIEW PORTABLE CLINICAL HISTORY: pulmonary congestion COMPARISON STUDY: 11/24/2016 FINDINGS: The heart remains enlarged. There is mild pulmonary vascular congestion. There is a probable small subchronic right pleural effusion. There are right basilar airspace opacities, likely atelectatic although an inflammatory process could appear similar[ IMPRESSION: Cardiomegaly and mild pulmonary vascular congestion. Right basilar airspace opacities likely atelectatic Electronically signed by: Prosper Grubbs M.D. 11/25/2016 11:19 AM Dictated Date/Time: 11/25/2016 11:18 AM
--- NOTE | 2016-11-25 11:26 | Cardiology Follow-Up ---
Subjective Subjective Date of Service: Nov 25, 2016. Pt evaluation today including: conversation w/ patient, conversation w/ family , physical exam, lab review, review of studies, review of inpatient medication list Additional Details: Feels at recent baseline. No chest pain. Shortness of breath stable. Problem List Medical Problems: (1) Acute renal failure Status: Acute (2) Acute respiratory failure with hypoxia and hypercarbia Status: Acute (3) Altered mental state Status: Acute (4) Altered mental status Status: Acute (5) Anemia Status: Acute (6) Anemia Status: Acute (7) Anemia Status: Acute (8) Apneic episode Status: Acute (9) COPD exacerbation Status: Acute (10) CVA (cerebral vascular accident) Status: Acute (11) CVA (cerebral vascular accident) Status: Acute (12) Elevated troponin Status: Acute (13) Hyperkalemia Status: Acute (14) Hypoxia Status: Acute (15) Hypoxia Status: Acute (16) Ischemic stroke Status: Acute (17) Pneumonia involving right lung Status: Acute (18) Pulmonary edema Status: Acute Review of Systems Constitutional: No chills, No fever Respiratory: No cough, No shortness of breath Cardiac: No chest pain Abdomen: No nausea, No pain, No vomiting Female : No dysuria Neurologic: No memory loss Heme: No abnormal bleeding/bruising Objective Vital Signs Last Vital Signs Documentation Date Time Temp Pulse Resp B/P Pulse Ox O2 Delivery O2 Flow Rate FiO2 11/25/16 08:00 94 Nasal Cannula 2.0 11/25/16 07:24 76 18 11/25/16 07:00 37.4 151/79 Physical Exam: General Appearance: WD/WN, no apparent distress ENT: hearing grossly normal Neck: supple Respiratory/Chest: chest non-tender, + decreased breath sounds, + stridor ( intermittent apnea) Cardiovascular: regular rate, rhythm, no edema Abdomen: normal bowel sounds, non tender, soft, + pertinent finding (peg tube) Extremities: non-tender, + pedal edema Neurologic/Psychiatric: alert, normal mood/affect, oriented x 3, + motor weakness (left sided) Skin: normal color Lymphatic: no adenopathy Assessment and Plan 1. Chronic respiratory failure/COPD 2. Possible PNA 3. Anemia 4. Elevated troponin 5. Chronic diastolic heart failure 6. Prior NSTEMI and suspected CAD Stable from a cardiac standpoint Troponin peaked, LV function unchanged. Elevated enzymes unlikely to represent plaque rupture ACS -- Heparin off -- Continue home regimen/secondary prevention meds for presumed CAD -- Minimal congestion on exam -- continue current diuretics. Medications: Current Inpatient Medications Medications (Trade) Dose Ordered Sig/Tristian Route Start Time Stop Time Status Last Admin Dose Admin Ondansetron HCl (Zofran Inj) 4 mg Q6H PRN IV 11/23/16 14:00 12/23/16 13:59 11/24/16 20:57 4 MG Acetaminophen (Tylenol Supp) 650 mg Q4H PRN [place] 11/23/16 14:00 12/23/16 13:59 Albuterol (Ventolin Hfa Inhaler) 2 puffs Q4H PRN INH 11/23/16 14:00 12/23/16 13:59 Albuterol Sulfate (Ventolin 0.083% 2.5MG/3ML Neb) 2.5 mg Q6H PRN INH 11/23/16 14:00 12/23/16 13:59 11/24/16 20:16 2.5 MG Amlodipine Besylate (Norvasc Tab) 5 mg QAM PEG 11/24/16 09:00 12/24/16 08:59 11/25/16 07:58 5 MG Budesonide (Pulmicort Respules 0.5MG/ 2ML Neb Soln) 0.5 mg BIDR INH 11/23/16 20:00 12/23/16 19:59 11/25/16 07:24 0.5 MG Clopidogrel Bisulfate (plAVix TAB) 75 mg DAILY PEG 11/24/16 09:00 12/24/16 08:59 11/25/16 07:58 75 MG Fluoxetine HCl (Prozac Soln) 10 mg DAILY GT 11/24/16 09:00 12/24/16 08:59 11/25/16 07:58 10 MG Furosemide (Lasix Tab) 20 mg DAILY PEG 11/24/16 09:00 12/24/16 08:59 11/25/16 07:56 20 MG Lamotrigine (Lamictal Tab) 100 mg BID PEG 11/23/16 21:00 12/23/16 20:59 11/25/16 07:59 100 MG Levothyroxine Sodium (Synthroid Tab) 88 mcg DAILYBB PEG 11/24/16 06:00 12/24/16 06:59 11/25/16 05:46 88 MCG Lorazepam (Ativan Tab) 0.5 mg HS PEG 11/23/16 21:00 12/23/16 20:59 11/24/16 20:57 0.5 MG Magnesium Hydroxide (Milk Of Magnesia Susp) 30 ml UD PRN PEG 11/23/16 14:00 12/23/16 13:59 Metoprolol Tartrate (Lopressor Tab) 25 mg BID PEG 11/23/16 21:00 12/23/16 20:59 11/25/16 07:59 25 MG Risperidone (Risperdal Oral Soln) 4 mg QPM GT 11/23/16 21:00 12/23/16 20:59 11/24/16 20:57 4 MG Risperidone (Risperdal Oral Soln) 2 mg QAM GT 11/24/16 09:00 12/24/16 08:59 11/25/16 07:57 2 MG Tramadol HCl 50 mg 50 mg Q4H PRN PEG 11/23/16 14:00 12/23/16 13:59 Levofloxacin/Prmx (Levaquin / D5W/ Premixed D5W) 100 ml @ 100 mls/hr Q24H IV 11/23/16 16:00 11/30/16 15:59 11/24/16 16:41 100 MLS/HR Enteral Nutritional Formula (Peptamen 1.5) 250 ml 5XDQ4H PEG 11/23/16 19:00 12/23/16 18:59 11/25/16 10:51 250 ML Valproic Acid (Depakene Syrup) 500 mg TID PO 11/23/16 21:00 12/23/16 20:59 11/25/16 07:57 500 MG Miscellaneous Information (Consult Glycemic Management Pharmacy) 1 ea UD PRN N/A 11/23/16 18:00 12/23/16 17:59 Glucose (Glucose 40% Gel) 15-30 GRAMS 15 GRAMS... UD PRN PO 11/23/16 22:00 12/23/16 21:59 Glucose (Glucose Chew Tab) 4-8 Tablets 4 Tabl... UD PRN PO 11/23/16 22:00 12/23/16 21:59 Dextrose (Dextrose 50% 50ML Syringe) 25-50ML OF 50% DW IV FOR... UD PRN IV 11/23/16 22:00 12/23/16 21:59 Glucagon (Glucagon Inj) 1 mg UD PRN SQ 11/23/16 22:00 12/23/16 21:59 Atorvastatin Calcium (Lipitor Tab) 80 mg QAM PEG 11/24/16 09:00 12/24/16 08:59 11/25/16 07:58 80 MG Insulin Aspart (novoLOG ASPART) 4 units 5XDQ4H SC 11/24/16 07:00 12/24/16 06:59 11/25/16 10:52 4 UNITS Insulin Glargine (Lantus Solostar Pen) SEE PROTOCOL BID SC 11/24/16 09:00 12/24/16 08:59 11/25/16 08:10 15 UNIT Acetaminophen (Tylenol Soln) 650 mg Q4H PRN PEG 11/24/16 10:00 12/24/16 09:59 11/24/16 10:19 650 MG Vancomycin HCl 1 ea 1 ea UD PRN N/A 11/24/16 11:21 12/24/16 11:20 Vancomycin HCl/ Sodium Chloride (Vancomycin Inj/ Nss 250ml) 275 ml @ 125 mls/hr Q14H IV 11/25/16 02:00 12/01/16 23:59 11/25/16 01:38 125 MLS/HR Insulin Aspart (novoLOG ASPART) SLIDING SCALE 5XDQ4H SC 11/24/16 11:45 12/24/16 11:44 11/25/16 10:53 1 UNITS Lab Results: 11/25/16 07:10 11/25/16 07:10 Test 11/24/16 11:40 11/25/16 07:10 11/25/16 10:49 Urine Color YELLOW Urine Appearance CLEAR (CLEAR) Urine pH 6.5 (4.5-7.5) Urine Specific [place] 1.011 (1.000-1.030) Urine Protein 1+ (NEG) Urine Glucose (UA) NEG (NEG) Urine Ketones NEG (NEG) Urine Occult Blood TRACE (NEG) Urine Nitrite NEG (NEG) Urine Bilirubin NEG (NEG) Urine Urobilinogen NEG (NEG) Urine Leukocyte Esterase TRACE (NEG) Urine WBC (Auto) 5-10 /hpf (0-5) Urine RBC (Auto) 0-4 /hpf (0-4) Urine Hyaline Casts (Auto) 1-5 /lpf (0-5) Urine Epithelial Cells (Auto) 20-30 /lpf (0-5) Urine Bacteria (Auto) NEG (NEG) Red Blood Count 3.18 M/uL (4.2-5.4) Mean Corpuscular Volume 101.6 fL (80-100) Mean Corpuscular Hemoglobin 32.4 pg (25-34) Mean Corpuscular Hemoglobin Concent 31.9 g/dl (32-36) RDW Standard Deviation 64.2 fL (36.4-46.3) RDW Coefficient of Variation 17.4 % (11.5-14.5) Mean Platelet Volume 10.5 fL (7.4-10.4) Platelet Estimate DECREASED Activated Partial Thromboplast Time 22.2 SECONDS (21.0-31.0) Partial Thromboplastin Ratio 0.9 Anion Gap 6.0 mmol/L (3-11) Est Creatinine Clear Calc Drug Dose 48.5 ml/min Estimated GFR () 47.5 Estimated GFR (Non- 41.0 BUN/Creatinine Ratio 31.8 (10-20) Calcium Level 8.8 mg/dl (8.5-10.1) Bedside Glucose 202 mg/dl (70-90)
[2016-11-25] MEDS: LEVOFLOXACIN / D5W 500 MG in PREMIXED IN D5W 100 ML IV SCH (15:29)
[2016-11-25] MEDS: ACETAMINOPHEN SOLN 650MG/20.3 ML UDC PEG PRN (15:34)
[2016-11-25] MEDS: LORAZEPAM 0.5 MG TAB PEG SCH (21:46)
[2016-11-25] MEDS: TRAMADOL HCL 50 MG TAB PEG PRN (21:47)
[2016-11-26] VITALS (12 sets, daily range): BP systolic 109–155; BP diastolic 62–84; PULSE 66–76; TEMP 36.5–37; O2SAT 87–99
[2016-11-26] MEDS ORDERED: VANCOMYCIN TROUGH SCH (05:30)
[2016-11-26] MEDS: VANCOMYCIN INJ 1,250 MG in SODIUM CHLORIDE 0.9% 250ML 250 ML IV SCH (05:58)
[2016-11-26] MEDS: LEVOTHYROXINE 88 MCG TAB PEG SCH (05:58)
[2016-11-26 06:11] LABS: HEMATOCRIT 32.8 % (37-47); MEAN CORPUSCULAR HEMOGLOBIN 31.7 pg (25-34); MEAN CORPUSCULAR HGB CONC 31.7 g/dl (32-36); MEAN PLATELET VOLUME 10.1 fL (7.4-10.4); PLATELET COUNT 100 K/uL (130-400); RED BLOOD COUNT 3.28 M/uL (4.2-5.4); WHITE BLOOD COUNT 5.81 K/uL (4.8-10.8)
[2016-11-26 06:40] LABS: CREATININE 1.2 mg/dl (0.60-1.20)
[2016-11-26] MEDS: INSULIN ASPART 100 UNITS/ML 3 ML PEN SC SCH ×4 (07:00→15:00)
[2016-11-26] MEDS: PEPTAMEN 1.5 CAL 1000ML BAG PEG SCH ×4 (07:00→18:46)
[2016-11-26 07:13] LABS: ESTIMATED AVERAGE GLUCOSE 105 mg/dl; HA1C FLAG Normal (Normal)
[2016-11-26] MEDS: BUDESONIDE 0.5 MG/2 ML VIAL (PULMICORT) INH SCH ×2 (07:13→19:22)
[2016-11-26] MEDS: ALBUTEROL 0.083% NEBU SOLN 3 ML VIAL INH PRN (07:13)
[2016-11-26] MEDS: INSULIN GLARGINE SOLOSTAR 100 UNITS/ML 3 ML PEN SC SCH (08:00)
[2016-11-26] MEDS: METOPROLOL TARTRATE 25 MG TAB PEG SCH ×2 (08:00→18:49)
[2016-11-26] MEDS: VALPROIC ACID 500 MG/10 ML UDP PO SCH ×3 (08:00→18:48)
[2016-11-26] MEDS: FUROSEMIDE 20 MG TAB PEG SCH (08:00)
[2016-11-26] MEDS: CLOPIDOGREL BISULFATE 75 MG TAB PEG SCH (08:00)
[2016-11-26] MEDS: AMLODIPINE BESYLATE 5 MG TAB PEG SCH (08:00)
[2016-11-26] MEDS: RISPERIDONE 1 MG/ML SOLN GT SCH ×2 (08:00→18:49)
[2016-11-26] MEDS: FLUOXETINE HCL 20 MG/5 ML GT SCH (09:00)
[2016-11-26] MEDS: ATORVASTATIN 40 MG TAB PEG SCH (09:00)
[2016-11-26] MEDS ORDERED: LEVO1TAB33 PEG ×2 (11:24→13:13)
--- NOTE | 2016-11-26 11:28 | Discharge Instructions ---
Discharge Instructions Admission Reason for Admission: Acute Respiratory Failure Discharge Discharge Diagnosis / Problem: Acute respiratory failure, anemia, elevated troponin Discharge Goals Goal(s): Decrease discomfort, Improve function Activity Recommendations Activity Limitations: resume your previous activity . Instructions / Follow-Up Instructions / Follow-Up You presented to the hospital with shortness of breath and were found to be anemic. You were transfused a total of 3 units of blood and treated with antibiotics for a possible pneumonia. COPD - Continue O2 at home - Continue to use BIPAP( has been non compliant and she needs to be using it) - Please use Levaquin 500 mg via the PEG tube every day for 4 more days. - Continue Ventolin - Continue Duoneb - Continue Pulmicort Nebulizer Coronary artery disease - Continue Atorvastatin, and Plavix, Lopressor and aspirin Type 2 Diabetes Mellitus - resume home insulin regimen - Continue home tube feeds Stroke - Continue Plavix Seizure Disorder - Continue Valproic acid, Lamictal Hypothyroidism - Continue Synthroid Schizophrenia - Continue Risperidone Anxiety/Depression - Continue Prozac Please follow up with Dr. Garcia in about a week - You will need to get some blood work ( CBC, BMP) before seeing which is included in your paperwork Current Hospital Diet Patient's current hospital diet: Discharge Diet Recommended Diet: N/A (PEG tube feeds) Pending Studies Studies pending at discharge: no Laboratory Results 11/26/16 05:40 11/26/16 05:40 Test 11/26/16 05:40 11/26/16 05:49 11/26/16 07:01 Red Blood Count 3.28 M/uL (4.2-5.4) Mean Corpuscular Volume 100.0 fL (80-100) Mean Corpuscular Hemoglobin 31.7 pg (25-34) Mean Corpuscular Hemoglobin Concent 31.7 g/dl (32-36) RDW Standard Deviation 60.5 fL (36.4-46.3) RDW Coefficient of Variation 16.6 % (11.5-14.5) Mean Platelet Volume 10.1 fL (7.4-10.4) Activated Partial Thromboplast Time 25.4 SECONDS (21.0-31.0) Partial Thromboplastin Ratio 1.0 Est Creatinine Clear Calc Drug Dose 56.6 ml/min Estimated GFR () 57.3 Estimated GFR (Non- 49.4 Estimated Average Glucose 105 mg/dl Hemoglobin A1c 5.3 % (4.5-5.6) Vancomycin Level Trough 29.1 mcg/ml (SEE COMMENT) Bedside Glucose 87 mg/dl (70-90) Hemoglobin A1c Test 11/26/16 05:40 Range/Units Estimated Average Glucose 105 mg/dl Hemoglobin A1c 5.3 4.5-5.6 % Lipid Panel Test 11/24/16 08:10 Range/Units Triglycerides Level 96 0-150 mg/dl Cholesterol Level 109 0-200 mg/dl HDL Cholesterol 44 mg/dl Cholesterol/HDL Ratio 2.5 LDL Cholesterol, Calculated 46 mg/dl Medical Emergencies . Who to Call and When: Medical Emergencies: If at any time you feel your situation is an emergency, please call 911 immediately. . Non-Emergent Contact Non-Emergency issues call your: Primary Care Provider Call Non-Emergent contact if: you have a fever . . "Provider Documentation" section prepared by Leah Braga. VTE Core Measure Inpt VTE Proph given/why not?: Unfractionated heparin SQ
[2016-11-26] MEDS ORDERED: ASPCH81X PEG ×2 (11:37→13:13)
--- NOTE | 2016-11-26 12:02 | Discharge Summary ---
Discharge Summary Date of Service Nov 26, 2016. (Leah Braga MD) Discharge Summary Admission Date: Nov 23, 2016 at 13:58 Discharge Date: Nov 26, 2016 Discharge Disposition: Home with services Principal Diagnosis: Respiartory distress Immunizations: Have You Had Influenza Vaccine: Yes Influenza Vaccine Date: Jul 24, 2010 History of Tetanus Vaccine?: Yes History of Pneumococcal: Yes Pneumococcal Date: Jul 15, 2009 History of Hepatitis B Vaccine: Unknown Consultations: Cardiology (Leah Braga MD) Discharge Disposition: Home with services Principal Diagnosis: hypoxic respiratory failure Problems/Secondary Diagnoses: Troponin elevation Hypertension Diabetes Status post CVA COPD with chronic respiratory failure Procedures: None Consultations: Cardiology (Félix Garcia D.Rhonda) Medication Reconciliation New Medications: Aspirin (Aspirin Chewable) 81 Mg Chew 81 MG PEG DAILY for 30 Days Levofloxacin (Levaquin) 500 Mg Tab 500 MG PEG DAILY for 4 Days, #4 TAB Continued Medications: Acetaminophen (Tylenol) 650 Mg Supp 650 MG AZ UD ACETAMINOPHEN 650MG RECTAL PRN FOR TEMP OVER 100 AND OR DISCOMFORT Albuterol (Ventolin Hfa) 60 Puffs/5400 Mcg Aers 2 PUFFS INH QID PRN for Wheezing Albuterol Hfa (Ventolin Hfa) 200 Puffs/63185 Mcg Aers 2 PUFFS INH Q4H PRN for Wheezing, #1 INHALER Albuterol Sulf (Proventil 0.083% 2.5MG/3ML) 2.5 Mg/3 Ml Nebu 2.5 MG INH Q6H PRN for Wheezing, EA Amlodipine Besylate (Amlodipine Besylate) 5 Mg Tab 5 MG PEG QAM, #30 TAB Atorvastatin (Lipitor) 40 Mg Tab 40 MG PEG QAM, TAB Bisacodyl (Bisac-Evac) 10 Mg Supp 10 MG AZ every 4 days PRN for Constipation Budesonide (Inhalation) (Pulmicort Respules 0.5MG/2ML) 0.5 Mg/2 Ml Meera 0.5 MG INH BIDR, #60 Clopidogrel (Plavix) 75 Mg Tab 75 MG PEG DAILY, TAB Dextrose (Diabetic Use) (Glutose 15) 40 % Gel 15 GM PEG UD PRN for BS GLUTOSE 15 (GLUCOSE 40% ORAL GEL) 15 G (ENTIRE TUBE) PEG TUBE PRN FOR BS OF 60 OR BELOW Fluoxetine (Prozac) 10 Mg Cap 10 MG PEG DAILY, CAP Furosemide (Lasix) 20 Mg Tab 20 MG PEG DAILY, TAB Glucagon (Glucagon Emergency Kit) 1 Mg Kit 1 MG IM prn PRN for HYPOGLYCEMIA PROTOCOL Hydrocodone/Acetaminophen 5MG/325MG ([place] 5MG/325MG) Tab 1 TABLET PEG Q8H PRN for Pain, TAB PRN PAIN Insulin Glargine (Lantus) 100 Unit/Ml Inj 28 UNITS SC QPM, VIAL Insulin Glargine (Lantus) 100 Unit/Ml Inj 24 UNITS SC QAM for 30 Days, VIAL Insulin Lispro (Human) (Humalog) 100 Unit/Ml Inj 1 DOSE SC DIRECTED SLIDING SCALE: 2 UNITS FOR BS 131-180 BEFORE MEALS 4 UNITS FOR BS 181-240 BEEFORE MEALS 6 UNITS FOR BS 241-300 BEFORE MEALS 8 UNITS FOR BS 301-350 BEFORE MEALS 10 UNITS FOR BS 351-400 BEFORE MEALS 12 UNITS FOR BS 401-450 BEFORE MEALS 14 UNITS FOR BS 451 OR OVER BEFORE MEALS Lamotrigine (Lamotrigine) 100 Mg Tab 100 MG PEG BID Levothyroxine Sodium (Levothyroxine Sodium) 88 Mcg Tab 1 TAB PO DAILY for 90 Days, #90 TAB 3 Refills Lidocaine Hcl (Lidocaine Hcl) 2 % Gel 1 APPLN TOP PRN for Pain APPLY LIOCAINE 2% GEL TOPICALY SPARINGLYY PRN TO URETHRA EVERY 8 HOURS FOR CONTINUED PAIN Lorazepam (Ativan) 0.5 Mg Tab 0.5 MG PEG HS, TAB Magnesium Hydroxide (Milk Of Magnesia) 30 Ml Susp 30 ML PEG DIRECTED PRN for Constipation, ML MILK OF MAGNESIA 30 ML PEG TUBE PRN IF NO BM IN 3 DAYS Meclizine Hcl (Meclizine Hcl) 12.5 Mg Tab 12.5 MG PEG UD GIVE 12.5MG OF MECLIZINE PEG TUBE BEFORE EACH FEED Metoprolol Tartrate (Lopressor) 25 Mg Tab 25 MG PEG BID for 30 Days, #60 TAB Nutritional Supplements (Isosource 1.5 Eulogio) 1 Liq Liq 250 ML PEG 5XD Omeprazole (Prilosec) 20 Mg Capcr 20 MG PEG DAILY, CAP PRILOSEC 20MG PEG TUBE DAILY FOR 90 DAYS STOP 01/07 Oxygen (Oxygen) Gas 2 LITERS NA CONTINOUS OXYGEN 2 LITERS INHALATION VIA BIPAP CONTINUOUSY AND CONTINUOUS VIA NASAL CANNULA Risperidone (Risperdal) 1 Mg/Ml Soln 2 MG GT QAM Risperidone (Risperidone) 1 Mg/Ml Jumana 4 MG GT QPM Sodium Phosphates (Fleet Enema Six Pack) 1 Marisol Marisol 1 UNIT [place] DAILY PRN for constipation if dulcolax not w 1 ENEMA RECTAL PRN IF NO BM IN 5 DAYS Tramadol (Ultram) 50 Mg Tab 50 MG PEG Q4H PRN for Pain, TAB TRAMADOL 50MG PEG TUBE PRN UP TO Q4H DO NOT EXCEED 40MG IN ONE DAY Valproic Acid Syrup (Depakene) 250 Mg/5 Ml Syrp 250 MG PEG TID, ML Discharge Exam Review of Systems: Constitutional: No chills, No fever Eyes: No worsening of vision ENT: No hearing loss Respiratory: No cough, No shortness of breath, No sputum Cardiovascular: No chest pain Abdomen: No pain Genitourinary - Female: No dysuria Neurologic: No memory loss Endocrine: No fatigue Physical Exam: General Appearance: WD/WN, + obese Eyes: normal inspection ENT: normal ENT inspection, hearing grossly normal Neck: supple Respiratory/Chest: chest non-tender, + decreased breath sounds Cardiovascular: regular rate, rhythm Abdomen / GI: normal bowel sounds, non tender, soft Extremities: no calf tenderness Neurologic/Psychiatric: alert, normal mood/affect, + aphasia, + motor weakness Skin: normal color (Leah Braga MD) Hospital Course 61 year old female with PMH of COPD, DM, HTN, epilepsy, hyperlipidemia, schizoaffective disorder, hypothyroidism, CVA presents to the hospital for shortness of breath which started this morning. had some respiratory distress this morning but she does have an smoking history with COPD, denies fevers//chills, cough suggestive of pneumonia and has a normal white count. Her symptoms may have been precipitated by a drop in her hemoglobin which is currently at 7.2 Acute on chronic respiratory failure: Pneumonia vs pulmonary edema vs anemia contributing to resp distress her hgb this admission was 7.2, though she does have a h/o chronic anemia, last hgb was 8.9, suspect its contributing to her respiratory state currently with a background of COPD and extensive smoking history. - pro BNP >3500 - O2 via [place] , uses 2L at home - has been non complaint with BIPAP - CXR: Mild interstitial thickening. This could reflect mild pulmonary edema or an infectious process. 2. Suspected mild right upper lung airspace opacities which could reflect atelectasis or consolidation. Radiographic follow up is recommended - Received Zosyn in ER, Added Levaquin 500 mg daily , continue Levaquin for 4 more days for a total of 7 days - BC negative - strict Is and Os, daily weights COPD: - O2 per protocol - Continue Ventolin - Continue Duoneb - Continue Pulmicort Neb Acute on Chronic Anemia:Hgb at 7.2 on admission, hgb today at 10.4 after 3 units transfused - Hemoccult pending - Check CBC and BMP in 1 week Elevated troponin: - troponins peaked to 4, liely sec to anemia, demand ischemia Echo 10/12 : with new apical and septal wall motion abnormality after NSTEMI - Continue ASA, Atorvastatin, and Plavix, Lopressor Type 2 Diabetes Mellitus - continue home insulin regimen H/o CVA- stable - Residual left-sided hemiparesis - PEG tube in place - Plavix Acute on CKD stage III - Baseline Cr noted to be 1.1 - Cr. 1.3 today Seizure Disorder - Continue Valproic acid, Lamictal Hypothyroidism - Continue Synthyroid Schizophrenia - Continue Risperidone per home dosing Anxiety/Depression - Continue Prozac Total Time Spent: Greater than 30 minutes This includes examination of the patient, discharge planning, medication reconciliation, and communication with other providers. (Leah Braga MD) Resident Physician Supervision Note: I was present with Dr. Braga during the history and exam. I discussed the case with the resident and agree with the findings and plan as documented in the note. Any exceptions or clarifications are listed here: Upon my examination of the patient today, she looked as well as she has in recent memory. She's not any complaints to include chest pain or shortness of breath. Her mentation was excellent; her speech was as clear as I have heard her since her stroke. It is hard to determine the exact etiology of her presenting dyspnea although she has a myriad of possible causes. I suspect it was multifactorial including hypoxia secondary to noncompliance with BiPAP and acute on chronic anemia. There was no obvious source of bleeding found and the patient's hemoglobin is holding greater than 10 at current. There may have been an infectious element and I agree with discharging her with continued antibiotic therapy. She had a troponin elevation, although this may have been secondary to her hypoxia and anemia and not the primary etiology. She has nursing care for 12 hours a day and a home companion for the remaining 12 hours. She will need a repeat BMP and repeat CBC sometime next week and I will monitor those results from the outpatient office. Documented By: Félix Garcia Total Time Spent: Greater than 30 minutes (Félix Garcia.,D.O.) Discharge Instructions Please refer to the electronic Patient Visit Report (Discharge Instructions) for additional information. (Leah Braga MD) Follow-Up with PCP in 1 week (Leah Braga MD)
--- NOTE | 2016-11-26 12:29 | Pharmacy Progress Note ---
Glycemic Control: Progress Nt Date of Service Nov 26, 2016. Scope Glycemic Pharmacist consulted by Dr Braga on 11/23/16 for glycemic control and to write orders per [facility] inpatient glycemic control protocol. Objective Accuchecks BSG (last 24hrs): Test 11/25/16 15:22 11/25/16 19:11 11/25/16 22:52 11/26/16 07:01 Bedside Glucose 199 mg/dl (70-90) 200 mg/dl (70-90) 130 mg/dl (70-90) 87 mg/dl (70-90) Test 11/26/16 11:21 Bedside Glucose 63 mg/dl (70-90) Laboratory Data (last 24hrs) Test 11/26/16 05:40 Creatinine 1.20 mg/dl Hemoglobin A1c 5.3 % White Blood Count 5.81 K/uL HbA1c: Test 11/26/16 05:40 Hemoglobin A1c 5.3 % (4.5-5.6) Recent Pertinent Medications Outpatient Anti-diabetic Regimen: * Lantus * 24 units SQ in the AM * 28 units SQ in the PM * Humalog Sliding Scale * 131-180 give 2 units * 181-240 give 4 units * 241-300 give 6 units * 301-350 give 8 units * 351-400 give 10 units * 401-450 give 12 units * >450 give 14 units * A1c = 5.3% 11/26/16 The patient is currently receiving: * Basal insulin: Lantus 15 units every 12 hours * Correctional Insulin: NovoLog Correction per scale q4 hours Goal Range: Low 120 mg/dL - High 160 mg/dL Correction Factor: 25 mg/dL/unit * Prandial insulin: 4 units SQ 5x/day q4H with tube feeds Risk Factors for Insulin Resistance: * Infection: levofloxacin, vancomycin * Diet: Peptamen 250mL 5 times a day, every 4 hours (provides 40-46g of CHO per dose), does not take anything by mouth Assessment & Plan ASSESSMENT: * 61 y/o diabetic who uses basal/bolus insulin as an outpatient with unknown degree of control as A1c is outdated. Likely, control is adequate as last A1c is 6.6% * Lantus BID at home and Humalog sliding scale (with a correction factor ~25mg/ dL/unit) * ADA & AACE recommend a goal blood sugar range 140-180 mg/dl for the majority of critically ill & non-critically ill patients. However, more stringent targets may be selected in individual cases. Chose lower goal range based on age and outpatient control. 11/24/16 * Last evening, BSGs slightly hypoglycemic on admission (60 -->67 -->153mg/dL) * gave small basal dose and correctional NovoLog only * This AM, BSGs on the rise - likely due to basal deficiency * Increase basal insulin toward home doses (slightly less as she was recently hypoglycemic) * Peptamen given 5x/day and provides 40g of CHO * schedule NovoLog with a carb ratio ~10 (4 units SQ 5x/day) * A1c outdated (>90 days since assessment) 11/25/16 * BSGs improved with the addition of Lantus and NovoLog to cover Peptamen bolus feeds. * Heparin infusion stopped (decrease in IV dextrose) - this, in addition to high ratio of basal/bolus insulin, may lead to a trend downward in BSGs * decrease basal insulin and make up for needs with NovoLog to strive for a 50/ 50 ratio of basal/bolus insulins * No correctional insulin required, see above * Peptamen coverage appears appropriate at this time 11/26/16 * Ms Agrawal received 55 units of insulin with BSGs ranging from 133-202mg/dL ( above goal range) * Today, fasting BSG slightly below goal range at 87mg/dL * patient received 1/2 dose Lantus per order * Pre-lunch, hypoglycemia occurred * unsure if secondary to delay in Peptamen administration vs too high of insulin doses or both - decrease scheduled NovoLog doses - hold PM Lantus tonight * A1c resulted at 5.3% PLAN FOR INPATIENT GLYCEMIC CONTROL: * Lantus 15 units SQ BID * give 1/2 dose if BSG is below 110mg/dL * HOLD DOSE 3/3 PM * NovoLog SQ for correctional purposes * correction factor 25mg/dL/unit * goal range 120-160mg/dL (will only receive this dosing if hyperglycemic) * NovoLog 3 units SQ 5x/d q4H with Peptamen * A1c 5.3% - patient may be experiencing hypoglycemia as an outpatient? * Please note that the plan above was derived based on current level of insulin resistance and hospital stress. These recommendations are appropriate for inpatient admission only. Plan of care upon discharge will need to be reassessed to avoid potential outpatient hypo/hyperglycemia. Thank you.
[2016-11-26] MEDS ORDERED: INSULIN ASPART 100 UNITS/ML 3 ML PEN SC SCH (15:00)
--- NOTE | 2016-11-26 15:29 | Pharmacy Progress Note ---
Pharmacy Antibiotic Prog Note Date of Service: Nov 26, 2016. Subjective: The patient is currently receiving vancomycin 1250 mg iv q 14 hrs for PNA The patient is currently on day #3 of IV therapy. Objective: Height (Feet): 5 Height (Inches): 1.00 Weight (Kilograms): 105.900 Levels: Item Value Date Time Vancomycin Level Trough 29.1 mcg/ml 11/26/16 0549 Lab Results (24hrs): Laboratory Tests Test 11/26/16 05:40 Creatinine 1.20 mg/dl White Blood Count 5.81 K/uL Assessment & Plan: Vancomycin: * Trough level this am was supratherapeutic at about ~29 mcg/ml (goal 15-20 mcg/ ml) * Will hold further doses for today ; plan to order another random level in the am to assist with further dosing; estimated level tomorrow am still >15 mcg/ml * Cultures have been negative thus far, patient for possible discharge today Pharmacy will continue to follow and will adjust dose/frequency as necessary. Thank you
[2016-11-26] MEDS: TRAMADOL HCL 50 MG TAB PEG PRN (16:37)
[2016-11-26] MEDS: LEVOFLOXACIN / D5W 500 MG in PREMIXED IN D5W 100 ML IV SCH (16:38)
[2016-11-26] MEDS: LORAZEPAM 0.5 MG TAB PEG SCH (18:46)
[2016-12-27] MEDS ORDERED: LEVO125T4 PEG (05:18)
[2016-12-29] MEDS ORDERED: RXNS10 PO (16:07)
== END 2016-11-26 21:11 | disposition home health service (06) | DRG 189 ==
LOC: ENRESERVTM → ENRESERVDT → EDBD 08:52 → C.EDB 08:53 → C.2T 13:58
PROVIDERS: ADMIT Family Medicine; ATTEND Family Medicine
DX: J96.21 Acute and chronic respiratory failure with hypoxia (principal); J18.9 Pneumonia, unspecified organism; D62 Acute posthemorrhagic anemia; N17.9 Acute kidney failure, unspecified; I13.0 Hypertensive heart and chronic kidney disease with heart failure and stage 1 through stage 4 chronic kidney disease, or unspecified chronic kidney disease; I50.32 Chronic diastolic (congestive) heart failure; E66.2 Morbid (severe) obesity with alveolar hypoventilation; Z68.41 Body mass index [BMI] 40.0-44.9, adult; I69.354 Hemiplegia and hemiparesis following cerebral infarction affecting left non-dominant side; J44.9 Chronic obstructive pulmonary disease, unspecified; Z87.891 Personal history of nicotine dependence; Z99.81 Dependence on supplemental oxygen; Z91.19 Patient's noncompliance with other medical treatment and regimen; R79.89 Other specified abnormal findings of blood chemistry; E11.22 Type 2 diabetes mellitus with diabetic chronic kidney disease; N18.3 Chronic kidney disease, stage 3 (moderate); D63.8 Anemia in other chronic diseases classified elsewhere; R50.9 Fever, unspecified; T80.89XA Other complications following infusion, transfusion and therapeutic injection, initial encounter; G40.909 Epilepsy, unspecified, not intractable, without status epilepticus; E03.9 Hypothyroidism, unspecified; F20.9 Schizophrenia, unspecified; F32.9 Major depressive disorder, single episode, unspecified; F41.9 Anxiety disorder, unspecified; E78.5 Hyperlipidemia, unspecified; I25.2 Old myocardial infarction; Z86.14 Personal history of Methicillin resistant Staphylococcus aureus infection; Z79.02 Long term (current) use of antithrombotics/antiplatelets; Z79.1 Long term (current) use of non-steroidal anti-inflammatories (NSAID); Z79.4 Long term (current) use of insulin; Z79.51 Long term (current) use of inhaled steroids; Z79.899 Other long term (current) drug therapy; Z88.2 Allergy status to sulfonamides; Z82.49 Family history of ischemic heart disease and other diseases of the circulatory system; Z83.3 Family history of diabetes mellitus

== ENCOUNTER 2016-12-27 04:45 | Inpatient (IN) | payer OTHER ==
[~2016-12-27] VITALS: Ht 157.5 cm; Wt 102.0 kg
[2016-12-27] VITALS (7 sets, daily range): BP systolic 134–146; BP diastolic 67–68; PULSE 85–103; TEMP 36.3; O2SAT 88–98; BMI 45.9
[~2016-12-27 04:45] MED LIST changes: +ACET650S10 PR; +ALBINS/ INH; -ALBU1AER9 INH; -ASPCH81 PEG; +ASPCH81X PEG; +ATOR-24 PEG; -DEXT40GE PEG; +DEXT40GE2 PEG; -DOCU-94 PO; +FURO-85 PEG; +HYDR-5688 PEG; -IPRA-2 INH; +LEVO88TA3 PO; -LIDO1CRE EXT; +LIDO2GEL8 TOP; +LORA-741 PEG; -LPT40 PO; +MECL1TAB40 PEG; -MULT-506 PEG; -OMEP20CA59 PO; +OXGN; +PRLSR20 PEG; +PRVHFAIN INH; +RISP1SOL4 GT; -RISP2TAB22 PEG; -SYN88 PEG; +TRAM-10 PEG; -TYL325X PEG; +VNTHFA/IN INH; -WATER STERILE PEG; +[UNRECOGNIZED DRUG - OTHER] GT
[2016-12-27] MEDS ORDERED: LEVO125T5 PEG (05:18)
[2016-12-27] MEDS ORDERED: ASPI-435 PEG (05:26)
[2016-12-27] MEDS ORDERED: [UNRECOGNIZED DRUG - CODE] PEG (05:27)
[2016-12-27] MEDS ORDERED: RANI300T2 PEG (05:28)
[2016-12-27] MEDS ORDERED: ACET650S10 PR (05:34)
[2016-12-27] MEDS ORDERED: ACET325T96 PEG (05:34)
[2016-12-27 05:45] LABS: PARTIAL THROMBOPLASTIN RATIO 0.8; PROTHROMBIN TIME (PATIENT) 10.8 SECONDS (9.0-12.0)
[2016-12-27] MEDS ORDERED: ALBUT/IPRATROP 3MG/0.5MG NEB 3 ML VIAL INH ONE (05:45)
[2016-12-27 05:54] LABS: ALB/GLOB RATIO 0.7 (0.9-2); ALKALINE PHOSPHATASE 146 U/L (45-117); ALT/SGPT 26 U/L (12-78); AST/SGOT 20 U/L (15-37); BLOOD UREA NITROGEN 46 mg/dl (7-18); BUN/CREATININE RATIO 35.6 (10-20); CALCIUM 9.2 mg/dl (8.5-10.1); CARBON DIOXIDE 42 mmol/L (21-32); CHLORIDE 97 mmol/L (98-107); GLUCOSE 108 mg/dl (70-99); POTASSIUM 4.8 mmol/L (3.5-5.1); SODIUM 142 mmol/L (136-145)
--- NOTE | 2016-12-27 06:41 | DIAGNOSTIC IMAGING REPORT ---
CHEST ONE VIEW PORTABLE CLINICAL HISTORY: chest pain dyspnea COMPARISON STUDY: 11/25/2016 FINDINGS: Increased density right hemithorax compared to the prior exam. Left lung remains clear. Diaphragms smooth. IMPRESSION: Diffuse infiltrate right mid and lower lung. Electronically signed by: Mendez Adkins M.D. 12/27/2016 6:40 AM Dictated Date/Time: 12/27/2016 6:39 AM
[2016-12-27 06:47] LABS: MEAN CELL VOLUME 100.4 fL (80-100); MEAN CORPUSCULAR HEMOGLOBIN 32.4 pg (25-34); MEAN CORPUSCULAR HGB CONC 32.3 g/dl (32-36); RED BLOOD COUNT 2.59 M/uL (4.2-5.4); WHITE BLOOD COUNT 9.26 K/uL (4.8-10.8)
[2016-12-27 06:51] LABS: MEAN PLATELET VOLUME 11.1 fL (7.4-10.4); PLATELET COUNT 99 K/uL (130-400)
[2016-12-27] MEDS: LEVAQUIN 750MG / 150ML D5W IV ONE ×2 (07:05→07:28)
--- NOTE | 2016-12-27 07:09 | EMERGENCY ROOM VISIT NOTE ---
ED Visit Note First contact with patient: 05:23 Patient was seen by our PA/SEWING TEACHER. I was involved in the patient's care and did evaluate the patient myself. I was involved in the care throughout the ER stay. The patient appears to have pneumonia by workup. She was having some difficulty this evening and brought by her family for evaluation. She has a history of respiratory issues. Admission/observation is warranted.
[2016-12-27 07:52] LABS: BASO % 0.1 %; BASO ABS # 0.01 K/uL (0-0.2); COMPLETE YES; EOS % 1.1 %; IG% 1.1 %; LYMPH % 7.1 %; LYMPH ABS # 0.66 K/uL (1.2-3.4); MONO % 9.1 %; NEUT % 81.5 %
[2016-12-27] MEDS ORDERED: ALBUTEROL 0.083% NEBU SOLN 3 ML VIAL INH PRN (08:15)
[2016-12-27] MEDS ORDERED: MAGNESIUM HYDROXIDE SUSP 30 ML UDC PEG PRN (08:15)
[2016-12-27] MEDS ORDERED: GLUCOSE 10 TABS/TUBE PO PRN (08:15)
[2016-12-27] MEDS ORDERED: GLUCOSE 40% GEL 15 GM TUBE PO PRN (08:15)
[2016-12-27] MEDS ORDERED: ONDANSETRON INJ 2 MG/ML 2 ML VIAL IV PRN (08:15)
[2016-12-27] MEDS ORDERED: DEXTROSE 50% 50 ML SYR IV PRN (08:15)
[2016-12-27] MEDS ORDERED: TRAMADOL HCL 50 MG TAB PEG PRN (08:15)
[2016-12-27] MEDS ORDERED: POLYETHYLENE (MIRALAX) 17 GM PACK PEG PRN (08:15)
[2016-12-27] MEDS ORDERED: HYDROCODONE/ACETAMOPHEN 5/325MG TAB PEG PRN (08:15)
[2016-12-27] MEDS ORDERED: ACETAMINOPHEN 325 MG TAB PEG PRN (08:15)
[2016-12-27] MEDS ORDERED: BISACODYL 10 MG SUPP PR PRN (08:15)
[2016-12-27] MEDS ORDERED: GLUCAGON FOR INJ 1 MG VIAL SQ PRN (08:15)
[2016-12-27] MEDS ORDERED: MoRPHine SULFATE 4 MG/ML 1 ML CARP\\VIAL IV PRN (08:45)
--- NOTE | 2016-12-27 08:45 | History and Physical ---
History & Physical Date & Time of Service: Dec 27, 2016 at 08:23 Chief Complaint: Chest Pain/Pain Around G-Tube Site Primary Care Physician: Félix Garcia D.O. History of Present Illness Source: patient This is a 61-year-old female with a past medical history of diastolic CHF, COPD , acute on chronic anemia, diabetes type 2, history of CVA with a left hemiplegia, history of an STEMI beginning of September 2016, CK disease stage III , seizure disorder/epilepsy, hypothyroidism, schizoaffective disorder, anxiety, depression, now presenting with increased chest tightness brought from home, with a possible RLL pneumonia as seen on chest xray. Patient is a poor historian, and no family is present in the room. The patient has been admitted twice within the last 2 months, this will be her third admission. The first was on October 04 for NSTEMI and the 2nd was on November 23 for pneumonia where she completed course of Zosyn and then followed up with 5 more days of Levaquin. She denies having any shortness of breath, or work of breathing. She is currently satting adequately on her normal 2 L of supplemental oxygen, denies feeling short of breath, denies cough, denies sputum production. Her complaint is regarding abdominal pain currently, states generalized and she cannot determine a focal point. She denies any nausea, vomiting, diarrhea or constipation. She reports she does have a PEG tube and receives all meals through this, the borders of this appear to be intact. In the ER chest x-ray appears to have a right lower lobe pneumonia, has been afebrile, WBC is 9.26. We'll check a troponin. Pt has had elevated troponin in the past. Past Medical/Surgical History Medical Problems: (1) Asthma, Unspecified Status: Chronic (2) Bronchitis Status: Resolved (3) COPD (chronic obstructive pulmonary disease) Status: Chronic (4) Diab W Oth Spec Manifest, Type Ii Or Unspec Type, Not Uncntr Status: Chronic (5) Epilepsy Status: Chronic (6) Hyperlipidemia Status: Chronic (7) Hypertension Nos Status: Chronic (8) Mild Mental Retardation Status: Chronic (9) Schizoaffective Disorder, Unspecified Status: Chronic (10) Schizophrenia Nos-Unspec Status: Chronic Family History Diabetes mellitus Heart disease Social History Smoking Status: Never Smoker Smokeless Tobacco Use: No Alcohol Use: none Drug Use: none Marital Status: in relationship Housing status: fci Occupational Status: unemployed Immunizations History of Influenza Vaccine: Yes Influenza Vaccine Date: Jul 24, 2010 History of Tetanus Vaccine?: Yes History of Pneumococcal: Yes Pneumococcal Date: Jul 15, 2009 History of Hepatitis B Vaccine: Unknown Multi-Drug Resistant Organisms History of MDRO: Yes Type of MDRO: MRSA Allergies Coded Allergies: Sulfa Antibiotics (Verified Allergy, Intermediate, RASH, 12/27/16) Home Medications Scheduled Amlodipine Besylate (Amlodipine Besylate), 5 MG PEG QAM Aspirin (Aspirin 81), 81 MG PEG QAM Atorvastatin (Lipitor), 40 MG PEG QAM Budesonide (Inhalation) (Pulmicort Respules 0.5MG/2ML), 0.5 MG INH BIDR Clopidogrel (Plavix), 75 MG PEG DAILY Fluoxetine (Prozac), 10 MG PEG QAM Furosemide (Lasix), 20 MG PEG QAM Insulin Glargine (Lantus), 28 UNITS SC QPM Insulin Glargine (Lantus), 24 UNITS SC QAM Lamotrigine (Lamotrigine), 100 MG PEG BID Levothyroxine Sodium (Levothyroxine Sodium), 125 MCG PEG QAM Lorazepam (Ativan), 0.5 MG PEG HS Meclizine Hcl (Meclizine Hcl), 12.5 MG PEG UD Metoprolol Tartrate (Lopressor), 25 MG PEG BID Nutritional Supplements (Isosource 1.5 Eulogio), 250 ML PEG 5XD Oxygen (Oxygen), 2 LITERS NA CONTINOUS Ranitidine Hcl (Zantac), 300 MG PEG BID Risperidone (Risperdal), 2 MG GT QAM Risperidone (Risperidone), 4 MG GT QPM Valproic Acid (Valproic Acid), 10 ML PEG TID Scheduled PRN Acetaminophen (Tylenol), 650 MG DC TID PRN for Pain or Fever Acetaminophen Tab (Tylenol), 650 MG PEG TID PRN for Pain Albuterol (Ventolin Hfa), 2 PUFFS INH Q4 PRN for Wheezing Albuterol Hfa (Ventolin Hfa), 2 PUFFS INH Q4H PRN for Wheezing Albuterol Sulf (Proventil 0.083% 2.5MG/3ML), 2.5 MG INH Q6H PRN for Wheezing Bisacodyl (Bisac-Evac), 10 MG DC every 4 days PRN for Constipation Dextrose (Diabetic Use) (Glutose 15), 15 GM PEG UD PRN for BS Glucagon (Glucagon Emergency Kit), 1 MG IM prn PRN for HYPOGLYCEMIA PROTOCOL Hydrocodone/Acetaminophen 5MG/325MG ([place] 5MG/325MG), 1 TABLET PEG Q8H PRN for Pain Lidocaine Hcl (Lidocaine Hcl), 1 APPLN TOP for Pain Magnesium Hydroxide (Milk Of Magnesia), 30 ML PEG DIRECTED PRN for Constipation Tramadol (Ultram), 50 MG PEG Q4H PRN for Pain Review of Systems Constitutional: No chills, No fever, No sweats Eyes: No diplopia, No redness ENT: No sore throat, No trouble swallowing Respiratory: No cough, No dyspnea on exertion, No shortness of breath Cardiovascular: No chest pain, No palpitations Abdomen: + pain, No constipation, No diarrhea, No nausea, No vomiting Musculoskeletal: No joint pain, No muscle pain Neurologic: + paralysis (left sided hemiplegia 2/2 stroke) Psychiatric: No anxiety, No depression symptoms Endocrine: No fatigue Integumentary: No itch, No rash Physical Exam Vital Signs Date Time Temp Pulse Resp B/P Pulse Ox O2 Delivery O2 Flow Rate FiO2 12/27/16 07:37 98 Nasal Cannula 2.0 12/27/16 07:04 90 12 168/88 98 Room Air 12/27/16 06:02 87 16 158/84 97 Nasal Cannula 2.0 12/27/16 05:19 94 Nasal Cannula 2.0 12/27/16 05:18 94 Nasal Cannula 2.0 12/27/16 05:03 90 12/27/16 04:45 88 20 157/75 94 Nasal Cannula 2.0 General Appearance: WD/WN, no apparent distress, + obese, + pertinent finding ( talks slowly, requires questions be asked several times before she answers) Head: normocephalic, atraumatic, + pertinent finding (drooling) Eyes: PERRL, EOMI ENT: hearing grossly normal, + pertinent finding (enlarged tongue) Neck: supple, no JVD Respiratory/Chest: no respiratory distress, no accessory muscle use, + pertinent finding (wearing 2 L O2 via NC, diminished breath sounds at bases, + crackles RLL) Cardiovascular: regular rate, rhythm, no JVD, no murmur Abdomen/GI: normal bowel sounds, soft, no organomegaly, + pertinent finding (+ PEG tube in LUQ, no surrounding erythema. Generalized tenderness throughout) Extremities/Musculoskelatal: no calf tenderness, + pedal edema (1+ pedal edema up to ant tib region bilaterally) Neurologic/Psych: + disoriented (oriented to self, not place or time. +left sided hemiplegia, +needs to be asked questions several times before responds although answers make sense, +follows commands well. Strength in RLE is 3/5, LLE is flaccid. RUE ext with 5/5 strength and LUE is flaccid.) Skin: normal color, warm/dry Diagnostics Laboratory Results Results Past 24 Hours Test 12/27/16 05:05 12/27/16 05:22 12/27/16 06:08 12/27/16 06:14 Range/Units Prothrombin Time 10.8 9.0-12.0 SECONDS Prothromb Time International Ratio 1.0 0.9-1.1 Activated Partial Thromboplast Time 20.1 21.0-31.0 SECONDS Partial Thromboplastin Ratio 0.8 Sodium Level 142 136-145 mmol/L Potassium Level 4.8 3.5-5.1 mmol/L Chloride Level 97 98-107 mmol/L Carbon Dioxide Level 42 21-32 mmol/L Anion Gap 3.0 3-11 mmol/L Blood Urea Nitrogen 46 7-18 mg/dl Creatinine 1.30 0.60-1.20 mg/dl Est Creatinine Clear Calc Drug Dose 55.6 ml/min Estimated GFR () 52.0 Estimated GFR (Non- 44.9 BUN/Creatinine Ratio 35.6 10-20 Random Glucose 108 70-99 mg/dl Calcium Level 9.2 8.5-10.1 mg/dl Total Bilirubin 0.3 0.2-1 mg/dl Aspartate Amino Transf (AST/SGOT) 20 15-37 U/L Alanine Aminotransferase (ALT/SGPT) 26 12-78 U/L Alkaline Phosphatase 146 45-117 U/L Total Creatine Kinase 33 26-192 U/L Creatine Kinase MB < 0.5 0.5-3.6 ng/ml Creatine Kinase MB Ratio 0-3.0 Total Protein 6.8 6.4-8.2 gm/dl Albumin 2.9 3.4-5.0 gm/dl Globulin 3.9 2.5-4.0 gm/dl Albumin/Globulin Ratio 0.7 0.9-2 Bedside Troponin I 0.000 0-0.045 ng/ml White Blood Count 9.26 4.8-10.8 K/uL Red Blood Count 2.59 4.2-5.4 M/uL Hemoglobin 8.4 12.0-16.0 g/dL Hematocrit 26.0 37-47 % Mean Corpuscular Volume 100.4 80-100 fL Mean Corpuscular Hemoglobin 32.4 25-34 pg Mean Corpuscular Hemoglobin Concent 32.3 32-36 g/dl Platelet Count 99 130-400 K/uL Mean Platelet Volume 11.1 7.4-10.4 fL Neutrophils (%) (Auto) 81.5 % Lymphocytes (%) (Auto) 7.1 % Monocytes (%) (Auto) 9.1 % Eosinophils (%) (Auto) 1.1 % Basophils (%) (Auto) 0.1 % Neutrophils # (Auto) 7.55 1.4-6.5 K/uL Lymphocytes # (Auto) 0.66 1.2-3.4 K/uL Monocytes # (Auto) 0.84 0.11-0.59 K/uL Eosinophils # (Auto) 0.10 0-0.5 K/uL Basophils # (Auto) 0.01 0-0.2 K/uL RDW Standard Deviation 63.6 36.4-46.3 fL RDW Coefficient of Variation 17.3 11.5-14.5 % Immature Granulocyte % (Auto) 1.1 % Immature Granulocyte # (Auto) 0.10 0.00-0.02 K/uL Red Blood Cell Morphology Unremarkable Diagnostic Radiology CHEST ONE VIEW PORTABLE CLINICAL HISTORY: chest pain dyspnea COMPARISON STUDY: 11/25/2016 FINDINGS: Increased density right hemithorax compared to the prior exam. Left lung remains clear. Diaphragms smooth. IMPRESSION: Diffuse infiltrate right mid and lower lung. Electronically signed by: Mendez Adkins M.D. 12/27/2016 6:40 AM Dictated Date/Time: 12/27/2016 6:39 AM The status of this report is Signed. EKG Vent. rate 88 BPM DC interval 226 ms QRS duration 116 ms QT/QTc 356/430 ms P-R-T axes 46 -24 57 Sinus rhythm with first-degree block, no ST wave inversions or ischemic changes. Impression Assessment and Plan This is a 61-year-old female with a past medical history of diastolic CHF, COPD , acute on chronic anemia, diabetes type 2, history of CVA with a left hemiplegia, history of an STEMI beginning of September 2016, CK disease stage III , seizure disorder/epilepsy, hypothyroidism, schizoaffective disorder, anxiety, depression, now presenting with increased chest tightness brought from home, with a possible RLL pneumonia as seen on chest xray. ?Right lower lobe pneumonia - Admit to [facility] - Continue on Levaquin IV for now - Follow up with BCx, attempt to collect a sputum culture if possible - Aspiration precautions - Speech therapy consult- previously was on a special diet Abdominal pain - Patient has a PEG tube, receives Isosource 5 times daily, needs meclizine 15 minutes prior to any peg tube feeds (isosource). - Keep NPO for now with aspiration precautions secondary to possible pneumonia - Cut Lantus in half with a.m. and p.m. doses due to NPO - Antiemetics with Zofran - Pain control with morphine sulfate, Percocet - Aspiration precautions - Will check abdominal CT Diastolic CHF - Cont Lasix 20 mg via PEG - Metoprolol 25 mg BID PEG History of CVA Left hemiplegia - Cont plavix 75 mg daily - Dum-lib-cmuk mattress, Q2H turn and repo Chronic Anemia - Hgb is stable DM II - Lantus home dosing 28U PM and 24 U AM - will cut the doses in half while nothing by mouth - Insulin sliding scale with Accu-Cheks ACHS Hx NSTEMI - Checking troponin with chest tightness on physical - EKG appears to be NSR with AV block, no ST changes Seizure disorder - Continue lamictal 100 mg BID, valproic acid 500 mg TID Hypothyroidism - Cont levothyroxine 125 mcg Schitzoaffective Disorder Anxiety/Depression - Cont prozac DVT ppx: heparin subq, teds, scds CODE STATUS: FULL CODE Level of Care Med/Surg Advanced Directives Existing Living Will: No Existing Power of Watershed Engineer: No Resuscitation Status FULL RESUSCITATION VTE Prophylaxis VTE Risk Assessment Done? Y/N: Yes Risk Level: Low Given or contraindicated: Unfractionated heparin MANNIE, TFelipeEGiancarlo Moya, SCD's
[2016-12-27] MEDS ORDERED: MoRPHine SULFATE 4 MG/ML 1 ML CARP\\VIAL ONE (08:58)
[2016-12-27] MEDS ORDERED: ONDANSETRON INJ 2 MG/ML 2 ML VIAL ONE (08:58)
[2016-12-27] MEDS ORDERED: OPTIRAY 320 IV PRN (09:45)
--- NOTE | 2016-12-27 10:51 | DIAGNOSTIC IMAGING REPORT ---
ABDOMEN AND PELVIS CT WITH IV CONTRAST CT DOSE: 1316.93 mGycm HISTORY: Pain abd pain TECHNIQUE: Multiaxial CT images of the abdomen and pelvis were performed following the use of intravenous contrast. COMPARISON STUDY: 07/31/2015 FINDINGS: Interval development of a right pleural effusion. Right lower lobe atelectatic change. Minimal infiltrative/atelectatic change left base. Liver demonstrates mild biliary ductal prominence post cholecystectomy. Pancreas is uniform. Mild stable splenomegaly. The right lung pulmonary nodule previously described is not well seen due to the presence of the fusion. Mild body wall anasarca has compared to the prior exam. Several small renal cortical cysts. No evidence renal hydronephrosis. Interval placement of a gastrostomy tube in good position. Nonobstructive bowel pattern. Bladder is midline. There are no associated calcifications. Scattered colonic diverticuli with no evidence for diverticulitis. IMPRESSION: 1. Parenchymal infiltrate combined with right lower lobe atelectasis right lung base.. 2. Right and to a much lesser extent left basilar pleural fluid. 3. Placement of a gastrostomy tube in good position. 4. Nonobstructive bowel pattern. 5. Mild body wall anasarca. Electronically signed by: Mendez Adkins M.D. 12/27/2016 10:50 AM Dictated Date/Time: 12/27/2016 10:44 AM
[2016-12-27] MEDS ORDERED: FUROSEMIDE 20 MG TAB PEG SCH (11:30)
[2016-12-27] MEDS: ALBUT/IPRATROP 3MG/0.5MG NEB 3 ML VIAL INH SCH ×3 (11:59→19:27)
[2016-12-27 12:57] LABS: ALLEN TEST POS (POS); ARTERIAL BLD GAS O2 SATURATION 90.9 % (90-95); ARTERIAL BLOOD GAS HCO3 39 mmol/L (19-24); ARTERIAL BLOOD GAS PO2 71 mm/Hg (80-95); ARTERIAL BLOOD GAS pH 7.35 (7.35-7.45); O2 ADMINISTRATION 3L
[2016-12-27] MEDS: VALPROIC ACID 500 MG/10 ML UDP PEG SCH ×2 (14:15→20:08)
[2016-12-27] MEDS: RISPERIDONE 1 MG/ML SOLN GT SCH ×2 (14:15→20:08)
[2016-12-27] MEDS: ATORVASTATIN 40 MG TAB PEG SCH (14:16)
[2016-12-27] MEDS: MECLIZINE HCL 12.5 MG TAB PO SCH ×3 (14:16→23:14)
[2016-12-27] MEDS: CLOPIDOGREL BISULFATE 75 MG TAB PEG SCH (14:16)
[2016-12-27] MEDS: LEVOTHYROXINE 125 MCG TAB PEG SCH (14:17)
[2016-12-27] MEDS: ASPIRIN 81 MG CHEW PEG SCH (14:17)
[2016-12-27] MEDS: AMLODIPINE BESYLATE 5 MG TAB PEG SCH (14:17)
[2016-12-27] MEDS: FLUOXETINE HCL 20 MG/5 ML GT SCH (14:18)
[2016-12-27] MEDS: RANITIDINE HCL SYRUP 150 MG/10 ML UDC PEG SCH ×2 (14:18→20:10)
[2016-12-27] MEDS: INSULIN GLARGINE SOLOSTAR 100 UNITS/ML 3 ML PEN SC SCH ×2 (14:20→22:14)
[2016-12-27] MEDS: HEPARIN SOD 5000 UNIT/0.5 ML CARP SQ SCH ×2 (14:20→22:11)
[2016-12-27] MEDS ORDERED: INSULIN ASPART 100 UNITS/ML 3 ML PEN SC SCH (16:30)
[2016-12-27] MEDS: PEPTAMEN 1.5 CAL 1000ML BAG PEG SCH ×3 (16:30→23:13)
[2016-12-27] MEDS ORDERED: NURSING DECISION MEDICATION ORDER SCH (17:30)
[2016-12-27] MEDS: INSULIN ASPART 100 UNITS/ML 3 ML PEN SC SCH (18:00)
[2016-12-27] MEDS: METOPROLOL TARTRATE 25 MG TAB PEG SCH (20:09)
[2016-12-27] MEDS: LORAZEPAM 0.5 MG TAB PEG SCH (22:02)
[2016-12-27] MEDS ORDERED: FUROSEMIDE INJ 40 MG in SYRINGE 0 ML IV STA (23:52)
[2016-12-28] VITALS (46 sets, daily range): BP systolic 101–180; BP diastolic 52–90; PULSE 67–89; TEMP 36–37.2; O2SAT 91–100; Ht 157.5 cm; Wt 102.0 kg
[2016-12-28] MEDS ORDERED: NURSING VERBAL MED ORDER ONE
[2016-12-28] MEDS: INSULIN ASPART 100 UNITS/ML 3 ML PEN SC SCH ×4 (00:19→17:59)
[2016-12-28] MEDS ORDERED: METHYLPREDNISOLONE 125 MG VIAL IV STA (00:54)
[2016-12-28] MEDS ORDERED: METHYLPREDNISOLONE 125 MG in SYRINGE 0 ML IV STA (01:04)
--- NOTE | 2016-12-28 01:12 | Progress Note ---
Progress Note Date of Service Dec 28, 2016. Progress Note Received a call about patient being fluid overloaded, edematous- ordered Lasix 40 and advised that I would see the patient shortly. Received call again that patient's respiratory status seemed to deteriorate. She was placed on Non-rebreather. I put in an Order for Bipap and had respiratory see her urgently to transition. I went to see the patient at the bedside and she was on 15/5, 100% FiO2, sating at 93-94% She was somewhat difficult to arouse. non verbal, minimally responsive to sternal rub Exam: General: somnolent, difficult to arouse Heart: RRR, S1S2 present Lungs: Coarse breath sounds bilaterally, +'ve Rales, Decreased at the bases bilaterally I did speak to Dr. Hunter who arrived at the bedside shortly after. We decided to transfer the patient to Tele/ICU status initially. ABG- 7.36, PCo2- 67.8, HC03- 38.3, pO2- 59- mixed process Blood work, CBC, Chem panel, Troponin, EKG ordered Chest CT decided against given patient creatinine Head CT- negative Chest X-ray was significant for worsening bilateral infiltrates/effusions, concerning of fluid overload- given another dose of lasix with albumin. Also patient started on Vancomycin since she has a history of MRSA, Mrsa screen pending. Also given 125 Solu-medrol. Patient seemed to awaken shortly after being moved to [facility]. But does not answer questions or follow commands. @ 3:00 am- labs reveal Hyperkalemia at 5.9, Anemia with hgb of 8, troponin elevation at 0.115 (likely demand but will trend x 3) Transfusion ordered- no family to consent 1 Gm of Eulogio Gluconate + 10 units of regular insulin. Dextrose not ordered because patients blood sugar was 298, BSG check every hr for 4 hours. EKG with Peaked T waves. Will need coverage beyond the 10 units. Has Derick scheduled Repeat BMP, cbc in 3 hours Repeat EKG in 3 hours
[2016-12-28] MEDS ORDERED: SODIUM CHLORIDE 0.9% 500ML 500 ML IV SCH (01:15)
[2016-12-28] MEDS ORDERED: OPTIRAY 320 IV PRN (01:15)
[2016-12-28 01:16] LABS: IPAP 15; ISTAT ALLEN TEST Pass; ISTAT ARTERIAL BLOOD GAS HCO3 38 meq/L (19-24); ISTAT ARTERIAL BLOOD GAS PCO2 68 mmHg (35-46); ISTAT ARTERIAL BLOOD GAS PO2 59 mmHg (80-95); ISTAT ARTERIAL BLOOD GAS pH 7.36 (7.35-7.45); ISTAT CARBON DIOXIDE > 40 mEq/l (24-31); ISTAT DELIVERY SYSTEM BIPAP; ISTAT FIO2 100 %; ISTAT RATE 12; ISTAT SITE R Radial
[2016-12-28] MEDS: ALBUT/IPRATROP 3MG/0.5MG NEB 3 ML VIAL INH SCH ×5 (01:21→20:24)
[2016-12-28] MEDS ORDERED: ALBUMIN 25% 50 ML with FUROSEMIDE INJ 40 MG IV STA ×2 (01:27)
[2016-12-28 01:57] LABS: HEMATOCRIT 25.2 % (37-47); MEAN CORPUSCULAR HEMOGLOBIN 33.3 pg (25-34); MEAN CORPUSCULAR HGB CONC 31.7 g/dl (32-36); MEAN PLATELET VOLUME 11.1 fL (7.4-10.4); PLATELET COUNT 95 K/uL (130-400); WHITE BLOOD COUNT 7.73 K/uL (4.8-10.8)
[2016-12-28 02:00] LABS: BASO % 0.1 %; BASO ABS # 0.01 K/uL (0-0.2); COMPLETE YES; EOS % 0.3 %; IG% 1.6 %; LYMPH % 6.7 %; LYMPH ABS # 0.52 K/uL (1.2-3.4); MONO % 6.7 %; NEUT % 84.6 %; STOMATOCYTE 1+
[2016-12-28] MEDS ORDERED: VANCOMYCIN INJ 2,800 MG in SODIUM CHLORIDE 0.9% 500ML 500 ML IV SCH (02:00)
[2016-12-28] MEDS ORDERED: VANCOMYCIN CONSULT ACTIVE PRN (02:00)
[2016-12-28 02:05] LABS: ALB/GLOB RATIO 0.7 (0.9-2); CALCIUM 8.8 mg/dl (8.5-10.1); CKMB/CK RATIO 2.6 (0-3.0); CREATININE 1.7 mg/dl (0.60-1.20); MAGNESIUM 2.3 mg/dl (1.8-2.4); POTASSIUM 5.9 mmol/L (3.5-5.1)
[2016-12-28] MEDS ORDERED: CALCIUM GLUCONATE 10% 1,000 MG in SODIUM CHLORIDE 0.9% 50ML 50 ML IV STA (03:12)
[2016-12-28] MEDS ORDERED: INSULIN HUMAN REGULAR PER UNIT 10 UNITS in SYRINGE 9.9 ML IV STA (03:24)
--- NOTE | 2016-12-28 04:04 | EMERGENCY ROOM VISIT NOTE ---
History First contact with patient: 05:23 Chief Complaint: PAIN (GENERALIZED) Stated Complaint: RLL PNEUMONIA History of Present Illness The patient is a 61 year old female who presents to the Emergency Room with complaints of chest pain and difficulty breathing worsening over the past day. The patient has an extensive medical history including stroke and diabetes. She has difficulty using the left side of her body because of her symptoms. She is accompanied by her boyfriend who acts as the primary historian. Evidently the patient was at home tonight and indicated to the boyfriend that she was having difficulty in her chest. The patient has been admitted several times to the hospital for respiratory issues, and he brought her in for evaluation. There is been no report of recent fever or chills. The patient does use oxygen at home and has a PEG tube. Her discomfort is currently rated an 8/10. Review of Systems More than 10 systems were reviewed and otherwise negative with the exception of history of present illness. Past Medical/Surgical History Medical Problems: (1) Acute respiratory failure (2) Asthma, Unspecified (3) Bronchitis (4) COPD (chronic obstructive pulmonary disease) (5) Diab W Oth Spec Manifest, Type Ii Or Unspec Type, Not Uncntr (6) Epilepsy (7) Hemiparesis affecting dominant side as late effect of cerebrovascular accident (CVA) (8) Hyperlipidemia (9) Hypertension Nos (10) Hypothyroid (11) Mild Mental Retardation (12) RLL pneumonia (13) Schizoaffective Disorder, Unspecified (14) Schizophrenia Nos-Unspec (15) Sepsis (16) Slurred speech (17) Stroke Family History Diabetes mellitus Heart disease Social History Smoking Status: Never Smoker Smokeless Tobacco Use: No Alcohol Use: none Drug Use: none Marital Status: in relationship Housing Status: lives with significant other Occupation Status: unemployed Current/Historical Medications Scheduled Amlodipine Besylate (Amlodipine Besylate), 5 MG PEG QAM Aspirin (Aspirin 81), 81 MG PEG QAM Atorvastatin (Lipitor), 40 MG PEG QAM Budesonide (Inhalation) (Pulmicort Respules 0.5MG/2ML), 0.5 MG INH BIDR Clopidogrel (Plavix), 75 MG PEG DAILY Fluoxetine (Prozac), 10 MG PEG QAM Furosemide (Lasix), 20 MG PEG QAM Insulin Glargine (Lantus), 28 UNITS SC QPM Insulin Glargine (Lantus), 24 UNITS SC QAM Lamotrigine (Lamotrigine), 100 MG PEG BID Levothyroxine Sodium (Levothyroxine Sodium), 125 MCG PEG QAM Lorazepam (Ativan), 0.5 MG PEG HS Meclizine Hcl (Meclizine Hcl), 12.5 MG PEG UD Metoprolol Tartrate (Lopressor), 25 MG PEG BID Nutritional Supplements (Isosource 1.5 Eulogio), 250 ML PEG 5XD Oxygen (Oxygen), 2 LITERS NA CONTINOUS Ranitidine Hcl (Zantac), 300 MG PEG BID Risperidone (Risperdal), 2 MG GT QAM Risperidone (Risperidone), 4 MG GT QPM Valproic Acid (Valproic Acid), 500 MG PEG TID Scheduled PRN Acetaminophen (Tylenol), 650 MG [place] TID PRN for Pain or Fever Acetaminophen Tab (Tylenol), 650 MG PEG TID PRN for Pain Albuterol (Ventolin Hfa), 2 PUFFS INH Q4 PRN for Wheezing Albuterol Hfa (Ventolin Hfa), 2 PUFFS INH Q4H PRN for Wheezing Albuterol Sulf (Proventil 0.083% 2.5MG/3ML), 2.5 MG INH Q6H PRN for Wheezing Bisacodyl (Bisac-Evac), 10 MG [place] every 4 days PRN for Constipation Dextrose (Diabetic Use) (Glutose 15), 15 GM PEG UD PRN for BS Glucagon (Glucagon Emergency Kit), 1 MG IM prn PRN for HYPOGLYCEMIA PROTOCOL Hydrocodone/Acetaminophen 5MG/325MG ([place] 5MG/325MG), 1 TABLET PEG Q8H PRN for Pain Lidocaine Hcl (Lidocaine Hcl), 1 APPLN TOP for Pain Magnesium Hydroxide (Milk Of Magnesia), 30 ML PEG DIRECTED PRN for Constipation Tramadol (Ultram), 50 MG PEG Q4H PRN for Pain Allergies Coded Allergies: Sulfa Antibiotics (Verified Allergy, Intermediate, RASH, 12/27/16) Physical Exam Vital Signs Date Time Temp Pulse Resp B/P Pulse Ox O2 Delivery O2 Flow Rate FiO2 12/27/16 07:37 98 Nasal Cannula 2.0 12/27/16 07:04 90 12 168/88 98 Room Air 12/27/16 06:02 87 16 158/84 97 Nasal Cannula 2.0 12/27/16 05:19 94 Nasal Cannula 2.0 12/27/16 05:18 94 Nasal Cannula 2.0 12/27/16 05:03 90 12/27/16 04:45 88 20 157/75 94 Nasal Cannula 2.0 Pain Rating (0-10): 5.0 Physical Exam VITALS: Vitals are noted on the nurse's note and reviewed by myself. Vital signs stable. GENERAL: Obese chronically ill-appearing female who answers questions very slowly in 1-2 word answers MOUTH: Mucous membranes moist. Tonsils are not enlarged. Pharynx without erythema, blood, or exudate. Uvula midline. Airway patent. NECK: Supple without nuchal rigidity. No lymphadenopathy. No thyromegaly. Cervical spine is nontender. HEART: Regular rate and rhythm without murmurs gallops or rubs. LUNGS: Scattered rhonchi with right lower lobe crackles ABDOMEN: Positive normal bowel sounds x 4. Soft, nontender, without masses or organomegaly. PEG tube appears in place without significant evidence of infection. Medical Decision & Procedures ER Provider Diagnostic Interpretation: CHEST ONE VIEW PORTABLE CLINICAL HISTORY: chest pain dyspnea COMPARISON STUDY: 11/25/2016 FINDINGS: Increased density right hemithorax compared to the prior exam. Left lung remains clear. Diaphragms smooth. IMPRESSION: Diffuse infiltrate right mid and lower lung. Laboratory Results Test 12/27/16 05:05 12/27/16 05:22 12/27/16 06:14 Prothrombin Time 10.8 SECONDS (9.0-12.0) Prothromb Time International Ratio 1.0 (0.9-1.1) Activated Partial Thromboplast Time 20.1 SECONDS (21.0-31.0) Partial Thromboplastin Ratio 0.8 Bedside Troponin I 0.000 ng/ml (0-0.045) Red Blood Cell Morphology Unremarkable Medications Administered Medications (Trade) Dose Ordered Sig/Tristian Route Start Time Stop Time Status Last Admin Dose Admin Albuterol/ Ipratropium (Duoneb) 3 ml NOW ONCE INH 12/27/16 05:45 12/27/16 05:46 DC 12/27/16 05:40 3 ML Levofloxacin (Levaquin / D5W) 750 mg NOW ONCE IV 12/27/16 06:45 12/27/16 06:46 DC 12/27/16 07:28 750 MG ED Course Physical exam and history were performed. Nursing notes and EMR were reviewed. Patient appears to have several chronic medical conditions with onset of chest discomfort tonight. The patient appears chronically ill and has significant rhonchi throughout her lungs. IV access was established and labs were obtained. The patient was given a DuoNeb treatment. Chest x-ray was performed. The patient's blood work is as above and was reviewed. She does not have a significantly elevated white blood cell count, gross anemia, bandemia, or significant electrolyte imbalance. Her [id number] troponin was negative. Chest x-ray is concerning for a right sided lower pneumonia, which clinically would correlate with her symptoms. Because of this she was given IV Levaquin. The case was discussed with my attending physician, Dr. Harris, who also dependently evaluated the patient. The patient does not appear stable for discharge home. I did discuss the case with the on-call hospitalist, who agreed to evaluate the patient here in the ER. Please see their dictation for further patient course, plan, and disposition. The chart was completed utilizing [employer] Voice Recognition Software. Grammatical errors, random word insertions, pronoun errors, and incomplete sentences are an occasional consequence of this system due to software limitations, ambient noise, and hardware issues. Any formal questions or concerns about the content, text, or information contained within the body of this dictation should be directly addressed to the provider for clarification. . Medical Decision Differential diagnosis includes, but is not limited to: Myocardial infarction, dysrhythmia, pericarditis, pneumothorax, aortic aneurysm/dissection, DVT/PE, anxiety, GERD, PUD, electrolyte imbalance, thyroid disorder, pneumonia, bronchitis, pancreatitis, and others Impression Primary Impression: RLL pneumonia Departure Information Dispostion Admitted as an inpatient Condition FAIR Referrals Félix Garcia D.O. (PCP) Forms WORK / SCHOOL INSTRUCTIONS, HOME CARE DOCUMENTATION FORM, IMPORTANT VISIT INFORMATION Patient Instructions My [facility] [employer]
[2016-12-28] MEDS ORDERED: GLUCOSE 40% GEL 15 GM TUBE PO PRN (04:45)
[2016-12-28] MEDS ORDERED: DEXTROSE 50% 50 ML SYR IV PRN (04:45)
[2016-12-28] MEDS ORDERED: GLUCOSE 10 TABS/TUBE PO PRN (04:45)
[2016-12-28] MEDS ORDERED: GLUCAGON FOR INJ 1 MG VIAL SQ PRN (04:45)
[2016-12-28 06:12] LABS: HEMATOCRIT 23.8 % (37-47); MEAN CELL VOLUME 103.9 fL (80-100); MEAN CORPUSCULAR HEMOGLOBIN 32.8 pg (25-34); MEAN CORPUSCULAR HGB CONC 31.5 g/dl (32-36); RED BLOOD COUNT 2.29 M/uL (4.2-5.4)
[2016-12-28 06:15] LABS: MEAN PLATELET VOLUME 10.9 fL (7.4-10.4); PLATELET COUNT 93 K/uL (130-400)
[2016-12-28] MEDS: HEPARIN SOD 5000 UNIT/0.5 ML CARP SQ SCH ×3 (06:22→21:11)
[2016-12-28] MEDS ORDERED: INSULIN ASPART 100 UNITS/ML 3 ML PEN SC SCH (06:45)
[2016-12-28 06:47] LABS: BUN/CREATININE RATIO 32.8 (10-20); CREATININE 1.7 mg/dl (0.60-1.20); POTASSIUM 5.9 mmol/L (3.5-5.1)
[2016-12-28 06:50] LABS: BASO % 0.1 %; BASO ABS # 0.01 K/uL (0-0.2); COMPLETE YES; EOS % 0.3 %; IG% 1.6 %; MONO % 2.3 %; NEUT % 90.7 %; STOMATOCYTE 1+
[2016-12-28] MEDS: MECLIZINE HCL 12.5 MG TAB PO SCH ×5 (07:00→23:00)
[2016-12-28] MEDS: PEPTAMEN 1.5 CAL 1000ML BAG PEG SCH ×5 (07:00→22:28)
--- NOTE | 2016-12-28 07:17 | DIAGNOSTIC IMAGING REPORT ---
HEAD CT NONCONTRAST CT DOSE: 614.27 mGy.cm HISTORY: Altered mental status TECHNIQUE: Multiaxial CT images of the head were performed without the use of intravenous contrast. Automated exposure control was utilized for this study. Comparison: Head CT 10/04/2016. Findings: Near complete opacification of the right mastoid air cells and partial passive use of the left mastoid air cells. Fluid level within the right sphenoid sinus. The calvarium and skull base are intact. There is no mass, hematoma, midline shift, acute infarct. White matter hypodensity is nonspecific but suggestive of microvascular ischemic change. The ventricles and sulci demonstrate mild age-related involutional changes. Impression: No acute intracranial abnormality. Atrophy and microvascular ischemic changes. Sinus/mastoid disease as described above. Electronically signed by: Inocente Welch M.D. 12/28/2016 7:16 AM Dictated Date/Time: 12/28/2016 7:14 AM
--- NOTE | 2016-12-28 07:45 | DIAGNOSTIC IMAGING REPORT ---
CHEST ONE VIEW PORTABLE HISTORY: hypoxia COMPARISON: Chest 12/27/2016. FINDINGS: Progression of the moderate pulmonary edema and moderate bilateral pleural effusions. Low lung volumes. Bilateral mid to lower lung zone densities have progressed. There is cardiomegaly. No pneumothorax. IMPRESSION: 1. Progression of the moderate pulmonary edema and moderate bilateral pleural effusions. 2. Bilateral mid to lower lung zone densities may represent atelectasis or pneumonia. Electronically signed by: Inocente Welch M.D. 12/28/2016 7:43 AM Dictated Date/Time: 12/28/2016 7:42 AM
[2016-12-28] MEDS ORDERED: FUROSEMIDE 20 MG TAB PEG SCH (08:00)
--- NOTE | 2016-12-28 08:35 | Clinical Documentation Query ---
QUERY 1 OF [address] LUCERO, In your clinical opinion is this patient being managed for: (x ) Acute on chronic diastolic CHF, POA ( ) Other explanation of clinical findings (Please Explain) ( ) Unable to determine (Please Define) ( ) Need to Discuss ( ) Not Agree The medical record reflects the following clinical findings, treatment, and risk factors. Clinical Indicators: 61 yo female presenting with complaints of chest pain and worsening dyspnea. H/P indicates pt does have a known hx of chronic diastolic CHF. Pt with 1+ pedal edema up to anterior tib region, lung sounds diminished with + crackles RLL. Treatment: transferred to tele, repeat CXR, O2 support, increased initial dose of PO lasix then changed to IV, Risk Factors: age, chronic diastolic CHF, DM, CKD stage III, HTN, pneumonia QUERY [address] LUCERO PETER : CLINICAL DOCUMENTATION QUERY In your clinical opinion is this patient being managed for: (x ) Acute and chronic respiratory failure ( ) Other explanation of clinical findings (Please Explain) ( ) Unable to determine (Please Define) ( ) Need to Discuss ( ) Not Agree The medical record reflects the following clinical findings, treatment, and risk factors. Clinical Indicators: Night hospitalist physician notified of pt being edematous/fluid overloaded. Chest X-ray was significant for worsening bilateral infiltrates/effusions, concerning of fluid overload. Pt noted to have chronic home O2 support also. Treatment: NRB mask, IV lasix, stat respiratory intervention for BIPAP, ABG 7.36/67.8/59/38.3, CXR repeated, IV albumin, moved to tele, IV solumedrol, nebs Risk Factors: HTN, CLARK, DM, COPD, pneumonia QUERY 3 OF 4 In your clinical opinion is this patient being managed for: ( x ) Metabolic encephalopathy ( ) Other explanation of clinical findings (Please Explain) ( ) Unable to determine (Please Define) ( ) Need to Discuss ( ) Not Agree The medical record reflects the following clinical findings, treatment, and risk factors. Clinical Indicators: Pt noted to be disoriented, requiring questions to be repeated several times at time of admission. Thru the night, pt became difficult to arouse, nonverbal and minimally responsive to sternal rub. Treatment: transfer to tele, BIPAP, nebs, IV lasix with IV albumin, IV levaquin, IV vancomycin, IV solumedrol Risk Factors:pneumonia, acute diastolic CHF, acute respiratory failure, acute renal failure QUERY 4 OF 4 In your clinical opinion is this patient being managed for: ( x ) Acute kidney failure ( ) Other explanation of clinical findings (Please Explain) ( ) Unable to determine (Please Define) ( ) Need to Discuss ( ) Not Agree The medical record reflects the following clinical findings, treatment, and risk factors. Clinical Indicators: Initial Cr 1.30 which has trended up to Cr 1.40 Treatment: monitor PRP's, unable to administer fluids due to acute diastolic CHF, I/O, tele monitoring Risk Factors: IV lasix doses, DM, CKD stage III, Please clarify and document your clinical opinion in the progress notes and discharge summary. Terms such as "probable", "suspected", "likely", "questionable", "possible", or "still to be ruled out" are acceptable. IF IN AGREEMENT, YOU MUST DOCUMENT ABOVE DIAGNOSTIC STATEMENT IN DAILY PROGRESS NOTES AND DISCHARGE SUMMARY. This document is not part of the patient's record. Thank You, Lis Alejandro, LATA [phone]
[2016-12-28] MEDS: RISPERIDONE 1 MG/ML SOLN GT SCH ×2 (09:00→19:41)
[2016-12-28] MEDS: VALPROIC ACID 500 MG/10 ML UDP PEG SCH ×3 (09:00→19:43)
[2016-12-28] MEDS: ATORVASTATIN 40 MG TAB PEG SCH (09:00)
[2016-12-28] MEDS: METOPROLOL TARTRATE 25 MG TAB PEG SCH ×2 (09:00→19:41)
[2016-12-28] MEDS: ASPIRIN 81 MG CHEW PEG SCH (09:00)
[2016-12-28] MEDS: FLUOXETINE HCL 20 MG/5 ML GT SCH (09:00)
[2016-12-28] MEDS: CLOPIDOGREL BISULFATE 75 MG TAB PEG SCH (09:00)
[2016-12-28] MEDS ORDERED: VANCOMYCIN INJ 1,000 MG in SODIUM CHLORIDE 0.9% 250ML 250 ML IV SCH (09:00)
[2016-12-28] MEDS: RANITIDINE HCL SYRUP 150 MG/10 ML UDC PEG SCH ×2 (09:00→19:42)
[2016-12-28] MEDS: AMLODIPINE BESYLATE 5 MG TAB PEG SCH (09:00)
[2016-12-28] MEDS: LEVOTHYROXINE 125 MCG TAB PEG SCH (09:00)
[2016-12-28 09:04] LABS: ISTAT ARTERIAL BLOOD GAS HCO3 37 meq/L (19-24); ISTAT ARTERIAL BLOOD GAS PCO2 71 mmHg (35-46); ISTAT ARTERIAL BLOOD GAS PO2 66 mmHg (80-95); ISTAT ARTERIAL BLOOD GAS pH 7.33 (7.35-7.45); ISTAT CARBON DIOXIDE > 40 mEq/l (24-31); ISTAT HEMATOCRIT 22 % (37-47); ISTAT HEMOGLOBIN 7.5 g/dl (12.0-16.0); ISTAT SODIUM 136 mEq/L (135-144)
[2016-12-28] MEDS: INSULIN GLARGINE SOLOSTAR 100 UNITS/ML 3 ML PEN SC SCH ×2 (09:39→21:12)
[2016-12-28] MEDS: FUROSEMIDE INJ 40 MG in SYRINGE 0 ML IV SCH ×2 (09:42→19:49)
[2016-12-28] MEDS: LEVOFLOXACIN / D5W 500 MG in PREMIXED IN D5W 100 ML IV SCH (09:43)
[2016-12-28 10:37] LABS: CKMB/CK RATIO 3.2 (0-3.0)
[2016-12-28 12:53] LABS: IPAP 18; ISTAT ALLEN TEST Pass; ISTAT ARTERIAL BLOOD GAS HCO3 41 meq/L (19-24); ISTAT ARTERIAL BLOOD GAS PCO2 67 mmHg (35-46); ISTAT ARTERIAL BLOOD GAS PO2 65 mmHg (80-95); ISTAT ARTERIAL BLOOD GAS pH 7.39 (7.35-7.45); ISTAT CARBON DIOXIDE > 40 mEq/l (24-31); ISTAT DELIVERY SYSTEM BIPAP; ISTAT FIO2 75 %; ISTAT RATE 16; ISTAT SITE R Radial
--- NOTE | 2016-12-28 12:53 | Progress Note ---
Subjective Date of Service: Dec 28, 2016. Subjective Pt evaluation today including: conversation w/ patient, conversation w/ family (boyfriend and step mother), physical exam, lab review, review of studies, conversation w/ application security consultant, review of inpatient medication list Pain: denies pain PO Intake: NPO Voiding: esquivel catheter in place patient deteriorated over night, more hypoxia, CXR worsening opacity on left side, concern for mucous plug brought to ICU on BIPAP and saturations improved lethargic in the morning long discussion with ICU team, feel that she would need intubated and bronchoscopy to treat acute problem long talk with boyfriend, step-mother (her only family) with the ICU team discussed situation and need for intubation, bronchoscopy, central line, blood transfusion ultimately her ischemic stroke caused all these issues and she has not regained any neurologic function in areas damaged she will continue to be weak, prone to mucous plugging and respiratory failure ICU team would recommend tracheostomy [facility], [facility] if she would want intubated family said that she would not want intubated, not want a tracheostomy they said that prior to her stroke, she would never want intubated/tracheostomy agreed to make her DNR/DNI will discuss when to take off BIPAP Problem List Medical Problems: (1) Acute renal failure Status: Acute (2) Acute respiratory failure with hypoxia and hypercarbia Status: Acute (3) Altered mental state Status: Acute (4) Altered mental status Status: Acute (5) Anemia Status: Acute (6) Anemia Status: Acute (7) Anemia Status: Acute (8) Apneic episode Status: Acute (9) COPD exacerbation Status: Acute (10) CVA (cerebral vascular accident) Status: Acute (11) CVA (cerebral vascular accident) Status: Acute (12) Elevated troponin Status: Acute (13) Hyperkalemia Status: Acute (14) Hypoxia Status: Acute (15) Hypoxia Status: Acute (16) Ischemic stroke Status: Acute (17) Pneumonia involving right lung Status: Acute (18) Pulmonary edema Status: Acute Review of Systems cannot perform detailed ROS due to lethargy she does c/o having BIPAP mask on and requests to take off denies abdominal pain Medications Current Inpatient Medications Medications (Trade) Dose Ordered Sig/Tristian Route Start Time Stop Time Status Last Admin Dose Admin Heparin Sodium (Porcine) (Heparin Sq 5000 Unit/0.5ml) 5,000 unit Q8 SQ 12/27/16 14:00 01/26/17 13:59 12/28/16 06:22 5,000 UNIT Acetaminophen (Tylenol Tab) 650 mg Q4H PRN PEG 12/27/16 08:15 01/26/17 08:14 Polyethylene (Miralax Powder Packet) 17 gm DAILY PRN PEG 12/27/16 08:15 01/26/17 08:14 Ondansetron HCl 4 mg 4 mg Q6H PRN IV 12/27/16 08:15 01/26/17 08:14 Levofloxacin/Prmx (Levaquin / D5W/ Premixed D5W) 100 ml @ 100 mls/hr Q24H IV 12/28/16 08:00 01/02/17 08:59 12/28/16 09:43 100 MLS/HR Albuterol Sulfate (Ventolin 0.083% 2.5MG/3ML Neb) 2.5 mg Q6H PRN INH 12/27/16 08:15 01/26/17 08:14 Amlodipine Besylate (Norvasc Tab) 5 mg QAM PEG 12/27/16 11:30 01/26/17 11:29 12/27/16 14:17 5 MG Aspirin (Aspirin Chew) 81 mg QAM PEG 12/27/16 11:30 01/26/17 11:29 12/27/16 14:17 81 MG Atorvastatin Calcium (Lipitor Tab) 40 mg QAM PEG 12/27/16 11:30 01/26/17 11:29 12/27/16 14:16 40 MG Bisacodyl (Dulcolax Supp) 10 mg DAILY PRN CO 12/27/16 08:15 01/26/17 08:14 Clopidogrel Bisulfate (plAVix TAB) 75 mg DAILY PEG 12/27/16 11:30 01/26/17 11:29 12/27/16 14:16 75 MG Fluoxetine HCl (Prozac Soln) 10 mg QAM GT 12/27/16 11:30 01/26/17 11:29 12/27/16 14:18 10 MG Acetaminophen/ Hydrocodone Bitart ([place] 5/325 Tab) 1 tab Q8H PRN PEG 12/27/16 08:15 01/10/17 08:14 Insulin Glargine (Lantus Solostar Pen) 12 unit QAM SC 12/27/16 11:30 01/26/17 11:29 12/28/16 09:39 12 UNIT Insulin Glargine (Lantus Solostar Pen) 14 unit QPM SC 12/27/16 21:00 01/26/17 20:59 12/27/16 22:14 14 UNIT Lamotrigine (Lamictal Tab) 100 mg BID PEG 12/27/16 11:30 01/26/17 11:29 12/27/16 20:08 100 MG Levothyroxine Sodium (Synthroid Tab) 125 mcg QAM PEG 12/27/16 11:30 01/26/17 11:29 12/27/16 14:17 125 MCG Lorazepam (Ativan Tab) 0.5 mg HS PEG 12/27/16 21:00 01/26/17 20:59 12/27/16 22:02 0.5 MG Magnesium Hydroxide (Milk Of Magnesia Susp) 30 ml DAILY PRN PEG 12/27/16 08:15 01/26/17 08:14 Metoprolol Tartrate (Lopressor Tab) 25 mg BID PEG 12/27/16 20:00 01/26/17 19:59 12/27/16 20:09 25 MG Enteral Nutritional Formula (Peptamen 1.5) 250 ml 5XDQ4H PEG 12/27/16 15:00 01/26/17 14:59 12/27/16 23:13 250 ML Ranitidine HCl (zANTac SYRUP) 300 mg BID PEG 12/27/16 11:30 01/26/17 11:29 12/27/16 20:10 300 MG Risperidone (Risperdal Oral Soln) 4 mg QPM GT 12/27/16 21:00 01/26/17 20:59 12/27/16 20:08 4 MG Risperidone (Risperdal Oral Soln) 2 mg QAM GT 12/27/16 11:30 01/26/17 11:29 12/27/16 14:15 2 MG Tramadol HCl (Ultram Tab) 50 mg Q4H PRN PEG 12/27/16 08:15 01/26/17 08:14 Valproic Acid (Depakene Syrup) 500 mg TID PEG 12/27/16 14:00 01/26/17 13:59 12/27/16 20:08 500 MG Meclizine HCl (Antivert Tab) 12.5 mg 5XDQ4H PO 12/27/16 15:00 01/26/17 14:59 12/27/16 23:14 12.5 MG Glucose (Glucose 40% Gel) 15-30 GRAMS 15 GRAMS... UD PRN PO 12/27/16 08:15 01/26/17 08:14 Glucose (Glucose Chew Tab) 4-8 Tablets 4 Tabl... UD PRN PO 12/27/16 08:15 01/26/17 08:14 Dextrose (Dextrose 50% 50ML Syringe) 25-50ML OF 50% DW IV FOR... UD PRN IV 12/27/16 08:15 01/26/17 08:14 Glucagon (Glucagon Inj) 1 mg UD PRN SQ 12/27/16 08:15 01/26/17 08:14 Albuterol/ Ipratropium (Duoneb) 3 ml QIDR INH 12/27/16 12:00 01/26/17 11:59 12/28/16 11:17 3 ML Morphine Sulfate (MoRPHine SULFATE INJ) 4 mg Q4H PRN IV 12/27/16 08:45 01/10/17 08:44 12/27/16 17:44 4 MG Ioversol (Optiray 320) 100 ml UD PRN IV 12/27/16 09:45 12/31/16 09:44 Insulin Aspart (novoLOG ASPART) SLIDING SCALE If C... Q6 SC 12/27/16 18:00 01/26/17 17:59 12/28/16 12:06 4 UNITS Ioversol (Optiray 320) 100 ml UD PRN IV 12/28/16 01:15 01/01/17 01:14 Vancomycin HCl 1 ea 1 ea UD PRN N/A 12/28/16 02:00 01/27/17 01:59 Furosemide 40 mg/ Syringe 4 ml @ 4 mls/min Q12 IV 12/28/16 09:00 01/27/17 08:59 12/28/16 09:42 4 MLS/MIN Vancomycin HCl/ Sodium Chloride (Vancomycin Inj/ Nss 500ml) 530 ml @ 200 mls/hr Q24H IV 12/29/16 00:00 01/06/17 02:38 Objective Vital Signs Date Time Temp Pulse Resp B/P Pulse Ox O2 Delivery O2 Flow Rate FiO2 12/28/16 11:26 77 100 12/28/16 11:25 77 23 100 BiPAP/CPAP 75 12/28/16 10:00 74 20 140/69 96 BiPAP 100 74 12/28/16 09:00 75 12/28/16 08:00 36.6 85 20 114/60 92 BiPAP 100 85 12/28/16 08:00 95 Room Air 12/28/16 07:31 79 97 12/28/16 07:30 79 16 97 BiPAP/CPAP 100 12/28/16 06:10 73 97 12/28/16 05:16 88 93 12/28/16 04:01 80 15 114/65 94 12/28/16 04:00 94 BiPAP 15.0 100 12/28/16 01:28 84 93 12/28/16 00:55 89 94 12/28/16 00:55 89 20 94 BiPAP/CPAP 100 12/28/16 00:51 88 180/90 93 BiPAP 100 12/28/16 00:00 37.2 83 14 106/56 92 Non-Rebreather 15.0 12/27/16 22:00 Nasal Cannula 4.0 12/27/16 19:27 103 20 88 Nasal Cannula 3.0 12/27/16 17:50 18 146/68 94 Nasal Cannula 2.0 12/27/16 16:18 36.3 89 20 137/67 96 Nasal Cannula 3.0 12/27/16 15:23 85 20 94 Nasal Cannula 3.0 Physical Exam General Appearance: no apparent distress, + obese Eyes: normal inspection, EOMI, sclerae normal ENT: normal ENT inspection, hearing grossly normal, pharynx normal Neck: supple, no adenopathy, no JVD, trachea midline Respiratory/Chest: chest non-tender, no accessory muscle use, + decreased breath sounds, + accessory muscle use, + rhonchi Cardiovascular: regular rate, rhythm, no edema, no gallop, no JVD, no murmur Abdomen: normal bowel sounds, non tender, soft, no organomegaly Extremities: non-tender, normal inspection, no calf tenderness, normal capillary refill, pelvis stable, + pedal edema Neurologic/Psychiatric: puff ironer II-XII nml as tested, normal mood/affect, + motor weakness, + depressed affect, + disoriented Skin: normal color, warm/dry, no rash Laboratory Results Last 24 Hours Test 12/27/16 12:45 12/27/16 14:19 12/27/16 18:15 12/27/16 21:54 Arterial Blood pH 7.35 Arterial Blood Partial Pressure CO2 72 mmHg Arterial Blood Partial Pressure O2 71 mm/Hg Arterial Blood HCO3 39 mmol/L Arterial Blood Oxygen Saturation 90.9 % Arterial Blood Base Excess 12.0 mEq/L Arterial Blood Gas Delivery 3L Talon Test POS Troponin I 0.017 ng/ml 0.025 ng/ml Bedside Glucose 82 mg/dl Test 12/27/16 23:23 12/28/16 01:00 12/28/16 01:26 12/28/16 03:31 Bedside Glucose 272 mg/dl 377 mg/dl Blood Gas Sample Site R Radial Bedside Blood Gas pH (LAB) 7.36 Bedside Blood Gas pCO2 (LAB) 68 mmHg Bedside Blood Gas pO2 (LAB) 59 mmHg Bedside Blood Gas HCO3 (LAB) 38 meq/L Bedside Blood Gas Total CO2 > 40 mEq/l Bedside Blood Gas Base Excess (LAB) 13.0 meq/L Bedside Blood Gas O2 Saturation 88.0 % Talon Test Pass Oxygen Delivery Device BIPAP Bedside Oxygen Rate (breaths/min) 12 Bedside FiO2 100 % Blood Gas IPAP 15 White Blood Count 7.73 K/uL Red Blood Count 2.40 M/uL Hemoglobin 8.0 g/dL Hematocrit 25.2 % Mean Corpuscular Volume 105.0 fL Mean Corpuscular Hemoglobin 33.3 pg Mean Corpuscular Hemoglobin Concent 31.7 g/dl Platelet Count 95 K/uL Mean Platelet Volume 11.1 fL Neutrophils (%) (Auto) 84.6 % Lymphocytes (%) (Auto) 6.7 % Monocytes (%) (Auto) 6.7 % Eosinophils (%) (Auto) 0.3 % Basophils (%) (Auto) 0.1 % Neutrophils # (Auto) 6.54 K/uL Lymphocytes # (Auto) 0.52 K/uL Monocytes # (Auto) 0.52 K/uL Eosinophils # (Auto) 0.02 K/uL Basophils # (Auto) 0.01 K/uL RDW Standard Deviation 68.9 fL RDW Coefficient of Variation 18.1 % Immature Granulocyte % (Auto) 1.6 % Immature Granulocyte # (Auto) 0.12 K/uL Stomatocytes 1+ Sodium Level 139 mmol/L Potassium Level 5.9 mmol/L Chloride Level 96 mmol/L Carbon Dioxide Level 39 mmol/L Anion Gap 4.0 mmol/L Blood Urea Nitrogen 51 mg/dl Creatinine 1.70 mg/dl Est Creatinine Clear Calc Drug Dose 42.5 ml/min Estimated GFR () 37.6 Estimated GFR (Non- 32.4 BUN/Creatinine Ratio 30.0 Random Glucose 298 mg/dl Calcium Level 8.8 mg/dl Magnesium Level 2.3 mg/dl Total Bilirubin 0.5 mg/dl Aspartate Amino Transf (AST/SGOT) 28 U/L Alanine Aminotransferase (ALT/SGPT) 33 U/L Alkaline Phosphatase 153 U/L Total Creatine Kinase 62 U/L Creatine Kinase MB 1.6 ng/ml Creatine Kinase MB Ratio 2.6 Troponin I 0.115 ng/ml Total Protein 6.4 gm/dl Albumin 2.6 gm/dl Globulin 3.8 gm/dl Albumin/Globulin Ratio 0.7 Test 12/28/16 04:21 12/28/16 05:50 12/28/16 06:17 12/28/16 08:50 Bedside Glucose 318 mg/dl 280 mg/dl White Blood Count 8.00 K/uL Red Blood Count 2.29 M/uL Hemoglobin 7.5 g/dL Hematocrit 23.8 % Mean Corpuscular Volume 103.9 fL Mean Corpuscular Hemoglobin 32.8 pg Mean Corpuscular Hemoglobin Concent 31.5 g/dl Platelet Count 93 K/uL Mean Platelet Volume 10.9 fL Neutrophils (%) (Auto) 90.7 % Lymphocytes (%) (Auto) 5.0 % Monocytes (%) (Auto) 2.3 % Eosinophils (%) (Auto) 0.3 % Basophils (%) (Auto) 0.1 % Neutrophils # (Auto) 7.26 K/uL Lymphocytes # (Auto) 0.40 K/uL Monocytes # (Auto) 0.18 K/uL Eosinophils # (Auto) 0.02 K/uL Basophils # (Auto) 0.01 K/uL RDW Standard Deviation 66.8 fL RDW Coefficient of Variation 17.7 % Immature Granulocyte % (Auto) 1.6 % Immature Granulocyte # (Auto) 0.13 K/uL Basophilic Stippling 1+ Stomatocytes 1+ Sodium Level 139 mmol/L Potassium Level 5.9 mmol/L Chloride Level 96 mmol/L Carbon Dioxide Level 37 mmol/L Anion Gap 6.0 mmol/L Blood Urea Nitrogen 56 mg/dl Creatinine 1.70 mg/dl Est Creatinine Clear Calc Drug Dose 39.9 ml/min Estimated GFR () 37.6 Estimated GFR (Non- 32.4 BUN/Creatinine Ratio 32.8 Random Glucose 273 mg/dl Calcium Level 9.0 mg/dl Bedside Hemoglobin 7.5 g/dl Bedside Hematocrit 22 % Bedside Blood Gas pH (LAB) 7.33 Bedside Blood Gas pCO2 (LAB) 71 mmHg Bedside Blood Gas pO2 (LAB) 66 mmHg Bedside Blood Gas HCO3 (LAB) 37 meq/L Bedside Blood Gas Total CO2 > 40 mEq/l Bedside Blood Gas Base Excess (LAB) 12.0 meq/L Bedside Blood Gas O2 Saturation 90.0 % Bedside Sodium 136 mEq/L Bedside Potassium 5.8 mEq/L Test 12/28/16 09:37 12/28/16 11:20 Total Creatine Kinase 145 U/L Creatine Kinase MB 4.7 ng/ml Creatine Kinase MB Ratio 3.2 Troponin I 1.120 ng/ml Bedside Glucose 248 mg/dl Assessment and Plan This is a 61-year-old female with a past medical history of diastolic CHF, COPD , acute on chronic anemia, diabetes type 2, history of CVA with a left hemiplegia, history of an STEMI beginning of September 2016, CK disease stage III , seizure disorder/epilepsy, hypothyroidism, schizoaffective disorder, anxiety, depression, now presenting with increased chest tightness brought from home, with a possible RLL pneumonia as seen on chest xray. - Acute respiratory failure with hypoxia, hypercapnia: worsening today, CXR worse, mucous plugging on left side long talk with ICU and family about aggressive care that would require intubation, bronchoscopy patient consistently said that she would NOT want intubated since her mental status was waxing and waning and her carbon dioxide was high , we had to rely on family family both agreed that she would NOT want intubated again, would not want to remain on ventilatory or tracheostomy made a level V DNR,DNI will keep BIPAP until family decides to remove, make comfortable at that time discussed with all involved Bilateral pneumonia, left mucous plug: continue antibiotics, nebulizers, mucomyst Abdominal pain: resolved today, no changes on CT abdomen pelvis Acute on chronic Diastolic CHF lasix 40mg IV daily, trying to diurese but mucous plug and respiratory failure more pressing issue History of CVA Left hemiplegia - Cont plavix 75 mg daily - [id number] mattress, Q2H turn and repo - weakness driving her respiratory failure and mucous plug, will not improve Chronic Anemia - Hb dropped to 7.5, would consider transfusion but not if going to make comfortable DM II - Lantus home dosing 28U PM and 24 U AM - will cut the doses in half while nothing by mouth - Insulin sliding scale with Accu-Cheks ACHS Hx NSTEMI - troponin up to 1.2, likely from demand ischemia - EKG appears to be NSR with AV block, no ST changes Seizure disorder - Continue lamictal 100 mg BID, valproic acid 500 mg TID Hypothyroidism - Cont levothyroxine 125 mcg Schitzoaffective Disorder Anxiety/Depression - Cont prozac DVT ppx: heparin subq, teds, scds CODE STATUS: changed to DNR, DNI plan to make comfortable, possibly today
[2016-12-28 13:11] LABS: HEMATOCRIT 24.4 % (37-47)
--- NOTE | 2016-12-28 13:28 | Pharmacy Progress Note ---
Pharmacy Antibiotic Consult Date of Service: Dec 28, 2016. Pharmacy Dosing Scope Pharmacy is consulted to initiate vancomycin IV dosing therapy, order appropriate labs and adjust drug dose/frequency. Subjective The patient is a 61 year old female admitted on Dec 27, 2016 at 08:22 with increased chest tightness, RLL appreciated on CXR Objective Height (Feet): 5 Height (Inches): 2.00 Weight (Kilograms): 102.000 Lab Results (24hrs): Laboratory Tests Test 12/28/16 01:26 12/28/16 05:50 BUN/Creatinine Ratio 30.0 32.8 Blood Urea Nitrogen 51 mg/dl 56 mg/dl Creatinine 1.70 mg/dl 1.70 mg/dl White Blood Count 7.73 K/uL 8.00 K/uL Red Blood Count 2.40 M/uL 2.29 M/uL Hemoglobin 8.0 g/dL 7.5 g/dL Hematocrit 25.2 % 23.8 % Mean Corpuscular Volume 105.0 fL 103.9 fL Mean Corpuscular Hemoglobin 33.3 pg 32.8 pg Mean Corpuscular Hemoglobin Concent 31.7 g/dl 31.5 g/dl Platelet Count 95 K/uL 93 K/uL Mean Platelet Volume 11.1 fL 10.9 fL Neutrophils (%) (Auto) 84.6 % 90.7 % Lymphocytes (%) (Auto) 6.7 % 5.0 % Monocytes (%) (Auto) 6.7 % 2.3 % Eosinophils (%) (Auto) 0.3 % 0.3 % Basophils (%) (Auto) 0.1 % 0.1 % Neutrophils # (Auto) 6.54 K/uL 7.26 K/uL Lymphocytes # (Auto) 0.52 K/uL 0.40 K/uL Monocytes # (Auto) 0.52 K/uL 0.18 K/uL Eosinophils # (Auto) 0.02 K/uL 0.02 K/uL Basophils # (Auto) 0.01 K/uL 0.01 K/uL Micro Results: Item Value Date Time MRSA DNA Surveillance Screen - Final Complete 12/28/16 0150 Nasal Uninterpretable result by DNA Probe. ... MRSA Surveillance Culture Received 12/28/16 0150 Nasal Pending Recent Pertinent Medications Item Value Date Time Levofloxacin 750 mg 12/27/16 0645 (Levaquin / D5W) NOW ONCE/IV ONE TIME DOSE IN ED 12/27/16 0728 Assessment & Plan Assessment: * 61 y/o female with multiple hospital admissions this year (both infectious and non-infectious) * History of pneumonia in November 2016 treated with broad-spectrum antibiotics * Currently, WBC and ANC WNL. Lactic acid and pro-calcitonin n/a Plan: * Begin empiric treatment of pneumonia with vancomycin and levofloxacin IV Vancomycin: * Loading dose: 2800 mg (~25mg/kg) IV X 1 dose * Maintenance dose: 1500 mg (~15mg/kg) IV every 24 hours * historically, the patient has accumulated vancomycin secondary to body habitus * Estimated kinetics: T1/2 ~18 hours, Johan ~ 0.038 hours-1 * Goal trough level estimate: between 15 - 20 mcg/mL for pulmonary source Levofloxacin (not a pharmacy consult): * Loading dose: 750 mg IV x1 dose (given in ED onj 12/27/16) * Maintenance dose: 500 mg IV every 24 hours * for CrCl 20-50mL/min may consider 750mg IV every 48 hours Labs: * A trough level has been ordered for: 12/31/16 prior to the dose * MRSA Nasal Swab is pending Pharmacy will continue to follow and will adjust dose/frequency as necessary. Thank you
--- NOTE | 2016-12-28 18:14 | Critical Care Consultation ---
Critical Care Consultation Date of Consultation: Dec 28, 2016. Attending Physician: Deng Oconnor D.O. Reason for Consultation: Respiratory failure History of Present Illness This is 61 year old female with h/o CVA with left hemiplegia, s/p PEG, chronic respiratory failure, COPD, recent RI, CKD, was admitted overnight for chest tightness and non-specific abdominal pain. She became more lethargic, was placed on BIPAP, CXR showing progressive collapse of the left lung. She should be on home O2 and nocturnal BIPAP but is not compliant. We discussed earlier today the possible need for endotracheal intubation, but the family (mother and partner) decided not proceed with aggressive care, issued DNR/DNI. The patient was also more awake on BIPAP and clearly indicated that she wants to have DNR/DNI order Past Medical/Surgical History Medical Problems: COPD CVA with left hemiplegia Recent RI DM HTN Obesity Schizoaffective disorder Hypothyroidism Family History Diabetes mellitus Heart disease Social History Smoking Status: Never Smoker Smokeless Tobacco Use: No Alcohol Use: none Drug Use: none Marital Status: in relationship Housing Status: lives with significant other Occupation Status: unemployed Allergies Coded Allergies: Sulfa Antibiotics (Verified Allergy, Intermediate, RASH, 12/27/16) Home Medications Scheduled Amlodipine Besylate (Amlodipine Besylate), 5 MG PEG QAM Aspirin (Aspirin 81), 81 MG PEG QAM Atorvastatin (Lipitor), 40 MG PEG QAM Budesonide (Inhalation) (Pulmicort Respules 0.5MG/2ML), 0.5 MG INH BIDR Clopidogrel (Plavix), 75 MG PEG DAILY Fluoxetine (Prozac), 10 MG PEG QAM Furosemide (Lasix), 20 MG PEG QAM Insulin Glargine (Lantus), 28 UNITS SC QPM Insulin Glargine (Lantus), 24 UNITS SC QAM Lamotrigine (Lamotrigine), 100 MG PEG BID Levothyroxine Sodium (Levothyroxine Sodium), 125 MCG PEG QAM Lorazepam (Ativan), 0.5 MG PEG HS Meclizine Hcl (Meclizine Hcl), 12.5 MG PEG UD Metoprolol Tartrate (Lopressor), 25 MG PEG BID Nutritional Supplements (Isosource 1.5 Eulogio), 250 ML PEG 5XD Oxygen (Oxygen), 2 LITERS NA CONTINOUS Ranitidine Hcl (Zantac), 300 MG PEG BID Risperidone (Risperdal), 2 MG GT QAM Risperidone (Risperidone), 4 MG GT QPM Valproic Acid (Valproic Acid), 500 MG PEG TID Scheduled PRN Acetaminophen (Tylenol), 650 MG DC TID PRN for Pain or Fever Acetaminophen Tab (Tylenol), 650 MG PEG TID PRN for Pain Albuterol (Ventolin Hfa), 2 PUFFS INH Q4 PRN for Wheezing Albuterol Hfa (Ventolin Hfa), 2 PUFFS INH Q4H PRN for Wheezing Albuterol Sulf (Proventil 0.083% 2.5MG/3ML), 2.5 MG INH Q6H PRN for Wheezing Bisacodyl (Bisac-Evac), 10 MG DC every 4 days PRN for Constipation Dextrose (Diabetic Use) (Glutose 15), 15 GM PEG UD PRN for BS Glucagon (Glucagon Emergency Kit), 1 MG IM prn PRN for HYPOGLYCEMIA PROTOCOL Hydrocodone/Acetaminophen 5MG/325MG ([place] 5MG/325MG), 1 TABLET PEG Q8H PRN for Pain Lidocaine Hcl (Lidocaine Hcl), 1 APPLN TOP for Pain Magnesium Hydroxide (Milk Of Magnesia), 30 ML PEG DIRECTED PRN for Constipation Tramadol (Ultram), 50 MG PEG Q4H PRN for Pain Current Inpatient Medications Current Inpatient Medications Medications (Trade) Dose Ordered Sig/Tristian Route Start Time Stop Time Status Last Admin Dose Admin Heparin Sodium (Porcine) (Heparin Sq 5000 Unit/0.5ml) 5,000 unit Q8 SQ 12/27/16 14:00 01/26/17 13:59 12/28/16 14:00 5,000 UNIT Acetaminophen (Tylenol Tab) 650 mg Q4H PRN PEG 12/27/16 08:15 01/26/17 08:14 Polyethylene (Miralax Powder Packet) 17 gm DAILY PRN PEG 12/27/16 08:15 01/26/17 08:14 Ondansetron HCl 4 mg 4 mg Q6H PRN IV 12/27/16 08:15 01/26/17 08:14 Levofloxacin/Prmx (Levaquin / D5W/ Premixed D5W) 100 ml @ 100 mls/hr Q24H IV 12/28/16 08:00 01/02/17 08:59 12/28/16 09:43 100 MLS/HR Albuterol Sulfate (Ventolin 0.083% 2.5MG/3ML Neb) 2.5 mg Q6H PRN INH 12/27/16 08:15 01/26/17 08:14 Amlodipine Besylate (Norvasc Tab) 5 mg QAM PEG 12/27/16 11:30 01/26/17 11:29 12/27/16 14:17 5 MG Aspirin (Aspirin Chew) 81 mg QAM PEG 12/27/16 11:30 01/26/17 11:29 12/27/16 14:17 81 MG Atorvastatin Calcium (Lipitor Tab) 40 mg QAM PEG 12/27/16 11:30 01/26/17 11:29 12/27/16 14:16 40 MG Bisacodyl (Dulcolax Supp) 10 mg DAILY PRN DC 12/27/16 08:15 01/26/17 08:14 Clopidogrel Bisulfate (plAVix TAB) 75 mg DAILY PEG 12/27/16 11:30 01/26/17 11:29 12/27/16 14:16 75 MG Fluoxetine HCl (Prozac Soln) 10 mg QAM GT 12/27/16 11:30 01/26/17 11:29 12/27/16 14:18 10 MG Acetaminophen/ Hydrocodone Bitart ([place] 5/325 Tab) 1 tab Q8H PRN PEG 12/27/16 08:15 01/10/17 08:14 Insulin Glargine (Lantus Solostar Pen) 12 unit QAM SC 12/27/16 11:30 01/26/17 11:29 12/28/16 09:39 12 UNIT Insulin Glargine (Lantus Solostar Pen) 14 unit QPM SC 12/27/16 21:00 01/26/17 20:59 12/27/16 22:14 14 UNIT Lamotrigine (Lamictal Tab) 100 mg BID PEG 12/27/16 11:30 01/26/17 11:29 12/27/16 20:08 100 MG Levothyroxine Sodium (Synthroid Tab) 125 mcg QAM PEG 12/27/16 11:30 5/3/17 11:29 12/27/16 14:17 125 MCG Lorazepam (Ativan Tab) 0.5 mg HS PEG 12/27/16 21:00 01/26/17 20:59 12/27/16 22:02 0.5 MG Magnesium Hydroxide (Milk Of Magnesia Susp) 30 ml DAILY PRN PEG 12/27/16 08:15 01/26/17 08:14 Metoprolol Tartrate (Lopressor Tab) 25 mg BID PEG 12/27/16 20:00 01/26/17 19:59 12/27/16 20:09 25 MG Enteral Nutritional Formula (Peptamen 1.5) 250 ml 5XDQ4H PEG 12/27/16 15:00 01/26/17 14:59 12/27/16 23:13 250 ML Ranitidine HCl (zANTac SYRUP) 300 mg BID PEG 12/27/16 11:30 01/26/17 11:29 12/27/16 20:10 300 MG Risperidone (Risperdal Oral Soln) 4 mg QPM GT 12/27/16 21:00 01/26/17 20:59 12/27/16 20:08 4 MG Risperidone (Risperdal Oral Soln) 2 mg QAM GT 12/27/16 11:30 01/26/17 11:29 12/27/16 14:15 2 MG Tramadol HCl (Ultram Tab) 50 mg Q4H PRN PEG 12/27/16 08:15 01/26/17 08:14 Valproic Acid (Depakene Syrup) 500 mg TID PEG 12/27/16 14:00 01/26/17 13:59 12/27/16 20:08 500 MG Meclizine HCl (Antivert Tab) 12.5 mg 5XDQ4H PO 12/27/16 15:00 01/26/17 14:59 12/27/16 23:14 12.5 MG Glucose (Glucose 40% Gel) 15-30 GRAMS 15 GRAMS... UD PRN PO 12/27/16 08:15 01/26/17 08:14 Glucose (Glucose Chew Tab) 4-8 Tablets 4 Tabl... UD PRN PO 12/27/16 08:15 01/26/17 08:14 Dextrose (Dextrose 50% 50ML Syringe) 25-50ML OF 50% DW IV FOR... UD PRN IV 12/27/16 08:15 01/26/17 08:14 Glucagon (Glucagon Inj) 1 mg UD PRN SQ 12/27/16 08:15 01/26/17 08:14 Albuterol/ Ipratropium (Duoneb) 3 ml QIDR INH 12/27/16 12:00 01/26/17 11:59 12/28/16 16:03 3 ML Morphine Sulfate (MoRPHine SULFATE INJ) 4 mg Q4H PRN IV 12/27/16 08:45 01/10/17 08:44 12/27/16 17:44 4 MG Ioversol (Optiray 320) 100 ml UD PRN IV 12/27/16 09:45 12/31/16 09:44 Insulin Aspart (novoLOG ASPART) SLIDING SCALE If C... Q6 SC 12/27/16 18:00 01/26/17 17:59 12/28/16 12:06 4 UNITS Ioversol (Optiray 320) 100 ml UD PRN IV 12/28/16 01:15 01/01/17 01:14 Vancomycin HCl 1 ea 1 ea UD PRN N/A 12/28/16 02:00 01/27/17 01:59 Furosemide 40 mg/ Syringe 4 ml @ 4 mls/min Q12 IV 12/28/16 09:00 01/27/17 08:59 12/28/16 09:42 4 MLS/MIN Vancomycin HCl/ Sodium Chloride (Vancomycin Inj/ Nss 500ml) 530 ml @ 200 mls/hr Q24H IV 12/29/16 00:00 01/06/17 02:38 Review of Systems Difficult to obtain secondary to confusion initially Constitutional: No fever Respiratory: + cough, + dyspnea at rest, + shortness of breath, No hemoptysis Cardiovascular: + edema, No chest pain Abdomen: + pain, No nausea, No vomiting Neurologic: + paralysis (left side) Integumentary: No itch, No rash Physical Exam Date Time Temp Pulse Resp B/P Pulse Ox O2 Delivery O2 Flow Rate FiO2 12/28/16 16:08 79 98 12/28/16 16:03 79 22 100 BiPAP/CPAP 98 12/28/16 16:00 BiPAP 75 12/28/16 16:00 36.7 12/28/16 12:00 75 20 143/68 94 BiPAP 65 75 12/28/16 12:00 Room Air 12/28/16 11:26 77 100 12/28/16 11:25 77 23 100 BiPAP/CPAP 75 12/28/16 10:00 74 20 140/69 96 BiPAP 100 74 12/28/16 09:00 75 12/28/16 08:00 36.6 85 20 114/60 92 BiPAP 100 85 12/28/16 08:00 95 Room Air 12/28/16 07:31 79 97 12/28/16 07:30 79 16 97 BiPAP/CPAP 100 12/28/16 06:10 73 97 12/28/16 05:16 88 93 12/28/16 04:01 80 15 114/65 94 12/28/16 04:00 94 BiPAP 15.0 100 12/28/16 01:28 84 93 12/28/16 00:55 89 94 12/28/16 00:55 89 20 94 BiPAP/CPAP 100 12/28/16 00:51 88 180/90 93 BiPAP 100 12/28/16 00:00 37.2 83 14 106/56 92 Non-Rebreather 15.0 12/27/16 22:00 Nasal Cannula 4.0 12/27/16 19:27 103 20 88 Nasal Cannula 3.0 General Appearance: obese, other (lethargic) Eyes: PERRLA Respiratory: other (diminished breath sounds over both lungs, worse on the left ) Cardiovasular: regular rate/rhythm, other (distant heart sounds) Abdomen: non tender, no rebound, no guarding, other (PEG, clean site) Edema: Bilateral LE (2+) Neuro: lethargic, focal weakness (left hemiplegia. Tremulous RUE), other (Able to answer simple questions after being asked repeatedly) Laboratory Results Last 24 Hours Test 12/27/16 18:15 12/27/16 21:54 12/27/16 23:23 12/28/16 01:00 Bedside Glucose 82 mg/dl 272 mg/dl Troponin I 0.025 ng/ml Blood Gas Sample Site R Radial Bedside Blood Gas pH (LAB) 7.36 Bedside Blood Gas pCO2 (LAB) 68 mmHg Bedside Blood Gas pO2 (LAB) 59 mmHg Bedside Blood Gas HCO3 (LAB) 38 meq/L Bedside Blood Gas Total CO2 > 40 mEq/l Bedside Blood Gas Base Excess (LAB) 13.0 meq/L Bedside Blood Gas O2 Saturation 88.0 % Talon Test Pass Oxygen Delivery Device BIPAP Bedside Oxygen Rate (breaths/min) 12 Bedside FiO2 100 % Blood Gas IPAP 15 Test 12/28/16 01:26 12/28/16 03:31 12/28/16 04:21 12/28/16 05:50 White Blood Count 7.73 K/uL 8.00 K/uL Red Blood Count 2.40 M/uL 2.29 M/uL Hemoglobin 8.0 g/dL 7.5 g/dL Hematocrit 25.2 % 23.8 % Mean Corpuscular Volume 105.0 fL 103.9 fL Mean Corpuscular Hemoglobin 33.3 pg 32.8 pg Mean Corpuscular Hemoglobin Concent 31.7 g/dl 31.5 g/dl Platelet Count 95 K/uL 93 K/uL Mean Platelet Volume 11.1 fL 10.9 fL Neutrophils (%) (Auto) 84.6 % 90.7 % Lymphocytes (%) (Auto) 6.7 % 5.0 % Monocytes (%) (Auto) 6.7 % 2.3 % Eosinophils (%) (Auto) 0.3 % 0.3 % Basophils (%) (Auto) 0.1 % 0.1 % Neutrophils # (Auto) 6.54 K/uL 7.26 K/uL Lymphocytes # (Auto) 0.52 K/uL 0.40 K/uL Monocytes # (Auto) 0.52 K/uL 0.18 K/uL Eosinophils # (Auto) 0.02 K/uL 0.02 K/uL Basophils # (Auto) 0.01 K/uL 0.01 K/uL RDW Standard Deviation 68.9 fL 66.8 fL RDW Coefficient of Variation 18.1 % 17.7 % Immature Granulocyte % (Auto) 1.6 % 1.6 % Immature Granulocyte # (Auto) 0.12 K/uL 0.13 K/uL Stomatocytes 1+ 1+ Sodium Level 139 mmol/L 139 mmol/L Potassium Level 5.9 mmol/L 5.9 mmol/L Chloride Level 96 mmol/L 96 mmol/L Carbon Dioxide Level 39 mmol/L 37 mmol/L Anion Gap 4.0 mmol/L 6.0 mmol/L Blood Urea Nitrogen 51 mg/dl 56 mg/dl Creatinine 1.70 mg/dl 1.70 mg/dl Est Creatinine Clear Calc Drug Dose 42.5 ml/min 39.9 ml/min Estimated GFR () 37.6 37.6 Estimated GFR (Non- 32.4 32.4 BUN/Creatinine Ratio 30.0 32.8 Random Glucose 298 mg/dl 273 mg/dl Calcium Level 8.8 mg/dl 9.0 mg/dl Magnesium Level 2.3 mg/dl Total Bilirubin 0.5 mg/dl Aspartate Amino Transf (AST/SGOT) 28 U/L Alanine Aminotransferase (ALT/SGPT) 33 U/L Alkaline Phosphatase 153 U/L Total Creatine Kinase 62 U/L Creatine Kinase MB 1.6 ng/ml Creatine Kinase MB Ratio 2.6 Troponin I 0.115 ng/ml Total Protein 6.4 gm/dl Albumin 2.6 gm/dl Globulin 3.8 gm/dl Albumin/Globulin Ratio 0.7 Bedside Glucose 377 mg/dl 318 mg/dl Basophilic Stippling 1+ Test 12/28/16 06:17 12/28/16 08:50 12/28/16 09:37 12/28/16 11:20 Bedside Glucose 280 mg/dl 248 mg/dl Bedside Hemoglobin 7.5 g/dl Bedside Hematocrit 22 % Bedside Blood Gas pH (LAB) 7.33 Bedside Blood Gas pCO2 (LAB) 71 mmHg Bedside Blood Gas pO2 (LAB) 66 mmHg Bedside Blood Gas HCO3 (LAB) 37 meq/L Bedside Blood Gas Total CO2 > 40 mEq/l Bedside Blood Gas Base Excess (LAB) 12.0 meq/L Bedside Blood Gas O2 Saturation 90.0 % Bedside Sodium 136 mEq/L Bedside Potassium 5.8 mEq/L Total Creatine Kinase 145 U/L Creatine Kinase MB 4.7 ng/ml Creatine Kinase MB Ratio 3.2 Troponin I 1.120 ng/ml Test 12/28/16 12:38 12/28/16 13:02 12/28/16 16:50 Blood Gas Sample Site R Radial Bedside Blood Gas pH (LAB) 7.39 Bedside Blood Gas pCO2 (LAB) 67 mmHg Bedside Blood Gas pO2 (LAB) 65 mmHg Bedside Blood Gas HCO3 (LAB) 41 meq/L Bedside Blood Gas Total CO2 > 40 mEq/l Bedside Blood Gas Base Excess (LAB) 16.0 meq/L Bedside Blood Gas O2 Saturation 92.0 % Talon Test Pass Oxygen Delivery Device BIPAP Bedside Oxygen Rate (breaths/min) 16 Bedside FiO2 75 % Blood Gas IPAP 18 Hemoglobin 7.7 g/dL Hematocrit 24.4 % Creatine Kinase MB Ratio Diagnostic Results CXR: IMPRESSION: 1. Progression of the moderate pulmonary edema and moderate bilateral pleural effusions. 2. Bilateral mid to lower lung zone densities may represent atelectasis or pneumonia. CT abdomen: 1. Parenchymal infiltrate combined with right lower lobe atelectasis right lung base.. 2. Right and to a much lesser extent left basilar pleural fluid. 3. Placement of a gastrostomy tube in good position. 4. Nonobstructive bowel pattern. 5. Mild body wall anasarca. Assessment & Plan Acute on chronic hypercarbic respiratory failure CVA with left hemiplegia CAD, h/o RI DM HTN Depression Plan: The respiratory failure is related to OHS and COPD, exacerbated by the hemiplegia. The patient had numerous admissions in a short span of time. She does not manage her secretions well, is probably aspirating, has a poor cough and gag reflex. She would ultimately get intubated, but the family issued DNI/DNR, respecting the patient's wishes. In my opinion, if she gets intubated, will most likely require a tracheostomy, and they don't want that Continue Abx Chest PT Mucomyst nebs To receive blood transfusion today. Not a candidate for EGD/colonoscopy Overall prognosis is poor, even if she improves and gets discharged Critical care time spent greater than 35 minutes
[2016-12-28] MEDS: LORAZEPAM 0.5 MG TAB PEG SCH (19:48)
[2016-12-28] MEDS: ACETYLCYSTEINE 20% INHAL SOLN ***DISPENSED BY RESP. INH SCH (20:24)
[2016-12-29] VITALS (16 sets, daily range): BP systolic 139–164; BP diastolic 63–78; PULSE 69–86; TEMP 36.6–36.9; O2SAT 98–100
[2016-12-29] MEDS ORDERED: VANCOMYCIN INJ 1,500 MG in SODIUM CHLORIDE 0.9% 500ML 500 ML IV SCH ×2
[2016-12-29] MEDS: INSULIN ASPART 100 UNITS/ML 3 ML PEN SC SCH ×3 (00:18→12:00)
[2016-12-29] MEDS: ALBUT/IPRATROP 3MG/0.5MG NEB 3 ML VIAL INH SCH ×4 (01:51→15:54)
[2016-12-29] MEDS: ACETYLCYSTEINE 20% INHAL SOLN ***DISPENSED BY RESP. INH SCH ×3 (01:51→15:54)
[2016-12-29] MEDS: HEPARIN SOD 5000 UNIT/0.5 ML CARP SQ SCH ×2 (06:22→14:00)
[2016-12-29 06:35] LABS: HEMATOCRIT 21.6 % (37-47); MEAN CELL VOLUME 103.8 fL (80-100); MEAN CORPUSCULAR HEMOGLOBIN 33.2 pg (25-34); MEAN CORPUSCULAR HGB CONC 31.9 g/dl (32-36); MEAN PLATELET VOLUME 11.2 fL (7.4-10.4); PLATELET COUNT 77 K/uL (130-400); RED BLOOD COUNT 2.08 M/uL (4.2-5.4); WHITE BLOOD COUNT 5.53 K/uL (4.8-10.8)
[2016-12-29 06:38] LABS: BUN/CREATININE RATIO 32.8 (10-20); CALCIUM 8.8 mg/dl (8.5-10.1); CREATININE 2.1 mg/dl (0.60-1.20); POTASSIUM 4.9 mmol/L (3.5-5.1)
[2016-12-29] MEDS: MECLIZINE HCL 12.5 MG TAB PO SCH ×3 (07:00→15:00)
[2016-12-29] MEDS: PEPTAMEN 1.5 CAL 1000ML BAG PEG SCH ×3 (07:00→15:00)
[2016-12-29 07:15] LABS: ANISOCYTOSIS PRESENT; BASO % 0.2 %; BASO ABS # 0.01 K/uL (0-0.2); COMPLETE YES; EOS % 0.2 %; IG% 1.1 %; LYMPH % 15.2 %; LYMPH ABS # 0.84 K/uL (1.2-3.4); MONO % 8.7 %; NEUT % 74.6 %
--- NOTE | 2016-12-29 07:41 | Hospitalist Progress Note ---
Hospitalist Progress Note Date of Service Dec 29, 2016. Subjective Pt evaluation today including: conversation w/ patient, conversation w/ family , physical exam, chart review, lab review, review of studies, review of inpatient medication list Pain: none PO Intake: good The patient was seen and examined this morning. Pt reports doing ok overnight, she slept well. Pt was on bipap when I went in to see her and she was able to be switched to an oximask at bedside. She is currently comfortable. Discussion was held with her by herself about hospice, and transition out of the hospital with hospice, she is in agreement with wanting to remain comfortable. Her hgb is low this morning, and I asked if she would like to receive blood transfusion, and she does want this. I will order 1 U PRBC for today. She understands that after being discharged on hospice she won't get blood transfusions, invasive procedures, blood draws, or have to take medications. She will have meds for pain control and air hunger. This discussion was also help with Johan, her boyfriend when he got to the room this morning. I also explained this to Hazel, [id number], over the phone. They are all in agreement with comfort measures. Constitutional: No chills, No fatigue, No fever Eyes: No redness ENT: No dental problems, No nasal symptoms Respiratory: No cough, No shortness of breath Cardiovascular: No chest pain Abdomen: No nausea, No pain, No vomiting Musculoskeletal: No joint pain Female : No dysuria Neurologic: + problem reported (Left paraplegia), + weakness Endo: No fatigue Skin: No itch, No rash Objective Vital Signs Date Time Temp Pulse Resp B/P Pulse Ox O2 Delivery O2 Flow Rate FiO2 12/29/16 04:00 36.7 69 16 153/73 99 BiPAP 50 12/29/16 04:00 98 BiPAP 50 12/29/16 01:51 71 16 99 BiPAP/CPAP 50 12/28/16 23:59 36.0 69 13 120/58 98 BiPAP 50 12/28/16 23:59 98 BiPAP 50 12/28/16 22:16 68 14 99 12/28/16 22:01 67 14 101/52 100 12/28/16 21:46 67 12 100 12/28/16 21:31 69 13 100 12/28/16 21:16 68 12 100 12/28/16 21:08 70 98 50 12/28/16 21:02 69 3 109/54 12/28/16 21:01 74 6 12/28/16 21:00 71 11 12/28/16 20:30 69 11 100 12/28/16 20:25 70 18 91 Nasal Cannula 5.0 12/28/16 20:01 79 8 128/63 95 12/28/16 20:00 82 15 93 12/28/16 20:00 36.5 12/28/16 20:00 Nasal Cannula 5.0 12/28/16 19:30 78 13 96 12/28/16 19:01 75 6 133/62 100 12/28/16 19:00 77 4 100 12/28/16 18:30 80 5 100 12/28/16 18:01 76 16 133/59 100 12/28/16 18:00 78 12 100 12/28/16 18:00 36.7 12/28/16 17:30 79 6 100 12/28/16 17:01 77 15 131/70 100 12/28/16 17:00 77 13 100 12/28/16 16:30 76 10 99 12/28/16 16:08 79 98 12/28/16 16:03 79 22 100 BiPAP/CPAP 98 12/28/16 16:02 83 13 136/70 100 12/28/16 16:00 BiPAP 75 12/28/16 16:00 81 19 100 12/28/16 16:00 36.7 12/28/16 15:30 80 16 100 12/28/16 15:01 69 13 111/56 93 12/28/16 15:00 70 13 94 12/28/16 12:00 75 20 143/68 94 BiPAP 65 75 12/28/16 12:00 Room Air 12/28/16 11:26 77 100 12/28/16 11:25 77 23 100 BiPAP/CPAP 75 12/28/16 10:00 74 20 140/69 96 BiPAP 100 74 12/28/16 09:00 75 12/28/16 08:00 36.6 85 20 114/60 92 BiPAP 100 85 12/28/16 08:00 95 Room Air Physical Exam General Appearance: WD/WN, no apparent distress, + obese Eyes: PERRL, EOMI ENT: hearing grossly normal, + pertinent finding (mucous membranes dry, switched from bipap to oximask and seems to be toleating) Neck: no adenopathy, no JVD Respiratory/Chest: no respiratory distress, no accessory muscle use, + pertinent finding (coarse breath sounds throughout, diminished breath sounds at bases.) Cardiovascular: regular rate, rhythm, + tachycardia Abdomen: normal bowel sounds, non tender, soft Extremities: non-tender, no calf tenderness, + pedal edema Neurologic/Psychiatric: alert, + pertinent finding (oriented to self, place, and year. Cannot tell me the date or month) Skin: normal color, warm/dry Laboratory Results Last 24 Hours Test 12/28/16 08:50 12/28/16 09:37 12/28/16 11:20 12/28/16 12:38 Bedside Hemoglobin 7.5 g/dl Bedside Hematocrit 22 % Bedside Blood Gas pH (LAB) 7.33 7.39 Bedside Blood Gas pCO2 (LAB) 71 mmHg 67 mmHg Bedside Blood Gas pO2 (LAB) 66 mmHg 65 mmHg Bedside Blood Gas HCO3 (LAB) 37 meq/L 41 meq/L Bedside Blood Gas Total CO2 > 40 mEq/l > 40 mEq/l Bedside Blood Gas Base Excess (LAB) 12.0 meq/L 16.0 meq/L Bedside Blood Gas O2 Saturation 90.0 % 92.0 % Bedside Sodium 136 mEq/L Bedside Potassium 5.8 mEq/L Total Creatine Kinase 145 U/L Creatine Kinase MB 4.7 ng/ml Creatine Kinase MB Ratio 3.2 Troponin I 1.120 ng/ml Bedside Glucose 248 mg/dl Blood Gas Sample Site R Radial Talon Test Pass Oxygen Delivery Device BIPAP Bedside Oxygen Rate (breaths/min) 16 Bedside FiO2 75 % Blood Gas IPAP 18 Test 12/28/16 13:02 12/28/16 16:50 12/28/16 17:45 12/28/16 21:06 Hemoglobin 7.7 g/dL Hematocrit 24.4 % Creatine Kinase MB Ratio Bedside Glucose 223 mg/dl 217 mg/dl Test 12/29/16 00:08 12/29/16 05:12 12/29/16 06:15 Bedside Glucose 179 mg/dl 145 mg/dl White Blood Count 5.53 K/uL Red Blood Count 2.08 M/uL Hemoglobin 6.9 g/dL Hematocrit 21.6 % Mean Corpuscular Volume 103.8 fL Mean Corpuscular Hemoglobin 33.2 pg Mean Corpuscular Hemoglobin Concent 31.9 g/dl Platelet Count 77 K/uL Mean Platelet Volume 11.2 fL Neutrophils (%) (Auto) 74.6 % Lymphocytes (%) (Auto) 15.2 % Monocytes (%) (Auto) 8.7 % Eosinophils (%) (Auto) 0.2 % Basophils (%) (Auto) 0.2 % Neutrophils # (Auto) 4.13 K/uL Lymphocytes # (Auto) 0.84 K/uL Monocytes # (Auto) 0.48 K/uL Eosinophils # (Auto) 0.01 K/uL Basophils # (Auto) 0.01 K/uL RDW Standard Deviation 66.8 fL RDW Coefficient of Variation 17.5 % Immature Granulocyte % (Auto) 1.1 % Immature Granulocyte # (Auto) 0.06 K/uL Basophilic Stippling 1+ Anisocytosis PRESENT Sodium Level 141 mmol/L Potassium Level 4.9 mmol/L Chloride Level 97 mmol/L Carbon Dioxide Level 37 mmol/L Anion Gap 7.0 mmol/L Blood Urea Nitrogen 69 mg/dl Creatinine 2.10 mg/dl Est Creatinine Clear Calc Drug Dose 32.3 ml/min Estimated GFR () 29.1 Estimated GFR (Non- 25.1 BUN/Creatinine Ratio 32.8 Random Glucose 128 mg/dl Calcium Level 8.8 mg/dl Assessment and Plan This is a 61-year-old female with a past medical history of diastolic CHF, COPD , acute on chronic anemia, diabetes type 2, history of CVA with a left hemiplegia, history of an STEMI beginning of September 2016, CK disease stage III , seizure disorder/epilepsy, hypothyroidism, schizoaffective disorder, anxiety, depression, now presenting with increased chest tightness brought from home, with a possible RLL pneumonia as seen on chest xray. Pt transitioned to COMFORT CARE only - Consulted palliative medicine - Consult pastoral care - Stop all unnecessary meds - Will continue antibiotics and lasix for now, continue respiratory treatments, cont antiseizure meds, metoprolol for palpitations, alternate between bipap and oximask as tolerated - Continue pain medication- pt may need additional pain meds - per palliative - Plan for 1 U PRBCs today - Move out of ICU to med surg after transfusion today Acute respiratory failure with hypoxia, hypercapnia: - CXR from 12/28 appears worse than when admitted, mucous plugging on left side - The patient's mental status is good during this discussion this morning so she was able to agree to a blood transfusion and also understands the hospice conversation. - long talk with family about aggressive care that would require intubation, bronchoscopy, further lab draws: they are all in agreement this morning to move to comfort care, and would like hospice upon discharge to home. I have already asked CM to assist with d/c planning for home hospice. Family currently has 18/04 care with nurses in the home and has equipment set up. - made a level V DNR,DNI -pt is tolerating BIPAP and alternating with oximask Chronic Anemia - hemmocult negative - Hgb trended down from 7.5 to 6.9 today, plan to transfuse 1 U PRBCs with lasix 20 mg IV afterwards to avoid volume overload. - Pt is in agreement with this. Bilateral pneumonia, left mucous plug: - continue antibiotics, nebulizers, mucomyst CLARK on CKD - Cr. bumped from 1.7 to 2.1, likely from diuresis with lasix for respiratory failure. Will only give 20 mg lasix between PRBCs today to attempt to not injure kidneys more. - Avoid nephrotoxins Abdominal pain - resolved today, no changes on CT abdomen pelvis Acute on chronic Diastolic CHF - lasix 40mg IV daily, -cont for now, trying to diurese but mucous plug and respiratory failure more pressing issue History of CVA Left hemiplegia - Stopped plavix 75 mg daily, asa, amlodipine, atorvastatin - [id number] mattress, Q2H turn and repo - weakness driving her respiratory failure and mucous plug, will not improve DM II - Lantus home dosing 28U PM and 24 U AM - will cut the doses in half while nothing by mouth - can dc upon discharge - Insulin sliding scale with Accu-Cheks ACHS Hx NSTEMI - troponin up to 1.2, likely from demand ischemia - EKG appears to be NSR with AV block, no ST changes Seizure disorder - Continue lamictal 100 mg BID, valproic acid 500 mg TID Hypothyroidism - Cont levothyroxine 125 mcg Schitzoaffective Disorder Anxiety/Depression - Cont prozac DVT ppx: heparin subq, teds, scds CODE STATUS: changed to DNR, DNI, pt transitioned to comfort measures, plan for dc with hospice tomorrow, move out of ICU
[2016-12-29] MEDS ORDERED: FUROSEMIDE INJ 20 MG in SYRINGE 0 ML IV SCH (08:00)
[2016-12-29] MEDS: LEVOFLOXACIN / D5W 500 MG in PREMIXED IN D5W 100 ML IV SCH (10:04)
[2016-12-29] MEDS: FUROSEMIDE INJ 40 MG in SYRINGE 0 ML IV SCH (10:05)
[2016-12-29] MEDS: RANITIDINE HCL SYRUP 150 MG/10 ML UDC PEG SCH (10:07)
[2016-12-29] MEDS: RISPERIDONE 1 MG/ML SOLN GT SCH (10:07)
[2016-12-29] MEDS: LEVOTHYROXINE 125 MCG TAB PEG SCH (10:12)
[2016-12-29] MEDS: FLUOXETINE HCL 20 MG/5 ML GT SCH (10:13)
[2016-12-29] MEDS: VALPROIC ACID 500 MG/10 ML UDP PEG SCH ×2 (10:13→14:12)
[2016-12-29] MEDS: METOPROLOL TARTRATE 25 MG TAB PEG SCH (10:14)
[2016-12-29] MEDS: INSULIN GLARGINE SOLOSTAR 100 UNITS/ML 3 ML PEN SC SCH (10:20)
--- NOTE | 2016-12-29 12:23 | Palliative Care Consultation ---
Consultation Date of Consultation: Dec 29, 2016. Requesting Physician: Mine Tamayo PA-C Attending Physician: Mine Tamayo PA-C; Dr. Oconnor Reason for Consultation: Goals of care History of Present Illness This 61 year old female patient presented to the ED for chest tightness, found to have RLL pneumonia on xray. 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 She has been feeding and taking medications via PEG tube since that time. She lives at home with 24 hour caregivers and her boyfriend/ caregiver Johan. Yesterday, patient went into respiratory here in the hospital and was transferred to ICU, placed on bipap. After a long discussion about her condition and goals of care, the patient, boyfriend Don, and patient's step-mom , they decided to make the patient a DNR/DNI and move toward comfort care. Today , the patient talked with the PA and decided to go to comfort measures only and wants to go home with hospice. Palliative care consulted to assist. I met with the patient in room 109. Don and step-mom did come into room as well. The goal is strictly for comfort at this point. Patient is currently receiving one more unit of blood, she is off the bipap and on 8L oxymask. She is oriented x4, currently denies any pain or discomfort. Patient was extremely emotional during our conversation about her condition and goals of care. Patient stated, "I don't want to here, I just want to go home." Thn said, "I 'm scared to ." The community relations advisor in ICU did contact the patient's blood bank credit clerk who is on his way here. Patient stated she wants to go home, Don agreed that this is their wish. I did tell them that it is a risk that patient could during transport, patient said, "That's a risk I'm willing to take." We discussed hospice and their services, patient and family are all in agreement. I spoke with them specifically about IVF, IV abx, and medications. See plan below. Past Medical/Surgical History Medical History: Aspiration pneumonia Asthma Bronchitis COPD CVA Diabetes Dysphagia Epilepsy Hyperlipidemia Hypertension Schizoaffective disorder Surgical History: PEG tube Social History Smoking Status: Never Smoker History of Alcohol Use: No Drug Use: none Marital Status: in relationship [facility] Status[facility] Occupation Status: unemployed Review of Systems Constitutional: + weakness Respiratory: + cough, + dyspnea on exertion, + shortness of breath, + sputum Cardiac: No chest pain Abdomen: + nausea, + pain, + vomiting Female : No problem reported (esquivel catheter) Psychiatric: + problem reported (fear of dying) Allergies Coded Allergies: Sulfa Antibiotics (Verified Allergy, Intermediate, RASH, 12/27/16) Medications Current Inpatient Medications Medications (Trade) Dose Ordered Sig/Tristian Route Start Time Stop Time Status Last Admin Dose Admin Heparin Sodium (Porcine) (Heparin Sq 5000 Unit/0.5ml) 5,000 unit Q8 SQ 12/27/16 14:00 01/26/17 13:59 12/29/16 06:22 5,000 UNIT Acetaminophen (Tylenol Tab) 650 mg Q4H PRN PEG 12/27/16 08:15 01/26/17 08:14 Polyethylene (Miralax Powder Packet) 17 gm DAILY PRN PEG 12/27/16 08:15 01/26/17 08:14 Ondansetron HCl 4 mg 4 mg Q6H PRN IV 12/27/16 08:15 01/26/17 08:14 Levofloxacin/Prmx (Levaquin / D5W/ Premixed D5W) 100 ml @ 100 mls/hr Q24H IV 12/28/16 08:00 01/02/17 08:59 12/29/16 10:04 100 MLS/HR Albuterol Sulfate (Ventolin 0.083% 2.5MG/3ML Neb) 2.5 mg Q6H PRN INH 12/27/16 08:15 01/26/17 08:14 Bisacodyl (Dulcolax Supp) 10 mg DAILY PRN IA 12/27/16 08:15 01/26/17 08:14 Fluoxetine HCl (Prozac Soln) 10 mg QAM GT 12/27/16 11:30 01/26/17 11:29 12/29/16 10:13 10 MG Acetaminophen/ Hydrocodone Bitart ([place] 5/325 Tab) 1 tab Q8H PRN PEG 12/27/16 08:15 01/10/17 08:14 Insulin Glargine (Lantus Solostar Pen) 12 unit QAM SC 12/27/16 11:30 01/26/17 11:29 12/29/16 10:20 12 UNIT Insulin Glargine (Lantus Solostar Pen) 14 unit QPM SC 12/27/16 21:00 01/26/17 20:59 12/28/16 21:12 14 UNIT Lamotrigine (Lamictal Tab) 100 mg BID PEG 12/27/16 11:30 01/26/17 11:29 12/29/16 10:11 100 MG Levothyroxine Sodium (Synthroid Tab) 125 mcg QAM PEG 12/27/16 11:30 01/26/17 11:29 12/29/16 10:12 125 MCG Lorazepam (Ativan Tab) 0.5 mg HS PEG 12/27/16 21:00 01/26/17 20:59 12/28/16 19:48 0.5 MG Magnesium Hydroxide (Milk Of Magnesia Susp) 30 ml DAILY PRN PEG 12/27/16 08:15 01/26/17 08:14 Metoprolol Tartrate (Lopressor Tab) 25 mg BID PEG 12/27/16 20:00 01/26/17 19:59 12/29/16 10:14 25 MG Enteral Nutritional Formula (Peptamen 1.5) 250 ml 5XDQ4H PEG 12/27/16 15:00 01/26/17 14:59 12/27/16 23:13 250 ML Ranitidine HCl (zANTac SYRUP) 300 mg BID PEG 12/27/16 11:30 01/26/17 11:29 12/29/16 10:07 300 MG Risperidone (Risperdal Oral Soln) 4 mg QPM GT 12/27/16 21:00 01/26/17 20:59 12/28/16 19:41 4 MG Risperidone (Risperdal Oral Soln) 2 mg QAM GT 12/27/16 11:30 01/26/17 11:29 12/29/16 10:07 2 MG Tramadol HCl (Ultram Tab) 50 mg Q4H PRN PEG 12/27/16 08:15 01/26/17 08:14 Valproic Acid (Depakene Syrup) 500 mg TID PEG 12/27/16 14:00 01/26/17 13:59 12/29/16 10:13 500 MG Meclizine HCl (Antivert Tab) 12.5 mg 5XDQ4H PO 12/27/16 15:00 01/26/17 14:59 12/27/16 23:14 12.5 MG Glucose (Glucose 40% Gel) 15-30 GRAMS 15 GRAMS... UD PRN PO 12/27/16 08:15 01/26/17 08:14 Glucose (Glucose Chew Tab) 4-8 Tablets 4 Tabl... UD PRN PO 12/27/16 08:15 01/26/17 08:14 Dextrose (Dextrose 50% 50ML Syringe) 25-50ML OF 50% DW IV FOR... UD PRN IV 12/27/16 08:15 01/26/17 08:14 Glucagon (Glucagon Inj) 1 mg UD PRN SQ 12/27/16 08:15 01/26/17 08:14 Albuterol/ Ipratropium (Duoneb) 3 ml QIDR INH 12/27/16 12:00 01/26/17 11:59 12/29/16 07:48 3 ML Morphine Sulfate (MoRPHine SULFATE INJ) 4 mg Q4H PRN IV 12/27/16 08:45 01/10/17 08:44 12/27/16 17:44 4 MG Ioversol (Optiray 320) 100 ml UD PRN IV 12/27/16 09:45 12/31/16 09:44 Insulin Aspart (novoLOG ASPART) SLIDING SCALE If C... Q6 SC 12/27/16 18:00 01/26/17 17:59 12/29/16 00:18 1 UNITS Ioversol (Optiray 320) 100 ml UD PRN IV 12/28/16 01:15 01/01/17 01:14 Vancomycin HCl 1 ea 1 ea UD PRN N/A 12/28/16 02:00 01/27/17 01:59 Furosemide 40 mg/ Syringe 4 ml @ 4 mls/min Q12 IV 12/28/16 09:00 01/27/17 08:59 12/29/16 10:05 4 MLS/MIN Vancomycin HCl/ Sodium Chloride (Vancomycin Inj/ Nss 500ml) 530 ml @ 200 mls/hr Q24H IV 12/29/16 00:00 01/06/17 02:38 12/29/16 00:13 200 MLS/HR Acetylcysteine 3 ml 3 ml Q6R INH 12/28/16 18:15 01/27/17 18:14 12/29/16 07:48 3 ML Furosemide/Syringe (Lasix Inj/ Syringe) 2 ml @ 4 mls/min TODAY@0800 IV 12/29/16 08:00 12/29/16 12:00 Physical Exam Date Time Temp Pulse Resp B/P Pulse Ox O2 Delivery O2 Flow Rate FiO2 12/29/16 10:15 36.7 82 15 147/65 100 8.0 12/29/16 10:02 36.7 79 18 148/68 100 8.0 12/29/16 09:05 78 18 99 Mask 8.0 12/29/16 08:00 BiPAP 50 12/29/16 08:00 36.7 78 20 156/71 100 BiPAP 50 12/29/16 04:00 36.7 69 16 153/73 99 BiPAP 50 12/29/16 04:00 98 BiPAP 50 12/29/16 01:51 71 16 99 BiPAP/CPAP 50 12/28/16 23:59 36.0 69 13 120/58 98 BiPAP 50 12/28/16 23:59 98 BiPAP 50 12/28/16 22:16 68 14 99 12/28/16 22:01 67 14 101/52 100 12/28/16 21:46 67 12 100 12/28/16 21:31 69 13 100 12/28/16 21:16 68 12 100 12/28/16 21:08 70 98 50 12/28/16 21:02 69 3 109/54 12/28/16 21:01 74 6 12/28/16 21:00 71 11 12/28/16 20:30 69 11 100 12/28/16 20:25 70 18 91 Nasal Cannula 5.0 12/28/16 20:01 79 8 128/63 95 12/28/16 20:00 82 15 93 12/28/16 20:00 36.5 12/28/16 20:00 Nasal Cannula 5.0 12/28/16 19:30 78 13 96 12/28/16 19:01 75 6 133/62 100 12/28/16 19:00 77 4 100 4/4/17 18:30 80 5 100 12/28/16 18:01 76 16 133/59 100 12/28/16 18:00 78 12 100 12/28/16 18:00 36.7 12/28/16 17:30 79 6 100 12/28/16 17:01 77 15 131/70 100 12/28/16 17:00 77 13 100 12/28/16 16:30 76 10 99 12/28/16 16:08 79 98 12/28/16 16:03 79 22 100 BiPAP/CPAP 98 12/28/16 16:02 83 13 136/70 100 12/28/16 16:00 BiPAP 75 12/28/16 16:00 81 19 100 12/28/16 16:00 36.7 12/28/16 15:30 80 16 100 12/28/16 15:01 69 13 111/56 93 12/28/16 15:00 70 13 94 12/28/16 12:00 75 20 143/68 94 BiPAP 65 75 12/28/16 12:00 Room Air 12/28/16 11:26 77 100 12/28/16 11:25 77 23 100 BiPAP/CPAP 75 General Appearance: no apparent distress, + obese Neck: no JVD Respiratory: + rhonchi (very coarse throughtout), + pertinent finding (8L oxymask) Cardiovascular: regular rate, rhythm, + tachycardia Abdomen: normal bowel sounds, non tender, soft Musculoskeletal: pertinent finding (left hemiplegia) Neurologic/Psychiatric: alert, normal mood/affect, oriented x 3, + pertinent finding (tearful) Laboratory Results Last 24 Hours Test 12/28/16 11:20 12/28/16 12:38 12/28/16 13:02 12/28/16 16:50 Bedside Glucose 248 mg/dl Blood Gas Sample Site R Radial Bedside Blood Gas pH (LAB) 7.39 Bedside Blood Gas pCO2 (LAB) 67 mmHg Bedside Blood Gas pO2 (LAB) 65 mmHg Bedside Blood Gas HCO3 (LAB) 41 meq/L Bedside Blood Gas Total CO2 > 40 mEq/l Bedside Blood Gas Base Excess (LAB) 16.0 meq/L Bedside Blood Gas O2 Saturation 92.0 % Talon Test Pass Oxygen Delivery Device BIPAP Bedside Oxygen Rate (breaths/min) 16 Bedside FiO2 75 % Blood Gas IPAP 18 Hemoglobin 7.7 g/dL Hematocrit 24.4 % Creatine Kinase MB Ratio Test 12/28/16 17:45 12/28/16 21:06 12/29/16 00:08 12/29/16 05:12 Bedside Glucose 223 mg/dl 217 mg/dl 179 mg/dl White Blood Count 5.53 K/uL Red Blood Count 2.08 M/uL Hemoglobin 6.9 g/dL Hematocrit 21.6 % Mean Corpuscular Volume 103.8 fL Mean Corpuscular Hemoglobin 33.2 pg Mean Corpuscular Hemoglobin Concent 31.9 g/dl Platelet Count 77 K/uL Mean Platelet Volume 11.2 fL Neutrophils (%) (Auto) 74.6 % Lymphocytes (%) (Auto) 15.2 % Monocytes (%) (Auto) 8.7 % Eosinophils (%) (Auto) 0.2 % Basophils (%) (Auto) 0.2 % Neutrophils # (Auto) 4.13 K/uL Lymphocytes # (Auto) 0.84 K/uL Monocytes # (Auto) 0.48 K/uL Eosinophils # (Auto) 0.01 K/uL Basophils # (Auto) 0.01 K/uL RDW Standard Deviation 66.8 fL RDW Coefficient of Variation 17.5 % Immature Granulocyte % (Auto) 1.1 % Immature Granulocyte # (Auto) 0.06 K/uL Basophilic Stippling 1+ Anisocytosis PRESENT Sodium Level 141 mmol/L Potassium Level 4.9 mmol/L Chloride Level 97 mmol/L Carbon Dioxide Level 37 mmol/L Anion Gap 7.0 mmol/L Blood Urea Nitrogen 69 mg/dl Creatinine 2.10 mg/dl Est Creatinine Clear Calc Drug Dose 32.3 ml/min Estimated GFR () 29.1 Estimated GFR (Non- 25.1 BUN/Creatinine Ratio 32.8 Random Glucose 128 mg/dl Calcium Level 8.8 mg/dl Test 12/29/16 06:15 Bedside Glucose 145 mg/dl Assessment & Plan Palliative Performance Scale: 20 % Problem list: SOB Hemiplegia, left Nonambulatory Acute respiratory failure Anemia Bilateral pneumonia Dysphagia/NPO CLARK on CKD CHF Hx CVA DM Goals of care (Z51.5) Palliative care plan: discussed with patient, boyfriend Johan, step-mom, Dr. Oconnor. -DNR/DNI -Home with hospice, patient chose [facility] -Oxygen mask at 8L. Probably could transition to nasal cannula- titrate to comfort -Keep esquivel catheter -Discontinue antibiotics and IVF -Finish unit of blood, give both doses of Lasix as ordered- confirmed with Dr. Oconnor -No tube feedings, allow PO as tolerated -Recommend Roxanol 5-10mg PO Q2h PRN pain or SOB -Recommend atropine 1% oph soln 4drops PO Q1h PRN secretions Thank you kindly for this consult. Please contact me if there are any further palliative care needs.
--- NOTE | 2016-12-29 14:02 | Discharge Instructions ---
Discharge Instructions Date of Service Dec 29, 2016. Admission Reason for Admission: Rll Pneumonia Discharge Discharge Diagnosis / Problem: Acute respiratory failure, aspiration pneumonia Discharge Goals Goal(s): Decrease discomfort Activity Recommendations Activity Limitations: as noted below Lifting Limitations: no more than 5 pounds Exercise/Sports Limitations: rest today Shower/Bathe: no limitations Driving or Machine Use: do not drive . Instructions / Follow-Up Instructions / Follow-Up You were admitted to [facility] with acute respiratory failure and diagnosed with the acute respiratory failure and aspiration pneumonia. During your stay here you were treated with intravenous antibiotics, pain medications, and Bipap (oxygen through a specialized mask) While you were here, you and your family decided to start comfort measures only, and to transition to hospice. You are being discharged home with a hospice service called [facility] - Continue to wear the oxygen mask as you would like to and titrate it for comfort. - Keep esquivel catheter - Do not take further tube feedings, you may take food/drink by mouth as you are able to - Continue pain control with Roxanol 5-10mg as directed - Continue atropine 1% ophtalmic soluntion for oral secretions every hour as needed Please contact the hospice agency for medication questions and/or other needs. Current Hospital Diet Patient's current hospital diet: Discharge Diet Recommended Diet: Regular Diet Procedures Procedures Performed: Abdomen/pelvis CT Head CT CXR Pending Studies Studies pending at discharge: no Laboratory Results Hemoglobin A1c Test 11/26/16 05:40 Range/Units Estimated Average Glucose 105 mg/dl Hemoglobin A1c 5.3 4.5-5.6 % Lipid Panel Test 11/24/16 08:10 Range/Units Triglycerides Level 96 0-150 mg/dl Cholesterol Level 109 0-200 mg/dl HDL Cholesterol 44 mg/dl Cholesterol/HDL Ratio 2.5 LDL Cholesterol, Calculated 46 mg/dl Medical Emergencies . Who to Call and When: Medical Emergencies: If at any time you feel your situation is an emergency, please call 911 immediately. . Non-Emergent Contact Non-Emergency issues call your: Primary Care Provider (Hospice agency) Call Non-Emergent contact if: you have a fever, your pain is not controlled, your pain is worsening, your pain is concerning you difficulty breathing or have other questions or concerns regarding your health. . Past History Medical & Surgical History: (1) Acute respiratory failure (2) Hemiparesis affecting dominant side as late effect of cerebrovascular accident (CVA) (3) Hypothyroid (4) Diab W Oth Spec Manifest, Type Ii Or Unspec Type, Not Uncntr (5) Hypertension Nos (6) Schizoaffective Disorder, Unspecified (7) COPD (chronic obstructive pulmonary disease) (8) Hyperlipidemia (9) Epilepsy (10) Hyperglycemia . "Provider Documentation" section prepared by Mine Tamayo. VTE Core Measure Inpt VTE Proph given/why not?: Unfractionated heparin SQ, T.E.D. Stockings, SCD 's
[2016-12-29] MEDS ORDERED: OXGN (14:13)
[2016-12-29] MEDS ORDERED: ATROPO PO (14:13)
[2016-12-29] MEDS ORDERED: OXYC10SO PO (14:13)
--- NOTE | 2016-12-29 14:19 | Discharge Summary ---
Discharge Summary Date of Service Dec 29, 2016. Discharge Summary Admission Date: Dec 27, 2016 at 08:22 Discharge Date: Dec 29, 2016 Discharge Disposition: Home (with hospice) Principal Diagnosis: Acute respiratory Failure 2/2 to hypercarbia, CVA, COPD, aspiration pna Problems/Secondary Diagnoses: diastolic CHF, COPD, acute on chronic anemia, diabetes type 2, history of CVA with a left hemiplegia, history of an STEMI beginning of September 2016, CK disease stage III, seizure disorder/epilepsy, hypothyroidism, schizoaffective disorder, anxiety, depression Immunizations: Have You Had Influenza Vaccine: Yes Influenza Vaccine Date: Jul 24, 2010 History of Tetanus Vaccine?: Yes History of Pneumococcal: Yes Pneumococcal Date: Jul 15, 2009 History of Hepatitis B Vaccine: Unknown Procedures: CXR 12/27/16 IMPRESSION: Diffuse infiltrate right mid and lower lung. Abd/pelvis CT 12/27/16 IMPRESSION: 1. Parenchymal infiltrate combined with right lower lobe atelectasis right lung base.. 2. Right and to a much lesser extent left basilar pleural fluid. 3. Placement of a gastrostomy tube in good position. 4. Nonobstructive bowel pattern. CXR 12/28/16 IMPRESSION: 1. Progression of the moderate pulmonary edema and moderate bilateral pleural effusions. 2. Bilateral mid to lower lung zone densities may represent atelectasis or pneumonia. Head CT 12/28/16 Impression: No acute intracranial abnormality. Atrophy and microvascular ischemic changes. Sinus/mastoid disease as described above. Consultations: Critical Care Palliative Pastoral care PT/OT Medication Reconciliation New Medications: Atropine Sulfate (Ophthalmic) (Atropine Sulfate Oph) 1 % Oin 4 DROP PO Q1H PRN for secretions for 7 Days, #50 DOSE Oxycodone Oral Soln (Roxicodone Oral Soln) 5 Mg/5 Ml Soln 5 MG PO Q2H PRN for Shortness of Breath for 3 Days, #100 ML Initiating therapy, hospice care Changed Medications: Oxygen (Oxygen) Gas 2 LITERS NA CONTINOUS, #1 DOSE (Changed from: OXYGEN 2 LITERS INHALATION VIA BIPAP CONTINUOUSY AND CONTINUOUS VIA NASAL CANNULA) OXYGEN 2 LITERS INHALATION VIA NASAL CANNULA, titrate for comfort Discontinued Medications: Acetaminophen (Tylenol) 650 Mg Supp 650 MG MA TID PRN for Pain or Fever TEMP >100 OR PAIN Acetaminophen Tab (Tylenol) 325 Mg Tab 650 MG PEG TID PRN for Pain Albuterol (Ventolin Hfa) 60 Puffs/5400 Mcg Aers 2 PUFFS INH Q4 PRN for Wheezing Albuterol Hfa (Ventolin Hfa) 200 Puffs/87861 Mcg Aers 2 PUFFS INH Q4H PRN for Wheezing, #1 INHALER Albuterol Sulf (Proventil 0.083% 2.5MG/3ML) 2.5 Mg/3 Ml Nebu 2.5 MG INH Q6H PRN for Wheezing, EA Amlodipine Besylate (Amlodipine Besylate) 5 Mg Tab 5 MG PEG QAM, #30 TAB Aspirin (Aspirin 81) 81 Mg Tab 81 MG PEG QAM Atorvastatin (Lipitor) 40 Mg Tab 40 MG PEG QAM, TAB Bisacodyl (Bisac-Evac) 10 Mg Supp 10 MG MA every 4 days PRN for Constipation Budesonide (Inhalation) (Pulmicort Respules 0.5MG/2ML) 0.5 Mg/2 Ml Meera 0.5 MG INH BIDR, #60 Clopidogrel (Plavix) 75 Mg Tab 75 MG PEG DAILY, TAB Dextrose (Diabetic Use) (Glutose 15) 40 % Gel 15 GM PEG UD PRN for BS GLUTOSE 15 (GLUCOSE 40% ORAL GEL) 15 G (ENTIRE TUBE) PEG TUBE PRN FOR BS OF 60 OR BELOW Fluoxetine (Prozac) 10 Mg Cap 10 MG PEG QAM Furosemide (Lasix) 20 Mg Tab 20 MG PEG QAM Glucagon (Glucagon Emergency Kit) 1 Mg Kit 1 MG IM prn PRN for HYPOGLYCEMIA PROTOCOL Hydrocodone/Acetaminophen 5MG/325MG ([place] 5MG/325MG) Tab 1 TABLET PEG Q8H PRN for Pain Insulin Glargine (Lantus) 100 Unit/Ml Inj 28 UNITS SC QPM, VIAL Insulin Glargine (Lantus) 100 Unit/Ml Inj 24 UNITS SC QAM for 30 Days, VIAL Lamotrigine (Lamotrigine) 100 Mg Tab 100 MG PEG BID Levothyroxine Sodium (Levothyroxine Sodium) 125 Mcg Tab 125 MCG PEG QAM Lidocaine Hcl (Lidocaine Hcl) 2 % Gel 1 APPLN TOP PRN for Pain APPLY LIOCAINE 2% GEL TOPICALY SPARINGLYY PRN TO URETHRA EVERY 8 HOURS FOR CONTINUED PAIN Lorazepam (Ativan) 0.5 Mg Tab 0.5 MG PEG HS, TAB Magnesium Hydroxide (Milk Of Magnesia) 30 Ml Susp 30 ML PEG DIRECTED PRN for Constipation, ML MILK OF MAGNESIA 30 ML PEG TUBE PRN IF NO BM IN 3 DAYS Meclizine Hcl (Meclizine Hcl) 12.5 Mg Tab 12.5 MG PEG UD GIVE 12.5MG OF MECLIZINE PEG TUBE BEFORE EACH FEED Metoprolol Tartrate (Lopressor) 25 Mg Tab 25 MG PEG BID for 30 Days, #60 TAB Nutritional Supplements (Isosource 1.5 Eulogio) 1 Liq Liq 250 ML PEG 5XD 0730,1000,1300,1600,1900 Ranitidine Hcl (Zantac) 300 Mg Tab 300 MG PEG BID, TAB Risperidone (Risperdal) 1 Mg/Ml Soln 2 MG GT QAM Risperidone (Risperidone) 1 Mg/Ml Jumana 4 MG GT QPM Tramadol (Ultram) 50 Mg Tab 50 MG PEG Q4H PRN for Pain, TAB TRAMADOL 50MG PEG TUBE PRN UP TO Q4H DO NOT EXCEED 40MG IN ONE DAY Valproic Acid (Valproic Acid) 500 Mg/10 Ml Syrp 500 MG PEG TID Discharge Exam Subjective Pt evaluation today including: conversation w/ patient, conversation w/ family , physical exam, chart review, lab review, review of studies, review of inpatient medication list Pain: none PO Intake: good The patient was seen and examined this morning. Pt reports doing ok overnight, she slept well. Pt was on bipap when I went in to see her and she was able to be switched to an oximask at bedside. She is currently comfortable. Discussion was held with her by herself about hospice, and transition out of the hospital with hospice, she is in agreement with wanting to remain comfortable. Her hgb is low this morning, and I asked if she would like to receive blood transfusion, and she does want this. I will order 1 U PRBC for today. She understands that after being discharged on hospice she won't get blood transfusions, invasive procedures, blood draws, or have to take medications. She will have meds for pain control and air hunger. This discussion was also help with Johan, her boyfriend when he got to the room this morning. I also explained this to Hazel, [id number], over the phone. They are all in agreement with comfort measures. Constitutional: No chills, No fatigue, No fever Eyes: No redness ENT: No dental problems, No nasal symptoms Respiratory: No cough, No shortness of breath Cardiovascular: No chest pain Abdomen: No nausea, No pain, No vomiting Musculoskeletal: No joint pain Female : No dysuria Neurologic: + problem reported (Left paraplegia), + weakness Endo: No fatigue Skin: No itch, No rash Objective Vital Signs Date Time Temp Pulse Resp B/P Pulse Ox O2 Delivery O2 Flow Rate FiO2 12/29/16 04:00 36.7 69 16 153/73 99 BiPAP 50 12/29/16 04:00 98 BiPAP 50 12/29/16 01:51 71 16 99 BiPAP/CPAP 50 12/28/16 23:59 36.0 69 13 120/58 98 BiPAP 50 12/28/16 23:59 98 BiPAP 50 12/28/16 22:16 68 14 99 12/28/16 22:01 67 14 101/52 100 12/28/16 21:46 67 12 100 12/28/16 21:31 69 13 100 12/28/16 21:16 68 12 100 12/28/16 21:08 70 98 50 12/28/16 21:02 69 3 109/54 12/28/16 21:01 74 6 12/28/16 21:00 71 11 12/28/16 20:30 69 11 100 12/28/16 20:25 70 18 91 Nasal Cannula 5.0 12/28/16 20:01 79 8 128/63 95 12/28/16 20:00 82 15 93 12/28/16 20:00 36.5 12/28/16 20:00 Nasal Cannula 5.0 12/28/16 19:30 78 13 96 12/28/16 19:01 75 6 133/62 100 12/28/16 19:00 77 4 100 12/28/16 18:30 80 5 100 12/28/16 18:01 76 16 133/59 100 12/28/16 18:00 78 12 100 12/28/16 18:00 36.7 12/28/16 17:30 79 6 100 12/28/16 17:01 77 15 131/70 100 12/28/16 17:00 77 13 100 12/28/16 16:30 76 10 99 12/28/16 16:08 79 98 12/28/16 16:03 79 22 100 BiPAP/CPAP 98 12/28/16 16:02 83 13 136/70 100 12/28/16 16:00 BiPAP 75 12/28/16 16:00 81 19 100 12/28/16 16:00 36.7 12/28/16 15:30 80 16 100 12/28/16 15:01 69 13 111/56 93 12/28/16 15:00 70 13 94 12/28/16 12:00 75 20 143/68 94 BiPAP 65 75 12/28/16 12:00 Room Air 12/28/16 11:26 77 100 12/28/16 11:25 77 23 100 BiPAP/CPAP 75 12/28/16 10:00 74 20 140/69 96 BiPAP 100 74 12/28/16 09:00 75 12/28/16 08:00 36.6 85 20 114/60 92 BiPAP 100 85 12/28/16 08:00 95 Room Air Physical Exam General Appearance: WD/WN, no apparent distress, + obese Eyes: PERRL, EOMI ENT: hearing grossly normal, + pertinent finding (mucous membranes dry, switched from bipap to oximask and seems to be toleating) Neck: no adenopathy, no JVD Respiratory/Chest: no respiratory distress, no accessory muscle use, + pertinent finding (coarse breath sounds throughout, diminished breath sounds at bases.) Cardiovascular: regular rate, rhythm, + tachycardia Abdomen: normal bowel sounds, non tender, soft Extremities: non-tender, no calf tenderness, + pedal edema Neurologic/Psychiatric: alert, + pertinent finding (oriented to self, place, and year. Cannot tell me the date or month) Skin: normal color, warm/dry Hospital Course H&P per Mine Tamayo PA-C History of Present Illness Source: patient This is a 61-year-old female with a past medical history of diastolic CHF, COPD , acute on chronic anemia, diabetes type 2, history of CVA with a left hemiplegia, history of an STEMI beginning of September 2016, CK disease stage III , seizure disorder/epilepsy, hypothyroidism, schizoaffective disorder, anxiety, depression, now presenting with increased chest tightness brought from home, with a possible RLL pneumonia as seen on chest xray. Patient is a poor historian, and no family is present in the room. The patient has been admitted twice within the last 2 months, this will be her third admission. The first was on October 04 for NSTEMI and the 2nd was on November 23 for pneumonia where she completed course of Zosyn and then followed up with 5 more days of Levaquin. She denies having any shortness of breath, or work of breathing. She is currently satting adequately on her normal 2 L of supplemental oxygen, denies feeling short of breath, denies cough, denies sputum production. Her complaint is regarding abdominal pain currently, states generalized and she cannot determine a focal point. She denies any nausea, vomiting, diarrhea or constipation. She reports she does have a PEG tube and receives all meals through this, the borders of this appear to be intact. In the ER chest x-ray appears to have a right lower lobe pneumonia, has been afebrile, WBC is 9.26. We'll check a troponin. Pt has had elevated troponin in the past. Physical Exam Vital Signs Date Time Temp Pulse Resp B/P Pulse Ox O2 Delivery O2 Flow Rate FiO2 12/27/16 07:37 98 Nasal Cannula 2.0 12/27/16 07:04 90 12 168/88 98 Room Air 12/27/16 06:02 87 16 158/84 97 Nasal Cannula 2.0 12/27/16 05:19 94 Nasal Cannula 2.0 12/27/16 05:18 94 Nasal Cannula 2.0 12/27/16 05:03 90 12/27/16 04:45 88 20 157/75 94 Nasal Cannula 2.0 General Appearance: WD/WN, no apparent distress, + obese, + pertinent finding ( talks slowly, requires questions be asked several times before she answers) Head: normocephalic, atraumatic, + pertinent finding (drooling) Eyes: PERRL, EOMI ENT: hearing grossly normal, + pertinent finding (enlarged tongue) Neck: supple, no JVD Respiratory/Chest: no respiratory distress, no accessory muscle use, + pertinent finding (wearing 2 L O2 via NC, diminished breath sounds at bases, + crackles RLL) Cardiovascular: regular rate, rhythm, no JVD, no murmur Abdomen/GI: normal bowel sounds, soft, no organomegaly, + pertinent finding (+ PEG tube in LUQ, no surrounding erythema. Generalized tenderness throughout) Extremities/Musculoskelatal: no calf tenderness, + pedal edema (1+ pedal edema up to ant tib region bilaterally) Neurologic/Psych: + disoriented (oriented to self, not place or time. +left sided hemiplegia, +needs to be asked questions several times before responds although answers make sense, +follows commands well. Strength in RLE is 3/5, LLE is flaccid. RUE ext with 5/5 strength and LUE is flaccid.) Skin: normal color, warm/dry Hospital Course This is a 61-year-old female with a past medical history of diastolic CHF, COPD , acute on chronic anemia, diabetes type 2, history of CVA with a left hemiplegia, history of an STEMI beginning of September 2016, CK disease stage III , seizure disorder/epilepsy, hypothyroidism, schizoaffective disorder, anxiety, depression, now presenting with increased chest tightness brought from home, diagnosed with acute respiratory failure secondary to RLL aspiration pneumonia, CVA inhibiting swallow ability and secretions control, and underlying COPD. The patient was admitted and transitioned to the ICU for concern for airway protection and tachycardia. Troponin was elevated to 1.2, but likely from demand ischemia as no other cardiac symptoms were present and EKG was without acute changes. Hgb trended downward to 6.9, so was transfused 1 U PRBCs on prior to discharge on hospice, a dose of lasix 20 mg IV was given after blood administration for volume control. CXR repeat on 12/28/16 showed increased congestion on the left, likely mucous plugging. The patients family was relied upon for decision making and it was determined that she would likely need ventilated and tracheostomy performed in the future, however family did not want this. After bipap continuously overnight on 12/28 the patient mental status improved and she made the decision to transition to hospice care. Family was in agreement with this plan. She was able to be transitioned off bipap to a oxymask on 12/29 at and titrated to 8-10Liters. Hospice was arranged for at her home by [facility]. Palliative medicine made medication recommendations including roxinol for pain and air hunger, and atropine drops orally for secretion control. Pt was stable for discharge to home with hospice. Pt transitioned to COMFORT CARE only - Consulted palliative medicine - Consult pastoral care - Stop all unnecessary meds - Will continue antibiotics and lasix for now, continue respiratory treatments, cont antiseizure meds, metoprolol for palpitations, alternate between bipap and oximask as tolerated - Continue pain medication- pt may need additional pain meds - per palliative - Plan for 1 U PRBCs today - Move out of ICU to med surg after transfusion today Acute respiratory failure with hypoxia, hypercapnia: - CXR from 12/28 appears worse than when admitted, mucous plugging on left side - The patient's mental status is good during this discussion this morning so she was able to agree to a blood transfusion and also understands the hospice conversation. - long talk with family about aggressive care that would require intubation, bronchoscopy, further lab draws: they are all in agreement this morning to move to comfort care, and would like hospice upon discharge to home. I have already asked CM to assist with d/c planning for home hospice. Family currently has 18/04 care with nurses in the home and has equipment set up. - made a level V DNR,DNI -pt is tolerating BIPAP and alternating with oximask Chronic Anemia - hemmocult negative - Hgb trended down from 7.5 to 6.9 today, plan to transfuse 1 U PRBCs with lasix 20 mg IV afterwards to avoid volume overload. - Pt is in agreement with this. Bilateral pneumonia, left mucous plug: - stop antibiotics, nebulizers, mucomyst CLARK on CKD - Cr. bumped from 1.7 to 2.1, likely from diuresis with lasix for respiratory failure. Will only give 20 mg lasix between PRBCs today to attempt to not injure kidneys more. - Avoid nephrotoxins Abdominal pain - resolved today, no changes on CT abdomen pelvis Acute on chronic Diastolic CHF - lasix 40mg IV daily, -cont for now, trying to diurese but mucous plug and respiratory failure more pressing issue History of CVA Left hemiplegia - Stopped plavix 75 mg daily, asa, amlodipine, atorvastatin - [id number] mattress, Q2H turn and repo - weakness driving her respiratory failure and mucous plug, will not improve DM II - Stopped insulin L Hx NSTEMI - troponin up to 1.2, likely from demand ischemia - EKG appears to be NSR with AV block, no ST changes Seizure disorder - Continue lamictal 100 mg BID, valproic acid 500 mg TID Hypothyroidism - Cont levothyroxine 125 mcg Parishctive Disorder Anxiety/Depression - Cont prozac DVT ppx: heparin subq, teds, scds CODE STATUS: changed to DNR, DNI, pt transitioned to comfort measures, plan for dc with hospice today Total Time Spent: Greater than 30 minutes This includes examination of the patient, discharge planning, medication reconciliation, and communication with other providers. Discharge Instructions Please refer to the electronic Patient Visit Report (Discharge Instructions) for additional information. Follow-Up Follow up with your hospice team as soon as you arrive home Additional Copies To Félix Garcia D.O.
[2016-12-29] MEDS ORDERED: RXNS10 PO (16:07)
[2016-12-30] MEDS ORDERED: VANCOMYCIN TROUGH SCH (23:30)
== END 2016-12-29 16:57 | disposition hospice, home (50) | DRG 291 ==
LOC: ENRESERVDT → ENRESERVTM → EDBD 04:45 → C.EDB 04:47 → C.MS4W 08:22 → C.MSICU 12-28 01:14 → CANBEDREQ 12-29 09:40
PROVIDERS: ADMIT Internal Medicine; ATTEND Internal Medicine
DX: I13.0 Hypertensive heart and chronic kidney disease with heart failure and stage 1 through stage 4 chronic kidney disease, or unspecified chronic kidney disease (principal); J96.22 Acute and chronic respiratory failure with hypercapnia; J69.0 Pneumonitis due to inhalation of food and vomit; J96.01 Acute respiratory failure with hypoxia; I50.33 Acute on chronic diastolic (congestive) heart failure; J44.0 Chronic obstructive pulmonary disease with (acute) lower respiratory infection; N17.9 Acute kidney failure, unspecified; I69.354 Hemiplegia and hemiparesis following cerebral infarction affecting left non-dominant side; Z68.41 Body mass index [BMI] 40.0-44.9, adult; G40.909 Epilepsy, unspecified, not intractable, without status epilepticus; I25.2 Old myocardial infarction; N18.3 Chronic kidney disease, stage 3 (moderate); E03.9 Hypothyroidism, unspecified; F32.9 Major depressive disorder, single episode, unspecified; F41.9 Anxiety disorder, unspecified; E11.22 Type 2 diabetes mellitus with diabetic chronic kidney disease; D64.9 Anemia, unspecified; E78.5 Hyperlipidemia, unspecified; Z93.1 Gastrostomy status; J45.909 Unspecified asthma, uncomplicated; F70 Mild intellectual disabilities; F25.9 Schizoaffective disorder, unspecified; I25.10 Atherosclerotic heart disease of native coronary artery without angina pectoris; E87.5 Hyperkalemia; Z66 Do not resuscitate; E66.9 Obesity, unspecified; Z83.3 Family history of diabetes mellitus; Z82.49 Family history of ischemic heart disease and other diseases of the circulatory system; Z79.82 Long term (current) use of aspirin; Z79.4 Long term (current) use of insulin